=== PATIENT | male | born 1950 | race Caucasian/White ===

== ENCOUNTER 2020-07-02 14:47 | Emergency (ER) | payer MEDICARE, MEDICAID, SELFPAY ==
[2020-07-02 14:49] VITALS: BP 155/75; PULSE 59; RESP 18; TEMP 36.3; O2SAT 100; BMI 22.0
--- NOTE | 2020-07-02 15:21 | XR_ITS ---
WS: [id number] XR chest 1V portable [id number] REASON FOR EXAM: dyspnea/cough FINDINGS: The heart and mediastinum are within normal limits. Calcified granulomatous disease is present bilaterally. No active pulmonary parenchymal or pleural disease is noted. Moderate degenerative changes in the right acromioclavicular joint. Mild changes of degenerative spon dylosis in the mid and lower thoracic spine. XR/XR chest 1V portable [id number] IMPRESSION: No acute chest abnormality.
[2020-07-02 15:24] VITALS: O2SAT 100
--- NOTE | 2020-07-02 15:36 | ED_ITS ---
HPI - Weakness General: Chief complaint: Weakness Stated complaint: Frequent Passing Out/Stomach Pain/Weak Time Seen by Provider: 07/02/20 15:07 History of Present Illness: HPI Narrative: 70-year-old male presents emergency room with complaints of chest heaviness and weakness. He has been anxious clammy and nauseous at times. Patient is a 50+ year smoker and is also very heavy drinker who recently quit (within the day). This is been associated with nausea abdominal bloating and discomfort. MD Complaint: generalized weakness Onset (ago): week(s) Duration: constant Relieving factors: none Exacerbating factors: none Associated symptoms: Reports chest pain, chills, decreased appetite and nausea; Denies confusion, melena, diaphoresis, dysuria, easy bruising, fever(s), headache(s), myalgias, rash, short of breath, syncope or vomiting Review of Systems Const: Reports: chills; Denies: fever(s) or diaphoresis ENMT: Denies: throat pain, ear or mastoid pain, nasal discharge or nasal congestion Card: Reports: chest pain; Denies: syncope Resp: Denies: dyspnea, productive cough or non-productive cough GI: Reports: nausea; Denies: vomiting or melena : Denies: dysuria Skin/Breast: Denies: rash or pruritus Neuro: Denies: headache(s) or confusion Live/Lymph: Denies: easy bruising Physical Exam Const: COMMON NORMALS: no acute distress GENERAL APPEARANCE: cooperative and comfortable ORIENTATION/CONSCIOUSNESS: Yes awake, Yes oriented to person, Yes oriented to place and Yes oriented to time HENMT: COMMON NORMALS: normocephalic, atraumatic and hearing grossly normal bilaterally HEAD & SCALP: normocephalic and atraumatic Neck/C-Spine: COMMON NORMALS: no JVD Resp: COMMON NORMALS: normal respiratory effort, No retractions, No use of accessory muscles and clear to auscultation bilaterally AUSCULTATION: clear to auscultation bilaterally Cardio: COMMON NORMALS: no JVD, regular rate, regular rhythm and No murmurs present (Cardio) RATE: regular rate RHYTHM: regular rhythm GI: COMMON NORMALS: Soft to palpation and No hepatosplenomegaly present AUSCULTATION: Yes normoactive bowel sounds PALPATION: Yes Soft to palpation, No Tenderness to palpation present (GI), No Guarding due to palpation present (GI) and Yes No hepatosplenomegaly present Extremity: COMMON NORMALS: normal to inspection, capillary refill normal, no clubbing, cyanosis or edema, no calf tenderness and no pedal edema Neuro: SENSORIUM/ORIENTATION: Yes oriented to person, Yes oriented to place and Yes oriented to time Skin: COMMON NORMALS: no rashes or lesions noted GENERAL SKIN EXAM: no rashes or lesions noted Course Vital Signs: Vital signs: Vital Signs Temperature 97.4 F L 07/02/20 14:49 Pulse Rate 71 07/02/20 18:40 Respiratory Rate 16 07/02/20 18:40 Blood Pressure 168/90 07/02/20 18:40 Pulse Oximetry 98 07/02/20 15:45 MDM - Weakness MDM Narrative: Medical decision making narrative: The patient. He is anxious stop drinking but does not want to stay here. Will discharge home with a taper of Librium as well as set up for an outpatient stress test. Patient strongly recommend some kind of assistance [place] through AA meetings or being evaluated at [facility]. Lab Data: Labs: Lab Results 07/02/20 07/02/20 07/02/20 Range/Units 15:20 15:20 15:20 WBC 10.2 H (4.0-10.0) 10^3/ uL RBC 5.08 (4.1-5.3) 10^6/u L Hgb 16.8 H (11.7-16.6) g/dL Hct 49.3 (42.0-52.0) % MCV 97.0 H (80-94) fL MCH 33.1 (28.0-34.0) pg MCHC 34.1 (30.0-36.0) g/dL RDW 12.5 (12.1-15.1) % Plt Count 206 (130-400) 10^3/c mm MPV 11.1 H (7.4-10.4) fL Neut % (Auto) 86.6 % Lymph % (Auto) 6.8 % [place] % (Auto) 5.6 % Eos % (Auto) 0.2 % Baso % (Auto) 0.3 % Neut # (Auto) 8.81 H (1.8-7.7) 10^3/u L Lymph # (Auto) 0.7 L (0.8-4.8) 10^3/u L [place] # (Auto) 0.6 (0.2-0.9) 10^3/u L Eos # (Auto) 0.0 (0.0-0.8) 10^3/u L Baso # (Auto) 0.0 (0.0-0.1) 10^3/u L Nucleated RBC % (a uto) 0 % Nucleated RBCs # 0.0 /100WBC Specimen Type Sample Site ABG pH (7.35-7.45) ABG pCO2 (35-45) mmHg ABG pO2 (80.0-100.0) mmH g ABG HCO3 (22-26) mmol/L ABG O2 Saturation ABG Base Excess (-2.0-2.0) mmol/ L Timmy Test A-a O2 Gradient (5-10) mmHg Hematocrit (42-52) % Hgb O2 Saturation (95-100) % Carboxyhemoglobin (0.4-20.1) %THgb Methemoglobin (0.4-1.5) % Total Hemoglobin (14-18) g/dL Ionized Calcium (1.1-1.4) mmol/L O2 Delivery Device Rn Case Management ID Sodium 136 (136-145) mmol/L Potassium 3.4 L (3.5-5.1) mmol/L Chloride 97 L (98-107) mmol/L Carbon Dioxide 25 (22-29) mmol/L Anion Gap 17.4 (5-19) BUN 14 (8-23) mg/dL Creatinine 0.9 (0.7-1.2) mg/dL GFR Calculation 83.4 L (90-130) mL/min Glucose 137 H (65-115) mg/dL Calculated Osmolal ity 285 (285-295) mOsm/k g Lactic Acid 3.6 H (0.5-2.2) mmol/L Lactic Acid (Sepsi s) (0.5-2.2) mmol/L Calcium 9.1 (8.5-10.5) mg/dL Magnesium 2.0 (1.7-2.3) mg/dL Total Bilirubin 0.5 (0.15-1.2) mg/dL AST 29 (0-40) U/L ALT 17 (0-41) U/L Alkaline Phosphata se 111 (40-130) IU/L Creatine Kinase 56 (39-308) U/L Troponin T Baselin e (0-15) ng/L Troponin T 120 Min [place] (0-15) ng/L Delta Troponin T (0-10) ABS# Total Protein 7.3 (6.6-8.7) g/dL Albumin 4.4 (3.5-5.2) g/dL Globulin 2.9 (1.3-4.6) g/dL Lipase 23 (13-60) U/L Urine Color (Yellow) Urine Appearance (CLEAR) Urine pH (5-7) Ur Specific Gravit y (1.005-1.030) Urine Protein (Negative) Urine Glucose (UA) (Normal) Urine Ketones (Negative) Urine Blood (Negative) Urine Nitrate (Negative) Urine Bilirubin (Negative) Urine Urobilinogen (Negative) mg/dL Ur Leukocyte Nighat ase (Negative) Urine RBC (0-2) /hpf Urine WBC (0-5) /hpf Ur Squamous Epith Cells (0-5) /hpf Amorphous Sediment Urine Bacteria (NONE) /hpf Urine Mucus /hpf Serum Ketones (Negative) 07/02/20 07/02/20 07/02/20 Range/Units 15:20 15:20 15:25 WBC (4.0-10.0) 10^3/ uL RBC (4.1-5.3) 10^6/u L Hgb (11.7-16.6) g/dL Hct (42.0-52.0) % MCV (80-94) fL MCH (28.0-34.0) pg MCHC (30.0-36.0) g/dL RDW (12.1-15.1) % Plt Count (130-400) 10^3/c mm MPV (7.4-10.4) fL Neut % (Auto) % Lymph % (Auto) % [place] % (Auto) % Eos % (Auto) % Baso % (Auto) % Neut # (Auto) (1.8-7.7) 10^3/u L Lymph # (Auto) (0.8-4.8) 10^3/u L [place] # (Auto) (0.2-0.9) 10^3/u L Eos # (Auto) (0.0-0.8) 10^3/u L Baso # (Auto) (0.0-0.1) 10^3/u L Nucleated RBC % (a uto) % Nucleated RBCs # /100WBC Specimen Type Arterial Sample Site Radial, left ABG pH 7.42 (7.35-7.45) ABG pCO2 37.8 (35-45) mmHg ABG pO2 83.6 (80.0-100.0) mmH g ABG HCO3 24.5 (22-26) mmol/L ABG O2 Saturation 98.0 ABG Base Excess 0.3 (-2.0-2.0) mmol/ L Timmy Test Pos A-a O2 Gradient 2.2 L (5-10) mmHg Hematocrit 51.3 (42-52) % Hgb O2 Saturation 94.5 L (95-100) % Carboxyhemoglobin 3.5 (0.4-20.1) %THgb Methemoglobin 0.2 L (0.4-1.5) % Total Hemoglobin 16.8 (14-18) g/dL Ionized Calcium 1.2 (1.1-1.4) mmol/L O2 Delivery Device Room air Rn Case Management ID Gd Sodium 138.0 (136-145) mmol/L Potassium 3.5 (3.5-5.1) mmol/L Chloride (98-107) mmol/L Carbon Dioxide (22-29) mmol/L Anion Gap (5-19) BUN (8-23) mg/dL Creatinine (0.7-1.2) mg/dL GFR Calculation (90-130) mL/min Glucose 129.0 H (65-115) mg/dL Calculated Osmolal ity (285-295) mOsm/k g Lactic Acid (0.5-2.2) mmol/L Lactic Acid (Sepsi s) (0.5-2.2) mmol/L Calcium (8.5-10.5) mg/dL Magnesium (1.7-2.3) mg/dL Total Bilirubin (0.15-1.2) mg/dL AST (0-40) U/L ALT (0-41) U/L Alkaline Phosphata se (40-130) IU/L Creatine Kinase (39-308) U/L Troponin T Baselin e 17 H (0-15) ng/L Troponin T 120 Min [place] (0-15) ng/L Delta Troponin T (0-10) ABS# Total Protein (6.6-8.7) g/dL Albumin (3.5-5.2) g/dL Globulin (1.3-4.6) g/dL Lipase (13-60) U/L Urine Color (Yellow) Urine Appearance (CLEAR) Urine pH (5-7) Ur Specific Gravit y (1.005-1.030) Urine Protein (Negative) Urine Glucose (UA) (Normal) Urine Ketones (Negative) Urine Blood (Negative) Urine Nitrate (Negative) Urine Bilirubin (Negative) Urine Urobilinogen (Negative) mg/dL Ur Leukocyte [place] ase (Negative) Urine RBC (0-2) /hpf Urine WBC (0-5) /hpf Ur Squamous Epith Cells (0-5) /hpf Amorphous Sediment Urine Bacteria (NONE) /hpf Urine Mucus /hpf Serum Ketones Negative (Negative) 07/02/20 07/02/20 07/02/20 Range/Units 16:17 17:58 17:58 WBC (4.0-10.0) 10^3/ uL RBC (4.1-5.3) 10^6/u L Hgb (11.7-16.6) g/dL Hct (42.0-52.0) % MCV (80-94) fL MCH (28.0-34.0) pg MCHC (30.0-36.0) g/dL RDW (12.1-15.1) % Plt Count (130-400) 10^3/c mm MPV (7.4-10.4) fL Neut % (Auto) % Lymph % (Auto) % [place] % (Auto) % Eos % (Auto) % Baso % (Auto) % Neut # (Auto) (1.8-7.7) 10^3/u L Lymph # (Auto) (0.8-4.8) 10^3/u L [place] # (Auto) (0.2-0.9) 10^3/u L Eos # (Auto) (0.0-0.8) 10^3/u L Baso # (Auto) (0.0-0.1) 10^3/u L Nucleated RBC % (a uto) % Nucleated RBCs # /100WBC Specimen Type Sample Site ABG pH (7.35-7.45) ABG pCO2 (35-45) mmHg ABG pO2 (80.0-100.0) mmH g ABG HCO3 (22-26) mmol/L ABG O2 Saturation ABG Base Excess (-2.0-2.0) mmol/ L Timmy Test A-a O2 Gradient (5-10) mmHg Hematocrit (42-52) % Hgb O2 Saturation (95-100) % Carboxyhemoglobin (0.4-20.1) %THgb Methemoglobin (0.4-1.5) % Total Hemoglobin (14-18) g/dL Ionized Calcium (1.1-1.4) mmol/L O2 Delivery Device Rn Case Management ID Sodium (136-145) mmol/L Potassium (3.5-5.1) mmol/L Chloride (98-107) mmol/L Carbon Dioxide (22-29) mmol/L Anion Gap (5-19) BUN (8-23) mg/dL Creatinine (0.7-1.2) mg/dL GFR Calculation (90-130) mL/min Glucose (65-115) mg/dL Calculated Osmolal ity (285-295) mOsm/k g Lactic Acid (0.5-2.2) mmol/L Lactic Acid (Sepsi s) 0.8 (0.5-2.2) mmol/L Calcium (8.5-10.5) mg/dL Magnesium (1.7-2.3) mg/dL Total Bilirubin (0.15-1.2) mg/dL AST (0-40) U/L ALT (0-41) U/L Alkaline Phosphata se (40-130) IU/L Creatine Kinase (39-308) U/L Troponin T Baselin e (0-15) ng/L Troponin T 120 Min [place] 17.54 H (0-15) ng/L Delta Troponin T 0.54 (0-10) ABS# Total Protein (6.6-8.7) g/dL Albumin (3.5-5.2) g/dL Globulin (1.3-4.6) g/dL Lipase (13-60) U/L Urine Color Yellow (Yellow) Urine Appearance Clear (CLEAR) Urine pH 6.5 (5-7) Ur Specific Gravit y 1.015 (1.005-1.030) Urine Protein Trace (Negative) Urine Glucose (UA) Norm (Normal) Urine Ketones 1+ H (Negative) Urine Blood Neg (Negative) Urine Nitrate Negative (Negative) Urine Bilirubin Neg (Negative) Urine Urobilinogen Norm (Negative) mg/dL Ur Leukocyte [place] ase Negative (Negative) Urine RBC 0-4 H (0-2) /hpf Urine WBC None (0-5) /hpf Ur Squamous Epith Cells None (0-5) /hpf Amorphous Sediment Not Reportable Urine Bacteria Trace (NONE) /hpf Urine Mucus 1+ /hpf Serum Ketones (Negative) Discharge Plan Discharge Patient Disposition: Home Clinical Impression: Atypical chest pain, ETOH abuse Condition: Stable Prescriptions: New pantoprazole 40 mg tablet,delayed release (DR/EC) 40 mg PO DAILY 56 Days Qty: 60 RF: 0 chlordiazepoxide HCl 10 mg capsule 10 mg PO Q8H Qty: 20 RF: 0 aspirin 81 mg tablet,delayed release (DR/EC) 81 mg PO DAILY Qty: 30 RF: 3 Toprol XL 25 mg tablet extended release 24 hr 12.5 mg PO DAILY Qty: 20 RF: 0 Discharge Orders: Discharge ED (Routine); Ordered 07/02/20 Ordered By: Troy Gotti Discharge Diet: Usual diet Discharge Activity: Resume usual activity Patient Instructions: Abuse of Alcohol (ED), Opioid Safety Activity Restrictions/Additional Instructions: Not drink alcohol. Case management will call you with an appointment to do his Lexiscan sestamibi stress test. Do not drink any alcohol while taking the Librium taper off Librium as prescribed. Recommend you follow-up with outpatient alcohol rehab such as [facility]. Coding Level of Care Code ED Assistant [employer] for [place] Fwd Exam Comprehensive
[2020-07-02 15:38] LABS: Basophils % 0.3 %; Eosinophils % 0.2 %; Hematocrit 49.3 % (42.0-52.0); Hemoglobin 16.8 g/dL (11.7-16.6); Lymphocytes # 0.7 10^3/uL (0.8-4.8); Lymphocytes % 6.8 %; Mean Corpuscular HGB Conc 34.1 g/dL (30.0-36.0); Mean Corpuscular Hemoglobin 33.1 pg (28.0-34.0); Mean Platelet Volume 11.1 fL (7.4-10.4); Monocytes # 0.6 10^3/uL (0.2-0.9); Monocytes % 5.6 %; Neutrophils # 8.81 10^3/uL (1.8-7.7); Neutrophils % 86.6 %; Nucleated Red Blood Cells % 0 %; Platelet Count 206 10^3/cmm (130-400); Red Blood Count 5.08 10^6/uL (4.1-5.3); Red Cell Distribution Width 12.5 % (12.1-15.1); White Blood Count 10.2 10^3/uL (4.0-10.0)
[2020-07-02 15:42] LABS: ABG PCO2 37.8 mmHg (35-45); ABG PH Result 7.42 (7.35-7.45); Alveolar-Arterial Oxygen Gradi 2.2 mmHg (5-10); Arterial Blood Gas Hematocrit 51.3 % (42-52); Base Excess ABG 0.3 mmol/L (-2.0-2.0); Blood Gas Allen Test Pos; Blood Gas Operator Identificat GD; Blood Gas Sample Site Radial, left; Blood Gas Sample Type Arterial; Carboxyhemoglobin 3.5 %THgb (0.4-20.1); HCO3 ABG 24.5 mmol/L (22-26); HGB O2 Sat 94.5 % (95-100); Ionized Calcium Level - ABG 1.2 mmol/L (1.1-1.4); Methemoglobin 0.2 % (0.4-1.5); Oxygen Device ROOM AIR; PO2 ABG 83.6 mmHg (80.0-100.0); Potassium Level - ABG 3.5 mmol/L (3.5-5.0); Total Hemoglobin 16.8 g/dL (14-18)
[2020-07-02 15:45] VITALS: BP 185/100; PULSE 77; RESP 18; O2SAT 98
[2020-07-02 15:50] LABS: Ketone (Acetest) Serum Negative (Negative)
[2020-07-02 15:51] LABS: Lactic Sepsis W/Reflex 3.6 mmol/L (0.5-2.2)
[2020-07-02 16:05] LABS: Alanine Aminotransferase 17 U/L (0-41); Albumin Level 4.4 g/dL (3.5-5.2); Alkaline Phosphatase 111 IU/L (40-130); Anion Gap 17.4 (5-19); Aspartate Amino Transferase 29 U/L (0-40); Blood Urea Nitrogen 14 mg/dL (8-23); Calcium 9.1 mg/dL (8.5-10.5); Carbon Dioxide 25 mmol/L (22-29); Chloride 97 mmol/L (98-107); Creatine Phosphokinase 56 U/L (39-308); Globulin 2.9 g/dL (1.3-4.6); Glomerular Filtration Rate 83.4 mL/min (90-130); Glucose 137 mg/dL (65-115); Lipase 23 U/L (13-60); Osmolality Calculated 285 mOsm/kg (285-295); Potassium 3.4 mmol/L (3.5-5.1); Sodium 136 mmol/L (136-145); Total Bilirubin 0.5 mg/dL (0.15-1.2); Total Protein 7.3 g/dL (6.6-8.7)
[2020-07-02 16:31] LABS: Glucose Urine UA Norm (Normal); Protein Urine Trace (Negative); Specific Gravity, Urine 1.015 (1.005-1.030); Urine Appearance Clear (CLEAR); Urine Color Yellow (Yellow); pH Urine 6.5 (5-7)
[2020-07-02 16:32] LABS: Add Urine Microscopic? YES; Bilirubin Urine Neg (Negative); Blood Urine Neg (Negative); Ketones Urine 1+ (Negative); Leukocyte Esterase Urine Negative (Negative); Nitrate Urine Negative (Negative); Urobilinogen Urine Norm (Negative)
[2020-07-02 16:37] LABS: Bacteria Urine TRACE /hpf; Mucus Urine 1+ /hpf; RBC Urine 0-4 /hpf (0-2)
[2020-07-02 16:38] LABS: Add Urine Culture? No
[2020-07-02 17:24] LABS: Reflex Lactate Order REFLEX LACTIC ORDERD
--- NOTE | 2020-07-02 17:42 | ECG_ITS ---
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 Measurements Intervals Mears Rate: 72 P: 67 MS: 134 QRS: 24 QRSD: 165 T: 175 QT: 464 QTc: 511 Interpretive Statements SINUS RHYTHM LEFT ATRIAL ENLARGEMENT [-0.15mV P WAVE IN V1/V2] LEFT BUNDLE BRANCH BLOCK [120+ ms QRS DURATION, 80+ ms Q/S IN V1/V2, 85+ ms R IN I/aVL/V5/V6] INTERPRETATION BASED ON A DEFAULT AGE OF 40 YEARS No previous ECG available for comparison Electronically Signed On 07-02-2020 23:59:41 CDT by Avril Mathis M.D. [id number]
[2020-07-02 17:51] VITALS: BP 168/90; PULSE 77; RESP 16
[2020-07-02 18:04] LABS: Troponin(5th) Baseline 17 ng/L (0-15)
[2020-07-02 18:29] LABS: Troponin 5 2HR 17.54 ng/L (0-15); Troponin 5 2HR Delta 0.54 ABS# (0-10)
[2020-07-02 18:40] VITALS: BP 168/90; PULSE 71; RESP 16
[2020-07-02 18:51] LABS: Lactic Acid level (Lactate) 0.8 mmol/L (0.5-2.2)
--- NOTE | 2020-07-04 10:05 | DCPLANNER ---
germination testing manager had message to schedule an out patient stress test for patient. germination testing manager called patient to confirm that patient still wanted to have the stress test, and to confirm who patient sees for primary care. Patient stated that he does want the stress test, but does not have a primary care physician. germination testing manager offered to get patient established with a primary care physician, patient stated that he would like that. Patient chose Dr. Batres. germination testing manager faxed signed order for stress test to centralized scheduling, with the results being sent to Dr. Batres. After the stress test is ordered, case specialist will call the office of Dr. Batres and schedule a follow up appointment for patient. germination testing manager will call patient with appointment information.
--- NOTE | 2020-07-11 13:50 | DCPLANNER ---
Addendum entered by Haydee Garcia 07/12/20 08:27: porter sample case called patient, left voicemail for patient to return supervisor case loading phone call. Original Note: Patient has a stress test scheduled, porter sample case is to call and get patient established with a primary care physician after the stress test. e business project manager called the office of Dr. Delgado at [facility], spoke with Diane. A follow up appointment was scheduled for July at 1:[address] Delgado. e business project manager called patient and was unable to speak with patient at this time. e business project manager left a voicemail for patient to return supervisor case loading phone call. e business project manager will keep trying to call patient.
--- NOTE | 2020-07-12 08:34 | DCPLANNER ---
air traffic control manager spoke with patient, he stated that he has an appointment scheduled for Thursday, July 23, 2020 at 1:[address] Batres. he stated that he was going to discuss with her about him having the stress test. If the physician does not think that he will need it, he is going to cancel the stress test. air traffic control manager called and cancelled the followup appointment scheduled for 08.02.[address] Delgado.
--- NOTE | 2020-08-01 12:51 | DCPLANNER ---
Patient had a follow up appointment scheduled for 07.23.[address] Batres to establish for primary care physician. - patient did attend appointment. Patient had a stress test scheduled for 07.31.20 appointment was rescheduled for 08.21.20.
--- NOTE | 2020-09-27 12:51 | DCPLANNER ---
Patient had a follow up appointment on 08.22.20 for an outpatient stress test - patient did attend appointment.
== END 2020-07-02 18:40 | disposition home or self-care (01) ==
PROVIDERS: Emergency Provider Family Medicine
DX: R07.89 Other chest pain (principal); F10.10 Alcohol abuse, uncomplicated; Z79.82 Long term (current) use of aspirin
CPT/HCPCS: 36415; 36600; 71045; 80051; 80053; 81001; 82009; 82330; 82550; 82805; 83605; 83690; 83735; 84484; 85025; 93005; 99283

== ENCOUNTER 2020-08-16 09:51 | Outpatient (CLI) | payer MEDICARE, MEDICAID, SELFPAY ==
--- NOTE | 2020-08-16 10:15 | USCV_ITS ---
Rashi Orozco Age: 70 Gender: M : 1950 Exam Date: 08/16/2020 10:00 Ordering Phys: Alice Batres DO Technologist: Karen Burt [place]am [place] [facility] [place]ication: Syncope Risk Factors: Smoker Previous Vascular Surgery: None Right Brachial BP: / Left Brachial BP: / Right Left Velocity (cm/s) Spectral Plaque Velocity (cm/s) Spectral Plaque Syst/Diast Broadening Syst/Diast Broadening 81.60/ 15.40 Prox CCA 81.60 / 15.40 89.30/ 23.20 Mid CCA 63.90 / 14.30 73.90/ 22.10 Hetro Distal CCA 61.70 / 13.20 Hetro 55.50/ 10.30 Prox ICA 39.60 / 9.30 68.40/ 17.90 Mid ICA 87.10 / 20.90 67.50/ 19.70 Distal ICA 94.80 / 27.60 105.20 ECA 100.30 0.93 ICA/CCA 1.54 Antegrade Vertebral Antegrade 26.70/ 6.90 cm/s 44.30/ 13.20 cm/s Bi Subclavian Tri 129.0 66.00 0 FINDINGS Comparison: none available. No significant elevation of systolic or diastolic velocities. Waveforms are normal. Antegrade vertebral arteries. CONCLUSIONS No evidence of significant carotid artery stenosis. Dr. Fatoumata Billings DO (Electronically Signed) Final Date: 16 August 2020 11:23 S
== END 2020-08-16 09:52 | disposition home or self-care (01) ==
LOC: RAD 09:54
PROVIDERS: PCP Family Medicine; Visit Provider Family Medicine
DX: R55 Syncope and collapse (principal)
CPT/HCPCS: 93880

== ENCOUNTER → 2020-08-20 14:30 | Outpatient (BNVA) | payer MEDICARE, MEDICAID, SELFPAY | PROVIDERS: PCP Family Medicine; Visit Provider Family Medicine | DX: I10 Essential (primary) hypertension (principal) | CPT/HCPCS: 85025 ==

== ENCOUNTER 2020-08-21 09:25 | Outpatient (CLI) | payer MEDICARE, MEDICAID, SELFPAY ==
[2020-08-21 10:01] VITALS: BMI 22.8
--- NOTE | 2020-08-21 10:03 | ECG_ITS ---
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 The perfusion scan will be documented separately. DATA: Baseline heart rate was 73 beats per minute. Baseline blood pressure was 141/104 millimeters of mercury. Target heart rate was 150. Maximum heart rate achieved was 96. which was 64 % of the predicted target heart rate. Maximum blood pressure was 180/109 millimeters of mercury. The reason for ending the test was completion of the protocol. The patient did not experience any symptoms. ELECTROCARDIOGRAM: BASELINE: Sinus rhythm. Normal axis. Left bundle branch block. EXERCISE: After Lexiscan injection, no ST-T changes suggestive of ischemic noted. No arrhythmia noted. CONCLUSION: Please note due to baseline abnormality of the EKG specificity and sensitivity of the EKG portion of LexiScan MIBI stress test will be low 1. EKG not suggestive of ischemia 2. Lexiscan injection unremarkable. 3. Perfusion scan will be documented separately. Electronically Signed On 09-04-2020 19:30:49 CDT by KELBY AVINA [id number]
--- NOTE | 2020-08-21 10:04 | NMCV_ITS ---
NM jessica perf SPECT r/s* [id number] Rashi Orozco Age: 70 Gender: M : 1950 Exam Date: 08/21/2020 10:43 Ordering Phys: Troy Gotti DO Technologist: KATE Edwards Exam Location: [facility] Indications: CHEST PAIN STRESS TEST Please see separate stress test report in [facility] for full findings IMAGE PROTOCOL Rest/Stress 1 Lexiscan Day Radiopharmaceutical Dose (mCi) Administration Site Administered by Rest: Tc-99m 10.7 IV KATE Ness Sestamibi Stress:Tc-99m 32.9 IV KATE Ness Sestamibi Rest: 21-Aug-2020 60 Discovery 630 Stress: 21-Aug-2020 30 Discovery 630 0.4mg Lexiscan. Images obtained in supine and prone position. SPECT RESULTS Technical Quality: Excellent Raw Data Analysis: Normal Image Corrections: No attenuation or motion correction applied Summed Stress Score: 13 Summed Rest Score: 8 Summed Difference Score: 5 PERFUSION FINDINGS Moderate area of fixed perfusion defect not in basal to distal inferior wall suggestive of old myocardial infarction versus scarring. FUNCTIONAL RESULTS (calculated via Gated SPECT) Stress Image LV EF (%): 28 Stress EDV (mL):212 TID: 0.99 Stress ESV (mL):153 Rest Image LV EF (%): 28 FUNCTIONAL FINDINGS: Severe global hypokinesis suggestive of cardiomyopathy IMPRESSIONS This study is negative for ischemia but consistent with old myocardial infarction versus scarring in the inferior wall. EKG segment will be documented separately. Yenni Zafar MD (Electronically Signed) Final Date: 22 Aug 2020 16:08 S
--- NOTE | 2020-08-21 11:42 | SUR.PREOP ---
Patient reports no pain or discomfort prior to the start of the procedure.
[2020-08-21] MEDS: regadenoson 0.4 Mg/5 ml Syringe IVP (11:54)
[2020-08-21 12:24] VITALS: BP 173/94; PULSE 70
== END 2020-08-21 09:26 | disposition home or self-care (01) ==
PROVIDERS: PCP Family Medicine; Visit Provider Family Medicine
DX: R07.89 Other chest pain (principal)
CPT/HCPCS: 78452; 93017; A9500; J2785

== ENCOUNTER → 2020-08-22 09:31 | Outpatient (BNVA) | payer MEDICARE, MEDICAID, SELFPAY | PROVIDERS: PCP Family Medicine; Visit Provider Family Medicine | DX: I10 Essential (primary) hypertension (principal) | CPT/HCPCS: 80053; 80061; 85025 ==

== ENCOUNTER → 2020-11-21 10:39 | Outpatient (BNVA) | payer MEDICARE, MEDICAID, SELFPAY | PROVIDERS: PCP Family Medicine; Visit Provider Internal Medicine | DX: M94.1 Relapsing polychondritis (principal); M54.2 Cervicalgia; Z79.899 Other long term (current) drug therapy; F17.210 Nicotine dependence, cigarettes, uncomplicated | CPT/HCPCS: 99204 ==

== ENCOUNTER 2020-11-22 07:20 | Outpatient (CLI) | payer MEDICARE, MEDICAID, SELFPAY ==
--- NOTE | 2020-11-22 07:35 | XR_ITS ---
WS: [id number] LATERAL CERVICAL SPINE: 4 view. Lateral radiographs are performed in upright neutral, flexion and extension to the patient's toleranc e. AP cervical spine. HISTORY: R07.89 - Other chest pain COMPARISON: None available. Increased in the cervical lordosis. Posterior alignment is normal. There are small endplate osteophyt es throughout the cervical spine. Moderate disc space narrowing at C4-5, C5-6 and C6-7. No prevertebr al soft tissue swelling. During flexion there is less than 2 mm anterolisthesis of C3. During extension less than 2 mm retroli sthesis of C2. Severe bilateral facet joint arthritis throughout the cervical spine. Most significant on the RIGHT a t C4-C6. XR/XR cervical spine fl/ex [id number] IMPRESSION: 1. Increase in the cervical lordosis. 2. No significant cervical spine instability with flexion and extension. 3. Severe facet joint arthritis on the RIGHT at C4, C5 and C6.
--- NOTE | 2020-11-22 07:35 | XR_ITS ---
WS: [id number] CHEST 2 VIEWS HISTORY: Z79.899 - Other keno terminal operator (current) drug therapy COMPARISON: 07/02/2020 Lungs: Moderate pulmonary hyperexpansion. No pneumonia or interstitial thickening or nodules. No pleu ral effusion or pneumothorax. Cardiac size: Normal. Mediastinum/Aorta: Densely calcified LEFT hilar lymph nodes. Bones: Mild to moderate thoracic spine spondylosis. No fractures or bone destruction. Mild bilateral AC joint arthritis. XR/XR chest 2V* [id number] IMPRESSION: 1. Chronic emphysema with no pneumonia or interstitial nodule. 2. Benign LEFT hilar lymph nodes.
[2020-11-22 08:38] LABS: Basophils % 0.5 %; Eosinophils # 0.1 10^3/uL (0.0-0.8); Hematocrit 48.6 % (42.0-52.0); Hemoglobin 16.3 g/dL (11.7-16.6); Lymphocytes # 1.2 10^3/uL (0.8-4.8); Lymphocytes % 19.6 %; Mean Corpuscular HGB Conc 33.5 g/dL (30.0-36.0); Mean Corpuscular Volume 95.5 fL (80-94); Mean Platelet Volume 10.9 fL (7.4-10.4); Monocytes # 0.7 10^3/uL (0.2-0.9); Monocytes % 10.7 %; Neutrophils % 67.9 %; Nucleated Red Blood Cells % 0 %; Platelet Count 198 10^3/cmm (130-400); Red Blood Count 5.09 10^6/uL (4.1-5.3); Red Cell Distribution Width 13.2 % (12.1-15.1); White Blood Count 6.2 10^3/uL (4.0-10.0)
[2020-11-22 09:01] LABS: Alanine Aminotransferase 11 U/L (0-41); Albumin Level 4.2 g/dL (3.5-5.2); Alkaline Phosphatase 115 IU/L (40-130); Anion Gap 13.3 (5-19); Aspartate Amino Transferase 20 U/L (0-40); Blood Urea Nitrogen 8 mg/dL (8-23); C Reactive Protein 1.7 mg/L (0.0-4.9); Calcium 9.2 mg/dL (8.5-10.5); Carbon Dioxide 28 mmol/L (22-29); Chloride 101 mmol/L (98-107); Globulin 2.5 g/dL (1.3-4.6); Glomerular Filtration Rate 95.6 mL/min (90-130); Glucose 101 mg/dL (65-115); Osmolality Calculated 284 mOsm/kg (285-295); Potassium 4.3 mmol/L (3.5-5.1); Sodium 138 mmol/L (136-145); Total Bilirubin 0.4 mg/dL (0.15-1.2); Total Protein 6.7 g/dL (6.6-8.7)
[2020-11-22 09:20] LABS: Hepatitis B Core AB, Total Non-Reactive (Nonreactive); Hepatitis B Surface Antigen Non-Reactive (Nonreactive); Hepatitis C Virus Antibody Non-Reactive (Nonreactive)
[2020-11-22 09:29] LABS: Erythrocyte Sedimentation Rate 2 mm/hr (0-10)
[2020-11-23 11:07] LABS: COMPLEMENT, TOTAL (CH50) >60 U/mL (31-60)
[2020-11-23 11:33] LABS: COMPLEMENT COMPONENT C3C 117 mg/dL (82-185); COMPLEMENT COMPONENT C4C 18 mg/dL (15-53)
[2020-11-23 12:57] LABS: CENTROMERE B ANTIBODY <1.0 NEG AI (<1.0 NEG); JO-1 ANTIBODY <1.0 NEG AI (<1.0 NEG); RNP ANTIBODY <1.0 NEG AI (<1.0 NEG); SCL-70 ANTIBODY <1.0 NEG AI (<1.0 NEG); SJOGREN'S ANTIBODY (SS-A) <1.0 NEG AI (<1.0 NEG); SM ANTIBODY <1.0 NEG AI (<1.0 NEG); SS-B <1.0 NEG AI (<1.0 NEG)
[2020-11-23 14:17] LABS: Cyclic Citrullinated Peptide <16 UNITS
[2020-11-24 14:37] LABS: Quantiferon Mitogen >10.00 IU/mL; Quantiferon Nil 0.02 IU/mL; Quantiferon TB Gold NEGATIVE (NEGATIVE)
[2020-11-24 22:37] LABS: ANCA Interp Negative (Negative)
[2020-11-26 14:58] LABS: THYROID PEROXIDASE ANTIBODIES 4 IU/mL (<9)
[2020-11-26 16:13] LABS: ANA SCREEN, IFA NEGATIVE (NEGATIVE)
[2020-11-30 22:07] LABS: DNA AB (DS) CRITHIDIA,IFA NEGATIVE (NEGATIVE)
== END 2020-11-22 07:21 | disposition home or self-care (01) ==
PROVIDERS: PCP Family Medicine; Visit Provider Internal Medicine
DX: F17.219 Nicotine dependence, cigarettes, with unspecified nicotine-induced disorders (principal); I10 Essential (primary) hypertension; R07.89 Other chest pain; R55 Syncope and collapse; Z79.899 Other long term (current) drug therapy; Z11.59 Encounter for screening for other viral diseases; Z11.1 Encounter for screening for respiratory tuberculosis
CPT/HCPCS: 71046; 72040; 80053; 83516; 84550; 85025; 85651; 86140; 86160; 86162; 86235; 86255; 86376; 86431; 86480; 86704; 86803; 87340

== ENCOUNTER 2021-01-10 14:35 | Outpatient (CLI) | payer MEDICARE, MEDICAID, SELFPAY ==
--- NOTE | 2021-01-10 14:45 | USCV_ITS ---
Rashi Orozco Age: 70 Gender: M : 1950 Exam Date: 01/10/2021 14:54 Ordering Phys: Nickolas Mays MD Technologist: Sury Martínez Exam Location: [facility] [place] Indication: ESSENTIAL HYPERTENSION BP: 137 / 76 HR: 109 Rhythm: Sinus Technical Quality: Adequate MEASUREMENTS (Male / Female) Normal Values 2D ECHO LV Diastolic Diameter PLAX 4.6 cm 4.2 - 5.9 / 3.9 - 5.3 cm LV Systolic Diameter PLAX 3.8 cm IVS Diastolic Thickness 1.7 cm 0.6 - 1.0 / 0.6 - 0.9 cm IVS Systolic Thickness 2.0 cm LVPW Diastolic Thickness 1.7 cm 0.6 - 1.0 / 0.6 - 0.9 cm LVPW Systolic Thickness 1.9 cm LVOT Diameter 2.0 cm LV Ejection Fraction 2D Teich 41.3 % LV Ejection Fraction MOD 2C 31.8 % LV Ejection Fraction 2C AL 31.1 % LA Diameter 2.6 cm LA Width 4.3 cm LA Height 3.4 cm RA Width 3.0 cm RA Height 3.0 cm Aorta at Sinotubular Diameter 2.8 cm DOPPLER AV Peak Velocity 120.0 cm/s LVOT Peak Velocity 84.0 cm/s AV Area Cont Eq vti 2.1 cm squared AV Area Cont Eq pk 2.2 cm squared TR Peak Velocity 260.0 cm/s TR Peak Gradient 27.0 mmHg TV Peak E Velocity 44.0 cm/s Right Atrial Pressure 3.0 mmHg Pulmonary Artery Systolic Pressu 30.0 mmHg PV Peak Velocity 115.0 cm/s RV Acceleration Time 0.2 s RV Ejection Time 0.3 s RV AcT/ET 0.5 FINDINGS Left Ventricle Normal left ventricular cavity size. Moderate left ventricular hypertrophy of concentric type. Global left ventricular hypokinesis. Moderately decreased left ventricular systolic function. Left ventricular ejection fraction is estimated at 40 %. In the presence of tachycardia diastolic, wall motion and estimation of ejection fraction may not be accurate Right Ventricle The right ventricle is normal in size and function. RVSP could not be calculated due to incomplete tricuspid regurgitation velocity profile. Right Atrium The right atrium is normal in size. Left Atrium The left atrium is normal in size. Mitral Valve Structurally normal mitral valve without significant stenosis or prolapse. There is no mitral regurgitation. Aortic Valve Structurally normal aortic valve without significant sclerosis or stenosis. There is no aortic regurgitation. Tricuspid Valve Structurally normal tricuspid valve without significant stenosis or regurgitation. Pulmonic Valve Structurally normal pulmonic valve without significant stenosis. There is no pulmonic regurgitation. Pericardium Normal pericardium without effusion. Aorta Normal ascending aorta dimension. CONCLUSIONS 1-Normal left ventricular cavity size. Moderate left ventricular hypertrophy of concentric type. Global left ventricular hypokinesis. Moderately decreased left ventricular systolic function. Left ventricular ejection fraction is estimated at 40 %. In the presence of tachycardia diastolic, wall motion and estimation of ejection fraction may not be accurate. 2-There is no pericardial effusion. 3-No significant valve abnormalities. 4-The right ventricle is normal in size and function. RVSP could not be calculated due to incomplete tricuspid regurgitation velocity profile. 5-Right atrial pressure is around 2 mm of mercury. 6-There are no prior echocardiogram studies to compare. Yenni Zafar MD (Electronically Signed) Final Date: 10 January 2021 18:21 S
== END 2021-01-10 14:36 | disposition home or self-care (01) ==
LOC: RAD 14:40
PROVIDERS: PCP Family Medicine; Visit Provider Internal Medicine
DX: F17.219 Nicotine dependence, cigarettes, with unspecified nicotine-induced disorders (principal); I10 Essential (primary) hypertension; R07.89 Other chest pain; R55 Syncope and collapse
CPT/HCPCS: 93306

== ENCOUNTER → 2021-01-23 09:58 | Outpatient (BNVA) | payer MEDICARE, MEDICAID, SELFPAY | PROVIDERS: PCP Family Medicine; Visit Provider Internal Medicine | DX: M94.1 Relapsing polychondritis (principal); Z79.899 Other long term (current) drug therapy; M54.2 Cervicalgia; I50.40 Unspecified combined systolic (congestive) and diastolic (congestive) heart failure; Z87.891 Personal history of nicotine dependence | CPT/HCPCS: 81401; 99214 ==

== ENCOUNTER 2021-01-25 08:34 | Outpatient (CLI) | payer MEDICARE, MEDICAID, SELFPAY ==
[2021-01-25 09:00] LABS: Basophils % 0.3 %; Eosinophils # 0.1 10^3/uL (0.0-0.8); Eosinophils % 0.7 %; Hematocrit 48.1 % (42.0-52.0); Hemoglobin 16.1 g/dL (11.7-16.6); Lymphocytes # 1.2 10^3/uL (0.8-4.8); Lymphocytes % 15.7 %; Mean Corpuscular HGB Conc 33.5 g/dL (30.0-36.0); Mean Corpuscular Hemoglobin 32.9 pg (28.0-34.0); Mean Corpuscular Volume 98.2 fl (80-94); Mean Platelet Volume 10.4 fL (7.4-10.4); Monocytes # 0.7 10^3/uL (0.2-0.9); Monocytes % 9.7 %; Neutrophils # 5.44 10^3/uL (1.8-7.7); Neutrophils % 72.9 %; Nucleated Red Blood Cells % 0 %; Platelet Count 197 10^3/cmm (130-400); Red Cell Distribution Width 12.5 % (12.1-15.1); White Blood Count 7.5 10^3/uL (4.0-10.0)
[2021-01-25 09:47] LABS: Alanine Aminotransferase 13 U/L (0-41); Albumin Level 3.9 g/dL (3.5-5.2); Alkaline Phosphatase 80 IU/L (40-130); Anion Gap 11.6 (5-19); Aspartate Amino Transferase 20 U/L (0-40); Blood Urea Nitrogen 11 mg/dL (8-23); C Reactive Protein 0.8 mg/L (0.0-4.9); Carbon Dioxide 29 mmol/L (22-29); Chloride 101 mmol/L (98-107); Globulin 2.4 g/dL (1.3-4.6); Glomerular Filtration Rate 95.6 mL/min (90-130); Glucose 108 mg/dL (65-115); Osmolality Calculated 286 mOsm/kg (285-295); Potassium 3.6 mmol/L (3.5-5.1); Sodium 138 mmol/L (136-145); Total Bilirubin 0.5 mg/dL (0.15-1.2); Total Protein 6.3 g/dL (6.6-8.7)
[2021-01-28 11:30] LABS: Erythrocyte Sedimentation Rate 2 mm/hr (0-10)
== END 2021-01-25 08:35 | disposition home or self-care (01) ==
LOC: LAB 08:40
PROVIDERS: PCP Family Medicine; Visit Provider Internal Medicine
DX: M54.2 Cervicalgia (principal); Z79.899 Other long term (current) drug therapy; M94.1 Relapsing polychondritis
CPT/HCPCS: 36415; 80053; 85025; 85651; 86140

== ENCOUNTER 2021-04-16 08:54 | Outpatient (CLI) | payer MEDICARE, MEDICAID, SELFPAY ==
[2021-04-16 09:42] LABS: Basophils % 0.6 %; Eosinophils # 0.2 10^3/uL (0.0-0.8); Eosinophils % 3.3 %; Hematocrit 42.1 % (42.0-52.0); Hemoglobin 14.5 g/dL (11.7-16.6); Lymphocytes # 1.2 10^3/uL (0.8-4.8); Lymphocytes % 16.3 %; Mean Corpuscular HGB Conc 34.4 g/dL (30.0-36.0); Mean Corpuscular Hemoglobin 32.9 pg (28.0-34.0); Mean Corpuscular Volume 95.5 fl (80-94); Mean Platelet Volume 10.1 fL (7.4-10.4); Monocytes # 0.8 10^3/uL (0.2-0.9); Monocytes % 11.5 %; Neutrophils # 4.87 10^3/uL (1.8-7.7); Neutrophils % 67.7 %; Nucleated Red Blood Cells % 0 %; Platelet Count 208 10^3/cmm (130-400); Red Blood Count 4.41 10^6/uL (4.1-5.3); Red Cell Distribution Width 12.4 % (12.1-15.1); White Blood Count 7.2 10^3/uL (4.0-10.0)
[2021-04-16 10:00] LABS: Alanine Aminotransferase 11 U/L (0-41); Albumin Level 3.6 g/dL (3.5-5.2); Alkaline Phosphatase 87 IU/L (40-130); Anion Gap 16.6 (5-19); Aspartate Amino Transferase 19 U/L (0-40); Blood Urea Nitrogen 13 mg/dL (8-23); C Reactive Protein 5.2 mg/L (0.0-4.9); Carbon Dioxide 21 mmol/L (22-29); Chloride 104 mmol/L (98-107); Globulin 2.3 g/dL (1.3-4.6); Glomerular Filtration Rate 83.4 mL/min (90-130); Glucose 100 mg/dL (65-115); Osmolality Calculated 286 mOsm/kg (285-295); Potassium 3.6 mmol/L (3.5-5.1); Sodium 138 mmol/L (136-145); Total Bilirubin 0.4 mg/dL (0.15-1.2); Total Protein 5.9 g/dL (6.6-8.7)
[2021-04-16 10:00] LABS: Add Urine Microscopic? YES; Bilirubin Urine Neg (Negative); Blood Urine Neg (Negative); Glucose Urine UA Norm (Normal); Ketones Urine Negative (Negative); Leukocyte Esterase Urine 1+ (Negative); Nitrate Urine Negative (Negative); Protein Urine Neg (Negative); Urine Appearance SL Hazy (CLEAR); Urine Color Yellow (Yellow); Urobilinogen Urine 1 mg/dL (Negative); pH Urine 5 (5-7)
[2021-04-16 10:08] LABS: Erythrocyte Sedimentation Rate < 1 mm/hr (0-10)
[2021-04-16 10:12] LABS: Add Urine Culture? Yes; Bacteria Urine 1+ /hpf; Mucus Urine TRACE /hpf; Squamous Epithelial Cell Urine 0-4 /hpf (0-5); WBC Urine 15-25 /hpf (0-5)
[2021-04-20 17:37] LABS: Glucose-6-Phosphate Dehydrogen 15.5 U/g Hgb (7.0-20.5)
== END 2021-04-16 08:55 | disposition home or self-care (01) ==
LOC: LAB 08:56
PROVIDERS: PCP Family Medicine; Visit Provider Internal Medicine
DX: M94.1 Relapsing polychondritis (principal); Z79.899 Other long term (current) drug therapy
CPT/HCPCS: 36415; 80053; 81001; 82657; 82955; 85025; 85651; 86140; 87086; 87186

== ENCOUNTER 2022-03-28 09:12 | Inpatient (IN) | payer MEDICARE, MEDICAID, SELFPAY ==
[2022-03-28] VITALS (12 sets, daily range): BP systolic 142–172; BP diastolic 83–118; PULSE 100–120; RESP 15–29; TEMP 36.6–37.4; O2SAT 89–95; BMI 22.1
--- NOTE | 2022-03-28 09:45 | XR_ITS ---
WS: [id number] EXAMINATION: XR chest 1V portable [id number] REASON FOR EXAM: Short of breath COMPARISON: 11/22/2020 ORDER DATE: 03/28/2022 9:47 AM TECHNIQUE: A single, portable frontal chest x-ray was obtained. X-RAY FINDINGS: There is generalized perihilar pulmonary edema. There are bilateral pleural effusions. XR/XR chest 1V portable [id number] IMPRESSION: Acute CHF.
--- NOTE | 2022-03-28 09:56 | W.ED.SOB ---
HPI - SOB/Dyspnea General: Chief Complaint: Shortness of Breath/Dyspnea Stated Complaint: SOB, Both legs swelling Time Seen by Provider: 03/28/22 09:46 Source: patient Mode of arrival: ambulatory History of Present Illness: HPI Narrative: 71-year-old male presents emergency room complaining of shortness of breath for the last 3 weeks progressively worsening. Shortness of breath worse with exertion. He is not normally on oxygen anymore he is not a smoker he does have several inhaled medications but he stopped taking them because he states that he just do not work. He has not had a productive cough no fever sweats or chills mild swelling in his extremities. No chest pain at this time. MD elicited complaint: shortness of breath Context: occurred during exertion Timing: constant Severity: moderate Exacerbating factors: lying flat, exertion and coughing Relieving factors: oxygen and upright position Associated symptoms: Reports orthopnea; Deny abdominal pain, chest congestion, chest pain, cough, diaphoresis, dizziness, extremity pain, fever(s), hemoptysis, lightheadedness, myalgias, nausea, palpitations, paresthesias, polydipsia, polyuria, rash, sense of impending doom, syncope or vomiting Treatment prior to arrival: none Review of Systems Const: Denies: fever(s) or diaphoresis ENMT: Denies: throat pain, ear or mastoid pain, nasal discharge or nasal congestion Card: Reports: edema, swelling of feet/ankles, dyspnea on exertion and orthopnea; Denies: chest pain, palpitations, lightheadedness or syncope Resp: Reports: dyspnea and non-productive cough; Denies: hemoptysis or chest congestion GI: Denies: abdominal pain, nausea or vomiting : Denies: flank pain, dysuria, urinary frequency or urinary urgency Musc: Denies: extremity pain Skin/Breast: Denies: rash or pruritus Neuro: Denies: dizziness Endo: Denies: polyuria or polydipsia PFSH ED PFSH: Medical History GERD (gastroesophageal reflux disease) Relapsing polychondritis Surgical History History of ear surgery T-tube in left ear about three years ago. Family History Father Cancer Family history of premature coronary artery disease Stroke Denies family history of Diabetes CAD (coronary artery disease) Hyperlipidemia Hypertension Social History Smoking and tobacco status: former smoker Alcohol intake: former History of recent travel: No Physical Exam Const: GENERAL APPEARANCE: cooperative and comfortable ORIENTATION/CONSCIOUSNESS: Yes awake, Yes oriented to person, Yes oriented to place and Yes oriented to time HENMT: COMMON NORMALS: normocephalic, atraumatic and hearing grossly normal bilaterally HEAD & SCALP: normocephalic and atraumatic Resp: COMMON NORMALS: normal respiratory effort, No retractions and No use of accessory muscles AUSCULTATION: crackles Cardio: COMMON NORMALS: regular rate, regular rhythm and No murmurs present (Cardio) RATE: regular rate RHYTHM: regular rhythm GI: COMMON NORMALS: Soft to palpation and No hepatosplenomegaly present AUSCULTATION: Yes normoactive bowel sounds PALPATION: Yes Soft to palpation, No Tenderness to palpation present (GI), No Guarding due to palpation present (GI) and Yes No hepatosplenomegaly present Extremity: COMMON NORMALS: normal to inspection, capillary refill normal, no clubbing, cyanosis or edema, no calf tenderness and no pedal edema Neuro: SENSORIUM/ORIENTATION: Yes oriented to person, Yes oriented to place and Yes oriented to time Skin: COMMON NORMALS: no rashes or lesions noted GENERAL SKIN EXAM: no rashes or lesions noted Course Vital Signs: Vital signs: Vital Signs Temperature 97.8 F 03/28/22 09:20 Pulse Rate 103 H 03/28/22 12:42 Respiratory Rate 15 03/28/22 12:42 Blood Pressure 171/118 03/28/22 12:42 Pulse Oximetry 94 03/28/22 12:42 Oxygen Delivery Me thod 03/28/22 12:42 MDM - SOB/Dyspnea Medical Decision Making Congestive heart failure with elevated BNP. We have started to diurese him. He is very orthopneic and with exertion nearly requires oxygen. He is tachycardic as well. He had an echocardiogram done approximately a year ago that was relatively normal he will likely need another. Discussed Dr. Rojas will admit. Medical Records I reviewed the patient's medical records. Lab Data I reviewed the patient's lab results. 03/28/22 09:50 03/28/22 09:50 Labs/Radiology: Radiology Impressions Chest X-Ray 03/28/22 09:45 IMPRESSION: Acute CHF. Laboratory Results WBC 7.4 10^3/uL (4.0-10.0) 03/28/22 09:50 RBC 4.28 10^6/uL (4.1-5.3) 03/28/22 09:50 Hgb 13.6 g/dL (11.7-16.6) 03/28/22 09:50 Hct 39.9 % (42.0-52.0) L 03/28/22 09:50 MCV 93.2 fl (80-94) 03/28/22 09:50 MCH 31.8 pg (28.0-34.0) 03/28/22 09:50 MCHC 34.1 g/dL (30.0-36.0) 03/28/22 09:50 RDW 13.9 % (12.1-15.1) 03/28/22 09:50 Plt Count 267 10^3/cmm (130-400) 03/28/22 09:50 MPV 10.8 fL (7.4-10.4) H 03/28/22 09:50 Neut % (Auto) 78.2 % 03/28/22 09:50 Lymph % (Auto) 10.2 % 03/28/22 09:50 [place] % (Auto) 10.1 % 03/28/22 09:50 Eos % (Auto) 0.8 % 03/28/22 09:50 Baso % (Auto) 0.4 % 03/28/22 09:50 Neut # (Auto) 5.81 10^3/uL (1.8-7.7) 03/28/22 09:50 Lymph # (Auto) 0.8 10^3/uL (0.8-4.8) 03/28/22 09:50 [place] # (Auto) 0.8 10^3/uL (0.2-0.9) 03/28/22 09:50 Eos # (Auto) 0.1 10^3/uL (0.0-0.8) 03/28/22 09:50 Baso # (Auto) 0.0 10^3/uL (0.0-0.1) 03/28/22 09:50 Nucleated RBC % (auto) 0 % 03/28/22 09:50 Nucleated RBCs # 0.0 /100WBC 03/28/22 09:50 Sodium 133 mmol/L (136-145) L 03/28/22 09:50 Potassium 3.9 mmol/L (3.5-5.1) 03/28/22 09:50 Chloride 99 mmol/L (98-107) 03/28/22 09:50 Carbon Dioxide 23 mmol/L (22-29) 03/28/22 09:50 Anion Gap 14.9 (5-19) 03/28/22 09:50 BUN 10 mg/dL (8-23) 03/28/22 09:50 Creatinine 0.8 mg/dL (0.7-1.2) 03/28/22 09:50 GFR Calculation Not Reportable 03/28/22 09:50 Glucose 98 mg/dL (65-115) 03/28/22 09:50 Calculated Osmolality 275 mOsm/kg (285-295) L 03/28/22 09:50 Calcium 9.0 mg/dL (8.5-10.5) 03/28/22 09:50 Total Bilirubin 0.4 mg/dL (0.15-1.2) 03/28/22 09:50 AST 19 U/L (0-40) 03/28/22 09:50 ALT 13 U/L (0-41) 03/28/22 09:50 Alkaline Phosphatase 86 U/L (40-130) 03/28/22 09:50 NT-Pro-B Natriuret Pep 01451 pg/mL (0-125) H 03/28/22 09:50 Total Protein 6.9 g/dL (6.6-8.7) 03/28/22 09:50 Albumin 3.4 g/dL (3.5-5.2) L 03/28/22 09:50 Globulin 3.5 g/dL (1.3-4.6) 03/28/22 09:50 Discharge Plan Discharge Condition: Stable Prescriptions: No Action ibuprofen 600 mg Tablet 600 mg PO DAILY PRN (Reason: Pain) Referrals: Alice Batres DO [Primary Care Provider] - Coding Level of Care Code ED Machinist Supervisor Outside for Chg Fwd
[2022-03-28 09:58] LABS: Basophils % 0.4 %; Eosinophils # 0.1 10^3/uL (0.0-0.8); Eosinophils % 0.8 %; Hematocrit 39.9 % (42.0-52.0); Hemoglobin 13.6 g/dL (11.7-16.6); Lymphocytes # 0.8 10^3/uL (0.8-4.8); Lymphocytes % 10.2 %; Mean Corpuscular HGB Conc 34.1 g/dL (30.0-36.0); Mean Corpuscular Hemoglobin 31.8 pg (28.0-34.0); Mean Corpuscular Volume 93.2 fl (80-94); Mean Platelet Volume 10.8 fL (7.4-10.4); Monocytes # 0.8 10^3/uL (0.2-0.9); Monocytes % 10.1 %; Neutrophils # 5.81 10^3/uL (1.8-7.7); Neutrophils % 78.2 %; Nucleated Red Blood Cells % 0 %; Platelet Count 267 10^3/cmm (130-400); Red Blood Count 4.28 10^6/uL (4.1-5.3); Red Cell Distribution Width 13.9 % (12.1-15.1); White Blood Count 7.4 10^3/uL (4.0-10.0)
[2022-03-28 10:27] LABS: Alanine Aminotransferase 13 U/L (0-41); Albumin Level 3.4 g/dL (3.5-5.2); Alkaline Phosphatase 86 U/L (40-130); Anion Gap 14.9 (5-19); Aspartate Amino Transferase 19 U/L (0-40); Blood Urea Nitrogen 10 mg/dL (8-23); Carbon Dioxide 23 mmol/L (22-29); Chloride 99 mmol/L (98-107); Globulin 3.5 g/dL (1.3-4.6); Glucose 98 mg/dL (65-115); NT Pro B Type Natriuretic Pept 22222 pg/mL (0-125); Osmolality Calculated 275 mOsm/kg (285-295); Potassium 3.9 mmol/L (3.5-5.1); Sodium 133 mmol/L (136-145); Total Bilirubin 0.4 mg/dL (0.15-1.2); Total Protein 6.9 g/dL (6.6-8.7)
--- NOTE | 2022-03-28 10:42 | PC.PHAR ---
pt states he takes care of his own medications-pt states he is only taking ibuprofen 600mg daily prn- pt states he hasnt taken his norvasc 2.5mg daily last filled 05/22/21 90d/s, lisinopril 20mg bid last filled 04/24/21 90d/s or 81mg aspirin daily for 2-3 months-pt states he still has some in the bottles but doesnt take it-
--- NOTE | 2022-03-28 11:08 | ECG_ITS ---
[facility] Test Date: 2022-03-28 Pat Name: Rashi Orozco Department: Room: Gender: Male Specialist Wound Care: : 1950 Requested By: Troy Toledo Order Number: [id number] Gustavo MD: Pearl Delatorre M.D. Measurements Intervals [place] Rate: 105 P: 71 [place]: 144 QRS: 107 QRSD: 146 T: -45 QT: 384 QTc: 508 Interpretive Statements SINUS TACHYCARDIA WITH OCCASIONAL SUPRAVENTRICULAR PREMATURE COMPLEXES RIGHT AXIS DEVIATION [QRS AXIS > 100] INTRAVENTRICULAR CONDUCTION DELAY [130+ ms QRS DURATION] Compared to ECG 07/02/2020 15:39:17 Right-axis deviation now present Intraventricular conduction delay now present Sinus rhythm no longer present Atrial abnormality no longer present Left bundle-branch block no longer present Electronically Signed On 03-28-2022 13:07:58 SUPERVISOR YARD by Pearl Delatorre M.D. [email or web address] [facility] Surgeryst[facility].[place] [facility] 911/store/[email or web address]/[id number] f
[2022-03-28] MEDS: FUROsemide 10 mg/mL SDV 4mL 40 MG IVP (11:18)
--- NOTE | 2022-03-28 13:20 | USCV_ITS ---
Rashi Orozco Age: 71 Gender: M : 1950 Exam Date: 03/28/2022 16:47 Ordering Phys: Ethan Chang MD Technologist: CT Exam Location: [facility] [place] Indication: sob BP: 162 / 98 HR: 113 Rhythm: Sinus Technical Quality: Adequate MEASUREMENTS (Male / Female) Normal Values 2D ECHO LV Diastolic Diameter PLAX 6.3 cm 4.2 - 5.9 / 3.9 - 5.3 cm LV Systolic Diameter PLAX 5.8 cm IVS Diastolic Thickness 0.7 cm 0.6 - 1.0 / 0.6 - 0.9 cm IVS Systolic Thickness 0.9 cm LVPW Diastolic Thickness 0.7 cm 0.6 - 1.0 / 0.6 - 0.9 cm LVPW Systolic Thickness 0.9 cm LVOT Diameter 2.1 cm LV Ejection Fraction 2D Teich 16.7 % LV Ejection Fraction MOD 2C 26.8 % LV Ejection Fraction 2C AL 22.6 % LA Diameter 2.8 cm IVC Diameter 1.9 cm M-MODE Aortic Annulus Diameter 2.8 cm LA Ao Ratio MM 1.1 MV E Point Septal Separation 1.3 cm DOPPLER AV Peak Velocity 114.7 cm/s LVOT Peak Velocity 77.0 cm/s AV Area Cont Eq vti 2.1 cm squared AV Area Cont Eq pk 2.3 cm squared MV Area PHT 7.9 cm squared Mitral E to A Ratio 3.4 MV E' Velocity 61.0 cm/s Mitral E to MV E' Ratio 11.0 Mitral E to LV E' Lateral Ratio 10.5 Mitral E to LV E' Septal Ratio 11.6 TR Peak Velocity 292.8 cm/s TR Peak Gradient 34.3 mmHg TV Peak E Velocity 53.0 cm/s PV Peak Velocity 76.0 cm/s FINDINGS Left Ventricle The rhythm is sinus tachycardia with a bundle branch block pattern which decreases the sensitivity of the exam somewhat. The left ventricle is mildly enlarged. There is what is most likely global hypokinesis. In some views the anterior wall appears slightly more hypokinetic however this cannot be confirmed on other views. The overall ejection fraction is likely 25 to 30%. Grade 2 diastolic dysfunction. Right Ventricle Normal right ventricular size and systolic function. Right Atrium The right atrium is normal in size. Left Atrium Mildly increased left atrial size. Mitral Valve Structurally normal mitral valve. Moderate mitral valve regurgitation. Aortic Valve Structurally normal aortic valve without significant sclerosis or stenosis. There is no aortic regurgitation. Tricuspid Valve Structurally normal tricuspid valve. Mild tricuspid valve regurgitation. Pulmonic Valve Pulmonic valve not well visualized. Pericardium There is a tiny hemodynamically insignificant pericardial effusion. There is a moderate sized left pleural effusion. Aorta Normal ascending aorta dimension. IVC The inferior vena cava appears normal. CONCLUSIONS The rhythm is sinus tachycardia with a bundle branch block pattern which decreases the sensitivity of the exam somewhat. The left ventricle is mildly enlarged. There is what is most likely global hypokinesis. In some views the anterior wall appears slightly more hypokinetic however this cannot be confirmed on other views. The overall ejection fraction is likely 25 to 30%. Grade 2 diastolic dysfunction. Mildly increased left atrial size. Structurally normal mitral valve. Moderate mitral valve regurgitation. There is a tiny hemodynamically insignificant pericardial effusion. There is a moderate sized left pleural effusion. The previous echo was performed 01/10/2021. At that time there was tachycardia and so the evaluation of wall motion and estimation of ejection fraction was also likely inaccurate. I looked directly at the other study. The rhythm and bundle branch block pattern were present previously. The left ventricular function appears similar though on this study the EF is probably slightly less. Once again these are visual estimates. Dr. Henrique Elizabeth MD (Electronically Signed) Final Date: 29 March 2022 13:41 S
--- NOTE | 2022-03-28 13:21 | P.HP_ITS ---
Providers/Chief Complaint Primary Care Provider: Alice Batres DO Chief Complaint: SOB, Both legs swelling History of Present Illness Rashi Orozco is a 71 year old male with past medical history of heart failure with reduced ejection fraction, BPH, hypertension, came in with chief complaint of worsening lower extremity swelling started around 3 weeks back, followed by worsening shortness of breath, PND, orthopnea, shortness of breath started around a week back and since then it has progressively worsened. He has denied any fever chills cough, runny nose headache, chest pain, Abdominal pain nausea vomiting. Patient does complain difficulty passing urine, has to strain a lot. Upon arrival in the ER he was worked up for above-mentioned complaints: X-ray chest: Bilateral pleural effusion, pulmonary vascular congestion. EKG: Sinus tach, occasional PVCs,RAD, IVCD. Pertinent labs: WBC : 7.4 , H&H : 13/39, PLT : 267 , serum sodium 133 serum potassium 3.9, BUN serum creatinine: 10/0.8 , proBNP: 51357 Troponin trend: Patient received Lasix 40 IV in the ER one-time dose Review of Systems General: Reports: 10 or more systems reviewed and unremarkable except in HPI and below Const: Denies: fever(s), chills, body aches, change in appetite or diaphoresis Card: Reports: edema, swelling of feet/ankles, dyspnea on exertion and orthopnea; Denies: palpitations or leg pain with exertion Resp: Reports: dyspnea; Denies: productive cough, wheezing or pain on inspiration GI: Denies: abdominal pain, nausea, vomiting, diarrhea or constipation : Denies: flank pain or difficulty urinating Musc: Reports: extremity swelling; Denies: back pain or extremity pain Neuro: Denies: headache(s), difficulty walking or confusion Medications/Allergies Home Medications Medication Instructions Recorded Confirmed Last Taken Type ibuprofen 600 mg tablet 600 mg PO DAILY PRN Pain 03/28/22 03/28/22 03/28/22 History Allergies Allergy/AdvReac Type Severity Reaction Status Date / Time No Known Allergies Allergy Verified 05/21/21 11:28 PFSH Acute PFSH: Medical History GERD (gastroesophageal reflux disease) Relapsing polychondritis Surgical History History of ear surgery T-tube in left ear about three years ago. Family History Father Cancer Family history of premature coronary artery disease Stroke Denies family history of Diabetes CAD (coronary artery disease) Hyperlipidemia Hypertension Social History Smoking and tobacco status: former smoker Alcohol intake: former History of recent travel: No Vitals/I&O/Wt Last Vital Signs Temp 97.8 F 03/28/22 09:20 Pulse 103 H 03/28/22 12:42 Resp 15 03/28/22 12:42 BP 171/118 03/28/22 12:42 Pulse Ox 94 03/28/22 12:42 O2 Del Method 03/28/22 12:42 Weight last 48 hrs Weight 68.039 kg Physical Exam Const: COMMON NORMALS: patient oriented x3 HENMT: OTHER: Positive JVD Resp: COMMON NORMALS: clear to auscultation bilaterally EFFORT & INSPECTION: Yes symmetric chest movement AUSCULTATION: clear to auscultation bilaterally OTHER: Patient is tachycardic, extreme difficulty completing sentences due to shortness of breath. Cardio: COMMON NORMALS: regular rate, regular rhythm, S1 normal heart sound present, S2 normal heart sound present, No gallops present (Cardio), No murmurs present (Cardio), No rub (Cardio) and Peripheral pulses 2+ throughout RATE: regular rate RHYTHM: regular rhythm HEART SOUNDS: S1 normal heart sound present and S2 normal heart sound present PERIPHERAL PULSES: Peripheral pulses 2+ throughout GI: COMMON NORMALS: Normal to inspection, nondistended, normoactive bowel sounds present, Soft to palpation, non-tender, No hepatosplenomegaly present and no masses AUSCULTATION: Yes normoactive bowel sounds PALPATION: Yes Soft to palpation and Yes No hepatosplenomegaly present RECTAL EXAM: Yes deferred Extremity: COMMON NORMALS: no clubbing, cyanosis or edema and no pedal edema NARRATIVE EXTREMITY EXAM: 2+ bilateral pitting edema present in both lower extremity. Data 03/28/22 09:50 03/28/22 09:50 Micro: Microbiology 03/28/22 10:10 Blood Culture - Preliminary Blood SPECIMEN COLLECTED 12/09/22 10:05 Blood Culture - Preliminary Blood SPECIMEN COLLECTED A&P Assessment and plan (1) Congestive heart failure: (2) Benign essential HTN: Plan 71 year old male with past medical history of heart failure with reduced ejection fraction, BPH, hypertension, came in with chief complaint of worsening lower extremity swelling started around 3 weeks back, followed by worsening shortness of breath, PND, orthopnea, shortness of breath started around a week back and since then it has progressively worsened. He has denied any fever chills cough, runny nose headache, chest pain, Abdominal pain nausea vomiting. Patient does complain difficulty passing urine, has to strain a lot. Assessment: Decompensated heart failure with reduced ejection fraction History of hypertension History of BPH Plan: Patient prior 2D echo result done in 2020: Has been reviewed. Follow repeat 2D echo Follow troponin trend Started on lisinopril 5 mg p.o. daily (possibly can be switched to Entresto later) Will initiate carvedilol 3.125 mg p.o. twice daily once he is more compensated.Will avoid for now During acutely decompensated phase, and has not taken any beta-payton in the past. Will initiate spironolactone Amlodipine 5 mg p.o. one-time dose Lasix 60 IV twice daily Monitor intake output charting Monitor daily weight Monitor electrolytes K>4,MG>2 Telemetry monitoring Insert Hicks catheter for accurate intake output charting CODE STATUS: Full code DVT prophylaxis on Lovenox Attestations Medical Necessity Statement*: Patient is still in hospital management decompensated heart failure.Anticipated length of stay greater than 2 midnights Time Spent in Patient Care: Greater than 35 minutes (>than 50% of time spent in counselling and/or direct pt care on unit) . Coding Level of Care Code Acute Bandage Winding Machine Operator for g Fwd Exam Detailed Diagnoses Congestive heart failure I50.9 Benign essential HTN I10
[2022-03-28] MEDS: enoxaparin 40 mg/0.4 mL Syringe SUBCUT (14:30)
--- NOTE | 2022-03-28 18:26 | ECG_ITS ---
[facility] Test Date: 2022-03-28 Pat Name: Rashi Orozco Department: Room: 111 Gender: Male Managed Care Specialist: : 1950 Requested By: Ethan Chang Order Number: [id number] Gustavo MD: Henrique Elizabeth M.D. Measurements Intervals [place] Rate: 108 P: 59 [place]: 136 QRS: -18 QRSD: 149 T: 133 QT: 390 QTc: 523 Interpretive Statements SINUS TACHYCARDIA POSSIBLE LEFT ATRIAL ENLARGEMENT [-0.1mV P-WAVE IN V1/V2] LEFT BUNDLE BRANCH BLOCK [120+ ms QRS DURATION, 80+ ms Q/S IN V1/V2, 85+ ms R IN I/aVL/V5/V6] Compared to ECG 03/28/2022 09:37:47 Left bundle-branch block now present Right-axis deviation no longer present Intraventricular conduction delay no longer present Electronically Signed On 03-29-2022 16:40:45 HOUSE CALLS NURSE PRACTITIONER by Henrique Elizabeth M.D. [id number]
[2022-03-28 19:03] LABS: Troponin(5th) Baseline 40 ng/L (0-15)
[2022-03-28] MEDS: amlodipine 5 mg Tablet PO (19:10)
[2022-03-28] MEDS: tamsulosin 0.4 mg Capsule PO (19:10)
[2022-03-28] MEDS: FUROsemide 10 mg/mL SDV 10mL 60 MG IVP (19:10)
[2022-03-28] MEDS: lisinopril 5 mg Tablet PO (19:10)
[2022-03-28 20:46] LABS: Troponin 5 2HR 41.81 ng/L (0-15)
[2022-03-28 20:47] LABS: Troponin 5 2HR Delta 1.81 ABS# (0-10)
[2022-03-29] VITALS (8 sets, daily range): BP systolic 113–134; BP diastolic 73–92; PULSE 100–112; RESP 16–27; TEMP 37.6; O2SAT 90–93
[2022-03-29] MEDS: acetaminophen 325 mg Tablet 650 MG PO (01:15)
--- NOTE | 2022-03-29 01:33 | ECG_ITS ---
[facility] Test Date: 2022-03-29 Pat Name: Rashi Orozco Department: Room: 111 Gender: Male Brick Pointer: : 1950 Requested By: Ethan Chang Order Number: [id number] Gustavo MD: Henrique Elizabeth M.D. Measurements Intervals [place] Rate: 116 P: 0 [place]: 0 QRS: -35 QRSD: 146 T: 132 QT: 382 QTc: 531 Interpretive Statements Sinus rhythm with frequent PACs LEFT AXIS DEVIATION [QRS AXIS < -30] LEFT BUNDLE BRANCH BLOCK [120+ ms QRS DURATION, 80+ ms Q/S IN V1/V2, 85+ ms R IN I/aVL/V5/V6] Compared to ECG 03/28/2022 21:57:58 Left-axis deviation now present Sinus tachycardia no longer present Electronically Signed On 03-29-2022 16:46:44 LOG TURNER by Henrique Elizabeth M.D. [id number]
[2022-03-29 01:35] LABS: Basophils % 0.5 %; Eosinophils # 0.1 10^3/uL (0.0-0.8); Eosinophils % 0.9 %; Hematocrit 38.9 % (42.0-52.0); Hemoglobin 13.3 g/dL (11.7-16.6); Lymphocytes # 0.8 10^3/uL (0.8-4.8); Lymphocytes % 10.1 %; Mean Corpuscular HGB Conc 34.2 g/dL (30.0-36.0); Mean Corpuscular Hemoglobin 31.4 pg (28.0-34.0); Mean Platelet Volume 10.8 fL (7.4-10.4); Neutrophils # 6.28 10^3/uL (1.8-7.7); Neutrophils % 76.3 %; Nucleated Red Blood Cells % 0 %; Platelet Count 281 10^3/cmm (130-400); Red Blood Count 4.23 10^6/uL (4.1-5.3); Red Cell Distribution Width 14.1 % (12.1-15.1); White Blood Count 8.2 10^3/uL (4.0-10.0)
[2022-03-29 01:48] LABS: INR 1.09 (0.8-1.2)
[2022-03-29 02:02] LABS: Troponin 5 6HR 46.37 ng/L (0-15)
[2022-03-29 02:06] LABS: Troponin 5 6HR Delta 6.37 ng/L (0-12)
[2022-03-29 02:09] LABS: Alanine Aminotransferase 12 U/L (0-41); Albumin Level 3.1 g/dL (3.5-5.2); Alkaline Phosphatase 76 U/L (40-130); Aspartate Amino Transferase 19 U/L (0-40); Blood Urea Nitrogen 12 mg/dL (8-23); Calcium 8.8 mg/dL (8.5-10.5); Carbon Dioxide 24 mmol/L (22-29); Chloride 99 mmol/L (98-107); Glucose 123 mg/dL (65-115); Osmolality Calculated 285 mOsm/kg (285-295); Sodium 137 mmol/L (136-145); Thyroid Stimulating Hormone 2.43 uIU/mL (0.27-4.20); Total Bilirubin 0.3 mg/dL (0.15-1.2); Total Protein 6.1 g/dL (6.6-8.7)
[2022-03-29 02:11] LABS: Anion Gap 17.4 (5-19); Potassium 3.4 mmol/L (3.5-5.1)
--- NOTE | 2022-03-29 03:23 | PC.NURSE ---
Spoke with Dr Rey regarding patients 6beat run vtach, has been having PVCs and is getting IV lasix 60mg Q12. The patients K was 3.[address] Rey ordered to give on time dose PO 40 of potassium.
[2022-03-29] MEDS: potassium chloride ER 20 mEq Tablet 40 MEQ PO (03:31)
[2022-03-29] MEDS: FUROsemide 10 mg/mL SDV 10mL 60 MG IVP ×2 (05:41→18:30)
[2022-03-29] MEDS: pneumococcal (23 valent) SDV 0.5 mL IM (05:42)
[2022-03-29] MEDS: lisinopril 5 mg Tablet PO (08:59)
[2022-03-29] MEDS: tamsulosin 0.4 mg Capsule PO ×2 (08:59→18:39)
--- NOTE | 2022-03-29 09:09 | ECG_ITS ---
[facility] Test Date: 2022-03-29 Pat Name: Rashi Orozco Department: Room: 111 Gender: Male Control Officer Manager: : 1950 Requested By: Ethan Chang Order Number: [id number] Gustavo MD: Henrique Elizabeth M.D. Measurements Intervals [place] Rate: 98 P: 7 UT: 100 QRS: -2 QRSD: 152 T: 172 QT: 419 QTc: 536 Interpretive Statements SINUS RHYTHM WITH SHORT UT INTERVAL POSSIBLE LEFT ATRIAL ENLARGEMENT [-0.1mV P-WAVE IN V1/V2] LEFT BUNDLE BRANCH BLOCK [120+ ms QRS DURATION, 80+ ms Q/S IN V1/V2, 85+ ms R IN I/aVL/V5/V6] Compared to ECG 03/29/2022 01:33:45 Short UT interval now present Atrial fibrillation no longer present Left-axis deviation no longer present Electronically Signed On 03-29-2022 16:43:42 THERMOFORMING OPERATOR by Henrique Elizabeth M.D. [id number]
[2022-03-29] MEDS: lidocaine 1% 5 ML in potassium chloride premix 100 ML 50 ML IV (11:14)
[2022-03-29] MEDS: enoxaparin 40 mg/0.4 mL Syringe SUBCUT (13:38)
[2022-03-29] MEDS: cefTRIAXone 1,000 MG in sodium chloride 0.9% (plus) 50 ML 100 MG IV (13:39)
[2022-03-29] MEDS: ipratropium 0.5 mg/2.5 mL Neb INHALATION ×2 (13:59→21:09)
[2022-03-29] MEDS: levalbuterol 0.63 mg/3 mL Neb INHALATION ×2 (13:59→21:09)
--- NOTE | 2022-03-29 16:36 | PM.PN ---
Subjective Subjective: Patient was seen and examined this morning shortness of breath is improved, bilateral lower extremity swelling is going down.Currently saturating well on 2 to 3 Ls supplemental oxygen. Had good urine output overnight. Medications: Medication Review Details: Generic Name Dose Route Start Last Admin Trade Name Freq PRN Reason Stop Dose Admin Acetaminophen 650 mg 03/28/22 13:15 03/29/22 01:15 Acetaminophen 32 5 Mg Tablet PO 650 mg Q6H PRN Administration Mild/Mod Pain Or Temp >/= 101 Enoxaparin Sodium 40 mg 03/28/22 13:15 03/29/22 13:38 Enoxaparin 40 Mg /0.4 Ml Syringe SUBCUT 40 mg Q24H LEONARDO Administration Furosemide 60 mg 03/28/22 18:30 03/29/22 05:41 Furosemide 10 Mg /Ml Sdv 10ml IVP 60 mg Q12H LEONARDO Administration Ceftriaxone Sodium 1,000 mg/ 50 mls @ 100 mls/ hr 03/29/22 11:00 03/29/22 14:27 Sodium Chloride IV Infused Q24H LEONARDO Infusion Protocol Ipratropium Bromid e 0.5 mg 03/29/22 11:00 03/29/22 13:59 Ipratropium 0.5 Mg/2.5 Ml Neb INHALATION 0.5 mg Q6H LEONARDO Administration Levalbuterol HCl 0.63 mg 03/29/22 14:00 03/29/22 13:59 Levalbuterol 0.6 3 Mg/3 Ml Neb INHALATION 0.63 mg Q6H.RESP LEONARDO Administration Lisinopril 5 mg 03/28/22 19:00 03/29/22 08:59 Lisinopril 5 Mg Tablet PO 5 mg DAILY LEONARDO Administration Tamsulosin HCl 0.4 mg 03/28/22 19:00 03/29/22 08:59 Tamsulosin 0.4 M g Capsule PO 0.4 mg BID LEONARDO Administration Vitals/I&O/Wt Last Vital Signs Temp 99.6 F 03/29/22 03:31 Pulse 100 03/29/22 14:00 Resp 16 03/29/22 14:00 BP 113/92 03/29/22 12:21 Pulse Ox 91 03/29/22 14:00 O2 Del Method 03/29/22 14:00 O2 Flow Rate 1 03/29/22 14:00 03/29/22 03/29/22 03/29/22 06:59 14:59 22:59 Intake Total 60 / 180 395 / 395 Output Total 1450 / 2800 1400 / 1400 Balance -1390 / -2620 -1005 / -1005 Weight last 48 hrs Weight 69.626 kg Weight 68.039 kg Physical Exam Const: COMMON NORMALS: patient oriented x3 Resp: OTHER: Diminished air entry bilaterally Cardio: COMMON NORMALS: regular rate, regular rhythm, S1 normal heart sound present, S2 normal heart sound present, No gallops present (Cardio), No murmurs present (Cardio), No rub (Cardio) and Peripheral pulses 2+ throughout RATE: regular rate RHYTHM: regular rhythm HEART SOUNDS: S1 normal heart sound present and S2 normal heart sound present PERIPHERAL PULSES: Peripheral pulses 2+ throughout GI: COMMON NORMALS: Normal to inspection, nondistended, normoactive bowel sounds present, Soft to palpation, non-tender, No hepatosplenomegaly present and no masses AUSCULTATION: Yes normoactive bowel sounds PALPATION: Yes Soft to palpation and Yes No hepatosplenomegaly present RECTAL EXAM: Yes deferred Extremity: COMMON NORMALS: no clubbing, cyanosis or edema and no pedal edema NARRATIVE EXTREMITY EXAM: 2+ bilateral pitting edema present in both lower extremity. Neuro: COMMON NORMALS: patient oriented x3 Urinary Catheter Management: Hicks: Cath Placed During This Visit: no Reason for Continuing Indwelling Catheter: Acute Urinary Retention or Obstruction Data 03/29/22 01:20 03/29/22 01:20 Micro: Microbiology 03/28/22 23:47 Gram Stain - Final Sputum - Expectorated Sputum 03/28/22 10:10 Blood Culture - Preliminary Blood NEGATIVE TO DATE 03/28/22 10:05 Blood Culture - Preliminary Blood NEGATIVE TO DATE A&P Assessment and plan (1) Congestive heart failure: (2) Benign essential HTN: Plan 71 year old male with past medical history of heart failure with reduced ejection fraction, BPH, hypertension, came in with chief complaint of worsening lower extremity swelling started around 3 weeks back, followed by worsening shortness of breath, PND, orthopnea, shortness of breath started around a week back and since then it has progressively worsened. He has denied any fever chills cough, runny nose headache, chest pain, Abdominal pain nausea vomiting. Patient does complain difficulty passing urine, has to strain a lot. Assessment: Decompensated heart failure with reduced ejection fraction, as well as HFpEF History of hypertension History of BPH Moderate mitral valve regurgitation Moderate sized left pleural effusion Trace pericardial effusion Hypokalemia Plan: Patient prior 2D echo result done in 2020: Has been reviewed. Follow repeat 2D echo Follow troponin trend: Unremarkable Started on lisinopril 5 mg p.o. daily (possibly can be switched to Entresto later) Will initiate carvedilol 3.125 mg p.o. twice daily once he is more compensated.Will avoid for now During acutely decompensated phase, and has not taken any beta-payton in the past. Will initiate spironolactone Amlodipine 5 mg p.o. one-time dose Lasix 60 IV twice daily Monitor intake output charting Monitor daily weight Monitor electrolytes K>4,MG>2 Telemetry monitoring Insert Hicks catheter for accurate intake output charting Empirically on ceftriaxone: For possible pneumonia though less likely. Plan for today: Patient will need aggressive IV diuresis, once he is clinically more stable, will consult cardiology. CODE STATUS: Full code DVT prophylaxis on Lovenox Attestations Medical Necessity Statement*: Patient is to be in hospital for management of decompensated heart failure. Time Spent in Patient Care: Greater than 35 minutes (>than 50% of time spent in counselling and/or direct pt care on unit). Coding Level of Care Code Acute Parts Delivery Driver for Carmencita Resendez Diagnoses Congestive heart failure I50.9 Benign essential HTN I10
[2022-03-30] VITALS (16 sets, daily range): BP systolic 97–131; BP diastolic 50–82; PULSE 80–111; RESP 15–24; TEMP 36.6–37.4; O2SAT 90–96
[2022-03-30] MEDS: ipratropium 0.5 mg/2.5 mL Neb INHALATION ×4 (01:58→20:05)
[2022-03-30] MEDS: levalbuterol 0.63 mg/3 mL Neb INHALATION ×4 (01:58→20:07)
[2022-03-30 04:02] LABS: Basophils % 0.4 %; Eosinophils # 0.1 10^3/uL (0.0-0.8); Eosinophils % 1.7 %; Hematocrit 37.1 % (42.0-52.0); Hemoglobin 12.3 g/dL (11.7-16.6); Lymphocytes # 1.1 10^3/uL (0.8-4.8); Lymphocytes % 13.2 %; Mean Corpuscular HGB Conc 33.2 g/dL (30.0-36.0); Mean Corpuscular Volume 93.5 fl (80-94); Monocytes # 0.9 10^3/uL (0.2-0.9); Monocytes % 11.6 %; Neutrophils # 5.86 10^3/uL (1.8-7.7); Neutrophils % 72.9 %; Nucleated Red Blood Cells % 0 %; Platelet Count 266 10^3/cmm (130-400); Red Blood Count 3.97 10^6/uL (4.1-5.3); Red Cell Distribution Width 14.2 % (12.1-15.1)
[2022-03-30 04:27] LABS: Alanine Aminotransferase 10 U/L (0-41); Albumin Level 2.8 g/dL (3.5-5.2); Alkaline Phosphatase 67 U/L (40-130); Anion Gap 12.3 (5-19); Aspartate Amino Transferase 15 U/L (0-40); Blood Urea Nitrogen 14 mg/dL (8-23); Calcium 8.5 mg/dL (8.5-10.5); Carbon Dioxide 25 mmol/L (22-29); Chloride 94 mmol/L (98-107); Globulin 3.1 g/dL (1.3-4.6); Glucose 101 mg/dL (65-115); Magnesium 1.9 mg/dL (1.7-2.3); Osmolality Calculated 267 mOsm/kg (285-295); Potassium 3.3 mmol/L (3.5-5.1); Procalcitonin 0.08 ng/mL (0-0.5); Sodium 128 mmol/L (136-145); Total Bilirubin 0.2 mg/dL (0.15-1.2); Total Protein 5.9 g/dL (6.6-8.7)
[2022-03-30] MEDS: FUROsemide 10 mg/mL SDV 10mL 60 MG IVP (05:38)
--- NOTE | 2022-03-30 07:57 | PM.PN ---
Subjective Subjective: Patient was seen and examined this morning shortness of breath is improved, bilateral lower extremity has resolved, Medications: Medication Review Details: Generic Name Dose Route Start Last Admin Trade Name Vanessa PRN Reason Stop Dose Admin Acetaminophen 650 mg 03/28/22 13:15 03/29/22 01:15 Acetaminophen 32 5 Mg Tablet PO 650 mg Q6H PRN Administration Mild/Mod Pain Or Temp >/= 101 Enoxaparin Sodium 40 mg 03/28/22 13:15 03/29/22 13:38 Enoxaparin 40 Mg /0.4 Ml Syringe SUBCUT 40 mg Q24H LEONARDO Administration Furosemide 60 mg 03/28/22 18:30 03/29/22 05:41 Furosemide 10 Mg /Ml Sdv 10ml IVP 60 mg Q12H LEONARDO Administration Ceftriaxone Sodium 1,000 mg/ 50 mls @ 100 mls/ hr 03/29/22 11:00 03/29/22 14:27 Sodium Chloride IV Infused Q24H LEONARDO Infusion Protocol Ipratropium Bromid e 0.5 mg 03/29/22 11:00 03/29/22 13:59 Ipratropium 0.5 Mg/2.5 Ml Neb INHALATION 0.5 mg Q6H LEONARDO Administration Levalbuterol HCl 0.63 mg 03/29/22 14:00 03/29/22 13:59 Levalbuterol 0.6 3 Mg/3 Ml Neb INHALATION 0.63 mg Q6H.RESP LEONARDO Administration Lisinopril 5 mg 03/28/22 19:00 03/29/22 08:59 Lisinopril 5 Mg Tablet PO 5 mg DAILY LEONARDO Administration Tamsulosin HCl 0.4 mg 03/28/22 19:00 03/29/22 08:59 Tamsulosin 0.4 M g Capsule PO 0.4 mg BID LEONARDO Administration Vitals/I&O/Wt Last Vital Signs Temp 98.9 F 03/30/22 04:00 Pulse 104 H 03/30/22 06:00 Resp 19 H 03/30/22 04:00 BP 128/69 03/30/22 04:00 Pulse Ox 93 03/30/22 04:00 O2 Del Method 03/30/22 04:00 O2 Flow Rate 2 03/30/22 04:00 03/29/22 03/30/22 03/30/22 22:59 06:59 14:59 Intake Total 200 / 595 Output Total 1770 / 3170 1240 / 1240 Balance 200 / -805 -1770 / -2575 -1240 / -1240 Weight last 48 hrs Weight 57.153 kg Weight 69.626 kg Weight 68.039 kg Physical Exam Const: COMMON NORMALS: patient oriented x3 HENMT: OTHER: Positive JVD Resp: COMMON NORMALS: clear to auscultation bilaterally EFFORT & INSPECTION: Yes symmetric chest movement AUSCULTATION: clear to auscultation bilaterally OTHER: Diminished air entry bilaterally Cardio: COMMON NORMALS: regular rate, regular rhythm, S1 normal heart sound present, S2 normal heart sound present, No gallops present (Cardio), No murmurs present (Cardio), No rub (Cardio) and Peripheral pulses 2+ throughout RATE: regular rate RHYTHM: regular rhythm HEART SOUNDS: S1 normal heart sound present and S2 normal heart sound present PERIPHERAL PULSES: Peripheral pulses 2+ throughout GI: COMMON NORMALS: Normal to inspection, nondistended, normoactive bowel sounds present, Soft to palpation, non-tender, No hepatosplenomegaly present and no masses AUSCULTATION: Yes normoactive bowel sounds PALPATION: Yes Soft to palpation and Yes No hepatosplenomegaly present RECTAL EXAM: Yes deferred Extremity: COMMON NORMALS: no clubbing, cyanosis or edema and no pedal edema NARRATIVE EXTREMITY EXAM: 2+ bilateral pitting edema present in both lower extremity. Neuro: COMMON NORMALS: patient oriented x3 Urinary Catheter Management: Hicks: Cath Placed During This Visit: no Reason for Continuing Indwelling Catheter: Accurate Measurement of Urinary Output in Critically Ill Patients Data 03/30/22 03:10 03/30/22 03:10 Micro: Microbiology 03/28/22 23:47 Gram Stain - Final Sputum - Expectorated Sputum 03/28/22 10:10 Blood Culture - Preliminary Blood NEGATIVE TO DATE 03/28/22 10:05 Blood Culture - Preliminary Blood NEGATIVE TO DATE A&P Assessment and plan (1) Congestive heart failure: (2) Benign essential HTN: Plan 71 year old male with past medical history of heart failure with reduced ejection fraction, BPH, hypertension, came in with chief complaint of worsening lower extremity swelling started around 3 weeks back, followed by worsening shortness of breath, PND, orthopnea, shortness of breath started around a week back and since then it has progressively worsened. He has denied any fever chills cough, runny nose headache, chest pain, Abdominal pain nausea vomiting. Patient does complain difficulty passing urine, has to strain a lot. Assessment: Decompensated heart failure with reduced ejection fraction, as well as HFpEF History of hypertension History of BPH Moderate mitral valve regurgitation Moderate sized left pleural effusion Trace pericardial effusion Hypokalemia Hyponatremia possibly hypervolemic or due over diuresis. Plan: Nuclear stress test :2020: Negative for ischemia Patient prior 2D echo result done in 2020: Has been reviewed. Repeat 2D echo: LVEF 25 to 30% grade 2 diastolic dysfunction, moderate MR. Troponin trend: Unremarkable Started on lisinopril 5 mg p.o. daily (possibly can be switched to Entresto later) Carvedilol 3.125 mg p.o. twice daily Will initiate spironolactone Lasix 40 IV daily Monitor intake output charting Monitor daily weight Monitor electrolytes K>4,MG>2 Telemetry monitoring Insert Hicks catheter for accurate intake output charting Empirically on ceftriaxone: For possible pneumonia though less likely. Plan for today: Continue IV diuresis, will decrease the dose of Lasix to IV 40-day, NPO after midnight , for nuclear stress Cardiology on board CODE STATUS: Full code DVT prophylaxis on Lovenox Attestations Medical Necessity Statement*: Patient is to be in hospital for nuclear stress test, and management of decompensated heart failure. Coding Level of Care Code Acute Software Deployment Engineer for [facility] Fwd Exam Detailed Diagnoses Congestive heart failure I50.9 Benign essential HTN I10
[2022-03-30] MEDS: tamsulosin 0.4 mg Capsule PO ×2 (09:04→17:16)
[2022-03-30] MEDS: potassium chloride ER 20 mEq Tablet 40 MEQ PO (09:04)
[2022-03-30] MEDS: lisinopril 5 mg Tablet PO (09:04)
--- NOTE | 2022-03-30 09:24 | ECG_ITS ---
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 Interpretive Statements NAME OF STUDY: LEXISCAN SESTAMIBI STRESS TEST INDICATION: [Chest Pain] PROCEDURE: At the baseline, the blood pressure was 131/70 mm Hg with a heart rate of 94 bpm. The electrocardiogram showed sinus rhythm with PAC's. IVCD (LBBB like morphology). The Lexiscan was infused over a period of 20 seconds. A total of 0.4 milligrams of Lexiscan was infused. The stress phase was continued for a total of 5 minutes. Heart rate at the end of the stress phase was 104 bpm with a blood pressure of 89/51 mm Hg. The EKG at the peak infusion revealed no significant changes. Sestamibi was injected 20 seconds after the Lexiscan infusion. Blood pressure at the end of the recovery phase was 101/48 mm Hg with a heart rate of 98 beats per minute. CONCLUSION: 1. Non diagnostic EKG changes with the LexiScan infusion due to baseline IVCD (LBBB like morphology). 2. No LexiScan induced chest pain or cardiac arrhythmia. 3. Normal blood pressure and heart rate response. 4. Sestamibi/sestamibi perfusion scan pending; see separate report. Electronically Signed On 03-31-2022 11:27:28 EXTENSION SERVICE AGENT by Pearl Delatorre M.D. [id number]
--- NOTE | 2022-03-30 12:02 | P.CONIM_ITS ---
Providers/Reason For Consult Consulting Physician/Specialty*: Cardiovascular medicine Reason for Consult*: Worsening left ventricular function and heart failure Requesting Physician: Hospitalist Attending Physician: Ethan Chang MD Primary Care Provider: Alice Batres DO History of Present Illness History of Present Illness Rashi Orozco is a 71 year old male who has known mild to moderate left ventricular dysfunction. He originally saw Dr. Schumacher in January of last year after he presented with heart failure. By echo his ejection fraction was 40% and there was global hypokinesis. Subsequent stress testing did not reveal any ischemia and this was thought to have been a global cardiomyopathy. Not certain what medications he was taking. His chart suggest that in the past he was on an AKIL inhibitor but I do not know what he was on when he was admitted this time. He arrived at the hospital 2 days ago with shortness of breath and lower extremity edema. Shortness of breath had worsened over several days prior to admission. He was unable to lie flat. He had to sit up and sleep in a chair. He has rather classic symptoms of paroxysmal nocturnal dyspnea and orthopnea. Chest x-ray reveals congestive heart failure. His BNP is elevated above 22,000. He has an underlying left bundle branch block. He was in sinus tachycardia. Echocardiogram this visit now reveals that his left ventricle is enlarged where it was not previously, his ejection fraction is now about 25 to 30% where previously it was about 40% and he has developed mild to moderate mitral regurgitation. I personally reviewed the previous echo as well as reading the more recent echo. There is clearly a difference. His troponins are relatively low 40/41/46. Previous carotid studies have been negative. His albumin is 2.8. He has a history of hypertension. He is being treated with an AKIL inhibitor, potassium and intravenous Lasix as well as carvedilol. Symptomatically he is quite improved. The edema has resolved and he is able to lie flat. We are being asked to see him to assess the drop in ejection fraction. Review of Systems Narrative: Review of systems is negative. Medications/Allergies Home Medications Medication Instructions Recorded Confirmed Last Taken Type ibuprofen 600 mg tablet 600 mg PO DAILY PRN Pain 03/28/22 03/28/22 03/28/22 History Allergies Allergy/AdvReac Type Severity Reaction Status Date / Time No Known Allergies Allergy Verified 05/21/21 11:28 Current Medications Generic Name Dose Route Start Last Admin Trade Name Freq PRN Reason Stop Dose Admin Acetaminophen 650 mg 03/28/22 13:15 03/29/22 01:15 Acetaminophen 325 Mg Tablet PO 650 mg Q6H PRN Administration Mild/Mod Pain Or Temp >/= 101 Enoxaparin Sodium 40 mg 03/28/22 13:15 03/29/22 13:38 Enoxaparin 40 Mg/0.4 Ml Syringe SUBCUT 40 mg Q24H LEONARDO Administration Ceftriaxone Sodium 1,000 mg/ 50 mls @ 100 mls/hr 03/29/22 11:00 03/29/22 14:27 Sodium Chloride IV Infused Q24H LEONARDO Infusion Protocol Ipratropium [place] 0.5 mg 03/30/22 02:00 03/30/22 08:25 Ipratropium 0.5 Mg/2.5 Ml Neb INHALATION 0.5 mg Q6H LEONARDO Administration Levalbuterol HCl 0.63 mg 03/29/22 14:00 03/30/22 08:26 Levalbuterol 0.63 Mg/3 Ml Neb INHALATION 0.63 mg Q6H.RESP LEONARDO Administration Lisinopril 5 mg 03/28/22 19:00 03/30/22 09:04 Lisinopril 5 Mg Tablet PO 5 mg DAILY LEONARDO Administration Potassium Chloride 40 meq 03/30/22 09:00 03/30/22 09:04 Potassium Chloride Er 20 Meq Tablet PO 40 meq DAILY LEONARDO Administration Tamsulosin HCl 0.4 mg 03/28/22 19:00 03/30/22 09:04 Tamsulosin 0.4 Mg Capsule PO 0.4 mg BID LEONARDO Administration PFSH Acute PFSH: Medical History (Updated 03/30/22 @ 12:14 by Henrique Elizabeth MD) Cardiomyopathy GERD (gastroesophageal reflux disease) Relapsing polychondritis Surgical History History of ear surgery T-tube in left ear about three years ago. Family History Father Cancer Family history of premature coronary artery disease Stroke Denies family history of Diabetes CAD (coronary artery disease) Hyperlipidemia Hypertension Social History Smoking and tobacco status: former smoker Alcohol intake: former History of recent travel: No Vitals/I&O/Wt Last Vital Signs Temp 98.9 F 03/30/22 04:00 Pulse 105 H 03/30/22 09:35 Resp 15 03/30/22 09:35 BP 104/55 03/30/22 09:35 Pulse Ox 96 03/30/22 09:35 O2 Del Method 03/30/22 08:00 O2 Flow Rate 2 03/30/22 08:00 03/29/22 03/30/22 03/30/22 22:59 06:59 14:59 Intake Total 200 / 595 240 / 240 Output Total 1770 / 3170 1240 / 1240 Balance 200 / -805 -1770 / -2575 -1000 / -1000 Weight last 48 hrs Weight 126 lb Weight 153 lb 8 oz Physical Exam Narrative: GENERAL: In general he is comfortable sitting up eating lunch and looks his stated age HEENT: Exam within normal limits. NECK: Supple without jugular vein distention. The carotid upstroke is normal without bruits. BACK: Exam normal. LUNGS: Clear. HEART: Regular rate and rhythm. ABDOMEN: Benign without organomegaly or tenderness. EXTREMITIES: No edema. NEUROLOGIC: Exam normal. SKIN: Unremarkable. Urinary Catheter Management: Hicks: Cath Placed During This Visit: no Reason for Continuing Indwelling Catheter: Accurate Measurement of Urinary Output in Critically Ill Patients Data 03/30/22 03:10 03/30/22 03:10 Micro: Microbiology 03/28/22 23:47 Gram Stain - Final Sputum - Expectorated Sputum 03/28/22 10:10 Blood Culture - Preliminary Blood NEGATIVE TO DATE 03/28/22 10:05 Blood Culture - Preliminary Blood NEGATIVE TO DATE A&P Assessment and plan (1) Congestive heart failure: (2) Benign essential HTN: (3) Cardiomyopathy: Plan There has certainly been a drop in his ejection fraction and an enlargement of his left ventricular cavity with the onset of mild to moderate mitral regurgitation. The etiology of this is not entirely clear. We will order another stress test and compare it to the previous one. If there is an abnormality that suggest coronary disease he should undergo angiography. In the meantime, we will continue the AKIL inhibitor, potassium, loop diuretic and carvedilol. He might be a good candidate for Entresto. I explained this to him as best I could. No other family members were in the room. Consult Attestations Medical Necessity Statement: Hospitalization for treatment of congestive heart failure. Coding Level of Care Code New Pt Acute Resolute Professional for Carmencita Resendez Patient Type New History Detailed Exam Detailed Medical Decision Making Moderate Complexity Diagnoses Congestive heart failure I50.9 Benign essential HTN I10 Cardiomyopathy I42.9
[2022-03-30] MEDS: enoxaparin 40 mg/0.4 mL Syringe SUBCUT (13:28)
[2022-03-30] MEDS: cefTRIAXone 1,000 MG in sodium chloride 0.9% (plus) 50 ML 100 MG IV (13:29)
[2022-03-30] MEDS: carvedilol 3.125 mg Tablet PO (17:16)
[2022-03-31] VITALS (18 sets, daily range): BP systolic 101–148; BP diastolic 48–86; PULSE 82–103; RESP 15–24; TEMP 36.6–36.8; O2SAT 88–97
[2022-03-31] MEDS: levalbuterol 0.63 mg/3 mL Neb INHALATION ×3 (01:25→14:34)
[2022-03-31] MEDS: ipratropium 0.5 mg/2.5 mL Neb INHALATION ×4 (01:25→22:37)
--- NOTE | 2022-03-31 05:00 | XRR_ITS ---
PROCEDURE INFORMATION: Exam: XR Chest Exam date and time: 03/31/2022 5:10 AM Age: 71 years old Clinical indication: Other: Pleural effusion; Additional info: B/l pleural effusion TECHNIQUE: Imaging protocol: Radiologic exam of the chest. Views: 1 view. COMPARISON: CR XR chest 1V portable [id number] 03/28/2022 9:50 AM FINDINGS: Lungs: Mild COPD. Hazy lung base opacities and effusions have improved. Edema has improved. Pleural spaces: No pneumothorax. Heart/Mediastinum: The heart is normal size. Diffuse vascular calcification. Bones/joints: Unremarkable. XR/XR chest 1V portable [id number] IMPRESSION: Considerably improved exam from 3 days ago.
[2022-03-31 06:21] LABS: Basophils % 0.6 %; Eosinophils # 0.4 10^3/uL (0.0-0.8); Eosinophils % 5.4 %; Hematocrit 36.9 % (42.0-52.0); Hemoglobin 12.4 g/dL (11.7-16.6); Lymphocytes % 14.1 %; Mean Corpuscular HGB Conc 33.6 g/dL (30.0-36.0); Mean Corpuscular Hemoglobin 31.4 pg (28.0-34.0); Mean Corpuscular Volume 93.4 fl (80-94); Mean Platelet Volume 10.4 fL (7.4-10.4); Monocytes # 0.8 10^3/uL (0.2-0.9); Monocytes % 11.5 %; Neutrophils # 4.78 10^3/uL (1.8-7.7); Nucleated Red Blood Cells % 0 %; Platelet Count 259 10^3/cmm (130-400); Red Blood Count 3.95 10^6/uL (4.1-5.3)
[2022-03-31 06:38] LABS: Alanine Aminotransferase 12 U/L (0-41); Albumin Level 3.2 g/dL (3.5-5.2); Alkaline Phosphatase 28 U/L (40-130); Anion Gap 11.8 (5-19); Aspartate Amino Transferase 16 U/L (0-40); Blood Urea Nitrogen 18 mg/dL (8-23); Calcium 8.6 mg/dL (8.5-10.5); Carbon Dioxide 26 mmol/L (22-29); Chloride 100 mmol/L (98-107); Globulin 2.6 g/dL (1.3-4.6); Glucose 97 mg/dL (65-115); Magnesium 2.1 mg/dL (1.7-2.3); Osmolality Calculated 280 mOsm/kg (285-295); Potassium 3.8 mmol/L (3.5-5.1); Sodium 134 mmol/L (136-145); Total Bilirubin 0.2 mg/dL (0.15-1.2); Total Protein 5.8 g/dL (6.6-8.7)
[2022-03-31] MEDS: regadenoson 0.4 Mg/5 ml Syringe IVP (07:15)
[2022-03-31] MEDS: aminophylline 25 mg/mL SDV 10 mL IVP (07:23)
[2022-03-31] MEDS: tamsulosin 0.4 mg Capsule PO ×2 (09:17→17:48)
[2022-03-31] MEDS: carvedilol 3.125 mg Tablet PO ×2 (09:17→17:48)
[2022-03-31] MEDS: lisinopril 5 mg Tablet PO (09:17)
[2022-03-31] MEDS: potassium chloride ER 20 mEq Tablet 40 MEQ PO (09:17)
--- NOTE | 2022-03-31 09:24 | NMCV_ITS ---
NM jessica perf SPECT r/s* [id number] Rashi Orozco Age: 71 Gender: M : 1950 Exam Date: 03/31/2022 09:24 Ordering Phys: Ethan Chang MD Technologist: KATE Edwards Exam Location: [facility] Indications: CHEST PAIN STRESS TEST Please see separate stress test report in [facility] for full findings IMAGE PROTOCOL Rest/Stress 1 Lexiscan Day Radiopharmaceutical Dose (mCi) Administration Site Administered by Rest: Tc-99m 10.7 IV KATE Ness Sestamibi Stress:Tc-99m 32.9 IV KATE Ness Sestamibi Rest: 31-Mar-2022 60 Discovery 630 Stress: 31-Mar-2022 30 Discovery 630 0.4mg Lexiscan. Images obtained in supine and prone position. SPECT RESULTS Technical Quality: Excellent Raw Data Analysis: Normal Image Corrections: No attenuation or motion correction applied Summed Stress Score: 12 Summed Rest Score: 8 Summed Difference Score: 5 PERFUSION FINDINGS There is a large sized, partially reversible perfusion defect in the inferior and inferoseptal wills. This is consistent with prior infarct with significant bianca-infarct ischemia noted in the RCA territory. Also noted is a large sized partially reversible perfusion defect in the apical anterior, anteroseptal and apical wall. This suggests prior LAD infarct with bianca-infarct ischemia FUNCTIONAL RESULTS (calculated via Gated SPECT) Stress Image LV EF (%): 23 Stress EDV (mL):220 TID: 0.86 Stress ESV (mL):170 FUNCTIONAL FINDINGS: LV systolic function is severely reduced IMPRESSIONS 1. Abnormal myocardial perfusion imaging with large sized area of prior infarct with significant bianca-infarct ischemia in RCA territory. 2. Large sized prior infarct is also noted in LAD territory with bianca-infarct ischemia 3. LV systolic function is severely reduced with EF of 23% Med Schumacher MD (Electronically Signed) Final Date: 31 March 2022 11:32 S
[2022-03-31] MEDS: FUROsemide 10 mg/mL SDV 4mL 40 MG IVP (09:56)
--- NOTE | 2022-03-31 10:07 | PC.SOCIAL ---
Pg 2 IMM Explained to pt Pg 2 IMM. No questions voiced. Provided pt a copy. Initialed, dated, & timed a copy & placed in chart.
--- NOTE | 2022-03-31 11:02 | PM.PN ---
Subjective Subjective: Patient is feeling well. No chest pain. Breathing has improved significantly. Vitals/I&O/Wt Last Vital Signs Temp 98 F 03/31/22 03:37 Pulse 101 H 03/31/22 09:54 Resp 22 H 03/31/22 09:54 BP 125/68 03/31/22 09:54 Pulse Ox 97 03/31/22 09:54 O2 Del Method 03/31/22 09:20 O2 Flow Rate 2 03/31/22 03:18 03/30/22 03/31/22 03/31/22 22:59 06:59 14:59 Intake Total 240 / 1010 237 / 1247 120 / 120 Output Total 575 / 2465 300 / 300 Balance 240 / -880 -338 / -1218 -180 / -180 Weight last 48 hrs Weight 154 lb 6.4 oz Weight 126 lb Physical Exam Narrative: GENERAL: Patient is alert, awake and oriented x3. [] NECK: No jugular vein distension. [] HEENT: No cyanosis. No icterus. No pallor. [] HEART: Regular S1 and S2. No murmur, rub or gallop. [] LUNGS: Decreased breathing sounds. [] ABDOMEN: Soft, nontender and nondistended. Positive bowel sounds. No guarding, rebound or tenderness. [] CENTRAL NERVOUS SYSTEM: Grossly nonfocal. [] EXTREMITIES: Lower extremities with 1+ edema bilaterally. Pulses palpable in the lower extremities, both dorsalis pedis and posterior tibial. [] Urinary Catheter Management: Hicks: Cath Placed During This Visit: no Reason for Continuing Indwelling Catheter: Acute Urinary Retention or Obstruction Data 03/31/22 06:01 03/31/22 06:01 Micro: Microbiology 03/28/22 23:47 Gram Stain - Final Sputum - Expectorated Sputum Sputum Culture - Preliminary A&P Assessment and plan (1) Congestive heart failure: (2) Benign essential HTN: (3) Cardiomyopathy: Plan Patient has significant LV dysfunction. Had abnormal stress test as well. We will proceed with coronary angiogram with possible PCI. Also will perform right heart cath Risks and benefits of the procedure have been discussed with the patient. He understands the risks and benefits and wants to proceed. Continue IV diuresis Thank you for involving us with care of this patient. We will continue to follow. Please call with questions. Attestations Medical Necessity Statement*: Care expected to cross 2 midnights. Coding Level of Care Code Acute Tanning Drum Operator for Chg Fwd Diagnoses Congestive heart failure I50.9 Benign essential HTN I10 Cardiomyopathy I42.9
[2022-03-31] MEDS: enoxaparin 40 mg/0.4 mL Syringe SUBCUT (13:31)
[2022-03-31] MEDS: cefTRIAXone 1,000 MG in sodium chloride 0.9% (plus) 50 ML 100 MG IV (13:32)
--- NOTE | 2022-03-31 14:30 | PM.PN ---
Subjective Subjective: Completed stress test this morning which returned abnormal. Plan for cardiac cath tomorrow. No new complaints. Denies any chest pain dyspnea or palpitations. Medications: Reviewed: Yes Medication Review Details: Generic Name Dose Route Start Last Admin Trade Name Vanessa PRN Reason Stop Dose Admin Acetaminophen 650 mg 03/28/22 13:15 03/29/22 01:15 Acetaminophen 32 5 Mg Tablet PO 650 mg Q6H PRN Administration Mild/Mod Pain Or Temp >/= 101 Enoxaparin Sodium 40 mg 03/28/22 13:15 03/29/22 13:38 Enoxaparin 40 Mg /0.4 Ml Syringe SUBCUT 40 mg Q24H LEONARDO Administration Furosemide 60 mg 03/28/22 18:30 03/29/22 05:41 Furosemide 10 Mg /Ml Sdv 10ml IVP 60 mg Q12H LEONARDO Administration Ceftriaxone Sodium 1,000 mg/ 50 mls @ 100 mls/ hr 03/29/22 11:00 03/29/22 14:27 Sodium Chloride IV Infused Q24H LEONARDO Infusion Protocol Ipratropium Bromid e 0.5 mg 03/29/22 11:00 03/29/22 13:59 Ipratropium 0.5 Mg/2.5 Ml Neb INHALATION 0.5 mg Q6H LEONARDO Administration Levalbuterol HCl 0.63 mg 03/29/22 14:00 03/29/22 13:59 Levalbuterol 0.6 3 Mg/3 Ml Neb INHALATION 0.63 mg Q6H.RESP LEONARDO Administration Lisinopril 5 mg 03/28/22 19:00 03/29/22 08:59 Lisinopril 5 Mg Tablet PO 5 mg DAILY LEONARDO Administration Tamsulosin HCl 0.4 mg 03/28/22 19:00 03/29/22 08:59 Tamsulosin 0.4 M g Capsule PO 0.4 mg BID LEONARDO Administration Vitals/I&O/Wt Last Vital Signs Temp 97.5 F L 04/01/22 07:36 Pulse 73 04/01/22 07:36 Resp 16 04/01/22 07:36 BP 132/67 04/01/22 07:36 Pulse Ox 97 04/01/22 07:36 O2 Del Method 04/01/22 07:01 O2 Flow Rate 2 03/31/22 03:18 12/04/1004/01/22 04/01/22 22:59 06:59 14:59 Intake Total 480 / 1370 Output Total 1400 / 1700 1000 / 2700 Balance -920 / -330 -1000 / -1330 Weight last 48 hrs Weight 69.989 kg Weight 70.035 kg Physical Exam Narrative: General: No acute distress, AO x3 HEENT: PERRLA, pupils bilaterally equal and reactive, pallors not present Chest: Normal vesicular breath sounds, no added sounds, equal good air entry bilaterally CVS: S1-S2 regular, no murmurs, no tachycardia, no gallops, no rubs Abdomen: Soft, nontender, no organomegaly, bowel sounds present Neuro: No focal deficits, no facial deformity, AO x3, power 5/5 in all limbs Urinary Catheter Management: Hicks: Cath Placed During This Visit: no Reason for Continuing Indwelling Catheter: Accurate Measurement of Urinary Output in Critically Ill Patients Data 03/31/22 06:01 03/31/22 06:01 Micro: Microbiology 03/28/22 23:47 Gram Stain - Final Sputum - Expectorated Sputum Sputum Culture - Preliminary Coag positive Staphylococcus A&P Assessment and plan (1) Congestive heart failure: (2) Benign essential HTN: Plan 71 year old male with past medical history of heart failure with reduced ejection fraction, BPH, hypertension, came in with chief complaint of worsening lower extremity swelling started around 3 weeks back, followed by worsening shortness of breath, PND, orthopnea, shortness of breath started around a week back and since then it has progressively worsened. He has denied any fever chills cough, runny nose headache, chest pain, Abdominal pain nausea vomiting. Patient does complain difficulty passing urine, has to strain a lot. Assessment: Decompensated heart failure with reduced ejection fraction, as well as HFpEF History of hypertension History of BPH Moderate mitral valve regurgitation Moderate sized left pleural effusion Trace pericardial effusion Hypokalemia Hyponatremia possibly hypervolemic or due over diuresis. Plan: Nuclear stress test :2020: Negative for ischemia Patient prior 2D echo result done in 2020: Has been reviewed. Repeat 2D echo: LVEF 25 to 30% grade 2 diastolic dysfunction, moderate MR. Troponin trend: Unremarkable Started on lisinopril 5 mg p.o. daily (possibly can be switched to Entresto later) Carvedilol 3.125 mg p.o. twice daily Will initiate spironolactone Lasix 40 IV daily Monitor intake output charting Monitor daily weight Monitor electrolytes K>4,MG>2 Telemetry monitoring Insert Hicks catheter for accurate intake output charting Empirically on ceftriaxone: For possible pneumonia though less likely. Stress test returned abnormal, plan for cardiac cath tomorrow. CODE STATUS: Full code DVT prophylaxis on Lovenox Attestations Medical Necessity Statement*: Cardiac cath tomorrow. Coding Level of Care Code Acute Religious Education Director for Carmencita Resendez Diagnoses Congestive heart failure I50.9 Benign essential HTN I10
[2022-04-01] VITALS (9 sets, daily range): BP systolic 111–135; BP diastolic 67–80; PULSE 73–104; RESP 16–19; TEMP 36.4–37.2; O2SAT 90–100
[2022-04-01] MEDS: diphenhydrAMINE 50 mg Capsule PO (05:25)
--- NOTE | 2022-04-01 06:00 | XACV_ITS ---
Exam Room: 2 Ht: 175 cm Wt: 70 kg BSA: 1.85 m2 Gender: Male : 1950 Exam Priority: Routine Procedure(s): Procedure Description: Diagnostic procedure Procedure Description: Left Heart Catheterization Procedure Description: Right Heart Catheterization Procedure Description: O2 saturation Procedure Description: Coronary Angiography Diagnostic Cath Status: Elective Diagnostic Findings * Indication: LV dysfunction/abnormal stress test. * No significant disease noted in the Left Main, Left Anterior Descending, or Circumflex coronary arteries. * Mild to moderate luminal irregularities in the RCA. No significant stenosis. * Right heart cath findings: RA pressure: 11/13/10 mmHg RV pressure: 23/6 / 8 mmHg PA pressure: 34/12 /20 mmHg PCW: 20/21/17 mmHg PA saturation: 72% AO saturation: 93% TP Cardiac output 5.8 L/min Cardiac index 3.2. * Coronary angiography shows co-dominance. Conclusions 1. Non obstructive CAD. 2. Non ischemic Cardiomyopathy. 3. Mildly elevated right and left sided cardiac pressures. Recommendations * Aggressive risk factor modification. * Guideline directed congestive heart failure therapy. * Outpatient cardiology follow-up in 4 weeks. * Continue gentle diuresis. Interventional RX Recommendation: medical therapy and/or counseling Diagnostic RX Recommendation: medical therapy and/or counseling Anticoagulation: Heparin Pressures Phase:Rest AO : 80 / 44 ( 56 ) @ 6:39:00 AM 79 / 59 ( 69 ) @ 6:41:00 AM 126 / 73 ( 93 ) @ 6:44:00 AM 117 / 62 ( 84 ) @ 6:44:00 AM LV : 133 / 3 / 16 @ 6:43:00 AM 125 / 0 / 12 @ 6:44:00 AM RV : 23 / 6 / 8 @ 6:28:00 AM 35 / 0 / 7 @ 6:29:00 AM PA : 34 / 12 ( 20 ) @ 6:27:00 AM RA : a wave = 11 v wave = 13 mean = 10 @ 6:29:00 AM PCW : a wave = 20 v wave = 21 mean = 17 @ 6:27:00 AM O2 Content Phase:Rest PA : O2 Content O2: 71.9 @ 6:39:00 AM Saturations Phase:Rest AO : 93 @ 6:41:00 AM PA : 72 @ 6:39:00 AM Cardiac Output Phase:Rest Kassie : 6 @ 6:54:33 AM Kassie Cardiac Index: 3 @ 6:54:33 AM Flow Phase:Rest Qp : 6 @ 6:54:33 AM Qs : 6 @ 6:54:33 AM Valves Phase:DefaultPhase AV : 0.0 @ 6:54:33 AM AV Mean Gradient: 0.0 @ 6:54:33 AM AV Flow: 596 @ 6:54:33 AM Clinical Evaluation EBL: 5mL-10mL Procedural Details Procedure Consent Obtained. Pre-Procedure Time Out. Identified patient by full name and date of as verbalized by the patient/guarantor. Does the consent match the physician's order: Yes. Accurate & Complete Informed Consent: Yes. Inpatient/Outpatient History & Physical on Chart: Yes. If H&P is completed, is and addenduem needed: No. Visualize and Verify Site with Patient/Guarantor: N/A. Relevant Radiology Images available: Yes. The risks, benefits, and alternatives of sedation and/or procedure were discussed by physician. The patient agrees to continue. Procedure started. Janet Stout RN, SQL ETL DEVELOPER was relieved by RT Cassandra(R) as monitoring person. [facility] Clinical Fraility Score: 3: Managing Well. Exercise Physiologist Certified Indications: Suspected CAD. Chest Pain Symptom Assessment: Atypical Angina. Correct patient, site and procedure confirmed by cath team. Current diagnosis: Chest Pain. PERRLA. Strong, equal hand health equipment servicer bilaterally. Lungs clear x 5 lobes. IV Site on Arrival: 18 gauge in the left anticubital. IV Fluids: 0.9% NaCl at KVO. 0 mL infused prior to clinical laboratory manager. right groin was prepped with chloroprep then draped in the usual sterile fashion. right radial was prepped with chloroprep then draped in the usual sterile fashion. Baseline sample Acquired. HR: 82 BPM. Physician arrived. right brachial was prepped with chloroprep then draped in the usual sterile fashion. A 20 gauge IV was started in the left forearm using aseptic technique. Physician scrubbed in. Immediate Pre-Procedure Time Out. Correct Patient: Yes; Correct Procedure: Yes; Correct Site: Yes; Correct Patient Position: Yes; Correct Supplies: Yes; Dried Flammable Prep: Yes; Blood Products Available: N/A;. Lidocaine 1% infiltrated to the right brachial. Sheath wire inserted through the right brachial IV catheter. IV catheter removed OTW. [place] MON catheter inserted. Oximetry samples were obtained. Normal venous range: 60-85%. Normal arterial range: 95-100%. Pressure measurements obtained. [place] out. Lidocaine 1% infiltrated to the right radial. Arterial access obtained. Respiratory called to package pick up O2 sats. A 5 pan[place]ian TIG catheter in over wire. Wire removed. Contrast hand injected through the catheter. Inventory is TR Glidewire Angled Stiff Shaft .035 260cm. Glidewire inserted through the catheter. Oxygen started at 2liters/min via nasal canula. Multiple views taken of left coronary artery. Catheter redirected to the RCA. Multiple views taken of right coronary artery. EDP Sample taken: LV 133/3,16; HR: 94 BPM; SpO2: 91%. Pullback taken: LV 125/-1,12; AO 126/73(93); Mean: 0mmHg, Peak to Peak: 0mmHg, SEP: 10sec/min; HR: 90 BPM; SpO2: 89%. Catheter removed over the exchange wire. Physician scrubbed out. Physician review of cine films. A TR Band was successful obtaining hemostatsis at the Right Radial artery insertion site. A Manual Compression was unsuccessful obtaining hemostatsis at the Right Brachial Vein insertion site. Post Procedure: Pulses reassessed and unchanged. PERRLA. Strong, equal hand health equipment servicer bilaterally. No VTE prophylaxis required. Medication's Wasted: Lidocaine 1% = 7 mL. Medication's Wasted: Nitro = 49.7 mg. Medication's Wasted: Other = Fentanyl 50 mcg. Medication's Wasted: Heparin = 1000 units. Total IV fluids: 42 mL. Post-op diagnosis: Mild CAD, Mild elevated right heart pressures. Complications: None. Estimated blood loss: 5mL-10mL. Responsiveness - Normal response to verbal stimuli; alert and oriented, PERRLA. Airway - Unaffected, no intervention required; spontaneous ventilation. Circulation: W/N/L, pulses unchanged. Nausea/Vomiting: No. Procedure completed. Vital chart was stopped. Patient transferred by wheelchair to 1st floor. Access Site Site: Right Brachial Vein Sheath Size: 6 Fr Hemostasis Method: Manual Compression Hemostasis Success: Unsuccessful Site: Right Radial artery Sheath Size: 6 Fr Hemostasis Method: TR Band Hemostasis Success: Successful Procedure Medications Start: 6:16 AM Stop: 6:16 AM Medication: Versed 1 mg and Fentanyl 25 mcg Amount: 1 Route: I.V. Start: 6:33 AM Stop: 6:33 AM Medication: Fentanyl Amount: 25 mcg Route: I.V. Start: 6:33 AM Stop: 6:33 AM Medication: Nitrogylcerin Amount: 200 mcg Route: I.A. Start: 6:35 AM Stop: 6:35 AM Medication: Nitrogylcerin Amount: 100 mcg Route: I.A. Start: 6:35 AM Stop: 6:35 AM Medication: Versed Amount: 1 mg Route: I.V. Start: 6:38 AM Stop: 6:38 AM Medication: Heparin Amount: 5000 units Route: I.V. I, the attending physician, have reviewed and verified all procedure medications. Yes, all medications given per verbal order History/Risk Factors Hypertension: No Dyslipidemia: No Peripheral Arterial Disease (PAD): No Myocardial Infarction (ND): No Obesity: No Renal Disease: No Tobacco Use: Former Prior Interventions PCI: No CABG: No Valve Surgery: No Report Signatures Finalized by Med Schumacher MD on 04/13/2022 10:20 AM
--- NOTE | 2022-04-01 06:15 | W.PM.OPSUD ---
Surgery/Procedure H&P Update DATE OF PROCEDURE: April 01, 2022 DATE H&P PERFORMED: 03/30/22 H&P UPDATE INFORMATION: I have reviewed H&P completed within last 30 days, I have examined patient prior to procedure and No changes to prior documentation PREOP DIAGNOSIS: LV dysfunction/abnormal stress test PRIMARY INDICATION FOR PROCEDURE: LV dysfunction/abnormal stress test PLANNED PROCEDURE: Left heart cath + Right heart cath with possible percutaneous coronary intervention PATIENT REASSESSED PRIOR TO SEDATION, WITH NO CHANGE NOTED: Yes PHYSICAL EXAM: alert, oriented x 3, clear to auscultation bilaterally and regular rate & rhythm AIRWAY EVAL/ANESTHESIA PLAN: ASA III, Local Anesthesia, Risks, benefits & alternatives of sedation and/or procedure discussed and Patient agrees to continue as planned ADDITIONAL INFORMATION: Moderate sedation
[2022-04-01 06:41] LABS: Arterial Blood Gas Hematocrit 37.1 % (42-52); Blood Gas Operator Identificat CAK; Blood Gas Sample Type Not specified; Carboxyhemoglobin 1.3 %THgb (0.4-20.1); HGB O2 Sat 91.4 % (95-100); Methemoglobin 0.9 % (0.4-1.5); Total Hemoglobin 12.1 g/dL (14-18)
[2022-04-01 06:43] LABS: Blood Gas Operator Identificat CAK; Blood Gas Sample Type Not specified
[2022-04-01 06:44] LABS: Arterial Blood Gas Hematocrit 38.1 % (42-52); Carboxyhemoglobin 1.2 %THgb (0.4-20.1); HGB O2 Sat 70.9 % (95-100); Methemoglobin 0.2 % (0.4-1.5); Total Hemoglobin 12.4 g/dL (14-18)
--- NOTE | 2022-04-01 06:49 | PM.PN ---
Subjective Subjective: Patient is doing well. No chest pain or shortness of breath. He underwent coronary angiogram today that showed no significant CAD. Right heart cath shows mildly elevated right and left sided pressures. Vitals/I&O/Wt Last Vital Signs Temp 98.9 F 04/01/22 03:31 Pulse 99 04/01/22 06:00 Resp 19 H 04/01/22 03:31 BP 135/73 04/01/22 03:31 Pulse Ox 90 04/01/22 03:31 O2 Del Method 04/01/22 02:00 O2 Flow Rate 2 03/31/22 03:18 03/31/22 03/31/22 04/01/22 14:59 22:59 06:59 Intake Total 890 / 890 480 / 1370 Output Total 300 / 300 1400 / 1700 1000 / 2700 Balance 590 / 590 -920 / -330 -1000 / -1330 Weight last 48 hrs Weight 154 lb 4.8 oz Weight 154 lb 6.4 oz Physical Exam Narrative: GENERAL: Patient is alert, awake and oriented x3. [] NECK: No jugular vein distension. [] HEENT: No cyanosis. No icterus. No pallor. [] HEART: Regular S1 and S2. No murmur, rub or gallop. [] LUNGS: Decreased breathing sounds. [] ABDOMEN: Soft, nontender and nondistended. Positive bowel sounds. No guarding, rebound or tenderness. [] CENTRAL NERVOUS SYSTEM: Grossly nonfocal. [] EXTREMITIES: Lower extremities with 1+ edema bilaterally. Pulses palpable in the lower extremities, both dorsalis pedis and posterior tibial. [] Urinary Catheter Management: Hicks: Cath Placed During This Visit: no Reason for Continuing Indwelling Catheter: Accurate Measurement of Urinary Output in Critically Ill Patients Data 03/31/22 06:01 03/31/22 06:01 Micro: Microbiology 03/28/22 23:47 Gram Stain - Final Sputum - Expectorated Sputum Sputum Culture - Preliminary Coag positive Staphylococcus A&P Assessment and plan (1) Congestive heart failure: (2) Benign essential HTN: (3) Cardiomyopathy: Plan Patient does not have significant CAD. Nonischemic cardiomyopathy. Guideline directed medical therapy for 3 months. At that time we will repeat echocardiogram and if he has persistently low heart function, will need ICD/DETECTIVE NARCOTICS AND VICE-D. Coreg has been uptitrated to 6.25 mg twice daily today. Continue lisinopril. Patient will keep a log of blood pressure readings and bring to office appointment for further up titration of guideline directed medical therapy for heart failure. Mildly elevated right and left-sided cardiac pressures cardiac cath. At time of discharge can be sent home on oral Lasix 20 mg twice daily. Daily weights and low sodium diet as outpatient Thank you for involving us with care of this patient. Patient is stable to be discharged later today after monitoring for access site. Outpatient follow up. Please call with questions. Attestations Medical Necessity Statement*: Care expected to cross 2 midnights. Coding Level of Care Code Acute Court Recorder for Keving Fwd Diagnoses Congestive heart failure I50.9 Benign essential HTN I10 Cardiomyopathy I42.9
--- NOTE | 2022-04-01 08:25 | P.DS_ITS ---
Discharge Providers Date of Admission: 03/28/22 15:07 Date of Discharge: April 01, 2022 Attending Provider at Admission: Ethan Chang MD Attending Provider at Discharge: Nilda Rose MD Primary Care Provider: Alice Batres DO Diagnoses at Discharge Discharge Diagnosis (1) Congestive heart failure: Status: Acute (2) Benign essential HTN: Status: Acute Reason for Visit Reason for Visit: SOB, Both legs swelling Brief History: Taken from H&P: Rashi Orozco is a 71 year old male with past medical history of heart failure with reduced ejection fraction, BPH, hypertension, came in with chief complaint of worsening lower extremity swelling started around 3 weeks back, followed by worsening shortness of breath, PND, orthopnea, shortness of breath started around a week back and since then it has progressively worsened.? He has denied any fever chills cough, runny nose headache, chest pain, Abdominal pain nausea vomiting.EKG: Sinus tach, occasional PVCs,RAD, IVCD.? Hospital Course Hospital Course Patient was admitted to the hospital for management of decompensated heart failure with reduced ejection fraction.?Chest x-ray reveals congestive heart failure.? His BNP is elevated above 22,000.?Echocardiogram this visit now reveals that his left ventricle is enlarged where it was not previously, his ejection fraction is now about 25 to 30% where previously it was about 40% and he has developed mild to moderate mitral regurgitation.His troponins are relatively low 40/41/46.He was treated with an AKIL inhibitor, potassium and intravenous Lasix as well as carvedilol.? Symptomatically he is quite improved.? The edema has resolved and he is able to lie flat. Once optimized from heart failure perspective he underwent a stress test on March 31, 2022 which showed abnormal myocardial perfusion imaging which large sized area of prior infarct and significant bianca-infarct ischemia in the RCA territory. Also noted were changes in the LAD territory. LV systolic function was severely reduced with an EF of 23%. He underwent an angiogram this morning which showed no significant CAD. He was noted to have mildly elevated right and left-sided pressures. Coreg has been uptitrated to 6.25 mg twice daily. He is being discharged today in a stable condition with recommendations to continue lisinopril, Lasix 20 mg p.o. twice daily. He was monitored after the procedure, tolerated it well and was discharged in stable to improved condition. Follow-up with cardiology nurse practitioner in 1 week. Physical Exam Narrative: General: No acute distress, AO x3 HEENT: PERRLA, pupils bilaterally equal and reactive, pallors not present Chest: Normal vesicular breath sounds, no added sounds, equal good air entry bilaterally CVS: S1-S2 regular, no murmurs, no tachycardia, no gallops, no rubs Abdomen: Soft, nontender, no organomegaly, bowel sounds present Neuro: No focal deficits, no facial deformity, AO x3, power 5/5 in all limbs Urinary Catheter Management: Hicks: Cath Placed During This Visit: no Reason for Continuing Indwelling Catheter: Accurate Measurement of Urinary Output in Critically Ill Patients Discharge Data Studies Completed and Pending Completed Studies During Hospitalization Category Date Time Status Cardiac Stress Test MIBI [Sestamibi Stress Test Request Exams 03/30/22 09:24 Completed ] Routine XR chest 1V portable [id number] Routine Exams 03/31/22 05:00 Completed XR chest 1V portable [id number] Stat Exams 03/28/22 09:45 Completed NM jessica perf SPECT r/s* [id number] Routine Nuc Med 03/31/22 09:24 Completed CV. echo complete* [id number] Routine Ultrasound 03/28/22 13:20 Completed Pending at discharge Category Date Time Status MECHANICAL SOUND TECHNICIAN request for service Routine Exams 04/01/22 06:00 Ordered Blood Culture Stat Lab 03/28/22 10:10 Results Sputum Culture and Gram Stain Stat Lab 03/28/22 23:47 Results Radiology Impressions Chest X-Ray 03/31/22 05:00 IMPRESSION: Considerably improved exam from 3 days ago. Laboratory Results WBC 7.0 10^3/uL (4.0-10.0) 03/31/22 06:01 RBC 3.95 10^6/uL (4.1-5.3) L 03/31/22 06:01 Hgb 12.4 g/dL (11.7-16.6) 03/31/22 06:01 Hct 36.9 % (42.0-52.0) L 03/31/22 06:01 MCV 93.4 fl (80-94) 03/31/22 06:01 MCH 31.4 pg (28.0-34.0) 03/31/22 06:01 MCHC 33.6 g/dL (30.0-36.0) 03/31/22 06:01 RDW 14.0 % (12.1-15.1) 03/31/22 06:01 Plt Count 259 10^3/cmm (130-400) 03/31/22 06:01 MPV 10.4 fL (7.4-10.4) 03/31/22 06:01 Neut % (Auto) 68.0 % 03/31/22 06:01 Lymph % (Auto) 14.1 % 03/31/22 06:01 [place] % (Auto) 11.5 % 03/31/22 06:01 Eos % (Auto) 5.4 % 03/31/22 06:01 Baso % (Auto) 0.6 % 03/31/22 06:01 Neut # (Auto) 4.78 10^3/uL (1.8-7.7) 03/31/22 06:01 Lymph # (Auto) 1.0 10^3/uL (0.8-4.8) 03/31/22 06:01 [place] # (Auto) 0.8 10^3/uL (0.2-0.9) 03/31/22 06:01 Eos # (Auto) 0.4 10^3/uL (0.0-0.8) 03/31/22 06:01 Baso # (Auto) 0.0 10^3/uL (0.0-0.1) 03/31/22 06:01 Nucleated RBC % (auto) 0 % 03/31/22 06:01 Nucleated RBCs # 0.0 /100WBC 03/31/22 06:01 PT 14.40 SECONDS (12.1-14.9) 03/29/22 01:20 INR 1.09 (0.8-1.2) 03/29/22 01:20 Specimen Type Not specified 04/01/22 06:29 Specimen Type Not specified 04/01/22 06:29 Sample Site Not Reportable 04/01/22 06:29 Sample Site Not Reportable 04/01/22 06:29 Timmy Test N/a 04/01/22 06:29 Timmy Test N/a 04/01/22 06:29 A-a O2 Gradient Not Reportable 04/01/22 06:29 A-a O2 Gradient Not Reportable 04/01/22 06:29 Hematocrit 37.1 % (42-52) L 04/01/22 06:29 Hematocrit 38.1 % (42-52) L 04/01/22 06:29 Hgb O2 Saturation 70.9 % (95-100) L 04/01/22 06:29 Hgb O2 Saturation 91.4 % (95-100) L 04/01/22 06:29 Carboxyhemoglobin 1.2 %THgb (0.4-20.1) 04/01/22 06:29 Carboxyhemoglobin 1.3 %THgb (0.4-20.1) 04/01/22 06:29 Methemoglobin 0.2 % (0.4-1.5) L 04/01/22 06:29 Methemoglobin 0.9 % (0.4-1.5) 04/01/22 06:29 Total Hemoglobin 12.1 g/dL (14-18) L 04/01/22 06:29 Total Hemoglobin 12.4 g/dL (14-18) L 04/01/22 06:29 O2 Delivery Device Not Reportable 04/01/22 06:29 O2 Delivery Device Not Reportable 04/01/22 06:29 Drug Safety Data Management Specialist ID Cak 04/01/22 06:29 Drug Safety Data Management Specialist ID Cak 04/01/22 06:29 Sodium 134 mmol/L (136-145) L 03/31/22 06:01 Potassium 3.8 mmol/L (3.5-5.1) 03/31/22 06:01 Chloride 100 mmol/L (98-107) 03/31/22 06:01 Carbon Dioxide 26 mmol/L (22-29) 03/31/22 06:01 Anion Gap 11.8 (5-19) 03/31/22 06:01 BUN 18 mg/dL (8-23) 03/31/22 06:01 Creatinine 1.0 mg/dL (0.7-1.2) 03/31/22 06:01 GFR Calculation Not Reportable 03/31/22 06:01 Glucose 97 mg/dL (65-115) 03/31/22 06:01 Calculated Osmolality 280 mOsm/kg (285-295) L 03/31/22 06:01 Calcium 8.6 mg/dL (8.5-10.5) 03/31/22 06:01 Magnesium 2.1 mg/dL (1.7-2.3) 03/31/22 06:01 Total Bilirubin 0.2 mg/dL (0.15-1.2) 03/31/22 06:01 AST 16 U/L (0-40) 03/31/22 06:01 ALT 12 U/L (0-41) 03/31/22 06:01 Alkaline Phosphatase 28 U/L (40-130) L 03/31/22 06:01 Troponin T Baseline 40 ng/L (0-15) H 03/28/22 18:40 Troponin T 120 Minute 41.81 ng/L (0-15) H 03/28/22 20:12 Delta Troponin T 1.81 ABS# (0-10) 03/28/22 20:12 Troponin T Hi Sens 6Hr 46.37 ng/L (0-15) H 03/29/22 01:20 Troponin T Hi Sens 6Hr Delta 6.37 ng/L (0-12) 03/29/22 01:20 NT-Pro-B Natriuret Pep 30941 pg/mL (0-125) H 03/28/22 09:50 Total Protein 5.8 g/dL (6.6-8.7) L 03/31/22 06:01 Albumin 3.2 g/dL (3.5-5.2) L 03/31/22 06:01 Globulin 2.6 g/dL (1.3-4.6) 03/31/22 06:01 Procalcitonin 0.08 ng/mL (0-0.5) 03/30/22 03:10 TSH 2.43 uIU/mL (0.27-4.20) 03/29/22 01:20 Vitals Last Vital Signs Temp 97.5 F L 04/01/22 07:36 Pulse 73 04/01/22 07:36 Resp 16 04/01/22 07:36 BP 132/67 04/01/22 07:36 Pulse Ox 97 04/01/22 07:36 O2 Del Method 04/01/22 07:01 O2 Flow Rate 2 03/31/22 03:18 Discharge Plan Discharge Patient Disposition: Home Condition: Stable Prescriptions: New carvedilol 6.25 mg Tablet 6.25 mg PO BID 30 Days Qty: 60 0RF furosemide [Lasix] 20 mg tablet 20 mg PO BID 30 Days Qty: 60 0RF tamsulosin 0.4 mg Capsule 0.4 mg PO BID 30 Days Qty: 60 0RF lisinopril 5 mg Tablet 5 mg PO DAILY 30 Days Qty: 30 0RF potassium chloride [Klor-Con M20] 20 mEq Tablet,Er Particles/Crystals 40 meq PO DAILY 30 Days Qty: 30 0RF aspirin 81 mg capsule 81 mg PO DAILY 30 Days Qty: 30 0RF Discontinued ibuprofen 600 mg Tablet 600 mg PO DAILY PRN (Reason: Pain) Discharge Orders: Discharge Order (Routine); Ordered 04/01/22 Ordered By: Nilda Rose Referrals: Alice Batres DO [Primary Care Provider] - Crystal Bejarano FNP [Nurse Practitioner] - 7-10 days Discharge Diet: Cardiac Discharge Activity: Resume usual activity and Increase activity as tolerated Patient Instructions: Opioid Safety Discharge Attestations Time Spent in Discharge Care*: greater than 30 min Quality Metrics Clinical Quality Measures [ No reported AMI, CVA or VTE this stay] Coding Level of Care Code Acute Chg FW DC note Diagnoses Congestive heart failure I50.9 Benign essential HTN I10
[2022-04-01] MEDS: levalbuterol 0.63 mg/3 mL Neb INHALATION (08:50)
[2022-04-01] MEDS: ipratropium 0.5 mg/2.5 mL Neb INHALATION (08:50)
[2022-04-01] MEDS: tamsulosin 0.4 mg Capsule PO (10:18)
[2022-04-01] MEDS: lisinopril 5 mg Tablet PO (10:18)
[2022-04-01] MEDS: carvedilol 6.25 mg Tablet PO (10:18)
[2022-04-01] MEDS: potassium chloride ER 20 mEq Tablet 40 MEQ PO (10:18)
[2022-04-01] MEDS: FUROsemide 10 mg/mL SDV 4mL 40 MG IVP (10:20)
--- NOTE | 2022-04-01 12:47 | PC.NURSE ---
pt received from cardiac lab associate via w/c at 0715.report received.pt is alert and oriented x 4 .sr on monitor.denies pain at present.right radial tr band on and inflated.right hand is warm to touch and with brisk capillary refill.no hematoma noted.palpable radial pulse noted distal to tr band.pt instructed in activity restrictions s/p radial artery procedure...and instructed to notify staff for any bleeding,pain,numbness,sob,or for any concerns at all.pt verb understanding of instructions.
[2022-04-01] MEDS: cefTRIAXone 1,000 MG in sodium chloride 0.9% (plus) 50 ML 100 MG IV (14:07)
--- NOTE | 2022-04-01 15:27 | PC.NURSE ---
discharge instructions given and explained.pt verb understanding of instructions.discharged via w/c to exit at this time.brother to drive pt home
== END 2022-04-01 15:28 | disposition home health service (06) | DRG 286 ==
LOC: ER 09:56 → CSU 15:07
PROVIDERS: Internal Medicine; Physician Assistant; Admitting Provider Internal Medicine; Emergency Provider Family Medicine; PCP Family Medicine; Visit Provider Student in an Organized Health Care Education/Training Program
PROC: 4A023N8 Measurement of Cardiac Sampling and Pressure, Bilateral, Percutaneous Approach (ICD-10-PCS; principal; 2022-04-01 06:00)
DX: I11.0 Hypertensive heart disease with heart failure (principal); I50.23 Acute on chronic systolic (congestive) heart failure; E87.1 Hypo-osmolality and hyponatremia; N40.1 Benign prostatic hyperplasia with lower urinary tract symptoms; R39.16 Straining to void; I34.0 Nonrheumatic mitral (valve) insufficiency; Z87.891 Personal history of nicotine dependence; E87.6 Hypokalemia; I44.7 Left bundle-branch block, unspecified; I42.8 Other cardiomyopathies; I25.10 Atherosclerotic heart disease of native coronary artery without angina pectoris
CPT/HCPCS: 36415; 51702; 71045; 78452; 80053; 82810; 83735; 83880; 84145; 84443; 84484; 85025; 85610; 87040; 87070; 87186; 87205; 90471; 90732; 93005; 93017; 93306; 93460; 94640; 96372; 96374; 96375; 99152; 99153; 99285; A9500; C1751; C1769; C1887; C1894; J0280; J0696; J1644; J1650; J1940; J2250; J2785; J3010; J3480; J3490; J7030; J7614; J7644; Q0163; Q9967

== ENCOUNTER → 2022-04-22 13:02 | Outpatient (BNVA) | payer MEDICARE, MEDICAID, SELFPAY | PROVIDERS: PCP Family Medicine; Visit Provider Nurse Practitioner Family | DX: I11.0 Hypertensive heart disease with heart failure (principal); I50.23 Acute on chronic systolic (congestive) heart failure; Z87.891 Personal history of nicotine dependence | CPT/HCPCS: 99214 ==

== ENCOUNTER 2022-05-05 10:41 | Inpatient (IN) | payer MEDICARE, MEDICAID, SELFPAY ==
[2022-05-05] VITALS (17 sets, daily range): BP systolic 115–144; BP diastolic 61–76; PULSE 56–87; RESP 15–18; TEMP 36.3–37.1; O2SAT 94–100; BMI 20.7; BMI 20.5
--- NOTE | 2022-05-05 11:09 | W.ED.MALEGU ---
HPI - Male Genitourinary General: Chief complaint: Urogenital-Male Stated complaint: Medardo sent for urogenital Time Seen by Provider: 05/05/22 11:09 Source: patient Mode of arrival: ambulatory Limitations: no limitations History of Present Illness: This 71-year-old male with a past history of BPH, cardiomyopathy, congestive heart failure and major depressive disorder was sent to the ER by his primary care provider with swelling and pain on the penis. Patient notes that the swelling started about 3 weeks ago. Though he is still able to urinate, in the last 1 week, it [place] to do so. He has no fever, nausea or vomiting. Patient reports that the swelling started about a week after a recent indwelling Hicks catheter he had was removed. He appears clinically stable. Associated symptoms: Reports dysuria Review of Systems Const: Denies: chills, body aches or change in appetite Card: Denies: chest pain or lightheadedness : Reports: dysuria, genital pain and other (Swollen, red and tender penis.) Musc: Denies: neck pain or back pain Neuro: Denies: headache(s) or weakness in extremities Live/Lymph: Denies: easy bruising All/Imm: Denies: urticaria, tongue swelling or facial swelling PFSH ED PFSH: Medical History (Updated 05/05/22 @ 13:29 by Monique Fuller MD) Benign essential HTN BPH (benign prostatic hyperplasia) Cardiomyopathy Nonischemic Congestive heart failure EF 25-30% 03/2022 GERD (gastroesophageal reflux disease) Major depressive disorder Relapsing polychondritis Surgical History (Updated 05/05/22 @ 13:29 by Monique Fuller MD) History of cardiac catheterization 03/2022 - no obstructive CAD, mildly elevated right and left sided pressures History of ear surgery T-tube in left ear ~2018 Family History Father Cancer Family history of premature coronary artery disease Stroke Denies family history of Diabetes CAD (coronary artery disease) Hyperlipidemia Hypertension Social History Smoking and tobacco status: former smoker Alcohol intake: former History of recent travel: No Physical Exam Const: COMMON NORMALS: no acute distress and no limitations HENMT: COMMON NORMALS: normocephalic HEAD & SCALP: normocephalic Chest: COMMONS NORMALS: normal inspection of the chest Resp: COMMON NORMALS: normal respiratory effort, No retractions, No use of accessory muscles and clear to auscultation bilaterally AUSCULTATION: clear to auscultation bilaterally Cardio: COMMON NORMALS: regular rate, regular rhythm and No murmurs present (Cardio) RATE: regular rate RHYTHM: regular rhythm GI: COMMON NORMALS: Normal to inspection, nondistended, normoactive bowel sounds present and non-tender : PENIS: uncircumcised, edematous, erythematous, Localized penile swelling present and other (Fluctuant swelling dorsum of penis consistent with abscess collection.) Back/Pelvis: COMMON NORMALS: no thoracic nor lumbar tenderness Extremity: GENERAL: Yes normal exam except as noted Course Consultations: Consultation #1: Case discussed with Dr. Hardy. He will evaluate patient in the ER. Time: 11:31 Vital Signs: Vital signs: Vital Signs Temperature 97.4 F L 05/05/22 13:54 Pulse Rate 75 05/05/22 13:54 Respiratory Rate 16 05/05/22 13:54 Blood Pressure 137/70 05/05/22 13:54 Pulse Oximetry 95 05/05/22 13:54 Oxygen Delivery Me thod 05/05/22 13:54 MDM - Male Medical Decision Making History as above. Patient has significant swelling with erythema and fluctuance on the penile shaft. This is most consistent with a fluid collection, most likely an abscess and less likely a hematoma. Case discussed with Dr. Hardy who will take patient to the OR. Lab Data 05/05/22 11:52 05/05/22 11:52 Laboratory Results WBC 13.5 10^3/uL (4.0-10.0) H 05/05/22 11:52 RBC 4.40 10^6/uL (4.1-5.3) 05/05/22 11:52 Hgb 13.3 g/dL (11.7-16.6) 05/05/22 11:52 Hct 41.0 % (42.0-52.0) L 05/05/22 11:52 MCV 93.2 fl (80-94) 05/05/22 11:52 MCH 30.2 pg (28.0-34.0) 05/05/22 11:52 MCHC 32.4 g/dL (30.0-36.0) 05/05/22 11:52 RDW 14.1 % (12.1-15.1) 05/05/22 11:52 Plt Count 249 10^3/cmm (130-400) 05/05/22 11:52 MPV 10.3 fL (7.4-10.4) 05/05/22 11:52 Neut % (Auto) 82.4 % 05/05/22 11:52 Lymph % (Auto) 9.2 % 05/05/22 11:52 [place] % (Auto) 7.0 % 05/05/22 11:52 Eos % (Auto) 0.8 % 05/05/22 11:52 Baso % (Auto) 0.3 % 05/05/22 11:52 Neut # (Auto) 11.15 10^3/uL (1.8-7.7) H 05/05/22 11:52 Lymph # (Auto) 1.2 10^3/uL (0.8-4.8) 05/05/22 11:52 [place] # (Auto) 1.0 10^3/uL (0.2-0.9) H 05/05/22 11:52 Eos # (Auto) 0.1 10^3/uL (0.0-0.8) 05/05/22 11:52 Baso # (Auto) 0.0 10^3/uL (0.0-0.1) 05/05/22 11:52 Nucleated RBC % (auto) 0 % 05/05/22 11:52 Nucleated RBCs # 0.0 /100WBC 05/05/22 11:52 Sodium 133 mmol/L (136-145) L 05/05/22 11:52 Potassium 4.9 mmol/L (3.5-5.1) 05/05/22 11:52 Chloride 96 mmol/L (98-107) L 05/05/22 11:52 Carbon Dioxide 26 mmol/L (22-29) 05/05/22 11:52 Anion Gap 15.9 (5-19) 05/05/22 11:52 BUN 17 mg/dL (8-23) 05/05/22 11:52 Creatinine 0.9 mg/dL (0.7-1.2) 05/05/22 11:52 GFR Calculation Not Reportable 05/05/22 11:52 Glucose 110 mg/dL (65-115) 05/05/22 11:52 Calculated Osmolality 278 mOsm/kg (285-295) L 05/05/22 11:52 Calcium 9.4 mg/dL (8.5-10.5) 05/05/22 11:52 Total Bilirubin 0.3 mg/dL (0.15-1.2) 05/05/22 11:52 AST 17 U/L (0-40) 05/05/22 11:52 ALT 9 U/L (0-41) 05/05/22 11:52 Alkaline Phosphatase 91 U/L (40-130) 05/05/22 11:52 Total Protein 7.7 g/dL (6.6-8.7) 05/05/22 11:52 Albumin 4.4 g/dL (3.5-5.2) 05/05/22 11:52 Globulin 3.3 g/dL (1.3-4.6) 05/05/22 11:52 Discharge Plan Discharge Patient Disposition: Placed in Observation Clinical Impression: Abscess of penis Coding Level of Care Code ED Coal Trimmer Machine Operator for Carmencita Fwd Exam Comprehensive
--- NOTE | 2022-05-05 11:45 | PM.HP ---
Providers/Chief Complaint Admitting Physician: Hayely Primary Care Provider: Alice Batres DO Chief Complaint: Medardo sent for urogenital History of Present Illness Rashi Orozco is a 71 year old male who I evaluated for the first time today at the request of the emergency department for swollen fluctuant penis. He has had increasing symptoms for about 3 weeks. He thinks it began somewhat after he had a catheter for other reasons. Is experiencing a lot of pain. He is on aspirin but no other blood thinners. Does have a lot of other significant comorbidities. Physical exam revealed a distinctly fluctuant mass with what appeared to be developing necrosis of the dorsal skin. No other evidence of genitalia involvement. There is a lot of edema of the more distal foreskin but nothing that equates to this. Labs are pending. Based on the concern related to the potential abscess/necrotic changes I recommended emergency I&D. I discussed all this with the patient in detail and the concerns about the appearance of this. Informed consent was obtained. Review of Systems Const: Reports: fatigue and malaise; Denies: chills Eyes: Denies: change in vision ENMT: Denies: throat pain or hoarseness Card: Denies: chest pain Resp: Denies: dyspnea or productive cough GI: Denies: abdominal pain, nausea or vomiting : Reports: difficulty urinating, dysuria and urinary hesitancy; Denies: flank pain Musc: Reports: joint pain; Denies: joint redness Skin/Breast: Denies: jaundice Neuro: Denies: confusion or behavioral changes Endo: Denies: flushing Live/Lymph: Denies: easy bruising, easy bleeding or enlarged lymph nodes All/Imm: Denies: acute wheezing Medications/Allergies Home Medications Medication Instructions Recorded Confirmed Last Taken Type tamsulosin 0.4 mg capsule 0.4 mg PO BID 30 days #180 caps 04/07/22 05/05/22 Unknown Rx carvedilol 3.125 mg tablet (Coreg) 3.125 mg PO BID #180 tabs 04/22/22 05/05/22 Unknown Rx furosemide 20 mg tablet (Lasix) 20 mg PO BID #180 tabs 04/22/22 05/05/22 Unknown Rx lisinopril 5 mg tablet 5 mg PO DAILY #90 tabs 04/22/22 05/05/22 Unknown Rx potassium chloride 20 mEq 40 meq PO DAILY 30 days #90 tabs 04/22/22 05/05/22 Unknown Rx tablet,extended release(part/cryst) (Klor-Con M) acetaminophen 500 mg tablet 500 mg PO Q6H PRN 05/05/22 05/05/22 Unknown History (Tylenol Extra Strength) aspirin 81 mg tablet,delayed 81 mg PO DAILY 05/05/22 05/05/22 Unknown History release citalopram 10 mg tablet (Celexa) 10 mg PO DAILY #90 tabs 05/05/22 05/05/22 Unknown Rx Allergies Allergy/AdvReac Type Severity Reaction Status Date / Time No Known Allergies Allergy Verified 05/05/22 11:50 PFSH Acute PFSH: Medical History Cardiomyopathy GERD (gastroesophageal reflux disease) Relapsing polychondritis Surgical History History of ear surgery T-tube in left ear about three years ago. Family History Father Cancer Family history of premature coronary artery disease Stroke Denies family history of Diabetes CAD (coronary artery disease) Hyperlipidemia Hypertension Social History Smoking and tobacco status: former smoker Alcohol intake: former History of recent travel: No Vitals/I&O/Wt Last Vital Signs Temp 98.7 F 05/05/22 10:54 Pulse 56 L 05/05/22 10:54 Resp 18 05/05/22 10:54 BP 115/61 05/05/22 10:54 Pulse Ox 100 05/05/22 10:54 O2 Del Method 05/05/22 10:54 Weight last 48 hrs Weight 149 lb Physical Exam Const: COMMON NORMALS: no acute distress, alert and well nourished GENERAL APPEARANCE: well kempt and well developed ORIENTATION/CONSCIOUSNESS: not confused HENMT: COMMON NORMALS: normocephalic HEAD & SCALP: normal to inspection and normocephalic Eye: COMMON NORMALS: conjunctivae normal and no scleral icterus CONJUNCTIVA: Yes conjunctivae normal Neck/C-Spine: GENERAL: Yes normal visual inspection Resp: COMMON NORMALS: normal respiratory effort EFFORT & INSPECTION: Yes able to speak in complete sentences, No labored and No Actively coughing Cardio: COMMON NORMALS: regular rate and regular rhythm GI: OTHER: Abdomen soft. Nontender. : MEATUS: other (Cannot retract the foreskin.) SCROTUM: Yes testes descended bilaterally, No edematous and No scrotal swelling OTHER: Grossly abnormal phallus. He is uncircumcised and there is some edema of the distal foreskin but there is a large fluctuant mass on the dorsum of the penis that begins about retirement down the shaft and extends for about 3 cm. There appears to be some necrosis of the overlying skin with some potentially eschar/breakdown. No drainage noted. Back/Pelvis: COMMON NORMALS: no CVA tenderness Extremity: OTHER: Good range of motion. No deformity Neuro: COMMON NORMALS: no focal motor deficits SENSORIUM/ORIENTATION: Yes alert Psych: COMMON NORMALS: mental status grossly normal APPEARANCE: Yes grossly normal and Yes well kempt ATTITUDE: Yes calm and Yes engaged Skin: COMMON NORMALS: no rashes or lesions noted and no jaundice GENERAL SKIN EXAM: no rashes or lesions noted A&P Assessment and plan (1) Penile abscess: (2) Cardiomyopathy: Qualifiers: Cardiomyopathy type: dilated Qualified Code(s): I42.0 - Dilated cardiomyopathy (3) Congestive heart failure: Qualifiers: Heart failure type: systolic Heart failure chronicity: acute on chronic Qualified Code(s): I50.23 - Acute on chronic systolic (congestive) heart failure Attestations Medical Necessity Statement*: Emergent surgery indicated for what appears to be potentially necrotizing changes on the penis skin. To the OR emergently. Coding Level of Care Code Acute Code for [facility] Diagnoses Penile abscess N48.21 Cardiomyopathy I42.0 Cardiomyopathy type: dilated Congestive heart failure I50.23 Heart failure type: systolic Heart failure chronicity: acute on chronic
--- NOTE | 2022-05-05 11:47 | ECG_ITS ---
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 Measurements Intervals [place] Rate: 56 P: 63 [place]: 147 QRS: 3 QRSD: 164 T: 177 QT: 462 QTc: 446 Interpretive Statements SINUS BRADYCARDIA LEFT BUNDLE BRANCH BLOCK [120+ ms QRS DURATION, 80+ ms Q/S IN V1/V2, 85+ ms R IN I/aVL/V5/V6] Compared to ECG 03/29/2022 09:09:32 Sinus rhythm no longer present Short [place] interval no longer present Electronically Signed On 05-05-2022 11:58:43 VP RESPIRATORY by Med Schumacher M.D. [id number]
--- NOTE | 2022-05-05 11:53 | PC.PHAR ---
pt states his daughter chapito [phone] takes care of his medications-called and no answer-pt states he took his am meds but is unsure which ones those are pt states he takes 3 at bedtime and is unsure the names of them
[2022-05-05 12:01] LABS: Basophils % 0.3 %; Eosinophils # 0.1 10^3/uL (0.0-0.8); Eosinophils % 0.8 %; Hemoglobin 13.3 g/dL (11.7-16.6); Lymphocytes # 1.2 10^3/uL (0.8-4.8); Lymphocytes % 9.2 %; Mean Corpuscular HGB Conc 32.4 g/dL (30.0-36.0); Mean Corpuscular Hemoglobin 30.2 pg (28.0-34.0); Mean Corpuscular Volume 93.2 fl (80-94); Mean Platelet Volume 10.3 fL (7.4-10.4); Neutrophils # 11.15 10^3/uL (1.8-7.7); Neutrophils % 82.4 %; Nucleated Red Blood Cells % 0 %; Platelet Count 249 10^3/cmm (130-400); Red Cell Distribution Width 14.1 % (12.1-15.1); White Blood Count 13.5 10^3/uL (4.0-10.0)
--- NOTE | 2022-05-05 12:01 | PC.NURSE ---
Pulled Meds (antibiotics), sent with Shaneka HAAS to OR.
[2022-05-05] MEDS: sodium chloride 0.9% 1,000 ML 30 ML IV (12:08)
[2022-05-05 12:19] LABS: Alanine Aminotransferase 9 U/L (0-41); Albumin Level 4.4 g/dL (3.5-5.2); Alkaline Phosphatase 91 U/L (40-130); Anion Gap 15.9 (5-19); Aspartate Amino Transferase 17 U/L (0-40); Blood Urea Nitrogen 17 mg/dL (8-23); Calcium 9.4 mg/dL (8.5-10.5); Carbon Dioxide 26 mmol/L (22-29); Chloride 96 mmol/L (98-107); Globulin 3.3 g/dL (1.3-4.6); Glucose 110 mg/dL (65-115); Osmolality Calculated 278 mOsm/kg (285-295); Potassium 4.9 mmol/L (3.5-5.1); Sodium 133 mmol/L (136-145); Total Bilirubin 0.3 mg/dL (0.15-1.2); Total Protein 7.7 g/dL (6.6-8.7)
--- NOTE | 2022-05-05 12:19 | PM.OP ---
Operative Report Date of procedure: May 05, 2022 Pre-op diagnosis: Penile abscess with necrotizing changes Post-op diagnosis: Penile abscess with necrotizing changes Procedure done: 1. Incision and drainage penile abscess 2. Modified circumcision Pathology: Cultures Surgeon: Hayley Estimated blood loss: Less than 25 cc Urine output: Not measured Complications: None Findings: Anesthesia: General Condition: Stable Disposition: PACU Intraoperative findings: Abscess on dorsum of penis at midshaft with some necrotic changes of the skin overlying No evidence of corporal involvement. Catheter placed without difficulty after modified circumcision Brief History: Mr. Orozco is a 71-year-old white male who I evaluated for the first time today at the request of the emergency department for what appeared to be a penile abscess. He been having symptoms progressively over the last 3 weeks. He thinks he started having his first symptoms after he had a catheter placed for unrelated reason. Catheter has since been removed and was removed before he noticed any skin changes. Physical exam did reveal what appeared to be a penile abscess. Initial lab tests are pending. It was recommended that we taken to the operating room urgently for I&D possible wide debridement pending status of the skin. Procedure: After emergent evaluation examination and obtaining of informed consent he was taken to the operating suite on 05/05/2022. Rectal exam was performed. No evidence of any gross pathology. Appropriate timeout was performed, SCDs confirmed to be functioning, preoperative antibiotics administered, beta-payton protocol confirmed. Adequate level of anesthesia was obtained. Prepped and draped in usual sterile fashion in supine position paying careful attention to avoiding pressure points. The genitalia were carefully inspected and the preop findings confirmed. Large bore needle was passed into the fluctuant area in the midline of the mass and purulent material was drained. Cultures were sent. The necrotic looking area on the skin overlying the abscess was excised in elliptical fashion and sent for pathology. Large amount of purulent fluid was then drained from the abscess cavity and the cavity was aggressively irrigated. There was no clear evidence of any additional skin necrosis or necrotizing infection. The underlying base of the Abscess cavity looked healthy. There was no severe bleeding. The edges of the skin were cauterized for meticulous hemostasis. Additional irrigation was then performed. It was decided to leave the catheter in the bladder and the head of the penis could not be exposed due to the woody induration of the preputial skin from the infection. A dorsal slit incision was then made with electrocautery to expose the head of the penis and this wound was copiously irrigated. A 14 [place]bourg[place] Hicks catheter was placed to dependent drainage. The skin edges on either side of the dorsal preputial skin wings were then loosely approximated with 2-0 Vicryl. The wounds were then copiously irrigated again and Xeroform gauze was wrapped around the penile incisions and 4 x 4's wrapped around that. The wound from the abscess cavity was packed with a single 2 x 2. Fluffed dressing was applied over that and then a 4 x 4 wrapped around the penis and then Coban tape applied loosely. He tolerated procedure well without complications and was awakened in the operating room and returned to PACU in stable condition PLANS: 1. Admit to [facility] 2. IV antibiotics with adjustment to oral once cultures available 3. Wet-to-dry dressing changes for the abscess cavity
[2022-05-05] MEDS: vancomycin 1,000 MG in sodium chloride 0.9% 250 ML 250 MG IV (12:24)
--- NOTE | 2022-05-05 12:30 | ANES.PREANE2 ---
Pre-Anesthetic Assessment Height/Weight: Height 1.8 m Weight 67.585 kg Temp Pulse Resp BP Pulse Ox O2 Del Method 98.7 F 87 18 115/61 97 05/05/22 10:54 05/05/22 11:59 05/05/22 11:59 05/05/22 10:54 05/05/22 11:59 05/05/22 10:54 Preop Diagnosis: LV dysfunction/abnormal stress test Operation Date: 05/05/22 13:10 Proposed Procedures p Incision And Drainage penile abscess, possible circumcision(Not Applicable) - Mark Hardy MD Familial anesthetic complications: none Was Beta Mariusz taken within 24 hours: Yes Was Clonidine taken within 24 hours: N/A Social Tobacco and No alcohol Exam alert, oriented x 3 and regular rate & rhythm Airway Submandibular: within normal limits Cervical ROM: within normal limits Mallampati: Class II Dentition: false Pulmonary Chronic Obstructive Pulmonary Disease CV/HEM Stable Angina, Congestive Heart Failure and Hypertension CONCLUSIONS ?The rhythm is sinus tachycardia with a bundle branch block ?pattern which decreases the sensitivity of the exam somewhat.? ?The left ventricle is mildly enlarged.? There is what is most ?likely global hypokinesis.? In some views the anterior wall ?appears slightly more hypokinetic however this cannot be ?confirmed on other views.? The overall ejection fraction is ?likely 25 to 30%.? Grade 2 diastolic dysfunction. ?Mildly increased left atrial size. ?Structurally normal mitral valve. Moderate mitral valve ?regurgitation. ?There is a tiny hemodynamically insignificant pericardial ?effusion.? There is a moderate sized left pleural effusion. ?The previous echo was performed 01/10/2021.? At that time there ?was tachycardia and so the evaluation of wall motion and ?estimation of ejection fraction was also likely inaccurate.? I ?looked directly at the other study.? The rhythm and bundle ?branch block pattern were present previously.? The left ?ventricular function appears similar though on this study the EF ?is probably slightly less.? Once again these are visual ?estimates. ?Dr. Henrique Elizabeth MD ?(Electronically Signed) ?Final Date:? ? ? 29 March 2022 [facility] [place]/alfred Osteoarthritis/DJD Neuropsych Anxiety and Depression Anesthetic Plan ASA status: 3E Anesthesia: General Medications/Allergies Home Medications Medication Instructions Recorded Confirmed Last Taken Type tamsulosin 0.4 mg capsule 0.4 mg PO BID 30 days #180 caps 04/07/22 05/05/22 05/05/22 Rx carvedilol 3.125 mg tablet (Coreg) 3.125 mg PO BID #180 tabs 04/22/22 05/05/22 05/05/22 Rx furosemide 20 mg tablet (Lasix) 20 mg PO BID #180 tabs 04/22/22 05/05/22 05/05/22 Rx lisinopril 5 mg tablet 5 mg PO DAILY #90 tabs 04/22/22 05/05/22 05/05/22 Rx potassium chloride 20 mEq 40 meq PO DAILY 30 days #90 tabs 04/22/22 05/05/22 05/05/22 Rx tablet,extended release(part/cryst) (Klor-Con M) acetaminophen 500 mg tablet 500 mg PO Q6H PRN Pain 05/05/22 05/05/22 05/05/22 History (Tylenol Extra Strength) aspirin 81 mg tablet,delayed 81 mg PO DAILY 05/05/22 05/05/22 05/05/22 History release citalopram 10 mg tablet (Celexa) 10 mg PO DAILY #90 tabs 05/05/22 05/05/22 05/05/22 Rx Allergies Allergy/AdvReac Type Severity Reaction Status Date / Time No Known Allergies Allergy Verified 05/05/22 11:50 Current Medications Generic Name Dose Route Start Last Admin Trade Name Freq PRN Reason Stop Dose Admin Vancomycin HCl 1,000 mg/ 250 mls @ 250 mls/hr 05/05/22 11:40 05/05/22 12:24 Sodium Chloride IV 05/05/22 12:39 250 mls/hr ONCE ONE Administration Protocol [facility] Anesthesia Medical History Cardiomyopathy GERD (gastroesophageal reflux disease) Relapsing polychondritis Surgical History History of ear surgery T-tube in left ear about three years ago. Family History Father Cancer Family history of premature coronary artery disease Stroke Denies family history of Diabetes CAD (coronary artery disease) Hyperlipidemia Hypertension Social History Smoking and tobacco status: former smoker Alcohol intake: former History of recent travel: No Data Anesthesia 05/05/22 11:52 05/05/22 11:52 Short CBC 05/05/22 Range/Units 11:52 WBC 13.5 H (4.0-10.0) 10^3/uL Hgb 13.3 (11.7-16.6) g/dL Hct 41.0 L (42.0-52.0) % MCV 93.2 (80-94) fl Plt Count 249 (130-400) 10^3/cmm Neut % (Auto) 82.4 % Neut # (Auto) 11.15 H (1.8-7.7) 10^3/uL BMP 05/05/22 11:52 Sodium 133 L Potassium 4.9 Chloride 96 L Carbon Dioxide 26 BUN 17 Creatinine 0.9 Glucose 110 Calcium 9.4 Liver Function 05/05/22 Range/Units 11:52 Total Bilirubin 0.3 (0.15-1.2) mg/dL AST 17 (0-40) U/L ALT 9 (0-41) U/L Alkaline Phosphatase 91 (40-130) U/L Albumin 4.4 (3.5-5.2) g/dL Cardiac Studies: Echocardiogram 03/28/22 Sestamibi Stress Test (Cardiology) 03/30/22
--- NOTE | 2022-05-05 13:22 | P.CONIM_ITS ---
Providers/Reason For Consult Consulting Physician/Specialty*: Frase/Hosptialist Reason for Consult*: hypertension, chf, cardiomyopathy Requesting Physician: Hayley Attending Physician: Mark Hardy MD Primary Care Provider: Alice Batres DO History of Present Illness History of Present Illness Rashi Orozco is a 71 year old male who presented to Dr. Batres's office today up of his depression, which has improved with initiation of citalopram last month. While there, noted have a new chief complaint of penile swelling. He indicates that this has been going on for about 3 weeks now. He denies any specific sores anywhere at the time just says that his penis started swelling not long after a Hicks catheter, placed during hospital stay in March, was removed. He is uncircumcised and it has become more difficult to retract his foreskin because of the swelling. He has never had anything like it before. He was embarrassed and held off on being evaluated for this matter until his scheduled appointment today. The severity of the pain was also such that he was not able to sleep and was even having difficulty eating. No nausea or vomiting. He continued to be able to urinate. He has known benign prostatic hypertrophy and ran out of his Flomax recently so he had some worsening of urinary stream but was otherwise okay in this regard. No known fevers. He has not been feeling as good however. Upon evaluation by Dr. Batres he was noted to have at minimum cellulitis of the penis though abscess was suspected. Patient was sent to the emergency room for evaluation and abscess was confirmed. Patient was taken to the OR by Dr. Hardy for incision and drainage. Hospitalist were consulted for medical management postoperatively given history of hypertension and CHF secondary to nonischemic cardiomyopathy. Patient was hospitalized in March here where he had notable worsening of his cardiomyopathy. Cardiac catheterization was performed without any evidence of obstructive disease. Medications including diuretic therapy, carvedilol and AKIL inhibitor were adjusted. He is doing better from a respiratory standpoint and lower extremity edema has significantly improved. Patient is seen in the PACU postprocedure. He is alert and oriented and able to provide history. He says his depression is a bit better than it had been but admits that the holiday time was challenging. He lives alone but his daughter is involved in his care. Review of Systems Const: Denies: fever(s) Card: Denies: chest pain, dyspnea on exertion (Though has not been exerting much) or orthopnea Resp: Denies: dyspnea, productive cough or non-productive cough GI: Denies: diarrhea : Reports: difficulty starting urination (More so than usual since out of Flomax); Denies: dysuria Musc: Denies: joint pain (No acute new pains) Skin/Breast: Denies: sores (denies other recent skin changes) Medications/Allergies Home Medications Medication Instructions Recorded Confirmed Last Taken Type tamsulosin 0.4 mg capsule 0.4 mg PO BID 30 days #180 caps 04/07/22 05/05/22 05/05/22 Rx carvedilol 3.125 mg tablet (Coreg) 3.125 mg PO BID #180 tabs 04/22/22 05/05/22 05/05/22 Rx furosemide 20 mg tablet (Lasix) 20 mg PO BID #180 tabs 04/22/22 05/05/22 05/05/22 Rx lisinopril 5 mg tablet 5 mg PO DAILY #90 tabs 04/22/22 05/05/22 05/05/22 Rx potassium chloride 20 mEq 40 meq PO DAILY 30 days #90 tabs 04/22/22 05/05/22 05/05/22 Rx tablet,extended release(part/cryst) (Klor-Con M) acetaminophen 500 mg tablet 500 mg PO Q6H PRN Pain 05/05/22 05/05/22 05/05/22 History (Tylenol Extra Strength) aspirin 81 mg tablet,delayed 81 mg PO DAILY 05/05/22 05/05/22 05/05/22 History release citalopram 10 mg tablet (Celexa) 10 mg PO DAILY #90 tabs 05/05/22 05/05/22 05/05/22 Rx Allergies Allergy/AdvReac Type Severity Reaction Status Date / Time No Known Allergies Allergy Verified 05/05/22 11:50 PFSH Acute PFSH: Medical History (Updated 05/05/22 @ 14:31 by Monique Fuller MD) Benign essential HTN BPH (benign prostatic hyperplasia) Cardiomyopathy Nonischemic Congestive heart failure EF 25-30% 03/2022 GERD (gastroesophageal reflux disease) Major depressive disorder Relapsing polychondritis Surgical History (Updated 05/05/22 @ 13:29 by Monique Fuller MD) History of cardiac catheterization 03/2022 - no obstructive CAD, mildly elevated right and left sided pressures History of ear surgery T-tube in left ear ~2018 Family History Father Cancer Family history of premature coronary artery disease Stroke Denies family history of Diabetes CAD (coronary artery disease) Hyperlipidemia Hypertension Social History (Updated 05/05/22 @ 14:11 by Monique Fuller MD) Smoking and tobacco status: former smoker Alcohol intake: former Substance/Drug Use: never Caregiver/support person: Yes (Daughter) Lives independently: Yes Household members: none Vitals/I&O/Wt Last Vital Signs Temp 97.9 F 05/05/22 13:20 Pulse 85 05/05/22 13:20 Resp 18 05/05/22 13:20 BP 125/71 05/05/22 13:20 Pulse Ox 100 05/05/22 13:20 O2 Del Method 05/05/22 13:20 05/04/22 05/05/22 05/05/22 22:59 06:59 14:59 Intake Total 0 / 0 Output Total 5 / 5 Balance -5 / -5 Weight last 48 hrs Weight 67.585 kg Physical Exam Narrative: Patient is awake and alert, extraocular movements are intact, stye on right upper eyelid, right sclera slightly injected. Neck is supple without prominent JVD noted. Lungs are clear to auscultation without any rales rhonchi or wheezes. Cardiovascular exam reveals a regular rate and rhythm, no gallops. Abdomen is soft. Hicks catheter is in place with yellow urine. Penis covered in dressing with green Curlex. Distal visible portion of gauze dressing has so me slight sanguinous fluid visible but does not reach the edge of the gauze at this time. Urinary Catheter Management: Hicks: Cath Placed During This Visit: yes Urinary Catheter Date of Insertion: 05/05/22 Urinary Catheter Time of Insertion: 13:06 Data 05/05/22 11:52 05/05/22 11:52 Other Labs: Laboratory Results WBC 13.5 10^3/uL (4.0-10.0) H 05/05/22 11:52 RBC 4.40 10^6/uL (4.1-5.3) 05/05/22 11:52 Hgb 13.3 g/dL (11.7-16.6) 05/05/22 11:52 Hct 41.0 % (42.0-52.0) L 05/05/22 11:52 MCV 93.2 fl (80-94) 05/05/22 11:52 MCH 30.2 pg (28.0-34.0) 05/05/22 11:52 MCHC 32.4 g/dL (30.0-36.0) 05/05/22 11:52 RDW 14.1 % (12.1-15.1) 05/05/22 11:52 Plt Count 249 10^3/cmm (130-400) 05/05/22 11:52 MPV 10.3 fL (7.4-10.4) 05/05/22 11:52 Neut % (Auto) 82.4 % 05/05/22 11:52 Lymph % (Auto) 9.2 % 05/05/22 11:52 [place] % (Auto) 7.0 % 05/05/22 11:52 Eos % (Auto) 0.8 % 05/05/22 11:52 Baso % (Auto) 0.3 % 05/05/22 11:52 Neut # (Auto) 11.15 10^3/uL (1.8-7.7) H 05/05/22 11:52 Lymph # (Auto) 1.2 10^3/uL (0.8-4.8) 05/05/22 11:52 [place] # (Auto) 1.0 10^3/uL (0.2-0.9) H 05/05/22 11:52 Eos # (Auto) 0.1 10^3/uL (0.0-0.8) 05/05/22 11:52 Baso # (Auto) 0.0 10^3/uL (0.0-0.1) 05/05/22 11:52 Nucleated RBC % (auto) 0 % 05/05/22 11:52 Nucleated RBCs # 0.0 /100WBC 05/05/22 11:52 Sodium 133 mmol/L (136-145) L 05/05/22 11:52 Potassium 4.9 mmol/L (3.5-5.1) 05/05/22 11:52 Chloride 96 mmol/L (98-107) L 05/05/22 11:52 Carbon Dioxide 26 mmol/L (22-29) 05/05/22 11:52 Anion Gap 15.9 (5-19) 05/05/22 11:52 BUN 17 mg/dL (8-23) 05/05/22 11:52 Creatinine 0.9 mg/dL (0.7-1.2) 05/05/22 11:52 GFR Calculation Not Reportable 05/05/22 11:52 Glucose 110 mg/dL (65-115) 05/05/22 11:52 Calculated Osmolality 278 mOsm/kg (285-295) L 05/05/22 11:52 Calcium 9.4 mg/dL (8.5-10.5) 05/05/22 11:52 Total Bilirubin 0.3 mg/dL (0.15-1.2) 05/05/22 11:52 AST 17 U/L (0-40) 05/05/22 11:52 ALT 9 U/L (0-41) 05/05/22 11:52 Alkaline Phosphatase 91 U/L (40-130) 05/05/22 11:52 Total Protein 7.7 g/dL (6.6-8.7) 05/05/22 11:52 Albumin 4.4 g/dL (3.5-5.2) 05/05/22 11:52 Globulin 3.3 g/dL (1.3-4.6) 05/05/22 11:52 A&P Assessment and plan (1) Penile abscess: POD 0 from I&D by Dr Hardy Present on admisison Vancomycin and Levaquin as ordered Adjust based on surgery from cultures when available Follow-up pending urinalysis For management as per surgery; in this setting, depending on postoperative penile edema, Hicks catheter may have to be maintained longer than usual to ensure accurate urine output in the setting of comorbid conditions (2) Congestive heart failure: EF 25-30% in 03/2022, non-ischemic in nature with non-obstructive findings on arteriogram in 03/2022. Chronically on ACEI and diuretic plus carvedilol Continue home dosing of carvedilol, Lasix with potassium and lisinopril Patient has taken morning medications today already including AKIL inhibitor so we will need to monitor blood pressures Strict I's and O's and daily weights Qualifiers: Heart failure chronicity: chronic Heart failure type: systolic Qualified Code(s): I50.22 - Chronic systolic (congestive) heart failure (3) Benign essential HTN: Managed with betablocker, ACEI and diuretic therapy chronically Continue usual medicines monitoring need to adjust while inpatient (4) BPH (benign prostatic hyperplasia): On flomax, though has run out of his prescription Resume Flomax at usual dosing Ensure has script at discharge (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, not on any biologic or other form of immunocompromising agents Monitor for recurrence perioperatively (6) Major depressive disorder: On citalopram Continue usual medicine Qualifiers: Active/Remission status: currently active Major depression episode severity: moderate Major depression recurrence: recurrent Qualified Code(s): F33.1 - Major depressive disorder, recurrent, moderate Plan Continue low rate of IV fluids currently ordered until patient tolerates oral intake, then plan to discontinue Pepcid has been ordered for GI prophylaxis SCDs currently for DVT prophylaxis, currently no pharmacological DVT prophylaxis secondary to risk of bleeding Plans for management of hypertension and heart failure as well as antibiotic therapy were discussed with patient and he was given an opportunity to ask questions. We will follow along while patient is here, managing chronic medical issues and any acute medical issues should they arise Coding Level of Care Code Acute Code for g Fwd Diagnoses Penile abscess N48.21 Congestive heart failure I50.22 Heart failure chronicity: chronic Heart failure type: systolic Benign essential HTN I10 BPH (benign prostatic hyperplasia) N40.0 Relapsing polychondritis M94.1 Major depressive disorder F33.1 Active/Remission status: currently active Major depression episode severity: moderate Major depression recurrence: recurrent
[2022-05-05] MEDS: fentaNYL 50 mcg/mL INJ 2mL IVP (13:36)
[2022-05-05] MEDS: levofloxacin-dextrose 5 % 500 MG/100 ML PREMIX 100 MG IV (14:32)
--- NOTE | 2022-05-05 14:43 | P.PCN_ITS ---
PACU note Narrative: VSS, Good respiratory effort, report to PRIVATE PILOT Exam: awake
--- NOTE | 2022-05-05 14:43 | PM.PACU ---
PACU note Narrative: VSS, Good respiratory effort, report to HOSIERY PAIRER Exam: awake
--- NOTE | 2022-05-05 14:52 | ANE.PACU2 ---
Inpatient post-anesthesia follow up: Airway intact: Yes Vital signs: Temperature 98 F Pulse Rate 73 Respiratory Rate 16 Blood Pressure 142/72 Pulse Oximetry 97 Oxygen Delivery Me thod Room Air Oxygen Flow Rate Fraction of Inspir ed Oxygen Hydration adequate: Yes Nausea and vomiting: No Pain level: 3 Mental status: Baseline
[2022-05-05] MEDS: tamsulosin 0.4 mg Capsule PO (17:31)
[2022-05-05] MEDS: FUROsemide 20 mg Tablet PO (17:31)
[2022-05-05] MEDS: carvedilol 3.125 mg Tablet PO (17:32)
[2022-05-05] MEDS: dextrose 5%-ns + KCl 20 20 MEQ/1,000 ML BAG 30 MEQ IV (17:32)
[2022-05-05] MEDS: docusate sodium 100 mg Capsule PO (17:32)
[2022-05-05] MEDS: famotidine 20 mg/2 mL INJ IVP (17:41)
[2022-05-05 18:16] LABS: Add Urine Microscopic? NO; Charge for UA Resulting for Rev
[2022-05-05 18:22] LABS: Bilirubin Urine Neg (Negative); Blood Urine Neg (Negative); Glucose Urine UA Norm (Normal); Ketones Urine Negative (Negative); Leukocyte Esterase Urine Negative (Negative); Nitrate Urine Negative (Negative); Protein Urine Neg (Negative); Urine Appearance Clear (CLEAR); Urine Color Yellow (Yellow); Urobilinogen Urine Norm (Negative); pH Urine 6 (5-7)
--- NOTE | 2022-05-05 22:22 | ED_ITS ---
HPI - Male Genitourinary General: Chief complaint: Urogenital-Male Stated complaint: Lambert sent for urogenital Time Seen by Provider: 05/05/22 11:09 Source: patient Mode of arrival: ambulatory Limitations: no limitations PFSH ED PFSH: Medical History (Updated 05/05/22 @ 14:31 by Monique Fuller MD) Benign essential HTN BPH (benign prostatic hyperplasia) Cardiomyopathy Nonischemic Congestive heart failure EF 25-30% 03/2022 GERD (gastroesophageal reflux disease) Major depressive disorder Relapsing polychondritis Surgical History (Updated 05/05/22 @ 13:29 by Monique Fuller MD) History of cardiac catheterization 03/2022 - no obstructive CAD, mildly elevated right and left sided pressures History of ear surgery T-tube in left ear ~2017 Family History Father Cancer Family history of premature coronary artery disease Stroke Denies family history of Diabetes CAD (coronary artery disease) Hyperlipidemia Hypertension Social History (Updated 05/05/22 @ 14:11 by Monique Fuller MD) Smoking and tobacco status: former smoker Alcohol intake: former Substance/Drug Use: never Caregiver/support person: Yes (Daughter) Lives independently: Yes Household members: none Course Vital Signs: Vital signs: Vital Signs Temperature 98.1 F 05/05/22 20:37 Pulse Rate 68 05/05/22 20:37 Respiratory Rate 16 05/05/22 20:37 Blood Pressure 140/66 05/05/22 20:37 Pulse Oximetry 97 05/05/22 20:37 Oxygen Delivery Me thod 05/05/22 20:37 MDM - Male Lab Data 05/05/22 11:52 05/05/22 11:52 Laboratory Results WBC 13.5 10^3/uL (4.0-10.0) H 05/05/22 11:52 RBC 4.40 10^6/uL (4.1-5.3) 05/05/22 11:52 Hgb 13.3 g/dL (11.7-16.6) 05/05/22 11:52 Hct 41.0 % (42.0-52.0) L 05/05/22 11:52 MCV 93.2 fl (80-94) 05/05/22 11:52 MCH 30.2 pg (28.0-34.0) 05/05/22 11:52 MCHC 32.4 g/dL (30.0-36.0) 05/05/22 11:52 RDW 14.1 % (12.1-15.1) 05/05/22 11:52 Plt Count 249 10^3/cmm (130-400) 05/05/22 11:52 MPV 10.3 fL (7.4-10.4) 05/05/22 11:52 Neut % (Auto) 82.4 % 05/05/22 11:52 Lymph % (Auto) 9.2 % 05/05/22 11:52 [place] % (Auto) 7.0 % 05/05/22 11:52 Eos % (Auto) 0.8 % 05/05/22 11:52 Baso % (Auto) 0.3 % 05/05/22 11:52 Neut # (Auto) 11.15 10^3/uL (1.8-7.7) H 05/05/22 11:52 Lymph # (Auto) 1.2 10^3/uL (0.8-4.8) 05/05/22 11:52 [place] # (Auto) 1.0 10^3/uL (0.2-0.9) H 05/05/22 11:52 Eos # (Auto) 0.1 10^3/uL (0.0-0.8) 05/05/22 11:52 Baso # (Auto) 0.0 10^3/uL (0.0-0.1) 05/05/22 11:52 Nucleated RBC % (auto) 0 % 05/05/22 11:52 Nucleated RBCs # 0.0 /100WBC 05/05/22 11:52 Sodium 133 mmol/L (136-145) L 05/05/22 11:52 Potassium 4.9 mmol/L (3.5-5.1) 05/05/22 11:52 Chloride 96 mmol/L (98-107) L 05/05/22 11:52 Carbon Dioxide 26 mmol/L (22-29) 05/05/22 11:52 Anion Gap 15.9 (5-19) 05/05/22 11:52 BUN 17 mg/dL (8-23) 05/05/22 11:52 Creatinine 0.9 mg/dL (0.7-1.2) 05/05/22 11:52 GFR Calculation Not Reportable 05/05/22 11:52 Glucose 110 mg/dL (65-115) 05/05/22 11:52 Calculated Osmolality 278 mOsm/kg (285-295) L 05/05/22 11:52 Calcium 9.4 mg/dL (8.5-10.5) 05/05/22 11:52 Total Bilirubin 0.3 mg/dL (0.15-1.2) 05/05/22 11:52 AST 17 U/L (0-40) 05/05/22 11:52 ALT 9 U/L (0-41) 05/05/22 11:52 Alkaline Phosphatase 91 U/L (40-130) 05/05/22 11:52 Total Protein 7.7 g/dL (6.6-8.7) 05/05/22 11:52 Albumin 4.4 g/dL (3.5-5.2) 05/05/22 11:52 Globulin 3.3 g/dL (1.3-4.6) 05/05/22 11:52 EKG Data EKG 1: Interpretation: Sinus rhythm, rate of 87, normal axis, normal intervals, T waves in lead III, no STEMI. Discharge Plan Discharge Patient Disposition: Placed in Observation Admit Provider: Mark Hardy Clinical Impression: Abscess of penis Coding Level of Care Code ED Physician Practice Coordinator for Carmencita Resendez
[2022-05-06] VITALS (7 sets, daily range): BP systolic 113–130; BP diastolic 49–66; PULSE 57–84; RESP 15–16; TEMP 36.4–36.8; O2SAT 96–97; BMI 21.1
[2022-05-06] MEDS: vancomycin 1,000 MG in sodium chloride 0.9% 250 ML 250 MG IV ×2 (00:10→11:50)
[2022-05-06 02:39] LABS: Basophils % 0.1 %; Hematocrit 33.3 % (42.0-52.0); Hemoglobin 10.9 g/dL (11.7-16.6); Lymphocytes # 0.7 10^3/uL (0.8-4.8); Lymphocytes % 8.6 %; Mean Corpuscular HGB Conc 32.7 g/dL (30.0-36.0); Mean Corpuscular Hemoglobin 30.5 pg (28.0-34.0); Mean Corpuscular Volume 93.3 fl (80-94); Monocytes # 0.4 10^3/uL (0.2-0.9); Monocytes % 4.6 %; Neutrophils # 7.01 10^3/uL (1.8-7.7); Neutrophils % 86.3 %; Nucleated Red Blood Cells % 0 %; Platelet Count 203 10^3/cmm (130-400); Red Blood Count 3.57 10^6/uL (4.1-5.3); Red Cell Distribution Width 13.9 % (12.1-15.1); White Blood Count 8.1 10^3/uL (4.0-10.0)
[2022-05-06 03:05] LABS: Anion Gap 13.7 (5-19); Blood Urea Nitrogen 18 mg/dL (8-23); Calcium 8.5 mg/dL (8.5-10.5); Carbon Dioxide 24 mmol/L (22-29); Chloride 100 mmol/L (98-107); Glucose 142 mg/dL (65-115); Osmolality Calculated 280 mOsm/kg (285-295); Potassium 4.7 mmol/L (3.5-5.1); Sodium 133 mmol/L (136-145)
[2022-05-06] MEDS: famotidine 20 mg/2 mL INJ IVP ×2 (04:51→17:32)
[2022-05-06] MEDS: citalopram 20 mg Tablet 10 MG PO (08:36)
[2022-05-06] MEDS: docusate sodium 100 mg Capsule PO ×2 (08:37→17:32)
[2022-05-06] MEDS: tamsulosin 0.4 mg Capsule PO ×2 (08:37→17:32)
[2022-05-06] MEDS: lisinopril 5 mg Tablet PO (08:37)
[2022-05-06] MEDS: carvedilol 3.125 mg Tablet PO ×2 (08:37→17:32)
[2022-05-06] MEDS: potassium chloride ER 20 mEq Tablet 40 MEQ PO (08:37)
[2022-05-06] MEDS: HYDROcodone-acetaminophen 5-325 mg Tablet 1 TAB PO ×2 (08:37→13:48)
[2022-05-06] MEDS: FUROsemide 20 mg Tablet PO ×2 (08:39→16:28)
[2022-05-06] MEDS: levofloxacin-dextrose 5 % 500 MG/100 ML PREMIX 100 MG IV (11:48)
--- NOTE | 2022-05-06 11:50 | PM.PN ---
Subjective Subjective: Urology follow-up: Postop day #1 I&D of penile abscess and modified circumcision. Has been afebrile overnight. Vital signs of been stable. Much less pain than previously. Tolerating catheter reasonably well. White count which was 13.5 on admission was decreased to 8.1. Normal electrolytes. Wound inspection: Dressing removed and repacked. Wound looks healthy. No evidence of increasing cellulitis changes. There is some purulent discharge around the catheter. Circumcision incisions look healthy. Still a lot of swelling. Cultures pending We will continue antibiotics and adjust to oral in preparation for discharge once culture results are back Vitals/I&O/Wt Last Vital Signs Temp 98.0 F 05/06/22 04:00 Pulse 66 05/06/22 04:00 Resp 16 05/06/22 04:00 BP 119/53 05/06/22 04:00 Pulse Ox 97 05/06/22 04:00 O2 Del Method 05/06/22 04:00 05/05/22 05/05/22 05/06/22 14:59 22:59 06:59 Intake Total 100 / 100 590 / 690 250 / 940 Output Total / 1850 / 1855 Balance 95 / 95 590 / 685 -1600 / -915 Weight last 48 hrs Weight 151 lb 5 oz Weight 147 lb Weight 149 lb Physical Exam Narrative: Alert, oriented, minimal complaints. No labored respiration. No audible wheezes Abdomen is soft nontender no palpable masses Scrotum is normal. Phallus is much improved. There is no purulence from the penile abscess incision. The wound was repacked loosely moist 2 x 2. Xeroform gauze remained on circumcision incisions. Catheter draining clear urine Normal movement of extremities. Neurologically intact. Urinary Catheter Management: Hicks: Cath Placed During This Visit: yes Reason for Continuing Indwelling Catheter: Other Urinary Catheter Date of Insertion: 05/05/22 Urinary Catheter Time of Insertion: 13:06 Data 05/06/22 01:30 05/06/22 01:30 A&P Assessment and plan (1) Penile abscess: (2) Cardiomyopathy: Qualifiers: Cardiomyopathy type: dilated Qualified Code(s): I42.0 - Dilated cardiomyopathy (3) Congestive heart failure: Qualifiers: Heart failure type: systolic Heart failure chronicity: chronic Qualified Code(s): I50.22 - Chronic systolic (congestive) heart failure (4) Phimosis: Postop modified circumcision. Attestations Medical Necessity Statement*: IV antibiotics required still. Coding Level of Care Code Acute Code for g Fwd Diagnoses Penile abscess N48.21 Cardiomyopathy I42.0 Cardiomyopathy type: dilated Congestive heart failure I50.22 Heart failure type: systolic Heart failure chronicity: chronic Phimosis N47.1
--- NOTE | 2022-05-06 11:52 | PC.CHAP ---
Pastoral Care Encounter/Spiritual Assessment Type of Contact [] Declined key account representative visit [] Patient/Family/Request visit [] Outpatient visit [] Follow-up visit [] Physician referral [] Code/Alert [x Routine visit [] Staff referral [] Actively dying [] Patient sleeping [] Family support [] [] Out of room [] Palliative care [] [] Receiving care in room [] Pre-surgical visit [] Trauma [] Long length of stay [] ICU visit [] Other: Relational/Emotional Strength [x] Patient feels connected with others/family/visitors/staff [] Distress [] Loneliness/isolation [] Abandonment Spirituality of Patient [x] Person of Dorothy [] Attends Catholic of their Dorothy [x] Believes in Prayer [] Reads Bible or Taoism materials [] There are Spiritual issues to be addressed Performance Specialist Interventions x] Prayer [x Active listening [x] Non-anxious presence [] Spiritual/emotional support [] Crisis/trauma care [] Spiritual counseling [] Bereavement support [] Provided bereavement packet [] Provided Bible/devotional materials [] Provided toy/stuffed animal, coloring book to patient or family member [] Provided Communion [] Anointing/[place] [] Salvation [x] Completed spiritual assessment [] Other: Impact on Illness or Injury [] Angry [] Fearful [] Anxious [] Often cries [] Exhaustion [] Unable to work [] Unable to attend faith [] Unable to walk/stand [] Unable to read [] Unable to drive [] Unable to eat/drink [x] Unable to sleep [] Unable to be with family [] Patient intubated [] Other: Summary patient in pain Time spent with patient 10 min
[2022-05-06] MEDS: fixodent 39 gm Tube 1 APPLIC DENTAL (18:17)
[2022-05-06] MEDS: fluticasone nasal spray 16gm Btl 1 SPRAY NASAL (20:35)
--- NOTE | 2022-05-06 20:54 | P.PN_ITS ---
Subjective Subjective: He states he is overall doing better. Denies trouble breathing. No chest pain or pressure. No pain or discomfort. He has been evaluated by urology. Vitals/I&O/Wt Last Vital Signs Temp 98.0 F 05/06/22 19:45 Pulse 61 05/06/22 19:45 Resp 16 05/06/22 19:45 BP 122/52 05/06/22 19:45 Pulse Ox 97 05/06/22 19:45 O2 Del Method 05/06/22 19:45 05/06/22 05/06/22 05/06/22 06:59 14:59 22:59 Intake Total 250 / 940 830 / 830 300 / 1130 Output Total 1850 / 1855 1900 / 1900 Balance -1600 / -915 830 / 830 -1600 / -770 Weight last 48 hrs Weight 68.634 kg Weight 66.678 kg Weight 67.585 kg Physical Exam Const: COMMON NORMALS: patient oriented x3 and alert GENERAL APPEARANCE: cooperative ORIENTATION/CONSCIOUSNESS: Yes awake HENMT: COMMON NORMALS: oropharynx normal Neck/C-Spine: COMMON NORMALS: no JVD Resp: COMMON NORMALS: normal respiratory effort and clear to auscultation bilaterally AUSCULTATION: clear to auscultation bilaterally Cardio: COMMON NORMALS: no JVD, regular rhythm, S1 normal heart sound present, S2 normal heart sound present and No murmurs present (Cardio) RHYTHM: regular rhythm HEART SOUNDS: S1 normal heart sound present and S2 normal heart sound present GI: COMMON NORMALS: Normal to inspection, nondistended, normoactive bowel sounds present, Soft to palpation and non-tender PALPATION: Yes Soft to palpation : OTHER: Dressing covering penile shaft. No erythema or swelling proximally. No drainage. Extremity: COMMON NORMALS: no joint enlargement and no pedal edema Neuro: COMMON NORMALS: patient oriented x3 and moves all extremities SENSORIUM/ORIENTATION: Yes alert Skin: COMMON NORMALS: no rashes or lesions noted GENERAL SKIN EXAM: no rashes or lesions noted Urinary Catheter Management: Hicks: Cath Placed During This Visit: yes Reason for Continuing Indwelling Catheter: Other Urinary Catheter Date of Insertion: 05/05/22 Urinary Catheter Time of Insertion: 13:06 Data 05/06/22 01:30 05/06/22 01:30 Micro: Microbiology 05/05/22 12:58 Anaerobic Culture - Preliminary Penis Abscess Culture - Preliminary A&P Assessment and plan (1) Penile abscess: Continue antibiotic coverage. Reassessment by urology tomorrow. Follow-up culture results. Vancomycin and Levaquin as ordered For management as per surgery; in this setting, depending on postoperative penile edema, Hicks catheter may have to be maintained longer than usual to ensure accurate urine output in the setting of comorbid conditions (2) Congestive heart failure: Not in exacerbation. Stop IVF. EF 25-30% in 03/2022, non-ischemic in nature with non-obstructive findings on arteriogram in 03/2022. Chronically on ACEI and diuretic plus carvedilol Continue home dosing of carvedilol, Lasix with potassium and lisinopril Patient has taken morning medications today already including AKIL inhibitor so we will need to monitor blood pressures Strict I's and O's and daily weights Qualifiers: Heart failure type: systolic Heart failure chronicity: chronic Qualified Code(s): I50.22 - Chronic systolic (congestive) heart failure (3) Benign essential HTN: Managed with betablocker, ACEI and diuretic therapy chronically Continue usual medicines monitoring need to adjust while inpatient (4) BPH (benign prostatic hyperplasia): On flomax, though has run out of his prescription Continue Flomax at usual dosing Will need script at discharge (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 Coding Level of Care Code Acute Code for [facility] Diagnoses Penile abscess N48.21 Congestive heart failure I50.22 Heart failure type: systolic Heart failure chronicity: chronic Benign essential HTN I10 BPH (benign prostatic hyperplasia) N40.0 Relapsing polychondritis M94.1 Major depressive disorder F33.1 Major depression recurrence: recurrent Active/Remission status: currently active Major depression episode severity: moderate
[2022-05-06 22:51] LABS: Vancomycin Trough 16.2 ug/mL (10-15)
[2022-05-07] MEDS: vancomycin 1,000 MG in sodium chloride 0.9% 250 ML 250 MG IV ×2 (00:30→13:02)
[2022-05-07] MEDS: dextrose 5%-ns + KCl 20 20 MEQ/1,000 ML BAG 30 MEQ IV ×2 (02:28→20:21)
[2022-05-07 04:14] VITALS: BP 137/66; PULSE 74; RESP 14; TEMP 36.6; O2SAT 97
[2022-05-07 05:58] LABS: Basophils % 0.6 %; Eosinophils # 0.1 10^3/uL (0.0-0.8); Eosinophils % 1.3 %; Lymphocytes # 1.2 10^3/uL (0.8-4.8); Lymphocytes % 23.4 %; Mean Corpuscular HGB Conc 32.4 g/dL (30.0-36.0); Mean Corpuscular Hemoglobin 30.2 pg (28.0-34.0); Mean Corpuscular Volume 93.4 fl (80-94); Mean Platelet Volume 10.5 fL (7.4-10.4); Monocytes # 0.6 10^3/uL (0.2-0.9); Monocytes % 11.2 %; Neutrophils # 3.32 10^3/uL (1.8-7.7); Neutrophils % 63.1 %; Nucleated Red Blood Cells % 0 %; Platelet Count 190 10^3/cmm (130-400); Red Blood Count 3.64 10^6/uL (4.1-5.3); Red Cell Distribution Width 14.3 % (12.1-15.1); White Blood Count 5.3 10^3/uL (4.0-10.0)
[2022-05-07] MEDS: famotidine 20 mg/2 mL INJ IVP ×2 (06:05→17:05)
[2022-05-07 06:25] LABS: Anion Gap 12.4 (5-19); Blood Urea Nitrogen 20 mg/dL (8-23); Calcium 8.7 mg/dL (8.5-10.5); Carbon Dioxide 26 mmol/L (22-29); Chloride 106 mmol/L (98-107); Glucose 91 mg/dL (65-115); Osmolality Calculated 292 mOsm/kg (285-295); Potassium 4.4 mmol/L (3.5-5.1); Sodium 140 mmol/L (136-145)
[2022-05-07 07:51] VITALS: BP 154/68; PULSE 64; RESP 14; TEMP 36.6; O2SAT 97
[2022-05-07] MEDS: lisinopril 5 mg Tablet PO (08:36)
[2022-05-07] MEDS: ondansetron 2 mg/ML SDV 2 mL 4 MG IVP (08:36)
[2022-05-07] MEDS: tamsulosin 0.4 mg Capsule PO ×2 (08:36→17:05)
[2022-05-07] MEDS: carvedilol 3.125 mg Tablet PO ×2 (08:36→17:05)
[2022-05-07] MEDS: citalopram 20 mg Tablet 10 MG PO (08:37)
[2022-05-07] MEDS: FUROsemide 20 mg Tablet PO ×2 (08:37→17:06)
[2022-05-07] MEDS: docusate sodium 100 mg Capsule PO ×2 (08:37→17:05)
[2022-05-07] MEDS: potassium chloride ER 20 mEq Tablet 40 MEQ PO (08:37)
[2022-05-07] MEDS: fluticasone nasal spray 16gm Btl 1 SPRAY NASAL ×2 (08:44→17:07)
[2022-05-07] MEDS: levofloxacin-dextrose 5 % 500 MG/100 ML PREMIX 100 MG IV (10:47)
--- NOTE | 2022-05-07 10:53 | P.PN_ITS ---
Subjective Subjective: Urology follow-up: Postop day #2 incision and drainage of penile abscess modified circumcision Overall he is doing well. Denies any fever or chills. His pain is markedly improved. Good appetite. Denies chest pain or shortness of breath. Has been ambulatory. CBC and BMP normal. Cultures are still pending Physical findings show healthy appearing dorsal penis wound. Repacked and dressed. Modified circumcision site is healthy. No evidence of active infection. Hicks catheter was removed We will do bladder scans to confirm he is adequately emptying. He is to continue his TAMSULOSIN Planning for discharge tomorrow with training performed prior to that time for dressing changes and management I think he can do it himself. Vitals/I&O/Wt Last Vital Signs Temp 97.8 F 05/07/22 07:51 Pulse 64 05/07/22 07:51 Resp 14 05/07/22 07:51 BP 154/68 05/07/22 07:51 Pulse Ox 97 05/07/22 07:51 O2 Del Method 05/07/22 07:51 05/06/22 05/07/22 05/07/22 22:59 06:59 14:59 Intake Total 300 / 1130 1238 / 2368 Output Total 1900 / 1900 2550 / 4450 Balance -1600 / -770 -1312 / -2082 Weight last 48 hrs Weight 146 lb 7 oz Weight 151 lb 5 oz Weight 147 lb Weight 149 lb Physical Exam Narrative: Alert, oriented, minimal complaints. Appropriate. No labored respiration. No audible wheezes Abdomen is soft nontender no palpable masses Scrotum is normal. Phallus is much improved. There is no purulence from the penile abscess incision. The wound was repacked loosely moist 2 x 2. The incisions from the modified circumcision look healthy. There is no evidence of infection. He still has significant edema. Should be able to void well. Catheter removed. Normal movement of extremities. Neurologically intact. No focal defects. Urinary Catheter Management: Hicks: Cath Placed During This Visit: yes Reason for Continuing Indwelling Catheter: Other Urinary Catheter Date of Insertion: 05/05/22 Urinary Catheter Time of Insertion: 13:06 Data 05/07/22 05:40 05/07/22 05:40 Micro: Microbiology 05/05/22 12:58 Anaerobic Culture - Preliminary Penis Abscess Culture - Preliminary A&P Assessment and plan (1) Penile abscess: Wound looks healthy. Continue dressing changes. Trained patient in dressing changes tomorrow. (2) Cardiomyopathy: Qualifiers: Cardiomyopathy type: dilated Qualified Code(s): I42.0 - Dilated cardiomyopathy (3) Congestive heart failure: Qualifiers: Heart failure type: systolic Heart failure chronicity: chronic Qualified Code(s): I50.22 - Chronic systolic (congestive) heart failure (4) Phimosis: Postop modified circumcision. Incisions look healthy. Still has a lot of edema but no evidence of infection of the incisions. Plan Look to discharge tomorrow after training for wound care management. Attestations Medical Necessity Statement*: We will continue his IV antibiotics till finals are back. Coding Level of Care Code Acute Code for [facility] Diagnoses Penile abscess N48.21 Cardiomyopathy I42.0 Cardiomyopathy type: dilated Congestive heart failure I50.22 Heart failure type: systolic Heart failure chronicity: chronic Phimosis N47.1
--- NOTE | 2022-05-07 10:53 | PC.NURSE ---
Dr Hardy rounded. Changed patients dressing and remove cervantes. Pt. complained of no pain.
[2022-05-07 12:00] VITALS: BP 130/69; PULSE 56; RESP 14; TEMP 36.4; O2SAT 97
[2022-05-07 16:00] VITALS: BP 137/57; PULSE 61; RESP 16; TEMP 37.1; O2SAT 97
[2022-05-07] MEDS: acetaminophen 500 mg Tablet PO (17:09)
[2022-05-07 20:00] VITALS: BP 125/58; PULSE 57; RESP 16; TEMP 36.7; O2SAT 97
--- NOTE | 2022-05-07 20:04 | PM.PN ---
Subjective Subjective: This morning mild nausea. Later on doing better. Denies trouble breathing. No chest pain or pressure. Hicks was discontinued by urology. Vitals/I&O/Wt Last Vital Signs Temp 98.7 F 05/07/22 16:00 Pulse 61 05/07/22 16:00 Resp 16 05/07/22 16:00 BP 137/57 05/07/22 16:00 Pulse Ox 97 05/07/22 16:00 O2 Del Method 05/07/22 16:00 05/07/22 05/07/22 05/07/22 06:59 14:59 22:59 Intake Total 1238 / 2368 580 / 580 490 / 1070 Output Total 2550 / 4450 Balance -1312 / -2082 580 / 580 490 / 1070 Weight last 48 hrs Weight 66.423 kg Weight 68.634 kg Physical Exam Const: COMMON NORMALS: patient oriented x3 and alert GENERAL APPEARANCE: cooperative ORIENTATION/CONSCIOUSNESS: Yes awake HENMT: COMMON NORMALS: oropharynx normal Neck/C-Spine: COMMON NORMALS: no JVD Resp: COMMON NORMALS: normal respiratory effort and clear to auscultation bilaterally AUSCULTATION: clear to auscultation bilaterally Cardio: COMMON NORMALS: no JVD, regular rhythm, S1 normal heart sound present, S2 normal heart sound present and No murmurs present (Cardio) RHYTHM: regular rhythm HEART SOUNDS: S1 normal heart sound present and S2 normal heart sound present GI: COMMON NORMALS: Normal to inspection, nondistended, normoactive bowel sounds present, Soft to palpation and non-tender PALPATION: Yes Soft to palpation : OTHER: Dressing covering penile shaft. No erythema or swelling proximally. No drainage. Extremity: COMMON NORMALS: no joint enlargement and no pedal edema Neuro: COMMON NORMALS: patient oriented x3 and moves all extremities SENSORIUM/ORIENTATION: Yes alert Skin: COMMON NORMALS: no rashes or lesions noted GENERAL SKIN EXAM: no rashes or lesions noted Urinary Catheter Management: Hicks: Cath Placed During This Visit: yes, but has since been removed by the nurse Reason for Continuing Indwelling Catheter: Decision to DC Catheter Urinary Catheter Date of Insertion: 05/05/22 Urinary Catheter Time of Insertion: 13:06 Date Urinary Catheter Removed: 05/07/22 Time Urinary Catheter Discontinued: 10:45 Data 05/07/22 05:40 05/07/22 05:40 Micro: Microbiology 05/05/22 12:58 Anaerobic Culture - Preliminary Penis Abscess Culture - Preliminary A&P Assessment and plan (1) Penile abscess: Was assessed by urology today, requires further reassessment as per urology and follow-up of cultures prior to discharge. Continue antibiotic coverage. Vancomycin and Levaquin For management as per surgery; in this setting, depending on postoperative penile edema, Hicks catheter may have to be maintained longer than usual to ensure accurate urine output in the setting of comorbid conditions (2) Congestive heart failure: Not in exacerbation. Stop IVF. EF 25-30% in 03/2022, non-ischemic in nature with non-obstructive findings on arteriogram in 03/2022. Chronically on ACEI and diuretic plus carvedilol Continue home dosing of carvedilol, Lasix with potassium and lisinopril Patient has taken morning medications today already including AKIL inhibitor so we will need to monitor blood pressures Strict I's and O's and daily weights Qualifiers: Heart failure chronicity: chronic Heart failure type: systolic Qualified Code(s): I50.22 - Chronic systolic (congestive) heart failure (3) Benign essential HTN: Managed with betablocker, ACEI and diuretic therapy chronically Continue usual medicines monitoring need to adjust while inpatient (4) BPH (benign prostatic hyperplasia): On flomax, though has run out of his prescription Continue Flomax at usual dosing Will need script at discharge (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, not on any biologic or other form of immunocompromising agents Monitor for recurrence perioperatively (6) Major depressive disorder: On citalopram Continue usual medicine Qualifiers: Active/Remission status: currently active Major depression episode severity: moderate Major depression recurrence: recurrent Qualified Code(s): F33.1 - Major depressive disorder, recurrent, moderate Attestations Medical Necessity Statement*: Continue admission for treatment of penile infection status post penile abscess drainage, reassessment by urology, continue broad-spectrum antibiotic coverage pending culture results. Coding Level of Care Code Acute Code for [facility] Fwd Exam Comprehensive Diagnoses Penile abscess N48.21 Congestive heart failure I50.22 Heart failure chronicity: chronic Heart failure type: systolic Benign essential HTN I10 BPH (benign prostatic hyperplasia) N40.0 Relapsing polychondritis M94.1 Major depressive disorder F33.1 Active/Remission status: currently active Major depression episode severity: moderate Major depression recurrence: recurrent
[2022-05-08] VITALS: BP 136/70; PULSE 58; RESP 14; TEMP 36.8; O2SAT 97
[2022-05-08] MEDS: vancomycin 1,000 MG in sodium chloride 0.9% 250 ML 250 MG IV (00:21)
--- NOTE | 2022-05-08 01:13 | PC.NURSE ---
Patient complained of IV in left AC leaking with fluids and vancomycin running. Nurse inspected IV site and found IV to be leaking. IV stopped and removed with catheter tip intact. Area noted to be mildly red, with no complaints of pain from patient. 20 gauge IV started in patient's right forearm. Venaguard marked and dated, IV asymptomatic, flushes and draws. Fluids and vancomycin currently running in new IV with no complaints from patient at this time.
[2022-05-08] MEDS: acetaminophen 500 mg Tablet PO (01:18)
[2022-05-08 01:50] LABS: Basophils % 0.4 %; Eosinophils # 0.2 10^3/uL (0.0-0.8); Hematocrit 33.7 % (42.0-52.0); Hemoglobin 10.7 g/dL (11.7-16.6); Lymphocytes # 1.6 10^3/uL (0.8-4.8); Lymphocytes % 22.4 %; Mean Corpuscular HGB Conc 31.8 g/dL (30.0-36.0); Mean Corpuscular Hemoglobin 29.8 pg (28.0-34.0); Mean Corpuscular Volume 93.9 fl (80-94); Mean Platelet Volume 10.7 fL (7.4-10.4); Monocytes # 0.7 10^3/uL (0.2-0.9); Monocytes % 10.7 %; Neutrophils # 4.36 10^3/uL (1.8-7.7); Neutrophils % 63.1 %; Nucleated Red Blood Cells % 0 %; Platelet Count 198 10^3/cmm (130-400); Red Blood Count 3.59 10^6/uL (4.1-5.3); Red Cell Distribution Width 14.4 % (12.1-15.1); White Blood Count 6.9 10^3/uL (4.0-10.0)
[2022-05-08 02:11] LABS: Blood Urea Nitrogen 20 mg/dL (8-23); Calcium 8.5 mg/dL (8.5-10.5); Carbon Dioxide 27 mmol/L (22-29); Chloride 104 mmol/L (98-107); Glucose 91 mg/dL (65-115); Osmolality Calculated 286 mOsm/kg (285-295); Sodium 137 mmol/L (136-145)
[2022-05-08 04:00] VITALS: BP 143/68; PULSE 54; RESP 15; TEMP 36.5; O2SAT 98
[2022-05-08] MEDS: famotidine 20 mg/2 mL INJ IVP (06:05)
[2022-05-08] MEDS: carvedilol 3.125 mg Tablet PO (08:54)
[2022-05-08] MEDS: tamsulosin 0.4 mg Capsule PO (08:54)
[2022-05-08] MEDS: potassium chloride ER 20 mEq Tablet 40 MEQ PO (08:54)
[2022-05-08] MEDS: FUROsemide 20 mg Tablet PO (08:54)
[2022-05-08] MEDS: citalopram 20 mg Tablet 10 MG PO (08:54)
[2022-05-08] MEDS: lisinopril 5 mg Tablet PO (08:55)
[2022-05-08] MEDS: fluticasone nasal spray 16gm Btl 1 SPRAY NASAL (08:57)
--- NOTE | 2022-05-08 10:14 | P.PN_ITS ---
Subjective Subjective: He states he is doing well today. He states he will be returning home today once he is reassessed by urologist and will be shown how to change his dressing. He denies any trouble breathing, no chest pain or pressure. Denies any questions. Vitals/I&O/Wt Last Vital Signs Temp 97.7 F 05/08/22 04:00 Pulse 54 L 05/08/22 04:00 Resp 15 05/08/22 04:00 BP 143/68 05/08/22 04:00 Pulse Ox 98 05/08/22 04:00 O2 Del Method 05/08/22 04:00 05/07/22 05/08/22 05/08/22 22:59 06:59 14:59 Intake Total 1026.5 / 1606.5 250 / 1856.5 480 / 480 Balance 1026.5 / 1606.5 250 / 1856.5 480 / 480 Weight last 48 hrs Weight 66.763 kg Weight 66.423 kg Physical Exam Const: COMMON NORMALS: patient oriented x3 and alert GENERAL APPEARANCE: cooperative ORIENTATION/CONSCIOUSNESS: Yes awake HENMT: COMMON NORMALS: oropharynx normal Neck/C-Spine: COMMON NORMALS: no JVD Resp: COMMON NORMALS: normal respiratory effort and clear to auscultation b ilaterally AUSCULTATION: clear to auscultation bilaterally Cardio: COMMON NORMALS: no JVD, regular rhythm, S1 normal heart sound present, S2 normal heart sound present and No murmurs present (Cardio) RHYTHM: regular rhythm HEART SOUNDS: S1 normal heart sound present and S2 normal heart sound present GI: COMMON NORMALS: Normal to inspection, nondistended, normoactive bowel sounds present, Soft to palpation and non-tender PALPATION: Yes Soft to palpation : OTHER: Dressing covering penile shaft. No erythema or swelling proximally. No drainage. Swelling of distal prepuce. Extremity: COMMON NORMALS: no joint enlargement and no pedal edema Neuro: COMMON NORMALS: patient oriented x3 and moves all extremities SENSORIUM/ORIENTATION: Yes alert Skin: COMMON NORMALS: no rashes or lesions noted GENERAL SKIN EXAM: no rashes or lesions noted Urinary Catheter Management: Hicks: Cath Placed During This Visit: yes, but has since been removed by the nurse Reason for Continuing Indwelling Catheter: Decision to DC Catheter Urinary Catheter Date of Insertion: 05/05/22 Urinary Catheter Time of Insertion: 13:06 Date Urinary Catheter Removed: 05/07/22 Time Urinary Catheter Discontinued: 10:45 Data 05/08/22 01:28 05/08/22 01:28 Micro: Microbiology 05/05/22 12:58 Anaerobic Culture - Preliminary Penis Abscess Culture - Preliminary A&P Assessment and plan (1) Penile abscess: He states plan for him to return home today, he is otherwise doing well. He will be shown how to perform dressing changes at home. Cultures with only few mixed superficial moraima. If continued antibiotic would be empiric coverage would cover for MRSA as well given past infection. For management as per surgery; in this setting, depending on postoperative penile edema (2) Congestive heart failure: Not in exacerbation. Resume home medications at discharge. EF 25-30% in 03/2022, non-ischemic in nature with non-obstructive findings on arteriogram in 03/2022. Chronically on ACEI and diuretic plus carvedilol Continue home dosing of carvedilol, Lasix with potassium and lisinopril Patient has taken morning medications today already including AKIL inhibitor so we will need to monitor blood pressures Strict I's and O's and daily weights Qualifiers: Heart failure type: systolic Heart failure chronicity: chronic Qualified Code(s): I50.22 - Chronic systolic (congestive) heart failure (3) Benign essential HTN: Managed with betablocker, ACEI and diuretic therapy chronically Continue usual medicines monitoring need to adjust while inpatient (4) BPH (benign prostatic hyperplasia): On flomax, though has run out of his prescription Given Flomax prescription. 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 Coding Level of Care Code Acute Code for [facility] Diagnoses Penile abscess N48.21 Congestive heart failure I50.22 Heart failure type: systolic Heart failure chronicity: chronic Benign essential HTN I10 BPH (benign prostatic hyperplasia) N40.0 Relapsing polychondritis M94.1 Major depressive disorder F33.1 Major depression recurrence: recurrent Active/Remission status: currently active Major depression episode severity: moderate
--- NOTE | 2022-05-08 10:39 | PC.CHAP ---
Pastoral Care Encounter/Spiritual Assessment Type of Contact [] Declined bending frame operator visit [] Patient/Family/Request visit [] Outpatient visit [] Follow-up visit [] Physician referral [] Code/Alert [x] Routine visit [] Staff referral [] Actively dying [] Patient sleeping [] Family support [] [] Out of room [] Palliative care [] [x] Receiving care in room [] Pre-surgical visit [] Trauma [] Long length of stay [] ICU visit [] Other: Relational/Emotional Strength [] Patient feels connected with others/family/visitors/staff [] Distress [] Loneliness/isolation [] Abandonment Spirituality of Patient [] Person of Dorothy [] Attends Spiritism of their [place] [] Believes in Prayer [] Reads Bible or Mormonism materials [] There are Spiritual issues to be addressed Leaded Glass Installer Interventions [] Prayer [] Active listening [] Non-anxious presence [] Spiritual/emotional support [] Crisis/trauma care [] Spiritual counseling [] Bereavement support [] Provided bereavement packet [] Provided Bible/devotional materials [] Provided toy/stuffed animal, coloring book to patient or family member [] Provided Communion [] Anointing/[place] [] Salvation [] Completed spiritual assessment [] Other: Impact on Illness or Injury [] Angry [] Fearful [x] Anxious [] Often cries [] Exhaustion [] Unable to work [] Unable to attend islam [] Unable to walk/stand [] Unable to read [] Unable to drive [] Unable to eat/drink [] Unable to sleep [] Unable to be with family [] Patient intubated [] Other: Summary some pain has a good attitude well go home Time spent with patient 10 mins
--- NOTE | 2022-05-08 11:42 | PC.SOCIAL ---
Pg 2 IMM Explained to pt Pg 2 IMM. No questions voiced. Provided pt a copy. Initialed, dated, & timed a copy & placed in chart.
[2022-05-08 12:00] VITALS: BP 139/61; PULSE 68; RESP 17; O2SAT 98
--- NOTE | 2022-05-08 12:13 | PM.DCS ---
Discharge Providers Date of Admission: 05/05/22 16:45 Date of Discharge: May 08, 2022 Attending Provider at Admission: Mark Hardy MD Attending Provider at Discharge: Mark Hardy MD Primary Care Provider: Alice Batres DO Diagnoses at Discharge Discharge Diagnosis (1) Penile abscess: Details from hospital stay: Resolved status post I&D Status: Acute (2) Congestive heart failure: Status: Chronic Qualifiers: Heart failure type: systolic Heart failure chronicity: chronic Qualified Code(s): I50.22 - Chronic systolic (congestive) heart failure Permanent problem details: EF 25-30% 03/2022 (3) Benign essential HTN: Status: Chronic (4) BPH (benign prostatic hyperplasia): Status: Chronic (5) Relapsing polychondritis: Status: Chronic (6) Major depressive disorder: Status: Chronic Qualifiers: Major depression recurrence: recurrent Active/Remission status: currently active Major depression episode severity: moderate Qualified Code(s): F33.1 - Major depressive disorder, recurrent, moderate Reason for Visit Reason for Visit: Penile abscess Brief History: Presented to his family physician Dr. Batres with complaints of about 2 weeks of penile swelling. He had developed a large abscess on the dorsum of the penis and having extreme pain. Also had developed severe phimosis from swelling. Recommended emergency operative intervention. Hospital Course Hospital Course Patient was admitted through the emergency department for penile abscess and severe phimosis. Was taken to the operating suite emergently and an I&D along with excision of necrotic appearing tissue as well as a modified circumcision was performed. Was maintained on IV antibiotics and wound care and did well. Discharged on 05/08/2022 in stable condition. Was trained in dressing changes technique and given explicit instructions on how to manage the wound. Scheduled for follow-up in about a week Physical Exam Narrative: Alert oriented no acute distress Neck full range of motion Respiration without wheezing or laboring Regular rhythm abdomen soft Genitourinary: The incision site for the penile abscess is healing well. Healthy tissue. No evidence of recurrence of infection. The modified circumcision is healing well as well. Some edema persists. Extremities with good range of motion Urinary Catheter Management: Hicks: Cath Placed During This Visit: yes, but has since been removed by the nurse Reason for Continuing Indwelling Catheter: Decision to DC Catheter Urinary Catheter Date of Insertion: 05/05/22 Urinary Catheter Time of Insertion: 13:06 Date Urinary Catheter Removed: 05/07/22 Time Urinary Catheter Discontinued: 10:45 Discharge Data Studies Completed and Pending Completed Studies During Hospitalization Category Date Time Status Pathology: Surgical [PTH] Routine Pth 05/05/22 13:10 Completed Pending at discharge Category Date Time Status Abscess Culture Routine Lab 05/05/22 12:58 Results Anaerobic Culture Routine Lab 05/05/22 12:58 Results Laboratory Results WBC 6.9 10^3/uL (4.0-10.0) 05/08/22 01:28 RBC 3.59 10^6/uL (4.1-5.3) L 05/08/22 01:28 Hgb 10.7 g/dL (11.7-16.6) L 05/08/22 01:28 Hct 33.7 % (42.0-52.0) L 05/08/22 01:28 MCV 93.9 fl (80-94) 05/08/22 01:28 MCH 29.8 pg (28.0-34.0) 05/08/22 01:28 MCHC 31.8 g/dL (30.0-36.0) 05/08/22 01:28 RDW 14.4 % (12.1-15.1) 05/08/22 01:28 Plt Count 198 10^3/cmm (130-400) 05/08/22 01:28 MPV 10.7 fL (7.4-10.4) H 05/08/22 01:28 Neut % (Auto) 63.1 % 05/08/22 01:28 Lymph % (Auto) 22.4 % 05/08/22 01:28 [place] % (Auto) 10.7 % 05/08/22 01:28 Eos % (Auto) 3.0 % 05/08/22 01:28 Baso % (Auto) 0.4 % 05/08/22 01:28 Neut # (Auto) 4.36 10^3/uL (1.8-7.7) 05/08/22 01:28 Lymph # (Auto) 1.6 10^3/uL (0.8-4.8) 05/08/22 01:28 [place] # (Auto) 0.7 10^3/uL (0.2-0.9) 05/08/22 01:28 Eos # (Auto) 0.2 10^3/uL (0.0-0.8) 05/08/22 01:28 Baso # (Auto) 0.0 10^3/uL (0.0-0.1) 05/08/22 01:28 Nucleated RBC % (auto) 0 % 05/08/22 01:28 Nucleated RBCs # 0.0 /100WBC 05/08/22 01:28 Sodium 137 mmol/L (136-145) 05/08/22 01:28 Potassium 4.0 mmol/L (3.5-5.1) 05/08/22 01:28 Chloride 104 mmol/L (98-107) 05/08/22 01:28 Carbon Dioxide 27 mmol/L (22-29) 05/08/22 01:28 Anion Gap 10.0 (5-19) 05/08/22 01:28 BUN 20 mg/dL (8-23) 05/08/22 01:28 Creatinine 1.0 mg/dL (0.7-1.2) 05/08/22 01:28 GFR Calculation Not Reportable 05/08/22 01:28 Glucose 91 mg/dL (65-115) 05/08/22 01:28 Calculated Osmolality 286 mOsm/kg (285-295) 05/08/22 01:28 Calcium 8.5 mg/dL (8.5-10.5) 05/08/22 01:28 Total Bilirubin 0.3 mg/dL (0.15-1.2) 05/05/22 11:52 AST 17 U/L (0-40) 05/05/22 11:52 ALT 9 U/L (0-41) 05/05/22 11:52 Alkaline Phosphatase 91 U/L (40-130) 05/05/22 11:52 Total Protein 7.7 g/dL (6.6-8.7) 05/05/22 11:52 Albumin 4.4 g/dL (3.5-5.2) 05/05/22 11:52 Globulin 3.3 g/dL (1.3-4.6) 05/05/22 11:52 Urine Color Yellow (Yellow) 05/05/22 18:05 Urine Appearance Clear (CLEAR) 05/05/22 18:05 Urine pH 6 (5-7) 05/05/22 18:05 Ur Specific [place] 1.010 (1.005-1.030) 05/05/22 18:05 Urine Protein Neg (Negative) 05/05/22 18:05 Urine Glucose (UA) Norm (Normal) 05/05/22 18:05 Urine Ketones Negative (Negative) 05/05/22 18:05 Urine Blood Neg (Negative) 05/05/22 18:05 Urine Nitrate Negative (Negative) 05/05/22 18:05 Urine Bilirubin Neg (Negative) 05/05/22 18:05 Urine Urobilinogen Norm mg/dL (Negative) 05/05/22 18:05 Ur Leukocyte Esterase Negative (Negative) 05/05/22 18:05 Vancomycin Trough 16.2 ug/mL (10-15) H 05/06/22 22:17 Procedures Performed Modified circumcision I&D of penile abscess with excision of necrotic skin Vitals Last Vital Signs Temp 97.7 F 05/08/22 04:00 Pulse 54 L 05/08/22 04:00 Resp 15 05/08/22 04:00 BP 143/68 05/08/22 04:00 Pulse Ox 98 05/08/22 04:00 O2 Del Method 05/08/22 04:00 Discharge Plan Discharge Patient Disposition: Home Condition: Stable Prescriptions: New sulfamethoxazole-trimethoprim 800-160 mg tablet 1 tab PO BID Qty: 14 1RF Continued Coreg 3.125 mg tablet 3.125 mg PO BID Qty: 180 3RF Rx Instructions: must administer with a meal/food Lasix 20 mg tablet 20 mg PO BID Qty: 180 3RF lisinopril 5 mg tablet 5 mg PO DAILY Qty: 90 3RF Klor-Con M20 20 mEq tablet,ER particles/crystals 40 meq PO DAILY 30 Days Qty: 90 3RF tamsulosin 0.4 mg capsule 0.4 mg PO BID 30 Days Qty: 180 1RF citalopram [Celexa] 10 mg tablet 10 mg PO DAILY Qty: 90 0RF acetaminophen [Tylenol Extra Strength] 500 mg tablet 500 mg PO Q6H PRN (Reason: Pain) aspirin 81 mg Tablet,Delayed Release (Dr/Ec) 81 mg PO DAILY Discharge Orders: Discharge Order (Routine); Ordered 05/08/22 Ordered By: Kirit Salinas Referrals: Mark Hardy MD [Physician] - 05/09/22 (Wound check) Alice Batres DO [Primary Care Provider] - 05/16/22 9:30 am Discharge Diet: Usual diet Discharge Activity: Limit activity as instructed Activity Restrictions/Additional Instructions: 1. Continue dressing changes once a day as directed. 2. There will be a new prescription for antibiotics. Take until they are completed. 3. Try to keep penis elevated to help reduce the swelling on the end 4. You could use a much smaller dressing that is not wrapping around the entire penis if you prefer. Discharge Attestations Time Spent in Discharge Care*: less than 30 min Quality Metrics Clinical Quality Measures [ No reported AMI, CVA or VTE this stay] Coding Level of Care Code Acute Chg [facility] note Diagnoses Penile abscess N48.21 Congestive heart failure I50.22 Heart failure type: systolic Heart failure chronicity: chronic Benign essential HTN I10 BPH (benign prostatic hyperplasia) N40.0 Relapsing polychondritis M94.1 Major depressive disorder F33.1 Major depression recurrence: recurrent Active/Remission status: currently active Major depression episode severity: moderate
[2022-05-08 13:54] VITALS: BP 139/61; PULSE 68; RESP 17; O2SAT 98
== END 2022-05-08 12:55 | disposition home or self-care (01) | DRG 728 ==
LOC: ER 11:53 → OR 11:56 → MEDSURG 16:46
PROVIDERS: Admitting Provider Urology; Emergency Provider Family Medicine; PCP Family Medicine; Visit Provider Urology
PROC: 0H9AXZZ Drainage of Inguinal Skin, External Approach (ICD-10-PCS; principal; 2022-05-05 13:00)
PROC: 0H9AXZZ Drainage of Inguinal Skin, External Approach (ICD-10-PCS; 2022-05-05 13:00)
DX: N48.21 Abscess of corpus cavernosum and penis (principal); F33.1 Major depressive disorder, recurrent, moderate; I50.22 Chronic systolic (congestive) heart failure; I42.0 Dilated cardiomyopathy; I96 Gangrene, not elsewhere classified; N47.1 Phimosis; I11.0 Hypertensive heart disease with heart failure; N40.0 Benign prostatic hyperplasia without lower urinary tract symptoms; M94.1 Relapsing polychondritis; I44.7 Left bundle-branch block, unspecified; R00.1 Bradycardia, unspecified; Z87.891 Personal history of nicotine dependence
CPT/HCPCS: 36415; 51702; 80048; 80053; 80202; 81003; 85025; 87070; 87075; 87077; 87205; 88305; 93005; 96365; 99285; J0330; J1100; J1956; J2370; J2405; J2704; J3010; J3370; J3490; J7030; J7050

== ENCOUNTER → 2022-05-29 09:18 | Outpatient (BNVA) | payer MEDICARE, MEDICAID, SELFPAY | PROVIDERS: PCP Family Medicine; Visit Provider Urology | DX: N40.0 Benign prostatic hyperplasia without lower urinary tract symptoms (principal); N48.21 Abscess of corpus cavernosum and penis; N47.1 Phimosis | CPT/HCPCS: 99213 ==

== ENCOUNTER → 2022-07-18 09:23 | Outpatient (BNVA) | payer MEDICARE, MEDICAID, SELFPAY | PROVIDERS: PCP Family Medicine; Visit Provider Internal Medicine | DX: M94.1 Relapsing polychondritis (principal); I50.22 Chronic systolic (congestive) heart failure | CPT/HCPCS: 36415; 80053; 81003; 82550; 85025; 85651; 86036; 86140; 86480; 99214 ==

== ENCOUNTER 2022-08-13 12:41 | Outpatient (CLI) | payer MEDICARE, MEDICAID, SELFPAY ==
--- NOTE | 2022-08-13 13:00 | USCV_ITS ---
Rashi Orozco Age: 72 Gender: M : 1950 Exam Date: 08/13/2022 13:21 Ordering Phys: Crystal Bejarano Technologist: BRIAN [place] [facility] [place] systolic chf BP: 120 / 78 HR: 75 Rhythm: Sinus Technical Quality: Adequate MEASUREMENTS (Male / Female) Normal Values 2D ECHO LVOT Diameter 2.0 cm LV Ejection Fraction MOD 2C 44.9 % LV Ejection Fraction 2C AL 45.7 % LA Diameter 3.5 cm Aorta at Sinotubular Diameter 2.8 cm IVC Diameter 1.7 cm M-MODE Aortic Annulus Diameter 2.6 cm LA Ao Ratio MM 1.2 MV E Point Septal Separation 0.5 cm DOPPLER Right Atrial Pressure 3.0 mmHg FINDINGS Left Ventricle Mildly increased left ventricular cavity size. Normal left ventricular wall thickness. Mildly decreased left ventricular systolic function. Left ventricular ejection fraction is estimated at 35-40 %. Grade I/IV diastolic dysfunction (abnormal relaxation filling pattern), normal to mildly elevated filling pressures. Right Ventricle Normal right ventricular size and systolic function. Right Atrium The right atrium is normal in size. Left Atrium Mildly increased left atrial size. Mitral Valve Structurally normal mitral valve. Mild mitral valve regurgitation. Aortic Valve Structurally normal aortic valve without significant sclerosis or stenosis. There is no aortic regurgitation. Tricuspid Valve Structurally normal tricuspid valve. Mild tricuspid valve regurgitation. Pulmonic Valve Pulmonic valve not well visualized. Pericardium Normal pericardium without effusion. Aorta Normal ascending aorta dimension. IVC The inferior vena cava appears normal. CONCLUSIONS Mildly increased left ventricular cavity size. Normal left ventricular wall thickness. Mildly decreased left ventricular systolic function. Left ventricular ejection fraction is estimated at 35-40 %. Grade I/IV diastolic dysfunction (abnormal relaxation filling pattern), normal to mildly elevated filling pressures. Mildly increased left atrial size. Structurally normal mitral valve. Mild mitral valve regurgitation. From the previous study done 03/29/2022, the left ventricular function has improved. Previously the ejection fraction was in the 25 to 30% range. Additionally the mitral regurgitation has decreased now from moderate to mild. The pericardial effusion is resolved. Dr. Henrique Elizabeth MD (Electronically Signed) Final Date: 13 August 2022 15:04 S
== END 2022-08-13 12:42 | disposition home or self-care (01) ==
LOC: RAD 12:43
PROVIDERS: PCP Family Medicine; Visit Provider Nurse Practitioner Family
DX: I11.0 Hypertensive heart disease with heart failure (principal); I50.23 Acute on chronic systolic (congestive) heart failure; I34.0 Nonrheumatic mitral (valve) insufficiency; Z87.891 Personal history of nicotine dependence
CPT/HCPCS: 93308; 99214

== ENCOUNTER → 2022-10-02 14:29 | Outpatient (BNVA) | payer MEDICARE, MEDICAID, SELFPAY | PROVIDERS: PCP Family Medicine; Visit Provider Internal Medicine | DX: M94.1 Relapsing polychondritis (principal); I50.22 Chronic systolic (congestive) heart failure; L03.90 Cellulitis, unspecified | CPT/HCPCS: 99214 ==

== ENCOUNTER 2024-03-03 12:59 | Emergency (ER) | payer MEDICARE, MEDICAID, SELFPAY ==
[2024-03-03 13:03] VITALS: BP 128/87; PULSE 119; RESP 22; TEMP 36.3; O2SAT 97; BMI 20.2
--- NOTE | 2024-03-03 13:12 | CT_ITS ---
WS: [id number] CT ABDOMEN AND PELVIS WITH CONTRAST HISTORY: right inguinal mass, suspect hernia TECHNIQUE: Imaging performed of the abdomen and pelvis with IV contrast. Single phase imaging of the abdomen. Coronal and sagittal reformats are submitted. All CT scans at [facility] use at [address] one of these dose optimization techniques: automated exposure control; mA and/or kV adjustment per patient size (includes targeted exams where dose is matched to clinical indication); or iterative re construction. IV CONTRAST: Omnipaque 350; 100 mL IV. Oral contrast: No DLP: 620.43 mGy.cm COMPARISON: None available. Lower thorax: Moderate bilateral layering pleural effusions and mild fluid overload at the lung bases . Moderate cardiomegaly. No hiatal hernia. Liver/biliary system: Normal size with no intrahepatic dilatation. Gallbladder: Normal. No gallstones or wall thickening. No pericholecystic fluid. Pancreas: Normal size pancreas and pancreatic duct. No adjacent inflammation. Spleen: Normal size spleen. No mass or infarct. Adrenal glands: Normal. Right kidney: Normal. Left kidney: Normal size kidney. Cyst upper pole 1.6 cm. Aorta: Mild atherosclerosis with no aneurysm. Lymphadenopathy: None. Free fluid: None. GI tract: Stomach is not distended. No small bowel obstruction. Marked constipation. No appendicitis. No diverticulitis. Abdominal wall: Unremarkable abdominal wall. No hernia. Pelvis: No free fluid or adenopathy within the pelvis. Enlarged heterogeneous prostate gland. Soft tissue in the RIGHT inguinal canal corresponds to omental fat herniation and a small amount of f luid. The mass corresponds to fluid collection along the inguinal canal. The cecal tip also is close to the patent inguinal hernia and a small amount of cecal wall extends into the proximal canal. There is no obstruction. Bones: Mild increase in lumbar lordosis. CT/CT abdomen pelvis w con* [id number] IMPRESSION: 1. Palpable area along the RIGHT inguinal canal corresponds with an inguinal c anal hernia containing omentum and fluid. There is a small protrusion of the ce ayo tip extending into the very proximal inguinal hernia. No GI tract obstructi on. 2. Constipation. 3. No renal obstruction. 4. Moderate bilateral pleural effusions. 5. Cardiomegaly.
[2024-03-03] MEDS: ondansetron 2 mg/ML SDV 2 mL 4 MG IVP (13:23)
[2024-03-03 13:25] VITALS: RESP 20
[2024-03-03] MEDS: morphine 4 mg/mL SDV 1 mL IVP (13:25)
--- NOTE | 2024-03-03 13:27 | W.ED.GENADLT ---
HPI - General Adult General: Chief complaint: General Medical Stated complaint: lower abd/groin pain w/ bulge Time Seen by Provider: 03/03/24 13:08 History of Present Illness: Patient presents to the ER with complaints of a bulge in his right pubic area. Patient states she has had this pain and this bulge for about a month but is only been progressively getting worse. Patient does not know anything of triggered it. Patient never been told he had a hernia before. Patient denies any fever chills other abdominal pain did Related Data Home Medications Medication Instructions Recorded Confirmed acetaminophen 500 mg tablet 500 mg PO Q6H PRN Pain 05/05/22 03/03/24 (Tylenol Extra Strength) Previous Rx's Medication Instructions Recorded hydrocodone 5 mg-acetaminophen 325 1 tab PO Q6H PRN pain #14 tabs 03/03/24 mg tablet Allergies Allergy/AdvReac Type Severity Reaction Status Date / Time No Known Allergies Allergy Verified 03/03/24 13:06 Review of Systems General: Reports: 10 or more systems reviewed and unremarkable except in HPI and below PFSH ED PFSH: Medical History BPH (benign prostatic hyperplasia) Major depressive disorder Cardiomyopathy Nonischemic Congestive heart failure EF 25-30% 03/2022 Relapsing polychondritis Benign essential HTN GERD (gastroesophageal reflux disease) Surgical History History of cardiac catheterization 03/2022 - no obstructive CAD, mildly elevated right and left sided pressures History of ear surgery T-tube in left ear ~2018 Family History Father Cancer Family history of premature coronary artery disease Stroke Denies family history of Diabetes CAD (coronary artery disease) Hyperlipidemia Hypertension Social History Smoking and tobacco/nicotine status: former use of tobacco/nicotine Alcohol intake: former Substance/Drug Use: never Caregiver/support person: Yes (Daughter) Lives independently: Yes Household members: none Marital status: Physical Exam HENMT: COMMON NORMALS: normocephalic, atraumatic, hearing grossly normal bilaterally, external ears normal, Normal external nose present and moist oral mucous membranes HEAD & SCALP: normocephalic and atraumatic NOSE: Normal external nose present EXTERNAL EAR: Yes external ears normal Neck/C-Spine: COMMON NORMALS: full ROM, no lymphadenopathy, supple, no meningeal signs, no JVD and Thyroid normal THYROID: Thyroid normal Chest: COMMONS NORMALS: normal inspection of the chest and normal palpation of entire chest wall Resp: COMMON NORMALS: normal respiratory effort, No retractions, No use of accessory muscles and clear to auscultation bilaterally AUSCULTATION: clear to auscultation bilaterally Cardio: COMMON NORMALS: no JVD, regular rate, regular rhythm, S1 normal heart sound present, S2 normal heart sound present, No gallops present (Cardio), No clicks present (Cardio), No murmurs present (Cardio) and No rub (Cardio) RATE: regular rate RHYTHM: regular rhythm HEART SOUNDS: S1 normal heart sound present and S2 normal heart sound present GI: COMMON NORMALS: Normal to inspection, nondistended, normoactive bowel sounds present, Soft to palpation, non-tender, No hepatosplenomegaly present and no masses PALPATION: Yes Soft to palpation and Yes No hepatosplenomegaly present : OTHER: Right side pubic region palpable mass that is tender. CT scan said this was hernia that was not incarcerated or strangulated. With manual pressure it was easily reduced. Neuro: MENINGEAL SIGNS: Yes no meningeal signs Course Vital Signs: Vital signs: Vital Signs Temperature 97.4 F L 03/03/24 13:03 Pulse Rate 118 H 03/03/24 14:57 Respiratory Rate 18 03/03/24 14:57 Blood Pressure 137/92 03/03/24 14:57 Pulse Oximetry 94 03/03/24 14:57 Oxygen Delivery Me thod Nasal Cannula 03/03/24 14:00 Oxygen Flow Rate 2 03/03/24 14:00 [facility] - General Adult Medical Decision Making Patient arrived inguinal hernia that was manually reduced in the ER. Lab work was otherwise unremarkable abdomen pelvis CT scan did not show anything strangulation or incarceration. Patient felt much better after the reduction. Patient will be referred to general surgery on an outpatient basis. Medical Records I reviewed the patient's medical records. Lab Data I reviewed the patient's lab results. 03/03/24 13:33 03/03/24 13:33 Radiology Impressions Abdomen/Pelvis CT 03/03/24 13:12 IMPRESSION: 1. Palpable area along the RIGHT inguinal canal corresponds with an inguinal canal hernia containing omentum and fluid. There is a small protrusion of the cecal tip extending into the very proximal inguinal hernia. No GI tract obstruction. 2. Constipation. 3. No renal obstruction. 4. Moderate bilateral pleural effusions. 5. Cardiomegaly. Laboratory Results WBC 6.19 10^3/uL (3.29-11.43) 03/03/24 13:33 RBC 4.22 10^6/uL (3.85-5.65) 03/03/24 13:33 Hgb 13.20 g/dL (11.27-16.99) 03/03/24 13:33 Hct 38.5 % (37-53) 03/03/24 13:33 MCV 91.2 fl (82-101) 03/03/24 13:33 MCH 31.3 pg (27-33) 03/03/24 13:33 MCHC 34.3 g/dL (30-55) 03/03/24 13:33 RDW 14.0 % (12.1-15.1) 03/03/24 13:33 Plt Count 253 10^3/cmm (157-399) 03/03/24 13:33 MPV 10.1 fL (7.4-10.4) 03/03/24 13:33 Neut % (Auto) 78.0 % 03/03/24 13:33 Lymph % (Auto) 8.9 % 03/03/24 13:33 [place] % (Auto) 10.7 % 03/03/24 13:33 Eos % (Auto) 1.6 % 03/03/24 13:33 Baso % (Auto) 0.5 % 03/03/24 13:33 Neut # (Auto) 4.83 10^3/uL (1.8-7.7) 03/03/24 13:33 Lymph # (Auto) 0.6 10^3/uL (0.8-4.8) L 03/03/24 13:33 [place] # (Auto) 0.7 10^3/uL (0.2-0.9) 03/03/24 13:33 Eos # (Auto) 0.1 10^3/uL (0.0-0.8) 03/03/24 13:33 Baso # (Auto) 0.0 10^3/uL (0.0-0.1) 03/03/24 13:33 Nucleated RBC % (auto) 0 % 03/03/24 13:33 Nucleated RBCs # 0.0 /100WBC 03/03/24 13:33 Sodium 130 mmol/L (136-145) L 03/03/24 13:33 Potassium 4.2 mmol/L (3.5-5.1) 03/03/24 13:33 Chloride 96 mmol/L (98-107) L 03/03/24 13:33 Carbon Dioxide 23 mmol/L (22-29) 03/03/24 13:33 Anion Gap 15.2 (5-19) 03/03/24 13:33 BUN 14 mg/dL (8-23) 03/03/24 13:33 Creatinine 1.1 mg/dL (0.7-1.2) 03/03/24 13:33 GFR Calculation Not Reportable 03/03/24 13:33 Glucose 97 mg/dL (65-115) 03/03/24 13:33 Calculated Osmolality 270 mOsm/kg (285-295) L 03/03/24 13:33 Lactic Acid 1.7 mmol/L (0.5-2.2) 03/03/24 13:33 Calcium 8.3 mg/dL (8.5-10.5) L 03/03/24 13:33 Total Bilirubin 0.3 mg/dL (0.15-1.2) 03/03/24 13:33 AST 20 U/L (0-40) 03/03/24 13:33 ALT 14 U/L (0-41) 03/03/24 13:33 Alkaline Phosphatase 94 U/L (40-130) 03/03/24 13:33 Total Protein 6.3 g/dL (6.6-8.7) L 03/03/24 13:33 Albumin 3.7 g/dL (3.5-5.2) 03/03/24 13:33 Globulin 2.6 g/dL (1.3-4.6) 03/03/24 13:33 Lipase 26 U/L (13-60) 03/03/24 13:33 All radiology interpretation(s) finalized by discharge Discharge Plan Discharge Patient Disposition: Home Clinical Impression: Hernia, inguinal, right Condition: Stable Prescriptions: New hydrocodone-acetaminophen 5-325 mg tablet 1 tab PO Q6H PRN (Reason: pain) Qty: 14 0RF No Action acetaminophen [Tylenol Extra Strength] 500 mg tablet 500 mg PO Q6H PRN (Reason: Pain) Discharge Orders: Discharge ED (Routine); Ordered 03/03/24 Ordered By: Santo Crandall Patient Instructions: Opioid Safety, Pain Management, Inguinal Hernia (ED) Activity Restrictions/Additional Instructions: He had been referred to case management they will have to get a prior authorization before they refer you to general surgery. They will work as quickly as possible on this. This is due to your insurance. There has been a prescription of hydrocodone sent to the pharmacy for you to take as needed when you are in pain. If this does not control the pain please feel free to return to the ER for further evaluation. Coding Level of Care Code ED Production Line Technician for Carmencita Resendez
[2024-03-03 13:42] LABS: Basophils % 0.5 %; Eosinophils # 0.1 10^3/uL (0.0-0.8); Eosinophils % 1.6 %; Hematocrit 38.5 % (37-53); Lymphocytes # 0.6 10^3/uL (0.8-4.8); Lymphocytes % 8.9 %; Mean Corpuscular HGB Conc 34.3 g/dL (30-55); Mean Corpuscular Hemoglobin 31.3 pg (27-33); Mean Corpuscular Volume 91.2 fl (82-101); Mean Platelet Volume 10.1 fL (7.4-10.4); Monocytes # 0.7 10^3/uL (0.2-0.9); Monocytes % 10.7 %; Neutrophils # 4.83 10^3/uL (1.8-7.7); Nucleated Red Blood Cells % 0 %; Platelet Count 253 10^3/cmm (157-399); Red Blood Count 4.22 10^6/uL (3.85-5.65); White Blood Count 6.19 10^3/uL (3.29-11.43)
[2024-03-03 13:55] LABS: Lactic Sepsis W/Reflex 1.7 mmol/L (0.5-2.2)
[2024-03-03 13:56] LABS: Alanine Aminotransferase 14 U/L (0-41); Albumin Level 3.7 g/dL (3.5-5.2); Alkaline Phosphatase 94 U/L (40-130); Anion Gap 15.2 (5-19); Aspartate Amino Transferase 20 U/L (0-40); Blood Urea Nitrogen 14 mg/dL (8-23); Calcium 8.3 mg/dL (8.5-10.5); Carbon Dioxide 23 mmol/L (22-29); Chloride 96 mmol/L (98-107); Creatinine Clr Calc Pharmacy 60.4763; Globulin 2.6 g/dL (1.3-4.6); Glucose 97 mg/dL (65-115); Lipase 26 U/L (13-60); Osmolality Calculated 270 mOsm/kg (285-295); Potassium 4.2 mmol/L (3.5-5.1); Sodium 130 mmol/L (136-145); Total Bilirubin 0.3 mg/dL (0.15-1.2); Total Protein 6.3 g/dL (6.6-8.7)
[2024-03-03 14:00] VITALS: BP 137/88; PULSE 123; RESP 18; O2SAT 89
--- NOTE | 2024-03-03 14:04 | PC.PHAR ---
Pt states no longer takes any maintenance medications. The following meds were removed from pt chart: Aspirin 81mg, Carvedilol 3.125, Citalopram 20mg, Klor con 20meq, Lasix 20mg, Lisinopril 5mg, and Tamsulosin 0.4mg.
[2024-03-03] MEDS: iohexol 350 mg/mL 500 mL Btl (per mL) IV ×2 (14:17→15:52)
--- NOTE | 2024-03-03 14:22 | CTR_ITS ---
PROCEDURE INFORMATION: Exam: CT Chest With Contrast; Diagnostic Exam date and time: 03/03/2024 2:23 PM Age: 73 years old Clinical indication: Dyspnea TECHNIQUE: Imaging protocol: Diagnostic computed tomography of the chest with contrast. Radiation optimization: All CT scans at this facility use at least one of these dose optimization techniques: automated exposure control; mA and/or kV adjustment per patient size (includes targeted exams where dose is matched to clinical indication); or iterative reconstruction. Contrast material: OMNIPAQUE 350; Contrast volume: 40 ml; Contrast route: INTRAVENOUS (IV); COMPARISON: CR XR chest 1V portable [id number] 03/31/2022 5:10 AM RADIATION DOSE METRICS: Total DLP (mGy-cm): 0.01 FINDINGS: Lungs: Scattered chronic granulomatous calcifications within the mediastinum both hilum and left lung. There is passive atelectasis adjacent to the pleural effusions more extensive on the left. There also scattered ground-glass opacities both lung michel slightly more pronounced on the right, nonspecific and may be infectious in nature or represent dependent pulmonary edema. Pleural spaces: Pleura: Moderate-sized bilateral pleural effusions face symmetric in appearance possibly cardiogenic in nature. Heart: Heart is mildly enlarged. Minimal coronary artery calcifications. No significant pericardial effusion. Lymph nodes: Multiple small mediastinal lymph nodes likely benign based on size criteria. Vasculature: Unremarkable. No aortic aneurysm. Bones/joints: Unremarkable. No acute fracture. Soft tissues: See Pleural spaces finding. CT/CT chest w con* [id number] IMPRESSION: 1. Mild cardiomegaly with moderate-sized bilateral pleural effusions it may be cardiogenic in nature with adjacent passive atelectasis of the lower lung zones. 2. Superimposed patchy ground-glass opacities both lung michel more pronounced in the right that may be infectious in nature or represent dependent pulmonary edema.
[2024-03-03 14:57] VITALS: BP 137/92; PULSE 118; RESP 18; O2SAT 94
[2024-03-03 15:43] VITALS: BP 133/87; PULSE 125; RESP 18; O2SAT 89
--- NOTE | 2024-03-04 08:06 | DCPLANNER ---
messaged gen surg for er f/u
== END 2024-03-03 15:45 | disposition home or self-care (01) ==
PROVIDERS: Emergency Medicine; Emergency Provider Emergency Medicine
DX: K40.90 Unilateral inguinal hernia, without obstruction or gangrene, not specified as recurrent (principal); Z87.891 Personal history of nicotine dependence; I11.0 Hypertensive heart disease with heart failure; I50.9 Heart failure, unspecified
CPT/HCPCS: 71260; 74177; 80053; 83605; 83690; 85025; 96374; 96375; 99285; J2270; J2405

== ENCOUNTER 2024-03-07 09:39 | Inpatient (IN) | payer MEDICARE, MEDICAID, SELFPAY ==
[2024-03-07] VITALS (71 sets, daily range): BP systolic 110–165; BP diastolic 73–110; PULSE 101–113; RESP 15–29; TEMP 36.5–37.1; O2SAT 87–97; BMI 20.9; BMI 24.9
--- NOTE | 2024-03-07 09:57 | ED_ITS ---
HPI - Abdominal Pain 2 General: Chief Complaint: Abdominal Pain Stated Complaint: abd pain - sob Time Seen by Provider: 03/07/24 09:42 History of Present Illness: 73-year-old male presents emergency room with complaints of shortness of breath. Patient himself noted that this is all related to a right inguinal hernia has been present for some time he is not previously had surgery on it. He denies any chest pain he has had increasing orthopnea over the last couple of weeks. He was previously on Lasix but stopped it because he thought it was giving him hives. He did have a angiography March 2022 which did not show any significant coronary artery disease or cardiomyopathy. He had a positive Lexiscan stress test. Patient has persistent cough has been nonproductive. Today when EMS found him he was satting in the 80s he is requiring 6 L by nasal cannula while at the bedside attempted to titrate down to 3 L/min and he desatted into the upper 80s shortly after. He denies any hemoptysis no history of any PEs or DVTs. Associated Symptoms: Denies change in bowel habits, chills, diarrhea, dysuria, fever(s), nausea and vomiting Related Data Home Medications Medication Instructions Recorded Confirmed acetaminophen 500 mg tablet 500 mg PO Q6H PRN Pain 05/05/22 03/07/24 (Tylenol Extra Strength) furosemide 20 mg tablet 20 mg PO BID 03/07/24 03/07/24 Previous Rx's Medication Instructions Recorded hydrocodone 5 mg-acetaminophen 325 1 tab PO Q6H PRN pain #14 tabs 03/03/24 mg tablet Allergies Allergy/AdvReac Type Severity Reaction Status Date / Time No Known Allergies Allergy Verified 03/03/24 13:06 Review of Systems 2 Const: Denies: fever(s) or chills Card: Denies: chest pain Resp: Reports: dyspnea, non-productive cough, wheezing and chest congestion GI: Denies: abdominal pain, nausea, vomiting, diarrhea or change in bowel habits : Denies: dysuria, urinary frequency or urinary urgency Musc: Denies: neck pain or back pain Skin/Breast: Denies: rash PFSH ED 2 PFSH: Medical History BPH (benign prostatic hyperplasia) Major depressive disorder Cardiomyopathy Nonischemic Congestive heart failure EF 25-30% 03/2022 Relapsing polychondritis Benign essential HTN GERD (gastroesophageal reflux disease) Surgical History History of cardiac catheterization 03/2022 - no obstructive CAD, mildly elevated right and left sided pressures History of ear surgery T-tube in left ear ~2018 Family History Father Cancer Family history of premature coronary artery disease Stroke Denies family history of Diabetes CAD (coronary artery disease) Hyperlipidemia Hypertension Social History Smoking and tobacco/nicotine status: former use of tobacco/nicotine Alcohol intake: former Substance/Drug Use: never Caregiver/support person: Yes (Daughter) Lives independently: Yes Household members: none Marital status: Physical Exam 2 Const: GENERAL APPEARANCE: cooperative ORIENTATION/CONSCIOUSNESS: Yes awake, Yes oriented to person, Yes oriented to place and Yes oriented to time HENMT: COMMON NORMALS: normocephalic, atraumatic and hearing grossly normal bilaterally HEAD & SCALP: normocephalic and atraumatic Resp: COMMON NORMALS: normal respiratory effort, No retractions, No use of accessory muscles and clear to auscultation bilaterally AUSCULTATION: clear to auscultation bilaterally Cardio: COMMON NORMALS: regular rate, regular rhythm and No murmurs present (Cardio) RATE: regular rate RHYTHM: regular rhythm GI: COMMON NORMALS: Soft to palpation and No hepatosplenomegaly present A USCULTATION: Yes normoactive bowel sounds PALPATION: Yes Soft to palpation, No Tenderness to palpation present (GI), No Guarding due to palpation present (GI) and Yes No hepatosplenomegaly present OTHER: Easily reducible right inguinal hernia Extremity: COMMON NORMALS: normal to inspection, capillary refill normal, no clubbing, cyanosis or edema, no calf tenderness and no pedal edema Neuro: SENSORIUM/ORIENTATION: Yes oriented to person, Yes oriented to place and Yes oriented to time Skin: COMMON NORMALS: no rashes or lesions noted GENERAL SKIN EXAM: no rashes or lesions noted Course 2 Vital Signs: Vital signs: Vital Signs Temperature 98.6 F 03/07/24 13:15 Pulse Rate 109 H 11/18/24 13:35 Respiratory Rate 27 H 03/07/24 13:35 Blood Pressure 141/92 03/07/24 13:35 Pulse Oximetry 94 03/07/24 13:35 Oxygen Delivery Me thod Room Air 03/07/24 13:21 Oxygen Flow Rate 6 03/07/24 10:55 MDM - Abdominal Pain Medical Decision Making Patient has several criteria that might be considered positive for sepsis. I do not believe this patient has sepsis he has a normal white count is light elevated lactic acid tachycardia and tachypnea are all due to his severe congestive heart failure. He does not require antibiotics and giving the patient fluid bolus at this time would be detrimental and likely lead to severe further decompensation and even potentially . Patient has severe congestive heart failure and previously had very low EF angiogram done recently was reviewed no obstructive coronary artery disease. Patient given IV Lasix here will admit to the [facility] discussed with hospitalist orders written Medical Records I reviewed the patient's medical records. Lab Data I reviewed the patient's lab results. 03/07/24 09:08 03/07/24 09:08 Labs/Radiology: Radiology Impressions Chest X-Ray 03/07/24 09:58 IMPRESSION: 1. Findings suggest CHF with bibasal pleural effusions and bibasal compressive atelectasis. Laboratory Results WBC 7.93 10^3/uL (3.29-11.43) 03/07/24 09:08 RBC 4.14 10^6/uL (3.85-5.65) 03/07/24 09:08 Hgb 12.40 g/dL (11.27-16.99) 03/07/24 09:08 Hct 37.3 % (37-53) 03/07/24 09:08 MCV 90.1 fl (82-101) 03/07/24 09:08 MCH 30.0 pg (27-33) 03/07/24 09:08 MCHC 33.2 g/dL (30-55) 03/07/24 09:08 RDW 13.7 % (12.1-15.1) 03/07/24 09:08 Plt Count 237 10^3/cmm (157-399) 03/07/24 09:08 MPV 10.8 fL (7.4-10.4) H 03/07/24 09:08 Neut % (Auto) 83.6 % 03/07/24 09:08 Lymph % (Auto) 5.4 % 03/07/24 09:08 Archuleta % (Auto) 10.0 % 03/07/24 09:08 Eos % (Auto) 0.1 % 03/07/24 09:08 Baso % (Auto) 0.1 % 03/07/24 09:08 Neut # (Auto) 6.63 10^3/uL (1.8-7.7) 03/07/24 09:08 Lymph # (Auto) 0.4 10^3/uL (0.8-4.8) L 03/07/24 09:08 Archuleta # (Auto) 0.8 10^3/uL (0.2-0.9) 03/07/24 09:08 Eos # (Auto) 0.0 10^3/uL (0.0-0.8) 03/07/24 09:08 Baso # (Auto) 0.0 10^3/uL (0.0-0.1) 03/07/24 09:08 Nucleated RBC % (auto) 0 % 03/07/24 09:08 Nucleated RBCs # 0.0 /100WBC 03/07/24 09:08 Specimen Type Arterial 03/07/24 10:08 Sample Site Radial, left 03/07/24 10:08 ABG pH 7.34 (7.35-7.45) L 03/07/24 10:08 ABG pCO2 35.5 mmHg (35-45) 03/07/24 10:08 ABG pO2 78.1 mmHg (80.0-100.0) L 03/07/24 10:08 ABG PO2/FiO2 Ratio 195 03/07/24 10:08 ABG HCO3 19.3 mmol/L (22-26) L 03/07/24 10:08 ABG O2 Saturation 94.1 03/07/24 10:08 ABG Base Excess -5.7 mmol/L (-2.0-2.0) L 03/07/24 10:08 Timmy Test Pos 03/07/24 10:08 A-a O2 Gradient 20.8 mmHg (5-10) H 03/07/24 10:08 Hematocrit 39.4 % (42-52) L 03/07/24 10:08 Hgb O2 Saturation 93.0 % (95-100) L 03/07/24 10:08 Carboxyhemoglobin 0.9 %THgb (0.4-20.1) 03/07/24 10:08 Methemoglobin 0.3 % (0.4-1.5) L 03/07/24 10:08 Total Hemoglobin 12.8 g/dL (14-18) L 03/07/24 10:08 Sodium 120.0 mmol/L (131-143) L 03/07/24 10:08 Potassium 4.8 mmol/L (3.5-5.0) 03/07/24 10:08 Glucose 120.0 mg/dL (70-115) H 03/07/24 10:08 Ionized Calcium 1.2 mmol/L (1.1-1.4) 03/07/24 10:08 O2 Delivery Device Nc 03/07/24 10:08 O2 Liters/Min 5.0 % 03/07/24 10:08 FiO2 40.0 % 03/07/24 10:08 Health Policy Manager ID Amh 03/07/24 10:08 Sodium 122 mmol/L (136-145) L 03/07/24 09:08 Potassium 4.8 mmol/L (3.5-5.1) 03/07/24 09:08 Chloride 84 mmol/L (98-107) L 03/07/24 09:08 Carbon Dioxide 17 mmol/L (22-29) L 03/07/24 09:08 Anion Gap 25.8 (5-19) H 03/07/24 09:08 BUN 26 mg/dL (8-23) H 03/07/24 09:08 Creatinine 1.4 mg/dL (0.7-1.2) H 03/07/24 09:08 GFR Calculation Not Reportable 03/07/24 09:08 Glucose 112 mg/dL (65-115) 03/07/24 09:08 Calculated Osmolality 260 mOsm/kg (285-295) L 03/07/24 09:08 Lactic Acid 5.8 mmol/L (0.5-2.2) H* 03/07/24 09:08 Calcium 8.7 mg/dL (8.5-10.5) 03/07/24 09:08 Total Bilirubin 0.7 mg/dL (0.15-1.2) 03/07/24 09:08 AST 236 U/L (0-40) H 03/07/24 09:08 ALT 176 U/L (0-41) H 03/07/24 09:08 Alkaline Phosphatase 127 U/L (40-130) 03/07/24 09:08 Creatine Kinase 533 U/L (39-308) H* 03/07/24 09:08 Troponin T Baseline 42 ng/L (0-15) H 03/07/24 09:08 Troponin T 120 Minute 42.25 ng/L (0-15) H 03/07/24 11:10 Delta Troponin T 0.25 ABS# (0-10) 03/07/24 11:10 NT-Pro-B Natriuret Pep 79421 pg/mL (0-125) H 03/07/24 09:08 Total Protein 6.9 g/dL (6.6-8.7) 03/07/24 09:08 Albumin 4.0 g/dL (3.5-5.2) 03/07/24 09:08 Globulin 2.9 g/dL (1.3-4.6) 03/07/24 09:08 Lipase 13 U/L (13-60) 03/07/24 09:08 Procalcitonin 0.18 ng/mL (0-0.5) 03/07/24 09:08 Coronavirus (PCR) Negative (Negative) 03/07/24 10:09 Influenza A (PCR) Negative (Negative) 03/07/24 10:09 Influenza Type B (PCR) Negative (Negative) 03/07/24 10:09 RSV (PCR) Negative (Negative) 03/07/24 10:09 All radiology interpretation(s) finalized by discharge Discharge Plan Discharge Patient Disposition: Admitted As Inpatient Admit Provider: Kirit Salinas Clinical Impression: Congestive heart failure Condition: Stable Coding Level of Care Code ED Sap Developer for Carmencita Resendez
--- NOTE | 2024-03-07 09:58 | XR_ITS ---
WS: [id number] Exam: XR chest 1V portable [id number] Date/Time of Exam: 03/07/2024 10:00 AM Reason For Exam: dyspnea/cough Comparison 03/31/2022. Mild cardiac enlargement with pulmonary vascular congestion and bibasal pleural effusions suggesting CHF. Bilateral lower lobe compression atelectasis noted. No pneumothorax. The mediastinum is normal i n contour. Bony structures are intact. XR/XR chest 1V portable [id number] IMPRESSION: 1. Findings suggest CHF with bibasal pleural effusions and bibasal compressive atelectasis.
[2024-03-07 10:11] LABS: Basophils % 0.1 %; Eosinophils % 0.1 %; Hematocrit 37.3 % (37-53); Lymphocytes # 0.4 10^3/uL (0.8-4.8); Lymphocytes % 5.4 %; Mean Corpuscular HGB Conc 33.2 g/dL (30-55); Mean Corpuscular Volume 90.1 fl (82-101); Mean Platelet Volume 10.8 fL (7.4-10.4); Monocytes # 0.8 10^3/uL (0.2-0.9); Neutrophils # 6.63 10^3/uL (1.8-7.7); Neutrophils % 83.6 %; Nucleated Red Blood Cells % 0 %; Platelet Count 237 10^3/cmm (157-399); Red Blood Count 4.14 10^6/uL (3.85-5.65); Red Cell Distribution Width 13.7 % (12.1-15.1); White Blood Count 7.93 10^3/uL (3.29-11.43)
[2024-03-07 10:20] LABS: ABG PCO2 35.5 mmHg (35-45); ABG PH Result 7.34 (7.35-7.45); Alveolar-Arterial Oxygen Gradi 20.8 mmHg (5-10); Arterial Blood Gas Hematocrit 39.4 % (42-52); Base Excess ABG -5.7 mmol/L (-2.0-2.0); Blood Gas Allen Test Pos; Blood Gas Operator Identificat AMH; Blood Gas Sample Site Radial, left; Blood Gas Sample Type Arterial; Carboxyhemoglobin 0.9 %THgb (0.4-20.1); HCO3 ABG 19.3 mmol/L (22-26); Ionized Calcium Level - ABG 1.2 mmol/L (1.1-1.4); Methemoglobin 0.3 % (0.4-1.5); Oxygen Device NC; Oxygen Saturation ABG 94.1; PO2 ABG 78.1 mmHg (80.0-100.0); PO2 FiO2 Ratio Arterial Blood 195; Potassium Level - ABG 4.8 mmol/L (3.5-5.0); Total Hemoglobin 12.8 g/dL (14-18)
--- NOTE | 2024-03-07 10:21 | ECG_ITS ---
[facility] Date: 2024-03-07 Pat Name: Rashi Orozco Department: Room: Gender: Male Rn Ambulatory: : 1950 Requested By: Troy Toledo Order Number: [id number] Gustavo MD: Avril Mathis M.D. Measurements Intervals [place] Rate: 98 P: 38 MS: 153 QRS: -5 QRSD: 162 T: 157 QT: 402 QTc: 515 Interpretive Statements SINUS RHYTHM LEFT ATRIAL ENLARGEMENT [-0.15mV P-WAVE IN V1/V2] LEFT BUNDLE BRANCH BLOCK [120+ ms QRS DURATION, 80+ ms Q/S IN V1/V2, 85+ ms R IN I/aVL/V5/V6] Compared to ECG 05/05/2022 11:47:15 Atrial abnormality now present Sinus bradycardia no longer present Electronically Signed On 03-07-2024 19:27:35 PLUMBING CONTRACTOR by Avril Mathis M.D. [id number]
[2024-03-07 10:23] LABS: Troponin(5th) Baseline 42 ng/L (0-15)
[2024-03-07 10:31] LABS: NT Pro B Type Natriuretic Pept 28029 pg/mL (0-125); Procalcitonin 0.18 ng/mL (0-0.5)
[2024-03-07 10:42] LABS: Alanine Aminotransferase 176 U/L (0-41); Alkaline Phosphatase 127 U/L (40-130); Anion Gap 25.8 (5-19); Aspartate Amino Transferase 236 U/L (0-40); Blood Urea Nitrogen 26 mg/dL (8-23); Calcium 8.7 mg/dL (8.5-10.5); Carbon Dioxide 17 mmol/L (22-29); Chloride 84 mmol/L (98-107); Creatinine Clr Calc Pharmacy 48.1201; Globulin 2.9 g/dL (1.3-4.6); Glucose 112 mg/dL (65-115); Lipase 13 U/L (13-60); Osmolality Calculated 260 mOsm/kg (285-295); Potassium 4.8 mmol/L (3.5-5.1); Sodium 122 mmol/L (136-145); Total Bilirubin 0.7 mg/dL (0.15-1.2); Total Protein 6.9 g/dL (6.6-8.7)
[2024-03-07 10:48] LABS: Creatine Phosphokinase 533 U/L (39-308); Lactic Sepsis W/Reflex 5.8 mmol/L (0.5-2.2)
[2024-03-07] MEDS: FUROsemide 10 mg/mL SDV 4mL 40 MG IVP (10:54)
[2024-03-07 11:33] LABS: Covid PCR NEGATIVE (Negative); Influenza A NEGATIVE (Negative); Influenza B NEGATIVE (Negative); Respiratory Syncytial Virus Ce NEGATIVE (Negative)
[2024-03-07 11:42] LABS: Troponin 5 2HR 42.25 ng/L (0-15); Troponin 5 2HR Delta 0.25 ABS# (0-10)
[2024-03-07 12:07] LABS: Reflex Lactate Order REFLEX LACTIC ORDERD
--- NOTE | 2024-03-07 12:25 | ECG_ITS ---
[facility] Date: 2024-03-07 Pat Name: Rashi Orozco Department: Room: [facility] Gender: Male Office Assistant: : 1950 Requested By: Troy Toledo Order Number: [id number] Gustavo MD: Avril Mathis M.D. Measurements Intervals [place] Rate: 105 P: 48 DC: 148 QRS: 4 QRSD: 165 T: 157 QT: 395 QTc: 523 Interpretive Statements SINUS TACHYCARDIA LEFT ATRIAL ENLARGEMENT [-0.15mV P-WAVE IN V1/V2] LEFT BUNDLE BRANCH BLOCK [120+ ms QRS DURATION, 80+ ms Q/S IN V1/V2, 85+ ms R IN I/aVL/V5/V6] Compared to ECG 03/07/2024 10:21:20 Sinus rhythm no longer present Electronically Signed On 03-07-2024 19:39:46 NUT GRINDER by Avril Mathis M.D. [id number]
--- NOTE | 2024-03-07 13:31 | USCV_ITS ---
Rashi Orozco Age: 73 Gender: M : 1950 Exam Date: 03/07/2024 14:10 Ordering Phys: Kirit Salinas MD Technologist: Exam Location: [facility] Indication: BP: 142 / 90 HR: 99 Rhythm: Sinus Technical Quality: Adequate MEASUREMENTS (Male / Female) Normal Values 2D ECHO LV Diastolic Diameter PLAX 6.1 cm 4.2 - 5.9 / 3.9 - 5.3 cm IVS Diastolic Thickness 1.3 cm 0.6 - 1.0 / 0.6 - 0.9 cm IVS Systolic Thickness 1.5 cm LVPW Diastolic Thickness 1.2 cm 0.6 - 1.0 / 0.6 - 0.9 cm LVPW Systolic Thickness 1.6 cm LVOT Diameter 2.0 cm LV Ejection Fraction 2D Teich 30.3 % LV Ejection Fraction MOD 4C 25.4 % LV Ejection Fraction MOD 2C 48.4 % LV Ejection Fraction 2C AL 48.1 % LA Diameter 4.3 cm RA Systolic Volume 4C AL 96.2 ml RA Systolic Volume 4C MOD 89.6 ml Aorta at Sinotubular Diameter 3.0 cm IVC Diameter 1.6 cm M-MODE LA Ao Ratio MM 1.0 AV Cusp Separation MM 1.9 cm DOPPLER AV Peak Velocity 118.0 cm/s AV Area Cont Eq vti 1.9 cm squared AV Area Cont Eq pk 2.3 cm squared MV Peak Velocity 299.5 cm/s TV Peak Velocity 241.5 cm/s TR Peak Velocity 265.0 cm/s TR Peak Gradient 28.1 mmHg TV Peak E Velocity 100.0 cm/s Right Atrial Pressure 3.0 mmHg Pulmonary Artery Systolic Pressu 31.1 mmHg PV Peak Velocity 72.0 cm/s FINDINGS Left Ventricle Normal left ventricular size, systolic function and wall thickness, with no regional wall motion abnormalities. Left ventricular ejection fraction is estimated at 60 %. In the presence of atrial fibrillation dastolic function cannot be assessed accurately. Right Ventricle The right ventricle is normal in size and function. Right Atrium The right atrium is normal in size. Left Atrium Moderately increased left atrial size. Mitral Valve Moderately thickened mitral valve. No mitral valve stenosis. Moderate-severe mitral valve regurgitation. Aortic Valve Mild aortic valve calcification. No aortic valve stenosis. Mild aortic valve regurgitation. Tricuspid Valve Structurally normal tricuspid valve without significant stenosis or regurgitation. Pulmonary artery systolic pressure is normal. Pulmonic Valve Structurally normal pulmonic valve without significant stenosis. There is no pulmonic regurgitation. Pericardium Normal pericardium without effusion. Aorta Normal ascending aorta dimension. IVC The inferior vena cava appears normal. CONCLUSIONS Normal left ventricular size, systolic function and wall thickness, with no regional wall motion abnormalities. Left ventricular ejection fraction is estimated at 60 %. In the presence of atrial fibrillation dastolic function cannot be assessed accurately. Moderately increased left atrial size. Moderately thickened mitral valve. No mitral valve stenosis. Moderate-severe mitral valve regurgitation. Mild aortic valve calcification. No aortic valve stenosis. Mild aortic valve regurgitation. There is no pericardial effusion. Pulmonary artery systolic pressure is within normal limits. Right atrial pressure is around 5 mm of mercury. Yenni Zafar MD (Electronically Signed) Final Date: 11 March 2024 16:49 S
--- NOTE | 2024-03-07 13:38 | P.HP_ITS ---
Providers/Chief Complaint 2 Admitting Physician: Kirit Salinas Chief Complaint: abd pain - sob History of Present Illness 73-year-old gentleman with history of HFrEF, ejection fraction down at 35-40% in June 2022, nonischemic cardiomyopathy, GERD, BPH, HTN, other medical problems, presented due to progressive shortness of breath, exertional intolerance worsening over the last month recently to the point where he is unable to walk even a short distance without getting very short of breath. In ER he is found to require 6 L oxygen by nasal cannula, he states normally he is not on oxygen. Chest x-ray suggestive of CHF changes, NT proBNP 28,029. LEOPOLDO, creatinine 1.4. Lactic acid 5.8, AST 236, ALT 176. Sodium 122. He is also for some time has been bothered by his right inguinal hernia, has been following with surgery awaiting approval for surgical repair. Hernia is reducible per discussion with ER physician. Review of Systems 2 Const: Denies: fever(s), chills, body aches or malaise ENMT: Denies: throat pain Card: Reports: dyspnea on exertion and orthopnea; Denies: chest pain, edema, swelling of feet/ankles or pre-syncope Resp: Reports: dyspnea; Denies: productive cough, change in phlegm color or hemoptysis GI: Denies: abdominal pain, nausea, vomiting, diarrhea, constipation, hematochezia or melena : Denies: flank pain, difficulty urinating, urinary frequency or hematuria Musc: Denies: back pain, joint swelling or joint redness Skin/Breast: Denies: rash or new lesions Neuro: Denies: headache(s), numbness in extremities, weakness in extremities, dizziness, confusion or seizure-like activity Endo: Denies: polyuria or polydipsia Medications/Allergies Home Medications Medication Instructions Recorded Confirmed Last Taken Type acetaminophen 500 mg tablet 500 mg PO Q6H PRN Pain 05/05/22 03/07/24 05/05/22 History (Tylenol Extra Strength) hydrocodone 5 mg-acetaminophen 325 1 tab PO Q6H PRN pain #14 tabs 03/03/24 03/07/24 03/07/24 07:00 Rx mg tablet furosemide 20 mg tablet 20 mg PO BID 03/07/24 03/07/24 Unknown History Allergies Allergy/AdvReac Type Severity Reaction Status Date / Time No Known Allergies Allergy Verified 03/03/24 13:06 PFSH Acute 2 PFSH: Medical History BPH (benign prostatic hyperplasia) Major depressive disorder Cardiomyopathy Nonischemic Congestive heart failure EF 25-30% 03/2022 Relapsing polychondritis Benign essential HTN GERD (gastroesophageal reflux disease) Surgical History History of cardiac catheterization 03/2022 - no obstructive CAD, mildly elevated right and left sided pressures History of ear surgery T-tube in left ear ~2017 Family History Father Cancer Family history of premature coronary artery disease Stroke Denies family history of Diabetes CAD (coronary artery disease) Hyperlipidemia Hypertension Social History Smoking and tobacco/nicotine status: former use of tobacco/nicotine Alcohol intake: former Substance/Drug Use: never Caregiver/support person: Yes (Daughter) Lives independently: Yes Household members: none Marital status: Vitals/I&O/Wt Last Vital Signs Temp 98.6 F 03/07/24 13:15 Pulse 109 H 03/07/24 13:35 Resp 27 H 03/07/24 13:35 BP 141/92 03/07/24 13:35 Pulse Ox 94 03/07/24 13:35 O2 Del Method Room Air 03/07/24 13:21 O2 Flow Rate 6 03/07/24 10:55 Weight last 48 hrs Weight 76.5 kg Weight 68.039 kg Physical Exam 2 Const: COMMON NORMALS: patient oriented x3 and alert GENERAL APPEARANCE: c ooperative ORIENTATION/CONSCIOUSNESS: Yes awake HENMT: COMMON NORMALS: oropharynx normal Neck/C-Spine: COMMON NORMALS: no JVD Resp: COMMON NORMALS: normal respiratory effort and clear to auscultation bilaterally AUSCULTATION: clear to auscultation bilaterally and diminished lung sounds bilateral in the lower lung michel (Bases) Cardio: COMMON NORMALS: no JVD, regular rhythm, S1 normal heart sound present, S2 normal heart sound present and No murmurs present (Cardio) RHYTHM: regular rhythm HEART SOUNDS: S1 normal heart sound present and S2 normal heart sound present GI: COMMON NORMALS: Normal to inspection, nondistended, normoactive bowel sounds present, Soft to palpation and non-tender PALPATION: Yes Soft to palpation Extremity: COMMON NORMALS: no joint enlargement and no pedal edema Neuro: COMMON NORMALS: patient oriented x3 and moves all extremities S ENSORIUM/ORIENTATION: Yes alert Skin: COMMON NORMALS: no rashes or lesions noted GENERAL SKIN EXAM: no rashes or lesions noted Data 03/07/24 09:08 03/07/24 09:08 Micro: Microbiology 03/07/24 11:14 Blood Culture - Preliminary Blood SPECIMEN COLLECTED 03/07/24 11:10 Blood Culture - Preliminary Blood SPECIMEN COLLECTED A&P Assessment and plan (1) Congestive heart failure: Progressive dyspnea, orthopnea, dyspnea on exertion over the last month, in ER he is with respiratory failure, newly requiring 6 L of oxygen on presentation. With tachypnea 27. Hypoxic, O2 78 on 5 L. Chest x-ray consistent with CHF, NT proBNP is 28,000 on review. Severe decompensation of systolic CHF. Prior EF 35-40%. Reviewed vitals, CBC, ABG, CMP, lactic acid, troponin, EKG, respiratory viral studies, procalcitonin, chest x-ray, ER note, discussed with ER provider. Reviewed most recent TTE. She has received Lasix, continue IV diuretics 40 mg twice daily, monitor intake output, monitor for risk of electrolyte deficiency, LEOPOLDO, monitor volume status. Reassess chemistry. Check respiratory viral panel. Additionally with new 6 L oxygen requirement on presentation, sinus tachycardia 109, discussed with him further assessment with D-dimer: Possibly additional imaging to further assess for lower possibility of PE. Qualifiers: Heart failure type: systolic Heart failure chronicity: chronic Qualified Code(s): I50.22 - Chronic systolic (congestive) heart failure (2) LEOPOLDO (acute kidney injury): Suspected secondary to decompensated CHF. Reassess with diuresis. Monitor blood pressures. (3) Lactic acidosis: Assess TTE. Monitor blood pressure. (4) Rhabdomyolysis: Reassess CK. Denies any trauma. Has been sitting down quite a bit recently. (5) Transaminitis: In part secondary to rhabdomyolysis. Check hepatitis panel. Check respiratory viral panel. Plan Inguinal hernia: It is reducible in ER per discussion with ER physician. Has been bothering him for some time and he has been following up with surgery, making arrangements to have it repaired. Attestations 2 Medical Necessity Statement*: Admission over 2 midnights anticipated for assess management of HFrEF with new 6 L oxygen requirement. Diagnoses Chronic systolic congestive heart failure I50.22 Heart failure type: systolic Heart failure chronicity: chronic LEOPOLDO (acute kidney injury) N17.9 Lactic acidosis E87.20 Rhabdomyolysis M62.82 Transaminitis R74.01
[2024-03-07] MEDS: enoxaparin 40 mg/0.4 mL Syringe SUBCUT (14:28)
[2024-03-07 14:48] LABS: Lactic Acid level (Lactate) 2.4 mmol/L (0.5-2.2)
[2024-03-07 14:49] LABS: D Dimer 2.44 ug/mLFEU (0-0.59)
[2024-03-07 14:55] LABS: Sodium 122 mmol/L (136-145)
[2024-03-07] MEDS: HYDROcodone-acetaminophen 5-325 mg Tablet 1 TAB PO (15:39)
[2024-03-07 15:50] LABS: Hepatitis A Antibody IgM Non-Reactive (Nonreactive); Hepatitis B Core IgM Non-Reactive (Nonreactive); Hepatitis B Surface Antigen Non-Reactive (Nonreactive); Hepatitis C Virus Antibody Non-Reactive (Nonreactive)
--- NOTE | 2024-03-07 15:58 | ECG_ITS ---
[facility] Date: 2024-03-07 Pat Name: Rashi Orozco Department: Room: [facility]03 Gender: Male Coding Advisor: : 1950 Requested By: Troy Toledo Order Number: [id number] Gustavo MD: Avril Mathis M.D. Measurements Intervals [place] Rate: 108 P: 41 CO: 142 QRS: 1 QRSD: 167 T: 147 QT: 393 QTc: 528 Interpretive Statements SINUS TACHYCARDIA LEFT ATRIAL ENLARGEMENT [-0.15mV P-WAVE IN V1/V2] LEFT BUNDLE BRANCH BLOCK [120+ ms QRS DURATION, 80+ ms Q/S IN V1/V2, 85+ ms R IN I/aVL/V5/V6] Compared to ECG 03/07/2024 12:25:55 No significant changes Electronically Signed On 03-07-2024 19:39:52 DESIGN SPECIALIST by Avril Mathis M.D. [id number]
[2024-03-07 16:14] LABS: Adenovirus Not Detected (NOT DETECT); Chlamydia Pneumoniae Not Detected (NOT DETECT); Coronavirus 229E,HKU1,NL63,OC4 Not Detected (NOT DETECT); Human Metapneumovirus Not Detected (NOT DETECT); Human Rhinovirus/Enterovirus Detected (NOT DETECT); Influenza A Not Detected (NOT DETECT); Influenza A H1 Not Detected (NOT DETECT); Influenza A H1-2009 Not Detected (NOT DETECT); Influenza A H3 Not Detected (NOT DETECT); Influenza B Not Detected (NOT DETECT); Mycoplasma Pneumoniae Not Detected (NOT DETECT); Parainfluenza Virus Type 1 Not Detected (NOT DETECT); Parainfluenza Virus Type 2 Not Detected (NOT DETECT); Parainfluenza Virus Type 3 Not Detected (NOT DETECT); Parainfluenza Virus Type 4 Not Detected (NOT DETECT); Respiratory Syncytial Virus A Not Detected (NOT DETECT); Respiratory Syncytial Virus B Not Detected (NOT DETECT); SARS-COV-2 Not Detected (NOT DETECT)
[2024-03-07 16:30] LABS: Troponin 5 6HR 41.13 ng/L (0-15)
[2024-03-07 16:31] LABS: Troponin 5 6HR Delta -0.87 ng/L (0-12)
[2024-03-07] MEDS: polyethylene glycol 3350 Pkt 17 gm PO (17:53)
[2024-03-07] MEDS: benzonatate 100 mg Capsule 200 MG PO (17:54)
[2024-03-07] MEDS: fixodent 39 gm Tube 1 APPLIC DENTAL (20:36)
--- NOTE | 2024-03-07 20:40 | PC.NURSE ---
Patient received from ICU at this time via wheelchair. Patient denies pain or needs. did ask for Fixodent for his teeth.
[2024-03-07 22:26] LABS: Bilirubin Urine Negative (Negative); Blood Urine Negative (Negative); Glucose Urine UA Negative (Normal); Ketones Urine Negative (Negative); Leukocyte Esterase Urine Negative (Negative); Nitrate Urine Negative (Negative); Protein Urine Trace (Negative); Specific Gravity, Urine 1.018 (1.005-1.030); Urine Appearance Clear (CLEAR); Urine Color Yellow (Yellow)
[2024-03-07 22:31] LABS: Add Urine Microscopic? YES; Bacteria Urine None Seen /hpf; Hyaline Casts Urine 27.69 /lpf; RBC Urine 0-2 /hpf (0-2); Squamous Epithelial Cell Urine 0-5 /hpf (0-5); WBC Urine 0-5 /hpf (0-5)
[2024-03-07 22:42] LABS: UA Slide Review UA Slide Review Perf
[2024-03-07 22:43] LABS: Mucus Urine 1+ /hpf
[2024-03-08] MEDS: benzonatate 100 mg Capsule 200 MG PO ×2 (01:39→20:19)
--- NOTE | 2024-03-08 01:49 | PC.NURSE ---
Patient is coughing persistenly with white foamy sputum. Patient has been given tessalon mary. Informed Dr Parmar and received telephone order for Mucinex 1200mg BID. RBVO
[2024-03-08] MEDS: FUROsemide 10 mg/mL SDV 4mL 40 MG IVP (03:42)
[2024-03-08 04:00] VITALS: BP 134/86; PULSE 103; RESP 17; TEMP 36.4; O2SAT 91
[2024-03-08 05:11] LABS: Basophils % 0.1 %; Hematocrit 36.8 % (37-53); Lymphocytes # 0.3 10^3/uL (0.8-4.8); Lymphocytes % 3.3 %; Mean Corpuscular HGB Conc 33.7 g/dL (30-55); Mean Corpuscular Hemoglobin 30.3 pg (27-33); Mean Platelet Volume 10.9 fL (7.4-10.4); Monocytes # 0.9 10^3/uL (0.2-0.9); Monocytes % 9.5 %; Neutrophils % 86.7 %; Nucleated Red Blood Cells % 0 %; Platelet Count 254 10^3/cmm (157-399); Red Blood Count 4.09 10^6/uL (3.85-5.65); Red Cell Distribution Width 13.7 % (12.1-15.1); White Blood Count 9.23 10^3/uL (3.29-11.43)
[2024-03-08 05:33] LABS: Alanine Aminotransferase 173 U/L (0-41); Albumin Level 3.8 g/dL (3.5-5.2); Alkaline Phosphatase 121 U/L (40-130); Anion Gap 19.9 (5-19); Aspartate Amino Transferase 169 U/L (0-40); Blood Urea Nitrogen 46 mg/dL (8-23); Calcium 8.3 mg/dL (8.5-10.5); Carbon Dioxide 21 mmol/L (22-29); Chloride 84 mmol/L (98-107); Creatinine Clr Calc Pharmacy 38.1385; Globulin 2.7 g/dL (1.3-4.6); Glucose 122 mg/dL (65-115); Magnesium 2.4 mg/dL (1.7-2.3); Osmolality Calculated 263 mOsm/kg (285-295); Potassium 4.9 mmol/L (3.5-5.1); Sodium 120 mmol/L (136-145); Total Bilirubin 0.4 mg/dL (0.15-1.2); Total Protein 6.5 g/dL (6.6-8.7)
[2024-03-08 06:59] VITALS: BP 123/99; PULSE 103; RESP 20; TEMP 36.9; O2SAT 95
[2024-03-08 08:10] LABS: Creatine Phosphokinase 820 U/L (39-308)
[2024-03-08 08:22] VITALS: PULSE 104; O2SAT 94
--- NOTE | 2024-03-08 08:26 | CTR_ITS ---
PROCEDURE INFORMATION: Exam: CT Abdomen And Pelvis Without Contrast Exam date and time: 03/08/2024 11:57 AM Age: 73 years old Clinical indication: Abdominal pain; Localized; Right; Additional info: Abdominal pain, inguinal hernia TECHNIQUE: Imaging protocol: Computed tomography of the abdomen and pelvis without contrast. Radiation optimization: All CT scans at this facility use at least one of these dose optimization techniques: automated exposure control; mA and/or kV adjustment per patient size (includes targeted exams where dose is matched to clinical indication); or iterative reconstruction. COMPARISON: CT abdomen pelvis w con* [id number] 03/03/2024 2:23 PM RADIATION DOSE METRICS: Total DLP (mGy-cm): 580.03 FINDINGS: Lungs: Atelectasis and possible pneumonitis in the lung bases is slightly increased. Pleural spaces: Increased large bilateral pleural effusions, likely due to anasarca. No pneumothorax. Heart: Unchanged moderate cardiomegaly. Liver: Normal. No mass. Gallbladder and biliary ducts: Normal. No calcified stones. No ductal dilation. Pancreas: Normal. No ductal dilation. Spleen: Normal. No splenomegaly. Adrenal glands: Normal. No mass. Kidneys and ureters: Unchanged small renal cysts need no follow-up. Otherwise, unremarkable. Stomach and bowel: There are multiple newly prominent and mildly dilated proximal and mid small bowel loops in the abdomen and pelvis bilaterally with multiple air-fluid levels. This dilated bowel enters the right inguinal hernia. Completely decompressed small bowel exits the hernia, and small bowel distal to this is decompressed. This is highly suspicious for mechanical small bowel obstruction caused by the herniated small bowel. This herniated small bowel could be incarcerated. Again noted are a few diverticula from the colon. No diverticulitis. Otherwise, unremarkable. Appendix: The appendix is not clearly identified, but there is no obvious pericecal inflammation. Intraperitoneal space: Unremarkable. No free air. No significant fluid collection. Vasculature: Unchanged moderate amount of arterial calcification. Otherwise, unremarkable. Lymph nodes: Unremarkable. No enlarged lymph nodes. Urinary bladder: Unchanged diverticulum posterior urinary bladder. Otherwise, unremarkable. Reproductive: Unchanged enlargement of the prostate gland. Otherwise, unremarkable. Bones/joints: Nothing acute. No change. Soft tissues: A moderate right inguinal hernia has increased slightly in size. There is an increased amount of small bowel within this hernia. Increasing body wall edema suggests worsening anasarca. Otherwise, unremarkable visualized body wall. Otherwise, unremarkable soft tissues. CT/CT abdomen pelvis wo con [id number] IMPRESSION: 1. High suspicion of mechanical small bowel obstruction caused by small bowel entering a right inguinal hernia. This herniated bowel could be incarcerated. The level of the obstruction is likely the proximal or mid ileum. 2. Findings of anasarca appear to be increasing. 3. Additional details as above.
[2024-03-08] MEDS: sodium chloride 0.9% 250 ML 30 ML IV (08:37)
[2024-03-08] MEDS: albumin 25 G/100 ML BAG 60 G IV (08:37)
--- NOTE | 2024-03-08 08:43 | PC.NURSE ---
Patient refused oral medications. Patient states that he does not think he can swallow anything right now. He complains of burning, and congestion. Patient is producing a lot of sputum. Complains of abdominal pain. Physician notified. CT abd ordered.
--- NOTE | 2024-03-08 09:01 | P.PN_ITS ---
Subjective 2 Subjective: Overnight he has been having dry heaves, vomiting. Abdominal discomfort, distention. Vitals/I&O/Wt Last Vital Signs Temp 98.5 F 03/08/24 06:59 Pulse 104 H 03/08/24 08:22 Resp 20 H 03/08/24 06:59 BP 123/99 03/08/24 06:59 Pulse Ox 94 03/08/24 08:22 O2 Del Method Nasal Cannula 03/08/24 08:22 O2 Flow Rate 3 03/08/24 08:22 03/07/24 03/08/24 03/08/24 22:59 06:59 14:59 Intake Total 600 / 600 480 / 1080 Output Total 300 / 300 300 / 600 Balance 300 / 300 180 / 480 Weight last 48 hrs Weight 78.381 kg Weight 78.381 kg Weight 76.5 kg Weight 68.039 kg Physical Exam 2 Narrative: Base and informed him Const: COMMON NORMALS: patient oriented x3 and alert GENERAL APPEARANCE: c ooperative ORIENTATION/CONSCIOUSNESS: Yes awake HENMT: COMMON NORMALS: oropharynx normal Neck/C-Spine: COMMON NORMALS: no JVD Resp: COMMON NORMALS: normal respiratory effort and clear to auscultation bilaterally AUSCULTATION: clear to auscultation bilaterally and diminished lung sounds bilateral in the lower lung michel (Bases) Cardio: COMMON NORMALS: no JVD, regular rhythm, S1 normal heart sound present, S2 normal heart sound present and No murmurs present (Cardio) RHYTHM: regular rhythm HEART SOUNDS: S1 normal heart sound present and S2 normal heart sound present GI: COMMON NORMALS: Soft to palpation INSPECTION: Yes abdominal distension AUSCULTATION: Yes normoactive bowel sounds PALPATION: Yes Soft to palpation Extremity: COMMON NORMALS: no joint enlargement and no pedal edema OTHER: Reducible right inguinal hernia. Neuro: COMMON NORMALS: patient oriented x3 and moves all extremities S ENSORIUM/ORIENTATION: Yes alert Skin: COMMON NORMALS: no rashes or lesions noted GENERAL SKIN EXAM: no rashes or lesions noted Data 03/08/24 04:27 03/08/24 04:27 Micro: Microbiology 03/07/24 11:14 Blood Culture - Preliminary Blood SPECIMEN COLLECTED 03/07/24 11:10 Blood Culture - Preliminary Blood SPECIMEN COLLECTED A&P Assessment and plan (1) Hyponatremia: Worsening hyponatremia, sodium down to 120. Currently also made n.p.o. with nausea and vomiting overnight. Abdominal distention. Assess with CT abdomen. Additionally with enterovirus infection. Hold Lasix. Given a dose of albumin, and give 250 mL infused at 30 mL/h of normal saline. Recheck sodium. Reviewed recheck, increasing up to 121. Additional sodium levels requested. Monitor for risk of rapid sodium increase, ODS. (2) Congestive heart failure: With noted worsening renal function, BUN up to 46, creatinine up to 1.8. Hold Lasix. Given a bag of albumin this morning. Additional slow infusion of NS as above with noted worsening hyponatremia. Noted worsening rhabdomyolysis, CK up to 820. Monitor for risk of fluid overload in the setting of CHF. Discussed with nursing, case maker. Reviewed vitals, CBC, CMP, lactic acid, CK,troponin, EKG, expanded respiratory viral panel. Reviewed most recent TTE. D-dimer noted abnormal 2.44. With viral illness, LEOPOLDO. Repeat D-dimer. Qualifiers: Heart failure type: systolic Heart failure chronicity: chronic Qualified Code(s): I50.22 - Chronic systolic (congestive) heart failure (3) LEOPOLDO (acute kidney injury): Suspected secondary to decompensated CHF. Reassess with diuresis. Monitor blood pressures. (4) Lactic acidosis: Pending TTE read. Monitor blood pressure. (5) Rhabdomyolysis: Worsened CK. Hold diuretic. Gentle hydration as above. Denies any trauma. Has been sitting down quite a bit recently. (6) Transaminitis: In part secondary to rhabdomyolysis. Reviewed hepatitis panel. Check respiratory viral panel. Discussed with him n.p.o. for now, sips chips. (7) Nausea and vomiting: Zofran as needed. Add PPI. (8) Enterovirus infection: Hold diuretic. Gentle hydration. Antiemetic as needed. Has been having abdominal distention, abdominal pain. Hernia is reducible. CT abdomen pelvis requested. Plan Inguinal hernia: It is reducible in ER per discussion with ER physician. Has been bothering him for some time and he has been following up with surgery, making arrangements to have it repaired. Attestations 2 Medical Necessity Statement*: Continue hospitalization for additional assessment after congestive heart failure exacerbation, worsening LEOPOLDO, rhabdomyolysis, enterovirus infection, nausea vomiting, assessment for obstruction a gentleman with inguinal hernia. and High MDM includes amount and/or complexity of data reviewed/ordered [ resulted lab(s)/test(s) and other healthcare professional discussion] and described risk of complication, morbidity or mortality of management as documented Diagnoses Hyponatremia E87.1 Chronic systolic congestive heart failure I50.22 Heart failure type: systolic Heart failure chronicity: chronic LEOPOLDO (acute kidney injury) N17.9 Lactic acidosis E87.20 Rhabdomyolysis M62.82 Transaminitis R74.01 Nausea and vomiting R11.2 Enterovirus infection B34.1
--- NOTE | 2024-03-08 09:30 | PC.CHAP ---
Pastoral Care Encounter/Spiritual Assessment Type of Contact [] Declined peer tutor visit [] Patient/Family/Request visit [] Outpatient visit [] Follow-up visit [] Physician referral [] Code/Alert [] Routine visit [] Staff referral [] Actively dying [] Patient sleeping [] Family support [] [] Out of room [] Palliative care [] [] Receiving care in room [] Pre-surgical visit [] Trauma [] Long length of stay [] ICU visit [x] Other:Contact precautions. No visit. Relational/Emotional Strength [] Patient feels connected with others/family/visitors/staff [] Distress [] Loneliness/isolation [] Abandonment Spirituality of Patient [] Person of Dorothy [] Attends Yazidi of their Dorothy [] Believes in Prayer [] Reads Bible or Mormonism materials [] There are Spiritual issues to be addressed Laryngologist Interventions [] Prayer [] Active listening [] Non-anxious presence [] Spiritual/emotional support [] Crisis/trauma care [] Spiritual counseling [] Bereavement support [] Provided bereavement packet [] Provided Bible/devotional materials [] Provided toy/stuffed animal, coloring book to patient or family member [] Provided Communion [] Anointing/[place] [] Salvation [] Completed spiritual assessment [] Other: Impact on Illness or Injury [] Angry [] Fearful [] Anxious [] Often cries [] Exhaustion [] Unable to work [] Unable to attend hinduism [] Unable to walk/stand [] Unable to read [] Unable to drive [] Unable to eat/drink [] Unable to sleep [] Unable to be with family [] Patient intubated [] Other: Summary Time spent with patient
[2024-03-08 10:58] LABS: Sodium 121 mmol/L (136-145)
[2024-03-08 12:00] VITALS: BP 123/99; PULSE 99; RESP 22; TEMP 37.1; O2SAT 94
[2024-03-08] MEDS: pantoprazole 40 mg SDV IVP (12:23)
[2024-03-08 12:49] LABS: D Dimer 1.84 ug/mLFEU (0-0.59)
--- NOTE | 2024-03-08 13:42 | P.CONIM_ITS ---
Providers/Reason For Consult 2 Consulting Physician/Specialty*: Dr. Franco general surgery Reason for Consult*: Right inguinal hernia Attending Physician: Kirit Salinas History of Present Illness History of Present Illness Rashi Orozco is a 73 year old male with a right inguinal hernia. The patient is having bowel function but a CT scan was performed and radiology read as possible transition point of the right inguinal hernia. Right inguinal hernia is reducible and soft. Patient is passing gas and had a bowel movement early in the morning. Abdomen is soft and benign. Medications/Allergies Home Medications Medication Instructions Recorded Confirmed Last Taken Type acetaminophen 500 mg tablet 500 mg PO Q6H PRN Pain 05/05/22 03/07/24 05/05/22 History (Tylenol Extra Strength) hydrocodone 5 mg-acetaminophen 325 1 tab PO Q6H PRN pain #14 tabs 03/03/24 03/07/24 03/07/24 07:00 Rx mg tablet furosemide 20 mg tablet 20 mg PO BID 03/07/24 03/07/24 Unknown History Allergies Allergy/AdvReac Type Severity Reaction Status Date / Time No Known Allergies Allergy Verified 03/03/24 13:06 Current Medications Generic Name Dose Route Start Last Admin Trade Name Freq PRN Reason Stop Dose Admin Hydrocodone Bitart/Acetaminophen 1 tab 03/07/24 13:35 03/07/24 15:39 Hydrocodone-Acetaminophen 5-325 Mg Tablet PO 1 tab Q6H PRN Administration pain Benzonatate 200 mg 03/07/24 15:33 03/08/24 01:39 Benzonatate 100 Mg Capsule PO 200 mg TID PRN Administration COUGH Denture Adhesive 1 applic 03/07/24 20:30 03/07/24 20:36 Fixodent 39 Gm Tube DENTAL 1 applic PRN PRN Administration denture adhesive Enoxaparin Sodium 40 mg 03/07/24 14:00 03/07/24 14:28 Enoxaparin 40 Mg/0.4 Ml Syringe SUBCUT 40 mg Q24H LEONARDO Administration Furosemide 40 mg 03/08/24 04:00 03/08/24 03:42 Furosemide 10 Mg/Ml Sdv 4ml IVP 40 mg BID@0400,1600 LEONARDO Administration Guaifenesin 1,200 mg 03/08/24 09:00 03/08/24 08:43 Guaifenesin 600 Mg Tablet PO Not Given BID LEONARDO Sodium Chloride 250 mls @ 30 mls/hr 03/08/24 08:00 03/08/24 08:37 Sodium Chloride 0.9% IV 03/08/24 16:19 30 mls/hr ONCE ONE Administration Pantoprazole Sodium 40 mg 03/08/24 11:10 03/08/24 12:23 Pantoprazole 40 Mg Sdv IVP 40 mg DAILY LEONARDO Administration Polyethylene Glycol 17 gm 03/07/24 18:00 03/08/24 08:43 Polyethylene Glycol 3350 Pkt 17 Gm PO Not Given BID LEONARDO PFSH Acute 2 PFSH: Medical History BPH (benign prostatic hyperplasia) Major depressive disorder Cardiomyopathy Nonischemic Congestive heart failure EF 25-30% 03/2022 Relapsing polychondritis Benign essential HTN GERD (gastroesophageal reflux disease) Surgical History History of cardiac catheterization 03/2022 - no obstructive CAD, mildly elevated right and left sided pressures History of ear surgery T-tube in left ear ~2017 Family History Father Cancer Family history of premature coronary artery disease Stroke Denies family history of Diabetes CAD (coronary artery disease) Hyperlipidemia Hypertension Social History Smoking and tobacco/nicotine status: former use of tobacco/nicotine Alcohol intake: former Substance/Drug Use: never Caregiver/support person: Yes (Daughter) Lives independently: Yes Household members: none Marital status: Vitals/I&O/Wt Last Vital Signs Temp 98.5 F 03/08/24 06:59 Pulse 104 H 03/08/24 08:22 Resp 20 H 03/08/24 06:59 BP 123/99 03/08/24 06:59 Pulse Ox 94 03/08/24 08:22 O2 Del Method Nasal Cannula 03/08/24 08:22 O2 Flow Rate 3 03/08/24 08:22 03/07/24 03/08/24 03/08/24 22:59 06:59 14:59 Intake Total 600 / 600 480 / 1080 100 / 100 Output Total 300 / 300 300 / 600 Balance 300 / 300 180 / 480 100 / 100 Weight last 48 hrs Weight 172 lb 12.8 oz Weight 172 lb 12.8 oz Weight 168 lb 10.458 oz Weight 150 lb Physical Exam 2 Narrative: Chest: Unlabored breathing room air. No lymphadenopathy. Heart: Regular rate and rhythm. Abdomen: Soft, nontender, nondistended. No masses or lymphadenopathy. Data 03/08/24 04:27 03/08/24 13:53 Micro: Microbiology 03/07/24 11:14 Blood Culture - Preliminary Blood NEGATIVE TO DATE 03/07/24 11:10 Blood Culture - Preliminary Blood NEGATIVE TO DATE A&P Assessment and plan (1) SBO (small bowel obstruction): Plan 73-year-old male who presents in CHF who has also a right inguinal hernia. CT scan read by radiology as possible transition point in the right inguinal hernia. Patient is having bowel function and his right inguinal hernia is soft and reducible. Patient is medically compensated and therefore will defer surgery is much as possible. Will perform Gastrografin challenge and ensure that contrast makes it all the way to the colon. Coding Level of Care Code 16558 Diagnoses SBO (small bowel obstruction) K56.609 Time Spent (min) 30
--- NOTE | 2024-03-08 14:15 | PM.MISC ---
Miscellaneous Note Note: Full consult note to follow. Consult for R inguinal hernia. CT read - posible transition point at hernia site. Reviewed CT images - not convicing for SBO. Clinically not obstructed - had a BM this morning and passing gas consistently. Hernia is soft and reducible. Will perform gastrograffin challenge. Otherwise will defer surgery until medically optimized. Spoke to hospitalist.
[2024-03-08 14:27] LABS: Sodium 120 mmol/L (136-145)
--- NOTE | 2024-03-08 14:31 | XR_ITS ---
WS: [id number] Exam: XR chest 1V portable [id number] Date/Time of Exam: 03/08/2024 2:32 PM Reason For Exam: post ngt insertion Comparison 03/07/2024. An enteric tube has been placed and ends in the expected region of the gastric body. Bibasal infiltra link and atelectasis noted with bilateral basal pleural effusions. This shows little change. Cardiac e nlargement unchanged. XR/XR chest 1V portable [id number] IMPRESSION: 1. Enteric tube ending in the stomach. 2. The chest shows no other change since the latest study 03/07/2024.
[2024-03-08] MEDS: lidocaine 2% viscous 15 mL UDC 10 ML MUCOUS MEM (14:33)
[2024-03-08] MEDS: enoxaparin 40 mg/0.4 mL Syringe SUBCUT (14:39)
[2024-03-08] MEDS: urea 15 gm Powder XX (15:26)
[2024-03-08 17:51] LABS: Sodium 124 mmol/L (136-145)
[2024-03-08 19:42] LABS: Urine Random Sodium 11 mmol/L
[2024-03-08 20:00] VITALS: BP 138/90; PULSE 102; RESP 22; TEMP 36.8; O2SAT 97
--- NOTE | 2024-03-08 20:00 | XRR_ITS ---
PROCEDURE INFORMATION: Exam: XR Abdomen Exam date and time: 03/08/2024 7:45 PM Age: 73 years old Clinical indication: Other: 5 hr image after gastrografin inj thru ng tube; Additional info: Assess for obstruction, gastrographin via ngt TECHNIQUE: Imaging protocol: Radiologic exam of the abdomen. Views: Frontal supine view of the abdomen. 1 View. COMPARISON: CT abdomen pelvis wo con [id number] 03/08/2024 11:57 AM FINDINGS: Tubes, catheters and devices: Overlying monitor leads. Gastrointestinal tract: Abdomen & pelvis single view 5 hours post Gastrografin administration through NG tube. Gastrografin contrast is seen within the colon to the level of the pelvis. There is some Gastrografin contrast within small bowel within the pelvis, including loop of small bowel in apparent right inguinal hernia with either overlapping loops or mildly dilated small bowel loop at this level. Again, Gastrografin contrast is seen in the colon excluding significant or high-grade obstruction Intraperitoneal space: No indication of free air on this exam. Bones/joints: Visualized osseous structures show no acute abnormality. XR/XR KUB [id number] IMPRESSION: 1. 5 hours post Gastrografin administration through NG tube exam demonstrates Gastrografin contrast in the colon to the level of the pelvis as well as Gastrografin contrast within small bowel in the pelvis, and including Gastrografin contrast within small bowel loop in an apparent right inguinal hernia with either overlapping of loop or mildly dilated small bowel loop at the right inguinal hernia level. 2. Presence of Gastrografin contrast in the colon excludes significant or high-grade obstruction.
[2024-03-08] MEDS: HYDROcodone-acetaminophen 5-325 mg Tablet 1 TAB PO (20:19)
[2024-03-08 22:00] VITALS: PULSE 107
[2024-03-09] VITALS (10 sets, daily range): BP systolic 98–138; BP diastolic 67–91; PULSE 93–126; RESP 14–27; TEMP 36.4–36.8; O2SAT 93–97
[2024-03-09 04:11] LABS: Basophils % 0.1 %; Eosinophils % 0.1 %; Hematocrit 38.7 % (37-53); Lymphocytes # 0.6 10^3/uL (0.8-4.8); Lymphocytes % 5.7 %; Mean Corpuscular HGB Conc 32.8 g/dL (30-55); Mean Corpuscular Volume 91.3 fl (82-101); Mean Platelet Volume 10.9 fL (7.4-10.4); Monocytes # 1.3 10^3/uL (0.2-0.9); Monocytes % 11.9 %; Neutrophils # 8.75 10^3/uL (1.8-7.7); Neutrophils % 81.5 %; Nucleated Red Blood Cells % 0 %; Platelet Count 227 10^3/cmm (157-399); Red Blood Count 4.24 10^6/uL (3.85-5.65); Red Cell Distribution Width 13.7 % (12.1-15.1); White Blood Count 10.73 10^3/uL (3.29-11.43)
[2024-03-09] MEDS: HYDROcodone-acetaminophen 5-325 mg Tablet 1 TAB PO ×2 (04:34→23:06)
[2024-03-09 04:38] LABS: Alanine Aminotransferase 150 U/L (0-41); Albumin Level 3.8 g/dL (3.5-5.2); Alkaline Phosphatase 106 U/L (40-130); Aspartate Amino Transferase 115 U/L (0-40); Blood Urea Nitrogen 49 mg/dL (8-23); Calcium 8.4 mg/dL (8.5-10.5); Carbon Dioxide 23 mmol/L (22-29); Chloride 92 mmol/L (98-107); Creatinine Clr Calc Pharmacy 44.8431; Globulin 2.4 g/dL (1.3-4.6); Glucose 86 mg/dL (65-115); Osmolality Calculated 276 mOsm/kg (285-295); Sodium 127 mmol/L (136-145); Total Bilirubin 0.4 mg/dL (0.15-1.2); Total Protein 6.2 g/dL (6.6-8.7)
--- NOTE | 2024-03-09 08:19 | P.PN_ITS ---
Subjective 2 Subjective: Had a bowel movement last night. Passing gas. Hungry. Gastrografin made to the colon. Vitals/I&O/Wt Last Vital Signs Temp 97.9 F 03/09/24 07:15 Pulse 100 03/09/24 07:15 Resp 20 H 03/09/24 07:15 BP 135/89 03/09/24 07:15 Pulse Ox 94 03/09/24 07:15 O2 Del Method Nasal Cannula 03/09/24 07:15 O2 Flow Rate 3 03/09/24 07:15 03/08/24 03/09/24 03/09/24 22:59 06:59 14:59 Intake Total 480 / 696.5 Output Total 400 / 400 1200 / 1600 Balance 80 / 296.5 -1200 / -903.5 Weight last 48 hrs Weight 164 lb 9.6 oz Weight 172 lb 12.8 oz Weight 172 lb 12.8 oz Weight 168 lb 10.458 oz Weight 150 lb Physical Exam 2 Narrative: Chest: Unlabored breathing room air. No lymphadenopathy. Heart: Regular rate and rhythm. Abdomen: Soft, nontender, nondistended. No masses or lymphadenopathy. Right groin hernia soft and reducible Data 03/09/24 03:27 03/09/24 03:27 Micro: Microbiology 03/07/24 11:14 Blood Culture - Preliminary Blood NEGATIVE TO DATE 03/07/24 11:10 Blood Culture - Preliminary Blood NEGATIVE TO DATE A&P Assessment and plan (1) SBO (small bowel obstruction): Plan 73-year-old male consulted for possible SBO secondary to right inguinal hernia. Gastrografin mated to the colon. Right inguinal hernia soft and reducible. Patient is not clinically obstructed. Advance diet as tolerated. Once medically optimized can plan for elective hernia repair as outpatient. Attestations 2 Medical Necessity Statement*: NA Coding Level of Care Code 02428 Diagnoses SBO (small bowel obstruction) K56.609 Time Spent (min) 30
[2024-03-09] MEDS: guaiFENesin 600 mg Tablet 1200 MG PO ×2 (09:15→17:39)
[2024-03-09] MEDS: polyethylene glycol 3350 Pkt 17 gm PO ×2 (09:15→17:39)
[2024-03-09] MEDS: pantoprazole 40 mg SDV IVP (09:16)
--- NOTE | 2024-03-09 09:20 | PC.SOCIAL ---
IMM Update pg 2 of IMM Updated and reviewed w/ patient. Copy provided and copy dated, initialed and placed in chart.
[2024-03-09] MEDS: enoxaparin 40 mg/0.4 mL Syringe SUBCUT (14:32)
--- NOTE | 2024-03-09 17:17 | P.PN_ITS ---
Subjective 2 Subjective: Today he is feeling slightly better. No further vomiting. Improvement in abdominal pain. Tolerating ice chips, wanting to try liquids. Vitals/I&O/Wt Last Vital Signs Temp 98.2 F 03/09/24 16:00 Pulse 107 H 03/09/24 16:00 Resp 24 H 03/09/24 16:00 BP 115/76 03/09/24 16:00 Pulse Ox 94 03/09/24 16:00 O2 Del Method Nasal Cannula 03/09/24 16:00 O2 Flow Rate 2 03/09/24 16:00 03/09/24 03/09/24 03/09/24 06:59 14:59 22:59 Intake Total 420 / 420 Output Total 1200 / 1600 900 / 900 Balance -1200 / -903.5 -480 / -480 Weight last 48 hrs Weight 74.661 kg Weight 78.381 kg Weight 78.381 kg Physical Exam 2 Narrative: Base and informed him Const: COMMON NORMALS: patient oriented x3 and alert GENERAL APPEARANCE: c ooperative ORIENTATION/CONSCIOUSNESS: Yes awake HENMT: COMMON NORMALS: oropharynx normal Neck/C-Spine: COMMON NORMALS: no JVD Resp: COMMON NORMALS: normal respiratory effort and clear to auscultation bilaterally AUSCULTATION: clear to auscultation bilaterally and diminished lung sounds bilateral in the lower lung michel (Bases) Cardio: COMMON NORMALS: no JVD, regular rhythm, S1 normal heart sound present, S2 normal heart sound present and No murmurs present (Cardio) RHYTHM: regular rhythm HEART SOUNDS: S1 normal heart sound present and S2 normal heart sound present GI: COMMON NORMALS: Normal to inspection, nondistended, normoactive bowel sounds present, Soft to palpation and non-tender INSPECTION: Yes abdominal distension AUSCULTATION: Yes normoactive bowel sounds PALPATION: Yes Soft to palpation Extremity: COMMON NORMALS: no joint enlargement and no pedal edema OTHER: right inguinal hernia. Neuro: COMMON NORMALS: patient oriented x3 and moves all extremities S ENSORIUM/ORIENTATION: Yes alert Skin: COMMON NORMALS: no rashes or lesions noted GENERAL SKIN EXAM: no rashes or lesions noted Data 03/09/24 03:27 03/09/24 03:27 Micro: Microbiology 03/07/24 11:14 Blood Culture - Preliminary Blood NEGATIVE TO DATE 03/07/24 11:10 Blood Culture - Preliminary Blood NEGATIVE TO DATE A&P Assessment and plan (1) Nausea and vomiting: History nausea vomiting with abdominal distention, possible obstruction noted on CT. Appreciate surgical consultation. As discussed with surgery KUB obtained after Gastrografin. Discussed with surgeon this morning, no evidence of obstruction. Trial of clear liquid diet. Later on tolerating clear liquids, advancing to GI soft. Zofran as needed. PPI. (2) Hyponatremia: Improving, sodium noted improving gradually up to 124, today 127. Follow-up sodium level. Trial of oral diet today. Yesterday was started on urea. Recheck sodium level, avoid overly rapid rise due to risk of ODS. Will discontinue urea if sodium continues to improve and tolerating oral intake. (3) Congestive heart failure: Reviewed intake and output, noted to improving renal function with review of chemistry, BUN 49, creatinine down to 1.5. Noted in negative balance. Monitor for diuretic phase of LEOPOLDO recovery, hold diuretic for now. Discussed with nursing, oil field caser. D-dimer noted abnormal 2.44. With viral illness, LEOPOLDO. Qualifiers: Heart failure type: systolic Heart failure chronicity: chronic Qualified Code(s): I50.22 - Chronic systolic (congestive) heart failure (4) LEOPOLDO (acute kidney injury): Reviewed BUN, creatinine, bicarb, sodium, potassium, noted improving renal function. He is producing urine. Appears to be in diuretic phase, diuretics have been on hold, is a -2000 mL. Hold off diuretics. Suspected secondary to decompensated CHF. Reassess with diuresis. Monitor blood pressures. (5) Lactic acidosis: Pending TTE read. Monitor blood pressure. (6) Rhabdomyolysis: Recheck CK. Hold diuretic. Gentle hydration as above. Denies any trauma. Has been sitting down quite a bit recently. (7) Transaminitis: In part secondary to rhabdomyolysis. Reviewed hepatitis panel. Check respiratory viral panel. Discussed with him n.p.o. for now, sips chips. (8) Enterovirus infection: Hold diuretic. Discontinued IV fluid. Antiemetic as needed. Has been having abdominal distention, abdominal pain. Hernia is reducible. No obstruction on Gastrografin enhanced KUB. Plan Inguinal hernia: It is reducible in ER per discussion with ER physician. Has been bothering him for some time and he has been following up with surgery, making arrangements to have it repaired. Attestations 2 Medical Necessity Statement*: Continue admission for assessment management after possible SBO, with decompensated CHF, LEOPOLDO, enterovirus infection, trial of oral diet, improving severe hyponatremia. and High MDM includes amount and/or complexity of data reviewed/ordered [ resulted lab(s)/test(s), ordered lab(s)/test(s) and other healthcare professional discussion] and described risk of complication, morbidity or mortality of management as documented Diagnoses Nausea and vomiting R11.2 Hyponatremia E87.1 Chronic systolic congestive heart failure I50.22 Heart failure type: systolic Heart failure chronicity: chronic LEOPOLDO (acute kidney injury) N17.9 Lactic acidosis E87.20 Rhabdomyolysis M62.82 Transaminitis R74.01 Enterovirus infection B34.1
--- NOTE | 2024-03-09 22:41 | ECG_ITS ---
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 Measurements Intervals [place] Rate: 109 P: 0 AR: 0 QRS: -3 QRSD: 161 T: 60 QT: 381 QTc: 514 Interpretive Statements ATRIAL FIBRILLATION WITH RAPID VENTRICULAR RESPONSE LEFT BUNDLE BRANCH BLOCK [120+ ms QRS DURATION, 80+ ms Q/S IN V1/V2, 85+ ms R IN I/aVL/V5/V6] Compared to ECG 03/07/2024 16:44:45 Sinus tachycardia no longer present Atrial abnormality no longer present Electronically Signed On 03-12-2024 10:39:11 FUNERAL PLANNING COUNSELOR by Med Schumacher M.D. [email or web address]
[2024-03-09] MEDS: metoprolol tartrate 1 mg/1 mL SDV 5 mL 2.5 MG IVP (23:06)
[2024-03-10] MEDS: benzonatate 100 mg Capsule 200 MG PO (00:07)
[2024-03-10 00:42] VITALS: BP 108/84; PULSE 114; RESP 23; O2SAT 100
[2024-03-10 04:12] VITALS: BP 110/78; PULSE 100; RESP 18; TEMP 36.7; O2SAT 98
[2024-03-10 05:25] LABS: Basophils % 0.1 %; Eosinophils % 0.3 %; Hematocrit 39.5 % (37-53); Lymphocytes # 0.6 10^3/uL (0.8-4.8); Lymphocytes % 7.2 %; Mean Corpuscular HGB Conc 32.7 g/dL (30-55); Mean Corpuscular Hemoglobin 30.2 pg (27-33); Mean Corpuscular Volume 92.5 fl (82-101); Mean Platelet Volume 10.8 fL (7.4-10.4); Monocytes # 0.9 10^3/uL (0.2-0.9); Monocytes % 10.9 %; Neutrophils # 6.97 10^3/uL (1.8-7.7); Neutrophils % 81.2 %; Nucleated Red Blood Cells % 0 %; Platelet Count 234 10^3/cmm (157-399); Red Blood Count 4.27 10^6/uL (3.85-5.65); Red Cell Distribution Width 13.7 % (12.1-15.1)
[2024-03-10 05:45] LABS: Creatine Phosphokinase 149 U/L (39-308)
[2024-03-10 05:57] LABS: Alanine Aminotransferase 163 U/L (0-41); Albumin Level 3.7 g/dL (3.5-5.2); Alkaline Phosphatase 105 U/L (40-130); Anion Gap 15.3 (5-19); Aspartate Amino Transferase 107 U/L (0-40); Blood Urea Nitrogen 33 mg/dL (8-23); Calcium 8.7 mg/dL (8.5-10.5); Carbon Dioxide 24 mmol/L (22-29); Chloride 96 mmol/L (98-107); Creatinine Clr Calc Pharmacy 56.0539; Glucose 94 mg/dL (65-115); Osmolality Calculated 279 mOsm/kg (285-295); Potassium 4.3 mmol/L (3.5-5.1); Sodium 131 mmol/L (136-145); Total Bilirubin 0.5 mg/dL (0.15-1.2); Total Protein 5.7 g/dL (6.6-8.7)
--- NOTE | 2024-03-10 06:56 | PC.NURSE ---
Patient HR was 120-140, ekg was performed and found to be in afib with rvr. Dr Parmar notified and new orders placed.
[2024-03-10] MEDS: saline nasal spray 44mL Btl 1 SPRAY NASAL (07:16)
[2024-03-10 07:18] VITALS: BP 123/78; PULSE 106; RESP 24; TEMP 36.7; O2SAT 95
[2024-03-10 07:32] VITALS: PULSE 93; O2SAT 93
[2024-03-10] MEDS: guaiFENesin 600 mg Tablet 1200 MG PO (08:12)
[2024-03-10] MEDS: polyethylene glycol 3350 Pkt 17 gm PO (08:12)
[2024-03-10] MEDS: pantoprazole 40 mg SDV IVP (08:12)
--- NOTE | 2024-03-10 09:28 | PM.DCS ---
Discharge Providers Date of Admission: 03/07/24 12:21 Date of Discharge: March 10, 2024 Attending Provider at Admission: Israel Tamayo Attending Provider at Discharge: Israel Tamayo Diagnoses at Discharge Discharge Diagnosis (1) Nausea and vomiting: Status: Acute (2) Hyponatremia: Status: Acute (3) Congestive heart failure: Status: Chronic Qualifiers: Heart failure chronicity: chronic Heart failure type: systolic Qualified Code(s): I50.22 - Chronic systolic (congestive) heart failure Permanent problem details: EF 25-30% 03/2022 (4) LEOPOLDO (acute kidney injury): Status: Acute (5) Lactic acidosis: Status: Acute (6) Rhabdomyolysis: Status: Acute (7) Transaminitis: Status: Acute (8) Enterovirus infection: Status: Acute Reason for Visit Reason for Visit: abd pain - sob Brief History: 73-year-old gentleman with history of HFrEF, ejection fraction down at 35-40% in June 2022, nonischemic cardiomyopathy, GERD, BPH, HTN, other medical problems, presented due to progressive shortness of breath, exertional intolerance worsening over the last month recently to the point where he is unable to walk even a short distance without getting very short of breath. In ER he is found to require 6 L oxygen by nasal cannula, he states normally he is not on oxygen. Chest x-ray suggestive of CHF changes, NT proBNP 28,029. LEOPOLDO, creatinine 1.4. Lactic acid 5.8, AST 236, ALT 176. Sodium 122. He is also for some time has been bothered by his right inguinal hernia, has been following with surgery awaiting approval for surgical repair. Hernia is reducible per discussion with ER physician. Hospital Course Hospital Course He was admitted and started on treatment for decompensated congestive heart failure with IV diuretics, oxygen support, additionally viral panel was tested and he returned positive for rhino/enterovirus. With worsening renal function, LEOPOLDO creatinine up to 1.8, worsening sodium, down to 120, diuretics were held. Worsening rhabdomyolysis, CK of 820. Was started on urea. He additionally had developed abdominal distention, pain, nausea, vomiting, in setting of known right inguinal hernia. CT abdomen pelvis showed concern for mechanical obstruction of small bowel, anasarca. Level of obstruction was thought to be perhaps at where his inguinal hernia is located, recurrent hernia was reducible. Was assessed by surgery, additional imaging performed with Gastrografin, follow-up KUB which showed progression of contrast to colon. Symptoms suspected related to enteritis due to enterovirus. Diet was de-escalated, treated conservatively, diuretics held during that time. Symptoms abated, vomiting resolved, minimal distention, pain resolved. He is able to tolerate oral diet. Acute kidney injury improved, creatinine trended down to 1.2. Sodium continues to improve and is up to 131. He is feeling much better. Has weaned off oxygen support and feels ready for discharge. Physical Exam Const: COMMON NORMALS: patient oriented x3 and alert GENERAL APPEARANCE: cooperative ORIENTATION/CONSCIOUSNESS: Yes awake HENMT: COMMON NORMALS: oropharynx normal Neck/C-Spine: COMMON NORMALS: no JVD Resp: COMMON NORMALS: normal respiratory effort and clear to auscultation bilaterally AUSCULTATION: clear to auscultation bilaterally Cardio: COMMON NORMALS: no JVD, regular rhythm, S1 normal heart sound present, S2 normal heart sound present and No murmurs present (Cardio) RHYTHM: regular rhythm HEART SOUNDS: S1 normal heart sound present and S2 normal heart sound present GI: COMMON NORMALS: Normal to inspection, nondistended, normoactive bowel sounds present, Soft to palpation and non-tender PALPATION: Yes Soft to palpation OTHER: R inguinal hernia Extremity: COMMON NORMALS: no joint enlargement and no pedal edema Neuro: COMMON NORMALS: patient oriented x3 and moves all extremities SENSORIUM/ORIENTATION: Yes alert Skin: COMMON NORMALS: no rashes or lesions noted GENERAL SKIN EXAM: no rashes or lesions noted Discharge Data Studies Completed and Pending Completed Studies During Hospitalization Category Date Time Status CT abdomen pelvis wo con [id number] Routine Cat Scan 03/08/24 08:26 Completed XR KUB [id number] Routine Exams 03/08/24 20:00 Completed XR chest 1V portable [id number] Stat Exams 03/07/24 09:58 Completed XR chest 1V portable [id number] Stat Exams 03/08/24 14:31 Completed Pending at discharge Category Date Time Status Blood Culture Stat Lab 03/07/24 11:14 Results Osmolality Urine Routine Lab 03/08/24 18:10 Received CV. echo complete* [id number] Routine Ultrasound 03/07/24 13:31 Taken Radiology Impressions Abdomen/Pelvis CT 03/08/24 08:26 IMPRESSION: 1. High suspicion of mechanical small bowel obstruction caused by small bowel entering a right inguinal hernia. This herniated bowel could be incarcerated. The level of the obstruction is likely the proximal or mid ileum. 2. Findings of anasarca appear to be increasing. 3. Additional details as above. ADDENDUM: 03/08/24 1246 ADDENDUM: THIS REPORT CONTAINS FINDINGS THAT MAY BE CRITICAL TO PATIENT CARE. The findings were verbally communicated via telephone conference with ISRAEL TAMAYO at 12:45 PM TAMALE MACHINE FEEDER on 03/08/2024. The findings were acknowledged and understood. Chest X-Ray 03/08/24 14:31 IMPRESSION: 1. Enteric tube ending in the stomach. 2. The chest shows no other change since the latest study 03/07/2024. KUB X-Ray 03/08/24 20:00 IMPRESSION: 1. 5 hours post Gastrografin administration through NG tube exam demonstrates Gastrografin contrast in the colon to the level of the pelvis as well as Gastrografin contrast within small bowel in the pelvis, and including Gastrografin contrast within small bowel loop in an apparent right inguinal hernia with either overlapping of loop or mildly dilated small bowel loop at the right inguinal hernia level. 2. Presence of Gastrografin contrast in the colon excludes significant or high-grade obstruction. Laboratory Results WBC 8.60 10^3/uL (3.29-11.43) 03/10/24 04:13 RBC 4.27 10^6/uL (3.85-5.65) 03/10/24 04:13 Hgb 12.90 g/dL (11.27-16.99) 03/10/24 04:13 Hct 39.5 % (37-53) 03/10/24 04:13 MCV 92.5 fl (82-101) 03/10/24 04:13 MCH 30.2 pg (27-33) 03/10/24 04:13 MCHC 32.7 g/dL (30-55) 03/10/24 04:13 RDW 13.7 % (12.1-15.1) 03/10/24 04:13 Plt Count 234 10^3/cmm (157-399) 03/10/24 04:13 MPV 10.8 fL (7.4-10.4) H 11/21/24 04:13 Neut % (Auto) 81.2 % 03/10/24 04:13 Lymph % (Auto) 7.2 % 03/10/24 04:13 Stephens % (Auto) 10.9 % 03/10/24 04:13 Eos % (Auto) 0.3 % 03/10/24 04:13 Baso % (Auto) 0.1 % 03/10/24 04:13 Neut # (Auto) 6.97 10^3/uL (1.8-7.7) 03/10/24 04:13 Lymph # (Auto) 0.6 10^3/uL (0.8-4.8) L 03/10/24 04:13 Stephens # (Auto) 0.9 10^3/uL (0.2-0.9) 03/10/24 04:13 Eos # (Auto) 0.0 10^3/uL (0.0-0.8) 03/10/24 04:13 Baso # (Auto) 0.0 10^3/uL (0.0-0.1) 03/10/24 04:13 Nucleated RBC % (auto) 0 % 03/10/24 04:13 Nucleated RBCs # 0.0 /100WBC 03/10/24 04:13 D-Dimer 1.84 ug/mLFEU (0-0.59) H 03/08/24 12:27 Specimen Type Arterial 03/07/24 10:08 Sample Site Radial, left 03/07/24 10:08 ABG pH 7.34 (7.35-7.45) L 03/07/24 10:08 ABG pCO2 35.5 mmHg (35-45) 03/07/24 10:08 ABG pO2 78.1 mmHg (80.0-100.0) L 03/07/24 10:08 ABG PO2/FiO2 Ratio 195 03/07/24 10:08 ABG HCO3 19.3 mmol/L (22-26) L 03/07/24 10:08 ABG O2 Saturation 94.1 03/07/24 10:08 ABG Base Excess -5.7 mmol/L (-2.0-2.0) L 03/07/24 10:08 Timmy Test Pos 03/07/24 10:08 A-a O2 Gradient 20.8 mmHg (5-10) H 03/07/24 10:08 Hematocrit 39.4 % (42-52) L 03/07/24 10:08 Hgb O2 Saturation 93.0 % (95-100) L 03/07/24 10:08 Carboxyhemoglobin 0.9 %THgb (0.4-20.1) 03/07/24 10:08 Methemoglobin 0.3 % (0.4-1.5) L 03/07/24 10:08 Total Hemoglobin 12.8 g/dL (14-18) L 03/07/24 10:08 Sodium 120.0 mmol/L (131-143) L 03/07/24 10:08 Potassium 4.8 mmol/L (3.5-5.0) 03/07/24 10:08 Glucose 120.0 mg/dL (70-115) H 03/07/24 10:08 Ionized Calcium 1.2 mmol/L (1.1-1.4) 03/07/24 10:08 O2 Delivery Device Nc 03/07/24 10:08 O2 Liters/Min 5.0 % 03/07/24 10:08 FiO2 40.0 % 03/07/24 10:08 Decontamination Technician ID Amh 03/07/24 10:08 Sodium 131 mmol/L (136-145) L 03/10/24 04:13 Potassium 4.3 mmol/L (3.5-5.1) 03/10/24 04:13 Chloride 96 mmol/L (98-107) L 03/10/24 04:13 Carbon Dioxide 24 mmol/L (22-29) 03/10/24 04:13 Anion Gap 15.3 (5-19) 03/10/24 04:13 BUN 33 mg/dL (8-23) H 03/10/24 04:13 Creatinine 1.2 mg/dL (0.7-1.2) 03/10/24 04:13 GFR Calculation Not Reportable 03/10/24 04:13 Glucose 94 mg/dL (65-115) 03/10/24 04:13 Calculated Osmolality 279 mOsm/kg (285-295) L 03/10/24 04:13 Lactic Acid 5.8 mmol/L (0.5-2.2) H* 03/07/24 09:08 Lactic Acid (Sepsis) 2.4 mmol/L (0.5-2.2) H 03/07/24 14:00 Calcium 8.7 mg/dL (8.5-10.5) 03/10/24 04:13 Magnesium 2.4 mg/dL (1.7-2.3) H 03/08/24 04:27 Total Bilirubin 0.5 mg/dL (0.15-1.2) 03/10/24 04:13 AST 107 U/L (0-40) H 03/10/24 04:13 ALT 163 U/L (0-41) H 03/10/24 04:13 Alkaline Phosphatase 105 U/L (40-130) 03/10/24 04:13 Creatine Kinase 149 U/L (39-308) 03/10/24 04:13 Troponin T Baseline 42 ng/L (0-15) H 03/07/24 09:08 Troponin T 120 Minute 42.25 ng/L (0-15) H 03/07/24 11:10 Delta Troponin T 0.25 ABS# (0-10) 03/07/24 11:10 Troponin T Hi Sens 6Hr 41.13 ng/L (0-15) H 03/07/24 15:43 Troponin T Hi Sens 6Hr Delta -0.87 ng/L (0-12) L 03/07/24 15:43 NT-Pro-B Natriuret Pep 86029 pg/mL (0-125) H 03/07/24 09:08 Total Protein 5.7 g/dL (6.6-8.7) L 03/10/24 04:13 Albumin 3.7 g/dL (3.5-5.2) 03/10/24 04:13 Globulin 2.0 g/dL (1.3-4.6) 03/10/24 04:13 Lipase 13 U/L (13-60) 03/07/24 09:08 Procalcitonin 0.18 ng/mL (0-0.5) 03/07/24 09:08 Urine Color Yellow (Yellow) 03/07/24 21:53 Urine Appearance Clear (CLEAR) 03/07/24 21:53 Urine pH 5.0 (5-7) 03/07/24 21:53 Ur Specific [place] 1.018 (1.005-1.030) 03/07/24 21:53 Urine Protein Trace (Negative) A 03/07/24 21:53 Urine Glucose (UA) Negative (Normal) 03/07/24 21:53 Urine Ketones Negative (Negative) 03/07/24 21:53 Urine Blood Negative (Negative) 03/07/24 21:53 Urine Nitrate Negative (Negative) 03/07/24 21:53 Urine Bilirubin Negative (Negative) 03/07/24 21:53 Urine Urobilinogen 1.0 mg/dL (Negative) 03/07/24 21:53 Ur Leukocyte Esterase Negative (Negative) 03/07/24 21:53 Urine RBC 0-2 /hpf (0-2) 03/07/24 21:53 Urine WBC 0-5 /hpf (0-5) 03/07/24 21:53 Ur Squamous Epith Cells 0-5 /hpf (0-5) 03/07/24 21:53 Amorphous Sediment Not Reportable 03/07/24 21:53 Urine Bacteria None seen /hpf (NONE) 03/07/24 21:53 Hyaline Casts 27.69 /lpf 03/07/24 21:53 Urine Mucus 1+ /hpf 03/07/24 21:53 Ur Random Sodium 11 mmol/L 03/08/24 18:10 Adenovirus (PCR) Not detected (NOT DETECT) 03/07/24 14:00 C. pneumoniae DNA (PCR) Not detected (NOT DETECT) 03/07/24 14:00 Coronavirus (PCR) Negative (Negative) 03/07/24 10:09 Coronavirus 229E (PCR) Not detected (NOT DETECT) 03/07/24 14:00 Hepatitis A IgM Ab Non-reactive (Nonreactive) 03/07/24 09:08 Hep Bs Antigen Non-reactive (Nonreactive) 03/07/24 09:08 Hep B Core IgM Ab Non-reactive (Nonreactive) 03/07/24 09:08 Hepatitis C Antibody Non-reactive (Nonreactive) 03/07/24 09:08 Human Metapneumovir PCR Not detected (NOT DETECT) 03/07/24 14:00 Influenza A (H1) PCR Not detected (NOT DETECT) 03/07/24 14:00 Influenza A (PCR) Negative (Negative) 03/07/24 10:09 Influ A (H1/09) PCR Not detected (NOT DETECT) 03/07/24 14:00 Influenza A (H3) PCR Not detected (NOT DETECT) 03/07/24 14:00 Influenza Type A (PCR) Not detected (NOT DETECT) 03/07/24 14:00 Influenza Type B (PCR) Not detected (NOT DETECT) 03/07/24 14:00 M. pneumoniae (PCR) Not detected (NOT DETECT) 03/07/24 14:00 Parainfluenza 1 (PCR) Not detected (NOT DETECT) 03/07/24 14:00 Parainfluenza 2 (PCR) Not detected (NOT DETECT) 03/07/24 14:00 Parainfluenza 3 (PCR) Not detected (NOT DETECT) 03/07/24 14:00 Parainfluenza 4 (PCR) Not detected (NOT DETECT) 03/07/24 14:00 RSV (PCR) Negative (Negative) 03/07/24 10:09 RSV Type A (PCR) Not detected (NOT DETECT) 03/07/24 14:00 RSV Type B (PCR) Not detected (NOT DETECT) 03/07/24 14:00 Entero/Rhino (PCR) Detected (NOT DETECT) A 03/07/24 14:00 SARS-CoV-2 (PCR) Not detected (NOT DETECT) 03/07/24 14:00 Vitals Last Vital Signs Temp 98.0 F 03/10/24 07:18 Pulse 93 03/10/24 07:32 Resp 24 H 03/10/24 07:18 BP 123/78 03/10/24 07:18 Pulse Ox 93 03/10/24 07:32 O2 Del Method Room Air 03/10/24 07:32 O2 Flow Rate 3 03/09/24 20:00 Discharge Plan Discharge Patient Disposition: Home Condition: Stable Prescriptions: New tamsulosin 0.4 mg capsule 0.4 mg PO DAILY Qty: 90 0RF Continued acetaminophen [Tylenol Extra Strength] 500 mg tablet 500 mg PO Q6H PRN (Reason: Pain) hydrocodone-acetaminophen 5-325 mg tablet 1 tab PO Q6H PRN (Reason: pain) Qty: 14 0RF furosemide 20 mg tablet 20 mg PO BID Discharge Orders: Discharge Order (Routine); Ordered 03/10/24 Ordered By: Israel Tamayo Other Ambulatory Orders: DME: Walker (Order) Location: None Selected Ordered By: Israel Tamayo Referrals: Ana Helms, REHABILITATION THERAPY AIDE [Nurse Practitioner] - 4-7 days (We have notified your physician's clinic of the need for a follow-up appointment to be scheduled. If you have not heard from them within the next 2 business days, please call them directly. ) Crystal Bejarano FNP [Nurse Practitioner] - 1 week (CHF) Discharge Diet: Regular Discharge Activity: Increase activity as tolerated Patient Instructions: Tamsulosin (By mouth), Heart Failure (GEN), Hyponatremia (DC), Gastroenteritis (GEN), Acute Nausea and Vomiting (DC), Bowel Obstruction (DC), Opioid Safety Activity Restrictions/Additional Instructions: Continue on regular diet, follow-up with your primary doctor for reassessment for resolution of low sodium level. Do not restrict sodium intake Follow-up with your primary doctor for reassessment after acute kidney injury. Follow-up with your primary doctor for reassessment of congestive heart failure. Discussed with your primary doctor regarding enterovirus infection. Continue follow-up regarding inguinal hernia and arrangements with surgery. Follow up with your pimary provider regarding prostate enlargement and urine retention. Seek medical attention in case of any worsening or new concerning symptoms. Discharge Attestations Time Spent in Discharge Care*: greater than 30 min Quality Metrics Clinical Quality Measures [ No reported AMI, CVA or VTE this stay] Coding Level of Care Code 10858 Total time (in minutes) for Discharge: 40 Diagnoses Nausea and vomiting R11.2 Hyponatremia E87.1 Chronic systolic congestive heart failure I50.22 Heart failure chronicity: chronic Heart failure type: systolic LEOPOLDO (acute kidney injury) N17.9 Lactic acidosis E87.20 Rhabdomyolysis M62.82 Transaminitis R74.01 Enterovirus infection B34.1
[2024-03-10 13:24] VITALS: BP 111/74; PULSE 113; RESP 15; O2SAT 94
[2024-03-10 13:48] VITALS: BP 111/74; PULSE 112; O2SAT 94
--- NOTE | 2024-03-10 14:09 | PC.NURSE ---
Discharge was delayed due to voiding trial and waiting for patients ride home.
[2024-03-11 12:56] LABS: Osmolality Urine 522 mOsm/kg (50-1200)
== END 2024-03-10 14:09 | disposition home or self-care (01) | DRG 292 ==
LOC: ER 10:55 → ICU 12:22 → CSU 20:02
PROVIDERS: Admitting Provider Internal Medicine; Emergency Provider Family Medicine; Visit Provider Internal Medicine
DX: I50.23 Acute on chronic systolic (congestive) heart failure (principal); A08.39 Other viral enteritis; E87.1 Hypo-osmolality and hyponatremia; N17.9 Acute kidney failure, unspecified; E87.20 Acidosis, unspecified; M62.82 Rhabdomyolysis; R74.01 Elevation of levels of liver transaminase levels; K40.90 Unilateral inguinal hernia, without obstruction or gangrene, not specified as recurrent
CPT/HCPCS: 0241U; 36415; 36600; 71045; 74018; 74176; 80051; 80053; 80074; 81001; 82330; 82550; 82805; 83605; 83690; 83735; 83880; 83935; 84145; 84295; 84300; 84484; 85025; 85378; 87040; 87486; 87581; 87633; 93005; 93306; 96372; 96374; 96376; 97116; 97161; 97530; 99285; A9270; J1650; J1940; J2470; J3490; J7050; P9046

== ENCOUNTER 2024-03-16 10:19 | Emergency (ER) | payer MEDICARE, MEDICAID, SELFPAY ==
[2024-03-16 10:23] VITALS: BP 131/93; PULSE 100; RESP 20; TEMP 36.6; O2SAT 94; BMI 22.1
--- NOTE | 2024-03-16 10:40 | ED_ITS ---
HPI - SOB/Dyspnea 2 General: Chief Complaint: Shortness of Breath/Dyspnea Stated Complaint: sob Time Seen by Provider: 03/16/24 10:33 History of Present Illness: HPI Narrative: Patient presents with shortness of breath. Patient was satting in the 80s on room air when EMS arrived. Patient does have a history of CHF and is on Lasix 20 mg twice daily but does not wear oxygen. Patient did get a DuoNeb treatment and 20 mg of Lasix and 2 L of oxygen per EMS on the way here. Sat was 94% upon arrival. Patient did get 1 more albuterol inhaler here while waiting for the lab work to come back. He said it helps good. Patient is now titrated off on room air. Related Data Home Medications Medication Instructions Recorded Confirmed acetaminophen 500 mg tablet 500 mg PO Q6H PRN Pain 05/05/22 03/16/24 (Tylenol Extra Strength) furosemide 20 mg tablet 20 mg PO BID 03/07/24 03/16/24 Previous Rx's Medication Instructions Recorded hydrocodone 5 mg-acetaminophen 325 1 tab PO Q6H PRN pain #14 tabs 03/03/24 mg tablet tamsulosin 0.4 mg capsule 0.4 mg PO DAILY #90 caps 03/10/24 albuterol sulfate 90 mcg/actuation 2 inh inhalation QID PRN shortness 03/16/24 aerosol inhaler (Ventolin HFA) of breath or wheezing #8.5 grams Allergies Allergy/AdvReac Type Severity Reaction Status Date / Time No Known Allergies Allergy Verified 03/03/24 13:06 Review of Systems 2 General: Reports: 10 or more systems reviewed and unremarkable except in HPI and below PFSH ED 2 PFSH: Medical History BPH (benign prostatic hyperplasia) Major depressive disorder Cardiomyopathy Nonischemic Congestive heart failure EF 25-30% 03/2022 Relapsing polychondritis Benign essential HTN GERD (gastroesophageal reflux disease) Surgical History History of cardiac catheterization 03/2022 - no obstructive CAD, mildly elevated right and left sided pressures History of ear surgery T-tube in left ear ~2017 Family History Father Cancer Family history of premature coronary artery disease Stroke Denies family history of Diabetes CAD (coronary artery disease) Hyperlipidemia Hypertension Social History Smoking and tobacco/nicotine status: former use of tobacco/nicotine Alcohol intake: former Substance/Drug Use: never Caregiver/support person: Yes (Daughter) Lives independently: Yes Household members: none Marital status: Physical Exam 2 Const: COMMON NORMALS: no acute distress, average body habitus, patient oriented x3, no limitations, healthy appearing, alert and well nourished HENMT: COMMON NORMALS: normocephalic, atraumatic, hearing grossly normal bilaterally, external ears normal, Normal external nose present and moist oral mucous membranes HEAD & SCALP: normocephalic and atraumatic NOSE: Normal external nose present EXTERNAL EAR: Yes external ears normal Neck/C-Spine: COMMON NORMALS: no JVD Chest: COMMONS NORMALS: normal inspection of the chest and normal palpation of entire chest wall Resp: COMMON NORMALS: normal respiratory effort, No retractions, No use of accessory muscles and clear to auscultation bilaterally AUSCULTATION: clear to auscultation bilaterally Cardio: COMMON NORMALS: no JVD, regular rate, regular rhythm, S1 normal heart sound present, S2 normal heart sound present, No gallops present (Cardio), No clicks present (Cardio), No murmurs present (Cardio) and No rub (Cardio) R ATE: regular rate RHYTHM: regular rhythm HEART SOUNDS: S1 normal heart sound present and S2 normal heart sound present GI: COMMON NORMALS: Normal to inspection, nondistended, normoactive bowel sounds present, Soft to palpation, non-tender, No hepatosplenomegaly present and no masses PALPATION: Yes Soft to palpation and Yes No hepatosplenomegaly present Neuro: COMMON NORMALS: patient oriented x3 SENSORIUM/ORIENTATION: Yes alert Course 2 Vital Signs: Vital signs: Vital Signs Temperature 97.8 F 03/16/24 10:23 Pulse Rate 106 H 03/16/24 12:31 Respiratory Rate 20 H 03/16/24 11:10 Blood Pressure 129/86 03/16/24 12:31 Pulse Oximetry 93 03/16/24 12:31 Oxygen Delivery Me thod Room Air 03/16/24 11:27 Oxygen Flow Rate 2 03/16/24 10:23 MDM - SOB/Dyspnea Medical Decision Making Patient's white blood cell count was 8.5, BNP had actually decreased him to 20,890, chest x-ray showed small bilateral pleural effusions with opacities may reflect atelectasis and/or pneumonia, is unlikely it is pneumonia due to patient's normal white count. Patient is much improved after 20 Lasix and 1 DuoNeb and 1 albuterol treatment. Patient will be prescribed an albuterol inhaler and discharged home. Medical Records I reviewed the patient's medical records. Lab Data I reviewed the patient's lab results. 03/16/24 09:51 03/16/24 09:51 Labs/Radiology: Radiology Impressions Chest X-Ray 03/16/24 11:14 IMPRESSION: Small to moderate bilateral pleural effusions with bibasilar airspace opacities, which may reflect atelectasis or pneumonia. Laboratory Results WBC 8.52 10^3/uL (3.29-11.43) 03/16/24 09:51 RBC 4.37 10^6/uL (3.85-5.65) 03/16/24 09:51 Hgb 13.20 g/dL (11.27-16.99) 03/16/24 09:51 Hct 39.0 % (37-53) 03/16/24 09:51 MCV 89.2 fl (82-101) 03/16/24 09:51 MCH 30.2 pg (27-33) 03/16/24 09:51 MCHC 33.8 g/dL (30-55) 03/16/24 09:51 RDW 13.7 % (12.1-15.1) 03/16/24 09:51 Plt Count 257 10^3/cmm (157-399) 03/16/24 09:51 MPV 10.3 fL (7.4-10.4) 03/16/24 09:51 Neut % (Auto) 79.4 % 03/16/24 09:51 Lymph % (Auto) 8.1 % 03/16/24 09:51 Irwin % (Auto) 10.3 % 03/16/24 09:51 Eos % (Auto) 1.3 % 03/16/24 09:51 Baso % (Auto) 0.5 % 03/16/24 09:51 Neut # (Auto) 6.77 10^3/uL (1.8-7.7) 03/16/24 09:51 Lymph # (Auto) 0.7 10^3/uL (0.8-4.8) L 03/16/24 09:51 Irwin # (Auto) 0.9 10^3/uL (0.2-0.9) 03/16/24 09:51 Eos # (Auto) 0.1 10^3/uL (0.0-0.8) 03/16/24 09:51 Baso # (Auto) 0.0 10^3/uL (0.0-0.1) 03/16/24 09:51 Nucleated RBC % (auto) 0 % 03/16/24 09:51 Nucleated RBCs # 0.0 /100WBC 03/16/24 09:51 Sodium 130 mmol/L (136-145) L 03/16/24 09:51 Potassium 3.8 mmol/L (3.5-5.1) 03/16/24 09:51 Chloride 93 mmol/L (98-107) L 03/16/24 09:51 Carbon Dioxide 24 mmol/L (22-29) 03/16/24 09:51 Anion Gap 16.8 (5-19) 03/16/24 09:51 BUN 13 mg/dL (8-23) 03/16/24 09:51 Creatinine 1.2 mg/dL (0.7-1.2) 03/16/24 09:51 GFR Calculation Not Reportable 03/16/24 09:51 Glucose 103 mg/dL (65-115) 03/16/24 09:51 Calculated Osmolality 270 mOsm/kg (285-295) L 03/16/24 09:51 Lactic Acid 1.2 mmol/L (0.5-2.2) 03/16/24 09:51 Calcium 9.1 mg/dL (8.5-10.5) 03/16/24 09:51 Total Bilirubin 0.5 mg/dL (0.15-1.2) 03/16/24 09:51 AST 27 U/L (0-40) 03/16/24 09:51 ALT 38 U/L (0-41) 03/16/24 09:51 Alkaline Phosphatase 106 U/L (40-130) 11/27/24 09:51 NT-Pro-B Natriuret Pep 83553 pg/mL (0-125) H 03/16/24 09:51 Total Protein 5.7 g/dL (6.6-8.7) L 03/16/24 09:51 Albumin 3.7 g/dL (3.5-5.2) 03/16/24 09:51 Globulin 2.0 g/dL (1.3-4.6) 03/16/24 09:51 Procalcitonin 0.07 ng/mL (0-0.5) 03/16/24 09:51 All radiology interpretation(s) finalized by discharge Discharge Plan Discharge Patient Disposition: Home Clinical Impression: Breath shortness Congestive heart failure Qualifiers: Heart failure type: systolic Heart failure chronicity: chronic Qualified Code(s): I50.22 - Chronic systolic (congestive) heart failure Condition: Stable Prescriptions: New albuterol sulfate [Ventolin HFA] 90 mcg/actuation HFA aerosol inhaler 2 inh inhalation QID PRN (Reason: shortness of breath or wheezing) Qty: 8.5 0RF No Action acetaminophen [Tylenol Extra Strength] 500 mg tablet 500 mg PO Q6H PRN (Reason: Pain) hydrocodone-acetaminophen 5-325 mg tablet 1 tab PO Q6H PRN (Reason: pain) Qty: 14 0RF furosemide 20 mg tablet 20 mg PO BID tamsulosin 0.4 mg capsule 0.4 mg PO DAILY Qty: 90 0RF Discharge Orders: Discharge ED (Routine); Ordered 03/16/24 Ordered By: Santo Crandall Patient Instructions: Shortness of Breath (ED) Activity Restrictions/Additional Instructions: You have been prescribed albuterol inhaler, please use it 2 puffs 4 times a day as needed for shortness of breath. If you feel that this still does not improve your breathing please feel free to return to the ER or visit your primary care practitioner for further evaluation and treatment. Coding Level of Care Code ED Concrete Finisher for Carmencita Resendez
[2024-03-16 10:57] LABS: Basophils % 0.5 %; Eosinophils # 0.1 10^3/uL (0.0-0.8); Eosinophils % 1.3 %; Lymphocytes # 0.7 10^3/uL (0.8-4.8); Lymphocytes % 8.1 %; Mean Corpuscular HGB Conc 33.8 g/dL (30-55); Mean Corpuscular Hemoglobin 30.2 pg (27-33); Mean Corpuscular Volume 89.2 fl (82-101); Mean Platelet Volume 10.3 fL (7.4-10.4); Monocytes # 0.9 10^3/uL (0.2-0.9); Monocytes % 10.3 %; Neutrophils # 6.77 10^3/uL (1.8-7.7); Neutrophils % 79.4 %; Nucleated Red Blood Cells % 0 %; Platelet Count 257 10^3/cmm (157-399); Red Blood Count 4.37 10^6/uL (3.85-5.65); Red Cell Distribution Width 13.7 % (12.1-15.1); White Blood Count 8.52 10^3/uL (3.29-11.43)
[2024-03-16 11:08] LABS: Lactic Sepsis W/Reflex 1.2 mmol/L (0.5-2.2)
[2024-03-16 11:10] VITALS: PULSE 106; RESP 20; O2SAT 95
[2024-03-16 11:10] LABS: Alanine Aminotransferase 38 U/L (0-41); Albumin Level 3.7 g/dL (3.5-5.2); Alkaline Phosphatase 106 U/L (40-130); Anion Gap 16.8 (5-19); Aspartate Amino Transferase 27 U/L (0-40); Blood Urea Nitrogen 13 mg/dL (8-23); Calcium 9.1 mg/dL (8.5-10.5); Carbon Dioxide 24 mmol/L (22-29); Chloride 93 mmol/L (98-107); Creatinine Clr Calc Pharmacy 53.9998; Glucose 103 mg/dL (65-115); Osmolality Calculated 270 mOsm/kg (285-295); Potassium 3.8 mmol/L (3.5-5.1); Sodium 130 mmol/L (136-145); Total Bilirubin 0.5 mg/dL (0.15-1.2); Total Protein 5.7 g/dL (6.6-8.7)
[2024-03-16] MEDS: albuterol 2.5 mg/3 mL Neb INHALATION (11:10)
--- NOTE | 2024-03-16 11:14 | XRR_ITS ---
PROCEDURE INFORMATION: Exam: XR Chest Exam date and time: 03/16/2024 11:16 AM Age: 73 years old Clinical indication: Dyspnea and shortness of breath; Additional info: Dyspnea hypoxia TECHNIQUE: Imaging protocol: Radiologic exam of the chest. Views: 1 view. COMPARISON: CR XR chest 1V portable [id number] 03/08/2024 2:36 PM FINDINGS: Lungs: Scarring at the right lung apex. Bibasilar airspace opacities. Pleural spaces: Small to moderate bilateral pleural effusions. No pneumothorax. Heart/Mediastinum: Unremarkable. No cardiomegaly. Bones/joints: Unremarkable. XR/XR chest 1V portable [id number] IMPRESSION: Small to moderate bilateral pleural effusions with bibasilar airspace opacities, which may reflect atelectasis or pneumonia.
[2024-03-16 11:17] VITALS: PULSE 107
[2024-03-16 11:17] LABS: Procalcitonin 0.07 ng/mL (0-0.5)
[2024-03-16 11:27] VITALS: BP 120/80; PULSE 103; O2SAT 92
[2024-03-16 11:49] LABS: NT Pro B Type Natriuretic Pept 20890 pg/mL (0-125)
[2024-03-16 12:31] VITALS: BP 129/86; PULSE 106; O2SAT 93
== END 2024-03-16 12:32 | disposition home or self-care (01) ==
PROVIDERS: Emergency Provider Emergency Medicine
DX: R06.02 Shortness of breath (principal); I11.0 Hypertensive heart disease with heart failure; I50.22 Chronic systolic (congestive) heart failure; Z87.891 Personal history of nicotine dependence
CPT/HCPCS: 71045; 80053; 83605; 83880; 84145; 85025; 94640; 99284; J7613

== ENCOUNTER 2024-03-17 04:41 | Inpatient (IN) | payer MEDICARE, MEDICAID, SELFPAY ==
[2024-03-17] VITALS (19 sets, daily range): BP systolic 117–140; BP diastolic 69–99; PULSE 90–112; RESP 16–29; TEMP 36.7–37.2; O2SAT 85–97; BMI 22.1; BMI 24.7
--- NOTE | 2024-03-17 04:46 | XRR_ITS ---
PROCEDURE INFORMATION: Exam: XR Chest Exam date and time: 03/17/2024 5:05 AM Age: 73 years old Clinical indication: Shortness of breath TECHNIQUE: Imaging protocol: Radiologic exam of the chest. Views: 1 view. COMPARISON: CR XR chest 1V portable [id number] 03/16/2024 11:16 AM FINDINGS: Lungs: Scarring of the lung apices bilaterally. Grossly similar bibasilar lung infiltrates. Pleural spaces: Grossly similar bilateral pleural effusions, perhaps small increase in fluid left pleural space. Heart/Mediastinum: Unchanged mediastinum. Bones/joints: Unchanged osseous structures. XR/XR chest 1V portable [id number] IMPRESSION: Grossly stable examination, perhaps small increase in fluid of the left pleural space.
--- NOTE | 2024-03-17 04:53 | ECG_ITS ---
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 Measurements Intervals [place] Rate: 111 P: 25 MN: 121 QRS: 13 QRSD: 165 T: 177 QT: 394 QTc: 537 Interpretive Statements SINUS TACHYCARDIA LEFT ATRIAL ENLARGEMENT [-0.15mV P-WAVE IN V1/V2] LEFT BUNDLE BRANCH BLOCK [120+ ms QRS DURATION, 80+ ms Q/S IN V1/V2, 85+ ms R IN I/aVL/V5/V6] Compared to ECG 03/09/2024 22:41:10 Atrial abnormality now present Atrial fibrillation no longer present Electronically Signed On 03-17-2024 13:51:17 CUSTOMER MARKETING INTERN by Avril Mathis M.D. [email or web address]
--- NOTE | 2024-03-17 05:03 | W.ED.SOB ---
Documented by User: Jocelyn Christian MD 03/17/24 05:26 HPI - SOB/Dyspnea General: Chief Complaint: Shortness of Breath/Dyspnea Stated Complaint: SOB Time Seen by Provider: 03/17/24 04:45 History of Present Illness: HPI Narrative: 73-year-old man with a history of congestive heart failure and hypertension who presents emergency room with worsening shortness of breath. He said this been going on for some time now. He said he was seen in the emergency room yesterday when he went home he is feeling quite a bit better but fairly quickly started feeling worse. On presentation here his oxygen saturations are in the 80s on room air. He is having orthopnea. He is slightly tachycardicWhich looking back he has been tachycardic in the low 100s on several previous visits. No fevers. No chest pain. Related Data Home Medications Medication Instructions Recorded Confirmed acetaminophen 500 mg tablet 500 mg PO Q6H PRN Pain 05/05/22 03/16/24 (Tylenol Extra Strength) furosemide 20 mg tablet 20 mg PO BID 03/07/24 03/16/24 Previous Rx's Medication Instructions Recorded hydrocodone 5 mg-acetaminophen 325 1 tab PO Q6H PRN pain #14 tabs 03/03/24 mg tablet tamsulosin 0.4 mg capsule 0.4 mg PO DAILY #90 caps 03/10/24 albuterol sulfate 90 mcg/actuation 2 inh inhalation QID PRN shortness 03/16/24 aerosol inhaler (Ventolin HFA) of breath or wheezing #8.5 grams Allergies Allergy/AdvReac Type Severity Reaction Status Date / Time No Known Allergies Allergy Verified 03/17/24 04:55 Review of Systems Narrative: Constitutional symptoms: Negative except as documented in HPI. Skin symptoms: Negative except as documented in HPI. Eye symptoms: Negative except as documented in HPI. ENMT symptoms: Negative except as documented in HPI. Respiratory symptoms: Negative except as documented in HPI. Cardiovascular symptoms: Negative except as documented in HPI. Gastrointestinal symptoms: Negative except as documented in HPI. Genitourinary symptoms: Negative except as documented in HPI. Musculoskeletal symptoms: Negative except as documented in HPI. Neurologic symptoms: Negative except as documented in HPI. Psychiatric symptoms: Negative except as documented in HPI. Endocrine symptoms: Negative except as documented in HPI. [facility] ED PFSH: Medical History BPH (benign prostatic hyperplasia) Major depressive disorder Cardiomyopathy Nonischemic Congestive heart failure EF 25-30% 03/2022 Relapsing polychondritis Benign essential HTN GERD (gastroesophageal reflux disease) Surgical History History of cardiac catheterization 03/2022 - no obstructive CAD, mildly elevated right and left sided pressures History of ear surgery T-tube in left ear ~2018 Family History Father Cancer Family history of premature coronary artery disease Stroke Denies family history of Diabetes CAD (coronary artery disease) Hyperlipidemia Hypertension Social History Smoking and tobacco/nicotine status: former use of tobacco/nicotine Alcohol intake: former Substance/Drug Use: never Caregiver/support person: Yes (Daughter) Lives independently: Yes Household members: none Marital status: Physical Exam Narrative: EXAM NARRATIVE: General: Alert, no acute distress. Skin: Warm, dry. Head: Normocephalic, atraumatic. Neck: Supple, trachea midline. Eye: Extraocular movements are intact. Ears, nose, mouth and throat: mucosa moist. Cardiovascular: Regular, tachycardic, normal peripheral perfusion. Patient has no edema Respiratory: Coarse, tachypneic, mildly increased work of breathing. No real wheeze. Gastrointestinal: Soft, Nontender, Non distended Musculoskeletal: Normal ROM, no deformity. Neurological: Alert and oriented, No focal neurological deficit observed. Psychiatric: Cooperative, appropriate mood & affect. Course Vital Signs: Vital signs: Vital Signs Temperature 98.1 F 03/17/24 04:59 Pulse Rate 112 H 03/17/24 06:45 Respiratory Rate 29 H 03/17/24 06:45 Blood Pressure 122/90 03/17/24 06:45 Pulse Oximetry 96 03/17/24 06:45 Oxygen Delivery Me thod Room Air 03/17/24 06:45 Oxygen Flow Rate 2 03/17/24 05:42 MDM - SOB/Dyspnea Medical Decision Making Differential diagnosis for patient with shortness of breath includes but is not limited to and based on the above HPI, review of systems and physical exam: Pneumonia. Bronchitis. Asthma or COPD with acute exacerbation. Acute coronary syndrome / OR. Pulmonary embolism. Anxiety. Congestive heart failure. Viral infections including influenza and Covid-19. Atrial fibrillation. Anxiety. Pleural effusion. Pneum patient care transitioned to Dr. Gotti at shift change awaiting results of the CTA and lab work. Othorax. Orders placed to evaluate differential diagnosis based on the above differential, HPI and physical exam EKG: Time 448. Rate 111. Sinus tachycardia, No ST-T changes, no ectopy, left bundle branch block, This was reviewed and interpreted by myself the ER physician time 4:50 AM. Lab Review: Laboratory results were reviewed and interpreted by myself the emergency room physician. No leukocytosis. No anemia. The rest of the lab work is pending at shift change. Patient care transitioned to Dr. Gotti at shift change. Pending CTA and remainder of lab results. Lab Data 03/17/24 04:58 03/17/24 04:58 Labs/Radiology: Radiology Impressions Chest X-Ray 03/17/24 04:46 IMPRESSION: Grossly stable examination, perhaps small increase in fluid of the left pleural space. Chest CTA 03/17/24 05:13 IMPRESSION: 1. No pulmonary embolus. 2. Moderate-sized bilateral pleural effusions with about 50% atelectasis of the bilateral lower lobes. 3. Findings suggestive of CHF. 4. New from prior comparison is anterior right upper lobe subpleural infiltrate with central cystic change (this may the underlying emphysematous change seen elsewhere), nonspecific attention follow-up examinations to assess for stability. COMMENTS: The presence of pulmonary emphysema on CT is an independent risk factor for lung cancer. In the absence of a history or active diagnosis of lung cancer, it is recommended that this patient with emphysema be evaluated for enrollment in a low dose CT lung cancer screening program. Laboratory Results WBC 8.28 10^3/uL (3.29-11.43) 03/17/24 04:58 RBC 4.19 10^6/uL (3.85-5.65) 03/17/24 04:58 Hgb 12.50 g/dL (11.27-16.99) 03/17/24 04:58 Hct 37.6 % (37-53) 03/17/24 04:58 MCV 89.7 fl (82-101) 03/17/24 04:58 MCH 29.8 pg (27-33) 03/17/24 04:58 MCHC 33.2 g/dL (30-55) 03/17/24 04:58 RDW 13.9 % (12.1-15.1) 03/17/24 04:58 Plt Count 248 10^3/cmm (157-399) 03/17/24 04:58 MPV 10.2 fL (7.4-10.4) 03/17/24 04:58 Neut % (Auto) 81.2 % 03/17/24 04:58 Lymph % (Auto) 7.2 % 03/17/24 04:58 Glascock % (Auto) 9.4 % 03/17/24 04:58 Eos % (Auto) 1.8 % 03/17/24 04:58 Baso % (Auto) 0.2 % 03/17/24 04:58 Neut # (Auto) 6.71 10^3/uL (1.8-7.7) 03/17/24 04:58 Lymph # (Auto) 0.6 10^3/uL (0.8-4.8) L 03/17/24 04:58 Glascock # (Auto) 0.8 10^3/uL (0.2-0.9) 03/17/24 04:58 Eos # (Auto) 0.2 10^3/uL (0.0-0.8) 03/17/24 04:58 Baso # (Auto) 0.0 10^3/uL (0.0-0.1) 03/17/24 04:58 Nucleated RBC % (auto) 0 % 03/17/24 04:58 Nucleated RBCs # 0.0 /100WBC 03/17/24 04:58 Specimen Type Arterial 03/17/24 05:12 Sample Site Radial, right 03/17/24 05:12 ABG pH 7.46 (7.35-7.45) H 03/17/24 05:12 ABG pCO2 40.7 mmHg (35-45) 03/17/24 05:12 ABG pO2 62.4 mmHg (80.0-100.0) L 03/17/24 05:12 ABG HCO3 28.9 mmol/L (22-26) H 03/17/24 05:12 ABG O2 Saturation 92.9 03/17/24 05:12 ABG Base Excess 4.6 mmol/L (-2.0-2.0) H 03/17/24 05:12 Timmy Test Pos 03/17/24 05:12 A-a O2 Gradient 4.8 mmHg (5-10) L 03/17/24 05:12 Hematocrit 38.8 % (42-52) L 03/17/24 05:12 Hgb O2 Saturation 91.3 % (95-100) L 03/17/24 05:12 Carboxyhemoglobin 1.5 %THgb (0.4-20.1) 03/17/24 05:12 Methemoglobin 0.3 % (0.4-1.5) L 03/17/24 05:12 Total Hemoglobin 12.7 g/dL (14-18) L 03/17/24 05:12 Sodium 129.0 mmol/L (131-143) L 03/17/24 05:12 Potassium 3.5 mmol/L (3.5-5.0) 03/17/24 05:12 Glucose 126.0 mg/dL (70-115) H 03/17/24 05:12 Ionized Calcium 1.2 mmol/L (1.1-1.4) 03/17/24 05:12 O2 Delivery Device Nc 03/17/24 05:12 O2 Liters/Min 2.0 % 03/17/24 05:12 Education Manager ID [id number] 03/17/24 05:12 Sodium 132 mmol/L (136-145) L 03/17/24 04:58 Potassium 3.9 mmol/L (3.5-5.1) 03/17/24 04:58 Chloride 95 mmol/L (98-107) L 03/17/24 04:58 Carbon Dioxide 24 mmol/L (22-29) 03/17/24 04:58 Anion Gap 16.9 (5-19) 03/17/24 04:58 BUN 15 mg/dL (8-23) 03/17/24 04:58 Creatinine 1.0 mg/dL (0.7-1.2) 03/17/24 04:58 GFR Calculation Not Reportable 03/17/24 04:58 Glucose 136 mg/dL (65-115) H 03/17/24 04:58 Calculated Osmolality 277 mOsm/kg (285-295) L 03/17/24 04:58 Lactic Acid 1.1 mmol/L (0.5-2.2) 03/17/24 04:58 Calcium 8.8 mg/dL (8.5-10.5) 03/17/24 04:58 Total Bilirubin 0.3 mg/dL (0.15-1.2) 03/17/24 04:58 AST 26 U/L (0-40) 03/17/24 04:58 ALT 32 U/L (0-41) 03/17/24 04:58 Alkaline Phosphatase 106 U/L (40-130) 03/17/24 04:58 Troponin T Baseline 38 ng/L (0-15) H 03/17/24 04:58 NT-Pro-B Natriuret Pep 46252 pg/mL (0-125) H 03/17/24 04:58 Total Protein 5.6 g/dL (6.6-8.7) L 03/17/24 04:58 Albumin 3.7 g/dL (3.5-5.2) 03/17/24 04:58 Globulin 1.9 g/dL (1.3-4.6) 03/17/24 04:58 Procalcitonin 0.07 ng/mL (0-0.5) 03/17/24 04:58 Discharge Plan Discharge Admit Provider: Nilda Rose Condition: Stable Sign Out Sign Out Data: Patient Sign Out occurred on 03/17/24 at 05:55. Patient's care was discussed, and care was transferred from Jocelyn Christian MD to Troy Gotti DO. 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 Documented by User: Troy Gotti DO 03/17/24 07:23 HPI - SOB/Dyspnea General: Chief Complaint: Shortness of Breath/Dyspnea Stated Complaint: SOB Time Seen by Provider: 03/17/24 04:45 Related Data Home Medications Medication Instructions Recorded Confirmed acetaminophen 500 mg tablet 500 mg PO Q6H PRN Pain 05/05/22 03/16/24 (Tylenol Extra Strength) furosemide 20 mg tablet 20 mg PO BID 03/07/24 03/16/24 Previous Rx's Medication Instructions Recorded hydrocodone 5 mg-acetaminophen 325 1 tab PO Q6H PRN pain #14 tabs 03/03/24 mg tablet tamsulosin 0.4 mg capsule 0.4 mg PO DAILY #90 caps 03/10/24 albuterol sulfate 90 mcg/actuation 2 inh inhalation QID PRN shortness 03/16/24 aerosol inhaler (Ventolin HFA) of breath or wheezing #8.5 grams Allergies Allergy/AdvReac Type Severity Reaction Status Date / Time No Known Allergies Allergy Verified 03/17/24 04:55 [facility] ED PFS: Medical History BPH (benign prostatic hyperplasia) Major depressive disorder Cardiomyopathy Nonischemic Congestive heart failure EF 25-30% 03/2022 Relapsing polychondritis Benign essential HTN GERD (gastroesophageal reflux disease) Surgical History History of cardiac catheterization 03/2022 - no obstructive CAD, mildly elevated right and left sided pressures History of ear surgery T-tube in left ear ~2017 Family History Father Cancer Family history of premature coronary artery disease Stroke Denies family history of Diabetes CAD (coronary artery disease) Hyperlipidemia Hypertension Social History Smoking and tobacco/nicotine status: former use of tobacco/nicotine Alcohol intake: former Substance/Drug Use: never Caregiver/support person: Yes (Daughter) Lives independently: Yes Household members: none Marital status: Course Vital Signs: Vital signs: Vital Signs Temperature 98.1 F 03/17/24 04:59 Pulse Rate 112 H 03/17/24 06:45 Respiratory Rate 29 H 03/17/24 06:45 Blood Pressure 122/90 03/17/24 06:45 Pulse Oximetry 96 03/17/24 06:45 Oxygen Delivery Me thod Room Air 03/17/24 06:45 Oxygen Flow Rate 2 03/17/24 05:42 MDM - SOB/Dyspnea Medical Decision Making Differential diagnosis for patient with shortness of breath includes but is not limited to and based on the above HPI, review of systems and physical exam: Pneumonia. Bronchitis. Asthma or COPD with acute exacerbation. Acute coronary syndrome / OR. Pulmonary embolism. Anxiety. Congestive heart failure. Viral infections including influenza and Covid-19. Atrial fibrillation. Anxiety. Pleural effusion. Pneum patient care transitioned to Dr. Gotti at shift change awaiting results of the CTA and lab work. Othorax. Orders placed to evaluate differential diagnosis based on the above differential, HPI and physical exam EKG: Time 448. Rate 111. Sinus tachycardia, No ST-T changes, no ectopy, left bundle branch block, This was reviewed and interpreted by myself the ER physician time 4:50 AM. Lab Review: Laboratory results were reviewed and interpreted by myself the emergency room physician. No leukocytosis. No anemia. The rest of the lab work is pending at shift change. Patient care transitioned to Dr. Gotti at shift change. Pending CTA and remainder of lab results. Care assumed at change of shift. Patient has decompensated congestive heart failure. He had an old echo that placed him 20 to 25% EF myocardium was done at that time it is actually improved quite a bit them during most recent hospitalization it had improved To an estimated 60% on transthoracic echocardiogram. He was in A-fib at the time. He is in a sinus tachycardia now. Does have increased pleural effusion and worsening fluid overload on his chest x-ray there is a question on the CT of possible pneumonia. His white count is normal he has a procalcitonin pending. Discussed with the hospitalist they are aware of not initiating any antibiotics pending his procalcitonin we did diurese him some he is requiring oxygen support. Will admit for acute exacerbation congestive heart failure. Procalcitonin is low we will hold off on starting any antibiotics at this point. Medical Records I reviewed the patient's medical records. Lab Data I reviewed the patient's lab results. 03/17/24 04:58 03/17/24 04:58 Labs/Radiology: Radiology Impressions Chest X-Ray 03/17/24 04:46 IMPRESSION: Grossly stable examination, perhaps small increase in fluid of the left pleural space. Chest CTA 03/17/24 05:13 IMPRESSION: 1. No pulmonary embolus. 2. Moderate-sized bilateral pleural effusions with about 50% atelectasis of the bilateral lower lobes. 3. Findings suggestive of CHF. 4. New from prior comparison is anterior right upper lobe subpleural infiltrate with central cystic change (this may the underlying emphysematous change seen elsewhere), nonspecific attention follow-up examinations to assess for stability. COMMENTS: The presence of pulmonary emphysema on CT is an independent risk factor for lung cancer. In the absence of a history or active diagnosis of lung cancer, it is recommended that this patient with emphysema be evaluated for enrollment in a low dose CT lung cancer screening program. Laboratory Results WBC 8.28 10^3/uL (3.29-11.43) 03/17/24 04:58 RBC 4.19 10^6/uL (3.85-5.65) 03/17/24 04:58 Hgb 12.50 g/dL (11.27-16.99) 03/17/24 04:58 Hct 37.6 % (37-53) 03/17/24 04:58 MCV 89.7 fl (82-101) 03/17/24 04:58 MCH 29.8 pg (27-33) 03/17/24 04:58 MCHC 33.2 g/dL (30-55) 03/17/24 04:58 RDW 13.9 % (12.1-15.1) 03/17/24 04:58 Plt Count 248 10^3/cmm (157-399) 03/17/24 04:58 MPV 10.2 fL (7.4-10.4) 03/17/24 04:58 Neut % (Auto) 81.2 % 03/17/24 04:58 Lymph % (Auto) 7.2 % 03/17/24 04:58 Glascock % (Auto) 9.4 % 03/17/24 04:58 Eos % (Auto) 1.8 % 03/17/24 04:58 Baso % (Auto) 0.2 % 03/17/24 04:58 Neut # (Auto) 6.71 10^3/uL (1.8-7.7) 03/17/24 04:58 Lymph # (Auto) 0.6 10^3/uL (0.8-4.8) L 03/17/24 04:58 Glascock # (Auto) 0.8 10^3/uL (0.2-0.9) 03/17/24 04:58 Eos # (Auto) 0.2 10^3/uL (0.0-0.8) 03/17/24 04:58 Baso # (Auto) 0.0 10^3/uL (0.0-0.1) 03/17/24 04:58 Nucleated RBC % (auto) 0 % 03/17/24 04:58 Nucleated RBCs # 0.0 /100WBC 03/17/24 04:58 Specimen Type Arterial 03/17/24 05:12 Sample Site Radial, right 03/17/24 05:12 ABG pH 7.46 (7.35-7.45) H 03/17/24 05:12 ABG pCO2 40.7 mmHg (35-45) 03/17/24 05:12 ABG pO2 62.4 mmHg (80.0-100.0) L 03/17/24 05:12 ABG HCO3 28.9 mmol/L (22-26) H 03/17/24 05:12 ABG O2 Saturation 92.9 03/17/24 05:12 ABG Base Excess 4.6 mmol/L (-2.0-2.0) H 03/17/24 05:12 Timmy Test Pos 03/17/24 05:12 A-a O2 Gradient 4.8 mmHg (5-10) L 03/17/24 05:12 Hematocrit 38.8 % (42-52) L 03/17/24 05:12 Hgb O2 Saturation 91.3 % (95-100) L 03/17/24 05:12 Carboxyhemoglobin 1.5 %THgb (0.4-20.1) 03/17/24 05:12 Methemoglobin 0.3 % (0.4-1.5) L 03/17/24 05:12 Total Hemoglobin 12.7 g/dL (14-18) L 03/17/24 05:12 Sodium 129.0 mmol/L (131-143) L 03/17/24 05:12 Potassium 3.5 mmol/L (3.5-5.0) 03/17/24 05:12 Glucose 126.0 mg/dL (70-115) H 03/17/24 05:12 Ionized Calcium 1.2 mmol/L (1.1-1.4) 03/17/24 05:12 O2 Delivery Device Nc 03/17/24 05:12 O2 Liters/Min 2.0 % 03/17/24 05:12 Education Manager ID [id number] 03/17/24 05:12 Sodium 132 mmol/L (136-145) L 03/17/24 04:58 Potassium 3.9 mmol/L (3.5-5.1) 03/17/24 04:58 Chloride 95 mmol/L (98-107) L 03/17/24 04:58 Carbon Dioxide 24 mmol/L (22-29) 03/17/24 04:58 Anion Gap 16.9 (5-19) 03/17/24 04:58 BUN 15 mg/dL (8-23) 03/17/24 04:58 Creatinine 1.0 mg/dL (0.7-1.2) 03/17/24 04:58 GFR Calculation Not Reportable 03/17/24 04:58 Glucose 136 mg/dL (65-115) H 03/17/24 04:58 Calculated Osmolality 277 mOsm/kg (285-295) L 03/17/24 04:58 Lactic Acid 1.1 mmol/L (0.5-2.2) 03/17/24 04:58 Calcium 8.8 mg/dL (8.5-10.5) 03/17/24 04:58 Total Bilirubin 0.3 mg/dL (0.15-1.2) 03/17/24 04:58 AST 26 U/L (0-40) 03/17/24 04:58 ALT 32 U/L (0-41) 03/17/24 04:58 Alkaline Phosphatase 106 U/L (40-130) 03/17/24 04:58 Troponin T Baseline 38 ng/L (0-15) H 03/17/24 04:58 NT-Pro-B Natriuret Pep 52742 pg/mL (0-125) H 03/17/24 04:58 Total Protein 5.6 g/dL (6.6-8.7) L 03/17/24 04:58 Albumin 3.7 g/dL (3.5-5.2) 03/17/24 04:58 Globulin 1.9 g/dL (1.3-4.6) 03/17/24 04:58 Procalcitonin 0.07 ng/mL (0-0.5) 03/17/24 04:58 All radiology interpretation(s) finalized by discharge Discharge Plan Discharge Admit Provider: Nilda Rose Condition: Stable Sign Out Sign Out Data: Patient Sign Out occurred on 03/17/24 at 05:55. Patient's care was discussed, and care was transferred from Jocelyn Christian MD to Troy Gotti DO. 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
[2024-03-17 05:04] LABS: Basophils % 0.2 %; Eosinophils # 0.2 10^3/uL (0.0-0.8); Eosinophils % 1.8 %; Hematocrit 37.6 % (37-53); Lymphocytes # 0.6 10^3/uL (0.8-4.8); Lymphocytes % 7.2 %; Mean Corpuscular HGB Conc 33.2 g/dL (30-55); Mean Corpuscular Hemoglobin 29.8 pg (27-33); Mean Corpuscular Volume 89.7 fl (82-101); Mean Platelet Volume 10.2 fL (7.4-10.4); Monocytes # 0.8 10^3/uL (0.2-0.9); Monocytes % 9.4 %; Neutrophils # 6.71 10^3/uL (1.8-7.7); Neutrophils % 81.2 %; Nucleated Red Blood Cells % 0 %; Platelet Count 248 10^3/cmm (157-399); Red Blood Count 4.19 10^6/uL (3.85-5.65); Red Cell Distribution Width 13.9 % (12.1-15.1); White Blood Count 8.28 10^3/uL (3.29-11.43)
--- NOTE | 2024-03-17 05:13 | CTR_ITS ---
PROCEDURE INFORMATION: Exam: CTA Chest With Contrast Exam date and time: 03/17/2024 5:18 AM Age: 73 years old Clinical indication: Shortness of breath; Additional info: Abnormal chest xray TECHNIQUE: Imaging protocol: Computed tomographic angiography of the chest with contrast. Exam focused on the arteries. 3D rendering (Not supervised by radiologist): MIP and/or 3D reconstructed images were created by the technologist. Radiation optimization: All CT scans at this facility use at least one of these dose optimization techniques: automated exposure control; mA and/or kV adjustment per patient size (includes targeted exams where dose is matched to clinical indication); or iterative reconstruction. Contrast material: OMNI 350; Contrast volume: 100 ml; Contrast route: INTRAVENOUS (IV); COMPARISON: CT chest w con* [id number] 03/03/2024 2:23 PM RADIATION DOSE METRICS: Total DLP (mGy-cm): 427.5 FINDINGS: Pulmonary arteries: No filling defect to suggest pulmonary embolism, there is gradual loss of pulmonary arterial opacification in the consolidated segments of the lower lobes, likely secondary to normal intrathoracic shunting physiology in the setting atelectasis. Aorta: Atherosclerotic disease, mild of the visualized aorta. Lungs: About 50% atelectasis of the bilateral lower lobes. Anterior right upper lobe infiltrate with central cystic change. Scattered mild emphysematous change. Scattered pulmonary septal thickening. Pleural spaces: Bilateral moderate-sized pleural effusion. Redemonstrated right apical architectural distortion with associated pleural calcification. Heart: Cardiomegaly. Coronary arteries: Heavy coronary calcified atherosclerotic disease. Lymph nodes: Calcified hilar and mediastinal lymph nodes. Bones/joints: Diffuse degenerative change of the visualized osseous structures. Soft tissues: Unremarkable. CT/CT angio chest PE protcl [id number] IMPRESSION: 1. No pulmonary embolus. 2. Moderate-sized bilateral pleural effusions with about 50% atelectasis of the bilateral lower lobes. 3. Findings suggestive of CHF. 4. New from prior comparison is anterior right upper lobe subpleural infiltrate with central cystic change (this may the underlying emphysematous change seen elsewhere), nonspecific attention follow-up examinations to assess for stability. COMMENTS: The presence of pulmonary emphysema on CT is an independent risk factor for lung cancer. In the absence of a history or active diagnosis of lung cancer, it is recommended that this patient with emphysema be evaluated for enrollment in a low dose CT lung cancer screening program.
[2024-03-17 05:17] LABS: ABG PCO2 40.7 mmHg (35-45); ABG PH Result 7.46 (7.35-7.45); Alveolar-Arterial Oxygen Gradi 4.8 mmHg (5-10); Arterial Blood Gas Hematocrit 38.8 % (42-52); Base Excess ABG 4.6 mmol/L (-2.0-2.0); Blood Gas Allen Test Pos; Blood Gas Operator Identificat 600455; Blood Gas Sample Site Radial, right; Blood Gas Sample Type Arterial; Carboxyhemoglobin 1.5 %THgb (0.4-20.1); HCO3 ABG 28.9 mmol/L (22-26); HGB O2 Sat 91.3 % (95-100); Ionized Calcium Level - ABG 1.2 mmol/L (1.1-1.4); Methemoglobin 0.3 % (0.4-1.5); Oxygen Device NC; Oxygen Saturation ABG 92.9; PO2 ABG 62.4 mmHg (80.0-100.0); Potassium Level - ABG 3.5 mmol/L (3.5-5.0); Total Hemoglobin 12.7 g/dL (14-18)
[2024-03-17 05:23] LABS: Lactic Sepsis W/Reflex 1.1 mmol/L (0.5-2.2)
[2024-03-17 05:24] LABS: Troponin(5th) Baseline 38 ng/L (0-15)
[2024-03-17 05:34] LABS: Alanine Aminotransferase 32 U/L (0-41); Albumin Level 3.7 g/dL (3.5-5.2); Alkaline Phosphatase 106 U/L (40-130); Anion Gap 16.9 (5-19); Aspartate Amino Transferase 26 U/L (0-40); Blood Urea Nitrogen 15 mg/dL (8-23); Calcium 8.8 mg/dL (8.5-10.5); Carbon Dioxide 24 mmol/L (22-29); Chloride 95 mmol/L (98-107); Creatinine Clr Calc Pharmacy 64.7998; Globulin 1.9 g/dL (1.3-4.6); Glucose 136 mg/dL (65-115); NT Pro B Type Natriuretic Pept 15584 pg/mL (0-125); Osmolality Calculated 277 mOsm/kg (285-295); Potassium 3.9 mmol/L (3.5-5.1); Sodium 132 mmol/L (136-145); Total Bilirubin 0.3 mg/dL (0.15-1.2); Total Protein 5.6 g/dL (6.6-8.7)
[2024-03-17] MEDS: iohexol 350 mg/mL 500 mL Btl (per mL) IV (05:40)
[2024-03-17] MEDS: metoprolol tartrate 25 mg Tablet 12.5 MG PO (06:29)
[2024-03-17 06:47] LABS: Procalcitonin 0.07 ng/mL (0-0.5)
--- NOTE | 2024-03-17 06:53 | ECG_ITS ---
[facility]: [facility]24[facility]17 Pat Name: Rashi Orozco Department: Room: 112 Gender: Male Rn Renal: : 1950 Requested By: Jocelyn Toledo Order Number: [id number] Gustavo MD: Avril Mathis M.D. Measurements Intervals [place] Rate: 110 P: 50 UT: 148 QRS: -6 QRSD: 160 T: 164 QT: 383 QTc: 519 Interpretive Statements SINUS TACHYCARDIA WITH OCCASIONAL SUPRAVENTRICULAR PREMATURE COMPLEXES POSSIBLE LEFT ATRIAL ENLARGEMENT [-0.1mV P-WAVE IN V1/V2] LEFT BUNDLE BRANCH BLOCK [120+ ms QRS DURATION, 80+ ms Q/S IN V1/V2, 85+ ms R IN I/aVL/V5/V6] Compared to ECG 03/17/2024 04:48:24 No significant changes Electronically Signed On 03-17-2024 13:54:03 MANAGER SPEECH by Avril Mathis M.D. [email or web address]
[2024-03-17 07:22] LABS: Troponin 5 2HR 34.51 ng/L (0-15)
[2024-03-17 08:07] LABS: Troponin 5 2HR Delta -3.49 ABS# (0-10)
[2024-03-17 08:24] LABS: Procalcitonin 0.08 ng/mL (0-0.5); Thyroid Stimulating Hormone 5.89 uIU/mL (0.27-4.20); Vitamin B12 479 pg/mL (232-1245)
[2024-03-17 08:35] LABS: Iron 24 ug/dL (59-158); Percent Saturation 10.2 % (20-50); Total Iron Binding Capacity 235 mcg/dl; Unsaturated Iron Binding 211 ug/dL (112-347)
[2024-03-17] MEDS: enoxaparin 40 mg/0.4 mL Syringe SUBCUT (09:31)
[2024-03-17] MEDS: FUROsemide 10 mg/mL SDV 4mL 40 MG IVP ×2 (09:31→16:24)
[2024-03-17] MEDS: metoprolol tartrate 25 mg Tablet PO ×2 (09:32→20:58)
[2024-03-17] MEDS: famotidine 20 mg Tablet PO ×2 (09:32→17:58)
[2024-03-17] MEDS: tamsulosin 0.4 mg Capsule PO (09:32)
[2024-03-17] MEDS: budesonide 0.5 mg/2 mL Neb INHALATION ×2 (09:38→19:51)
[2024-03-17] MEDS: levalbuterol 0.63 mg/3 mL Neb INHALATION ×3 (09:38→19:51)
[2024-03-17] MEDS: ipratropium 0.5 mg/2.5 mL Neb INHALATION ×3 (09:38→19:51)
[2024-03-17 10:48] LABS: Troponin 5 6HR 35.55 ng/L (0-15)
[2024-03-17 10:52] LABS: Troponin 5 6HR Delta -2.45 ng/L (0-12)
--- NOTE | 2024-03-17 10:53 | ECG_ITS ---
[facility] Date: 2024-[facility]17 Pat Name: Rashi Orozco Department: Room: 112 Gender: Male Handle Bender: : 1950 Requested By: Jocelyn Toledo Order Number: [id number] Gustavo MD: Avril Mathis M.D. Measurements Intervals [place] Rate: 98 P: 11 UT: 116 QRS: -7 QRSD: 164 T: 157 QT: 396 QTc: 507 Interpretive Statements SINUS RHYTHM WITH SHORT UT INTERVAL LEFT ATRIAL ENLARGEMENT [-0.15mV P-WAVE IN V1/V2] LEFT BUNDLE BRANCH BLOCK [120+ ms QRS DURATION, 80+ ms Q/S IN V1/V2, 85+ ms R IN I/aVL/V5/V6] Compared to ECG 03/17/2024 06:50:33 Short UT interval now present Sinus tachycardia no longer present Electronically Signed On 03-17-2024 13:54:08 STENOTYPIST by Avril Mathis M.D. [email or web address]
[2024-03-17 11:12] LABS: Bilirubin Urine Negative (Negative); Blood Urine Negative (Negative); Glucose Urine UA Negative (Normal); Ketones Urine Negative (Negative); Leukocyte Esterase Urine Negative (Negative); Nitrate Urine Negative (Negative); Protein Urine Trace (Negative); Urine Appearance Clear (CLEAR); Urine Color Yellow (Yellow); pH Urine 6.5 (5-7)
[2024-03-17 11:18] LABS: Add Urine Microscopic? YES; Bacteria Urine None Seen /hpf; RBC Urine 0-2 /hpf (0-2); Squamous Epithelial Cell Urine 0-5 /hpf (0-5); WBC Urine 0-5 /hpf (0-5)
[2024-03-17 11:23] LABS: Add Urine Culture? No; Specific Gravity, Urine 1.058 (1.005-1.030)
--- NOTE | 2024-03-17 11:25 | P.HP_ITS ---
Providers/Chief Complaint 2 Admitting Physician: Nilda Rose MD Chief Complaint: SOB History of Present Illness Rashi Orozco is a 73 year old male with past medical history of diastolic heart failure with last echocardiogram earlier this month which showed an EF of 60%, moderate to severe MR, paroxysmal A-fib, recent diagnosis of enterovirus, recent LEOPOLDO and small bowel obstruction who was discharged on 03/10 presents to the ER today because of worsening difficulty in breathing. Patient states his breathing has been not to his baseline since the last discharge but got worse over last few days so he came to the ER. Shortness of breath gets worse on minimal exertion and laying down. Denies any chest pain. At baseline he is not on any oxygen but in the ER required up to 2 to 3 L of oxygen supplementation to maintain saturation over 90%. Denies any fever, nausea, vomiting. Complains of cough on and off. Review of Systems 2 General: Reports: 10 or more systems reviewed and unremarkable except in HPI and below Const: Denies: fever(s), chills, body aches, change in appetite, change in weight, malaise, night sweats, diaphoresis, change in sleep pattern, daytime sleepiness or snoring Eyes: Denies: change in vision, blurry vision, photophobia, eye discomfort or eye discharge ENMT: Denies: throat pain, enlarged tonsils, hoarseness, mouth pain, oral sores, dry mouth, tinnitus, nasal congestion or post nasal drip Card: Denies: chest pain, palpitations, irregular heart rhythm, edema, swelling of feet/ankles, lightheadedness, syncope, pre-syncope, dyspnea on exertion, orthopnea, leg pain with exertion or acrocyanosis Resp: Denies: dyspnea, productive cough, non-productive cough, wheezing, stridor, pain on inspiration, change in phlegm color, hemoptysis or chest congestion GI: Denies: abdominal pain, nausea, vomiting, hematemesis, coffee ground emesis, dysphagia, heartburn, diarrhea, constipation, bloating, GI cramping, change in bowel habits, pain on defecation, hematochezia or melena : Denies: flank pain, difficulty urinating, dysuria, urinary frequency, urinary urgency, urinary hesitancy, urinary dribbling, difficulty starting urination, change in urine stream, nocturia or hematuria Musc: Denies: neck pain, back pain, extremity pain, joint pain, joint swelling, joint redness, joint stiffness or limited range of motion Neuro: Denies: headache(s), numbness in extremities, weakness in extremities, sensory changes, lack of coordination, difficulty walking, frequent falls, dizziness, vertigo, confusion, Slurred speech present, difficulty communicating thoughts or seizure-like activity Psych: Denies: anxiety, depression, mood swings, panic attacks, hopelessness or irritability Endo: Denies: polyuria, polydipsia, tired all the time, cold intolerance, excessive sweating, flushing or heat intolerance Live/Lymph: Denies: easy bruising or easy bleeding All/Imm: Denies: tongue swelling, facial swelling or acute wheezing Medications/Allergies Home Medications Medication Instructions Recorded Confirmed Last Taken Type acetaminophen 500 mg tablet 500 mg PO Q6H PRN Pain 05/05/22 03/17/24 03/16/24 History (Tylenol Extra Strength) hydrocodone 5 mg-acetaminophen 325 1 tab PO Q6H PRN pain #14 tabs 03/03/24 03/17/24 03/07/24 07:00 Rx mg tablet furosemide 20 mg tablet 20 mg PO BID 03/07/24 03/17/24 03/16/24 History tamsulosin 0.4 mg capsule 0.4 mg PO DAILY #90 caps 03/10/24 03/17/24 03/16/24 Rx albuterol sulfate 90 mcg/actuation 2 inh inhalation QID PRN shortness 03/16/24 03/17/24 03/16/24 Rx aerosol inhaler (Ventolin HFA) of breath or wheezing #8.5 grams aspirin 81 mg tablet,delayed 81 mg PO DAILY 03/17/24 03/17/24 03/16/24 History release Allergies Allergy/AdvReac Type Severity Reaction Status Date / Time No Known Allergies Allergy Verified 03/17/24 04:55 PFSH Acute 2 PFSH: Medical History (Updated 03/17/24 @ 13:13 by Jhoan Huizar MD) MRSA pneumonia SBO (small bowel obstruction) Enterovirus infection LEOPOLDO (acute kidney injury) Cellulitis of penis BPH (benign prostatic hyperplasia) Major depressive disorder Cardiomyopathy Nonischemic Congestive heart failure EF 25-30% 03/2022. Resolved. EF?60%-03/13 Relapsing polychondritis Benign essential HTN GERD (gastroesophageal reflux disease) Surgical History History of cardiac catheterization 03/2022 - no obstructive CAD, mildly elevated right and left sided pressures History of ear surgery T-tube in left ear ~2018 Family History Father Cancer Family history of premature coronary artery disease Stroke Denies family history of Diabetes CAD (coronary artery disease) Hyperlipidemia Hypertension Social History Smoking and tobacco/nicotine status: former use of tobacco/nicotine Alcohol intake: former Substance/Drug Use: never Caregiver/support person: Yes (Daughter) Lives independently: Yes Household members: none Marital status: Vitals/I&O/Wt Last Vital Signs Temp 98.4 F 03/17/24 08:17 Pulse 100 03/17/24 09:41 Resp 16 03/17/24 09:41 BP 128/89 03/17/24 08:24 Pulse Ox 93 03/17/24 09:41 O2 Del Method Nasal Cannula 03/17/24 09:41 O2 Flow Rate 3 03/17/24 09:41 03/16/24 03/17/24 03/17/24 22:59 06:59 14:59 Intake Total 0 / 0 Balance 0 / 0 Weight last 48 hrs Weight 68.039 kg Physical Exam 2 Narrative: General: No acute distress, AO x3, chronically sick appearing on nasal cannula HEENT: PERRLA, pupils bilaterally equal and reactive Chest: Bilateral bronchial breath sounds all over lung michel, diffuse rhonchi, decreased air entry bilateral lower zone CVS: S1-S2 regular, pansystolic murmur at the apex radiating to midaxillary line, no tachycardia, no gallops, no rubs Abdomen: Soft, nontender, no organomegaly, bowel sounds present Neuro: No focal deficits, no facial deformity, AO x3, power 5/5 in all limbs Data 03/17/24 04:58 03/17/24 04:58 A&P Assessment and plan (1) Hypoxic respiratory failure: Most likely in setting of diastolic heart failure along with pleural effusion. Also has a component of COPD. Oxygen supplementation keeping saturation over 90%. Check respiratory viral panel, sputum culture, procalcitonin. History of MRSA pneumonia in the past. CT done in the ER negative for pulmonary embolism. Consistent with pleural effusions. (2) Diastolic congestive heart failure: Last echocardiogram from 03/07/2024 shows an EF of 60% without regional wall motion abnormality, possible diastolic dysfunction, moderate to severe MR, dilated LA with RV pressure of 5 mmHg. Currently getting worse and in setting of tachycardia. Strict input output charting, daily weights. Fluid restriction up to 1500 cc. IV Lasix 40 mg one-time. ACS less likely. 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 Cycle troponin. Aspirin 81 mg daily. Check A1c, lipid panel. (3) Pleural effusion: Appreciated on CTA done in the ER. Slight worsening on the left. In setting of respiratory failure patient would benefit from diagnostic and therapeutic thoracentesis. Diuresis as above. Thoracentesis when available. (4) Cardiomyopathy: History of nonischemic cardiomyopathy. Seem to have resolved. Echocardiogram recently showed normal EF. Qualifiers: Cardiomyopathy type: dilated Qualified Code(s): I42.0 - Dilated cardiomyopathy (5) Benign essential HTN: Goal blood pressure less than 140/90 mmHg. Monitor blood pressures. Given tachycardia for now we will start on metoprolol 25 mg twice daily. (6) Hyponatremia: Seems to be improving. On previous admission was down to 125. Currently 130. Continue to monitor daily. Plan Generalized weakness: States he has been having generalized weakness which has been getting worse over last 1 week. Could be in setting of congestive heart failure. PT/OT 1 available. COPD: Mild exacerbation. Does have a recent history of enterovirus infection. Ipratropium, Xopenex every 6 hours, Pulmicort twice daily. Prednisone 40 mg oral daily. Full code Cardiac diet, full restriction up to 1500 cc Lovenox for DVT prophylaxis Famotidine for PUD prophylaxis Attestations 2 Medical Necessity Statement*: Admission for more than 2 midnights for management of hypoxic respiratory failure in setting of diastolic heart failure, COPD Diagnoses Hypoxic respiratory failure J96.91 Diastolic congestive heart failure I50.30 Pleural effusion J90 Dilated cardiomyopathy I42.0 Cardiomyopathy type: dilated Benign essential HTN I10 Hyponatremia E87.1
--- NOTE | 2024-03-17 11:53 | PC.NURSE ---
Mr Orozco - he is requesting something for tonight to sleep if you could please add something.
[2024-03-17] MEDS: predniSONE 20 mg Tablet 40 MG PO (12:08)
[2024-03-17 12:59] LABS: Adenovirus Not Detected (NOT DETECT); Chlamydia Pneumoniae Not Detected (NOT DETECT); Coronavirus 229E,HKU1,NL63,OC4 Not Detected (NOT DETECT); Human Metapneumovirus Not Detected (NOT DETECT); Human Rhinovirus/Enterovirus Not Detected (NOT DETECT); Influenza A Not Detected (NOT DETECT); Influenza A H1 Not Detected (NOT DETECT); Influenza A H1-2009 Not Detected (NOT DETECT); Influenza A H3 Not Detected (NOT DETECT); Influenza B Not Detected (NOT DETECT); Mycoplasma Pneumoniae Not Detected (NOT DETECT); Parainfluenza Virus Type 1 Not Detected (NOT DETECT); Parainfluenza Virus Type 2 Not Detected (NOT DETECT); Parainfluenza Virus Type 3 Not Detected (NOT DETECT); Parainfluenza Virus Type 4 Not Detected (NOT DETECT); Respiratory Syncytial Virus A Not Detected (NOT DETECT); Respiratory Syncytial Virus B Not Detected (NOT DETECT); SARS-COV-2 Not Detected (NOT DETECT)
[2024-03-17] MEDS: ondansetron 2 mg/ML SDV 2 mL 4 MG IVP (15:57)
[2024-03-17 16:18] LABS: ABG PCO2 43.4 mmHg (35-45); Alveolar-Arterial Oxygen Gradi 14.3 mmHg (5-10); Arterial Blood Gas Hematocrit 39.8 % (42-52); Base Excess ABG 1.8 mmol/L (-2.0-2.0); Blood Gas Operator Identificat AMH; Blood Gas Sample Site Radial, left; Blood Gas Sample Type Arterial; Carboxyhemoglobin 1.1 %THgb (0.4-20.1); HCO3 ABG 26.9 mmol/L (22-26); HGB O2 Sat 90.8 % (95-100); Ionized Calcium Level - ABG 1.2 mmol/L (1.1-1.4); Oxygen Device NC; Oxygen Saturation ABG 92.8; PO2 ABG 65.7 mmHg (80.0-100.0); PO2 FiO2 Ratio Arterial Blood 205
[2024-03-18] VITALS (8 sets, daily range): BP systolic 97–130; BP diastolic 59–88; PULSE 91–106; RESP 14–26; TEMP 36.4–36.9; O2SAT 92–97
[2024-03-18 07:19] LABS: Basophils % 0.2 %; Eosinophils % 0.1 %; Hematocrit 38.5 % (37-53); Lymphocytes # 0.8 10^3/uL (0.8-4.8); Lymphocytes % 7.8 %; Mean Corpuscular HGB Conc 32.5 g/dL (30-55); Mean Corpuscular Hemoglobin 29.6 pg (27-33); Mean Corpuscular Volume 91.2 fl (82-101); Mean Platelet Volume 10.6 fL (7.4-10.4); Monocytes # 1.1 10^3/uL (0.2-0.9); Monocytes % 10.9 %; Neutrophils # 7.92 10^3/uL (1.8-7.7); Neutrophils % 80.7 %; Nucleated Red Blood Cells % 0 %; Platelet Count 238 10^3/cmm (157-399); Red Blood Count 4.22 10^6/uL (3.85-5.65); White Blood Count 9.82 10^3/uL (3.29-11.43)
[2024-03-18 07:34] LABS: INR 0.99 (0.8-1.2)
[2024-03-18 07:42] LABS: Alanine Aminotransferase 47 U/L (0-41); Albumin Level 3.5 g/dL (3.5-5.2); Alkaline Phosphatase 115 U/L (40-130); Anion Gap 14.2 (5-19); Aspartate Amino Transferase 35 U/L (0-40); Blood Urea Nitrogen 22 mg/dL (8-23); Calcium 9.4 mg/dL (8.5-10.5); Carbon Dioxide 24 mmol/L (22-29); Chloride 91 mmol/L (98-107); Creatinine Clr Calc Pharmacy 52.1578; Globulin 2.3 g/dL (1.3-4.6); Glucose 116 mg/dL (65-115); Magnesium 2.2 mg/dL (1.7-2.3); Osmolality Calculated 264 mOsm/kg (285-295); Phosphorus 4.1 mg/dL (2.5-4.5); Potassium 4.2 mmol/L (3.5-5.1); Sodium 125 mmol/L (136-145); Total Bilirubin 0.3 mg/dL (0.15-1.2); Total Protein 5.8 g/dL (6.6-8.7)
[2024-03-18 07:43] LABS: Cholesterol 154 mg/dL (0-200); HDL Cholesterol 70 mg/dL (60-100); LDL Cholesterol Calculated 68 mg/dL (50-129); LDL HDL Ratio 0.97 RATIO (0.00-3.22); Triglycerides 82 mg/dL (0-150)
[2024-03-18 07:48] LABS: Procalcitonin 0.09 ng/mL (0-0.5)
[2024-03-18 07:49] LABS: Estmated Average Glucose 117; Hemoglobin A1C 5.7 % (4.0-6.0)
[2024-03-18 07:57] LABS: Folate Level 9.5 ng/mL (4.5-32.2)
[2024-03-18 08:00] LABS: Partial Thromboplastin Time 29.7 Seconds (23.9-36.7)
[2024-03-18] MEDS: levalbuterol 0.63 mg/3 mL Neb INHALATION ×2 (08:28→14:30)
[2024-03-18] MEDS: budesonide 0.5 mg/2 mL Neb INHALATION (08:28)
[2024-03-18] MEDS: ipratropium 0.5 mg/2.5 mL Neb INHALATION ×2 (08:28→14:30)
[2024-03-18 09:18] LABS: PTT 50/50 MIX 28.1 Seconds (23.9-36.7)
[2024-03-18] MEDS: FUROsemide 10 mg/mL SDV 4mL 40 MG IVP (09:32)
[2024-03-18] MEDS: enoxaparin 40 mg/0.4 mL Syringe SUBCUT (09:33)
[2024-03-18] MEDS: predniSONE 20 mg Tablet 40 MG PO (09:33)
[2024-03-18] MEDS: aspirin 81 mg EC Tablet PO (09:33)
[2024-03-18] MEDS: tamsulosin 0.4 mg Capsule PO (09:34)
[2024-03-18] MEDS: famotidine 20 mg Tablet PO (09:34)
[2024-03-18] MEDS: metoprolol tartrate 25 mg Tablet PO (09:34)
[2024-03-18] MEDS: HYDROcodone-acetaminophen 5-325 mg Tablet 1 TAB PO ×2 (09:40→15:08)
--- NOTE | 2024-03-18 10:35 | CT_ITS ---
WS: [id number] CT ABDOMEN AND PELVIS NONCONTRAST HISTORY: h/o sbo, inguinal hernia TECHNIQUE: Imaging performed through the abdomen and pelvis. Coronal and sagittal reformats are submi tted. All CT scans at [facility] use at least one of these dose optimization techniques: auto mated exposure control; mA and/or kV adjustment per patient size (includes targeted exams where dose is matched to clinical indication); or iterative reconstruction. DLP: 586.58 mGy.cm COMPARISON: 03/08/2024 Lower thorax: Mild pulmonary edema and possible pneumonitis at the lung bases. Small to moderate bila teral pleural effusions reidentified with no improvement. Heart remains enlarged. Liver: Normal size liver. No mass or bile duct dilatation. Gallbladder: Motion artifact but gallbladder appears negative. Pancreas: Normal size and attenuation. Normal pancreatic duct. No pancreatitis or mass. Spleen: Normal. Adrenal glands: Normal. No mass. Right kidney: No obstruction. Left kidney: No obstruction. No change in the cortical cyst. Aorta: Atherosclerosis. No free fluid identified. Small foci of free air would be difficult to exclude with this amount of mo tion. No adenopathy. GI tract: Stomach is mildly distended with fluid. Improved since the prior study. Mild increased flui d throughout the small bowel. Mild constipation. There is no obstruction identified. Abdominal wall: Negative. No hernia. Pelvis: Urinary bladder is nondistended. Hicks catheter is present. Reidentified is the RIGHT inguina l hernia containing a loop of small bowel which is not dilated. There is no ischemic change identifie d although there is fluid within the inguinal canal which can be seen with early ischemia. There is l ess dilatation of the small bowel as compared to 03/08/2024. Osseous structures: Curvature and scoliosis. CT/CT abdomen pelvis wo con [id number] IMPRESSION: 1. Small to moderate bilateral pleural effusions with slight increase in size since the prior study. 2. Cardiomegaly. 3. No ascites. 4. RIGHT inguinal hernia contains a loop of small bowel which is not dilated. There is a small amount of fluid in the hernia sac. This can be related to jacques y signs of ischemia. At this time there is no dilatation or pneumatosis identif ied. 5. Mild fluid-filled small bowel loops may be an ileus. There is no high-grade obstruction. Possibility of an intermittent obstruction caused by the RIGHT in guinal hernia should be considered clinically. 6. No renal obstruction.
[2024-03-18] MEDS: isosorbide mononitrate ER 30 mg Tablet PO (11:01)
[2024-03-18] MEDS: morphine 4 mg/mL SDV 1 mL 2 MG IVP (11:01)
--- NOTE | 2024-03-18 11:33 | PC.OT ---
Orders received. Nursing requested a hold today as patient has a lot of pain and nurse just gave him morphine. Will attempt tomorrow.
[2024-03-18 12:33] LABS: D Dimer 0.86 ug/mLFEU (0-0.59)
[2024-03-18 12:38] LABS: Anion Gap 16.2 (5-19); Blood Urea Nitrogen 26 mg/dL (8-23); Carbon Dioxide 26 mmol/L (22-29); Chloride 94 mmol/L (98-107); Creatinine Clr Calc Pharmacy 52.1578; Glucose 122 mg/dL (65-115); Osmolality Calculated 280 mOsm/kg (285-295); Potassium 4.2 mmol/L (3.5-5.1); Sodium 132 mmol/L (136-145)
--- NOTE | 2024-03-18 12:52 | PM.TDS ---
Transfer Summary Providers Date of Admission: 03/17/24 06:42 Date of Discharge/Transfer: 03/18/24 Attending Provider at Admission: Nilda Rose MD Attending Provider at Transfer: Jhoan Huizar MD Transfer Plans: Anticipated date of transfer: 03/18/24. Receiving Facility: [facility]. Receiving Provider: Dr. Limno. Diagnoses at Discharge Discharge Diagnosis (1) Hypoxic respiratory failure: Status: Acute (2) Diastolic congestive heart failure: Status: Acute (3) Pleural effusion: Status: Acute (4) Cardiomyopathy: Status: Chronic Qualifiers: Cardiomyopathy type: dilated Qualified Code(s): I42.0 - Dilated cardiomyopathy Permanent problem details: Nonischemic (5) Benign essential HTN: Status: Chronic (6) Hyponatremia: Status: Acute Reason for Visit Reason for Visit SOB Brief History: Rashi Orozco is a 73 year old male with past medical history of diastolic heart failure with last echocardiogram earlier this month which showed an EF of 60%, moderate to severe MR, paroxysmal A-fib, recent diagnosis of enterovirus, recent LEOPOLDO and small bowel obstruction who was discharged on 03/10 presents to the ER today because of worsening difficulty in breathing. Patient states his breathing has been not to his baseline since the last discharge but got worse over last few days so he came to the ER. Shortness of breath gets worse on minimal exertion and laying down. Denies any chest pain. At baseline he is not on any oxygen but in the ER required up to 2 to 3 L of oxygen supplementation to maintain saturation over 90%. Denies any fever, nausea, vomiting. Complains of cough on and off. Hospital Course Hospital Course Patient was admitted to the hospital further evaluation and management of shortness of breath in setting of CHF exacerbation with preserved ejection fraction, moderate to severe MR. He was started on IV diuresis. CTA was done on admission which was concerning for bilateral pleural effusion for which thoracentesis was scheduled. During hospitalization patient did have episode of abdominal pain in the inguinal hernia region for which CT abdomen pelvis was done which showed no small bowel obstruction. Pain resolved with manual reduction of the inguinal hernia. Patient was continued on clear liquid diet and he continued to have soft bowel movements. Patient's daughter requested patient to be transferred to [facility] for further management. We did discuss that going forward he would need IV diuresis gently while monitoring his renal functions, thoracentesis after which some of his symptoms should resolve though we do believe that most of his symptoms are getting precipitated due to mitral regurgitation in setting of tachycardia. We did discuss that gradually he should improve and most likely going forward he might need mitral valve clipping once he is more stable. Daughter verbalized understanding but continued to request transfer to a tertiary center. Care were discussed in detail with nurse practitioner from [facility] and he was accepted. He has been transferred in hemodynamically stable condition as per patient's request. Thoracentesis has not been done as per patient's and daughter's request as they would want to pursue it at [facility] after transfer. Physical Exam Narrative: General: No acute distress, AO x3, chronically sick appearing on nasal cannula HEENT: PERRLA, pupils bilaterally equal and reactive Chest: Bilateral bronchial breath sounds all over lung michel, diffuse rhonchi, decreased air entry bilateral lower zone CVS: S1-S2 regular, pansystolic murmur at the apex radiating to midaxillary line, no tachycardia, no gallops, no rubs Abdomen: Soft, nontender, no organomegaly, bowel sounds present, right inguinal hernia, reducible manually on laying down Neuro: No focal deficits, no facial deformity, AO x3, power 5/5 in all limbs Urinary Catheter Management: Hicks: Cath Placed During This Visit: yes Reason for Continuing Indwelling Catheter: Accurate Measurement of Urinary Output in Critically Ill Patients Urinary Catheter Date of Insertion: 03/17/24 Urinary Catheter Time of Insertion: 16:24 TS Data Studies Completed and Pending Pending at discharge Category Date Time Status Complete Blood Count w/Auto AM LABS Lab 03/19/24 04:00 Ordered Comprehensive Metabolic Panel AM LABS Lab 03/19/24 04:00 Ordered Completed Studies During Hospitalization Category Date Time Status CT abdomen pelvis wo con [id number] Routine Cat Scan 03/18/24 10:[address] angio chest PE protcl [id number] Stat Cat Scan 03/17/24 05:13 Completed XR chest 1V portable [id number] Stat Exams 03/17/24 04:46 Completed Laboratory Last Values WBC 9.82 10^3/uL (3.29-11.43) 03/18/24 07:11 RBC 4.22 10^6/uL (3.85-5.65) 03/18/24 07:11 Hgb 12.50 g/dL (11.27-16.99) 03/18/24 07:11 Hct 38.5 % (37-53) 03/18/24 07:11 MCV 91.2 fl (82-101) 03/18/24 07:11 MCH 29.6 pg (27-33) 03/18/24 07:11 MCHC 32.5 g/dL (30-55) 03/18/24 07:11 RDW 14.0 % (12.1-15.1) 03/18/24 07:11 Plt Count 238 10^3/cmm (157-399) 03/18/24 07:11 MPV 10.6 fL (7.4-10.4) H 03/18/24 07:11 Neut % (Auto) 80.7 % 03/18/24 07:11 Lymph % (Auto) 7.8 % 03/18/24 07:11 Banner % (Auto) 10.9 % 03/18/24 07:11 Eos % (Auto) 0.1 % 03/18/24 07:11 Baso % (Auto) 0.2 % 03/18/24 07:11 Neut # (Auto) 7.92 10^3/uL (1.8-7.7) H 03/18/24 07:11 Lymph # (Auto) 0.8 10^3/uL (0.8-4.8) 03/18/24 07:11 Banner # (Auto) 1.1 10^3/uL (0.2-0.9) H 03/18/24 07:11 Eos # (Auto) 0.0 10^3/uL (0.0-0.8) 03/18/24 07:11 Baso # (Auto) 0.0 10^3/uL (0.0-0.1) 03/18/24 07:11 Nucleated RBC % (auto) 0 % 03/18/24 07:11 Nucleated RBCs # 0.0 /100WBC 03/18/24 07:11 PT 13.40 SECONDS (12.1-14.9) 03/18/24 07:11 INR 0.99 (0.8-1.2) 03/18/24 07:11 APTT 29.7 Seconds (23.9-36.7) 03/18/24 07:11 PTT Patient/Normal 1:1 28.1 Seconds (23.9-36.7) 03/18/24 07:11 D-Dimer 0.86 ug/mLFEU (0-0.59) H 03/18/24 11:46 Specimen Type Arterial 03/17/24 16:07 Sample Site Radial, left 03/17/24 16:07 ABG pH 7.40 (7.35-7.45) 03/17/24 16:07 ABG pCO2 43.4 mmHg (35-45) 03/17/24 16:07 ABG pO2 65.7 mmHg (80.0-100.0) L 03/17/24 16:07 ABG PO2/FiO2 Ratio 205 03/17/24 16:07 ABG HCO3 26.9 mmol/L (22-26) H 03/17/24 16:07 ABG O2 Saturation 92.8 03/17/24 16:07 ABG Base Excess 1.8 mmol/L (-2.0-2.0) 03/17/24 16:07 Timmy Test N/a 03/17/24 16:07 A-a O2 Gradient 14.3 mmHg (5-10) H 03/17/24 16:07 Hematocrit 39.8 % (42-52) L 03/17/24 16:07 Hgb O2 Saturation 90.8 % (95-100) L 03/17/24 16:07 Carboxyhemoglobin 1.1 %THgb (0.4-20.1) 03/17/24 16:07 Methemoglobin 1.0 % (0.4-1.5) 03/17/24 16:07 Total Hemoglobin 13.0 g/dL (14-18) L 03/17/24 16:07 Sodium 127.0 mmol/L (131-143) L 03/17/24 16:07 Potassium 4.0 mmol/L (3.5-5.0) 03/17/24 16:07 Glucose 142.0 mg/dL (70-115) H 03/17/24 16:07 Ionized Calcium 1.2 mmol/L (1.1-1.4) 03/17/24 16:07 O2 Delivery Device Nc 03/17/24 16:07 O2 Liters/Min 3.0 % 03/17/24 16:07 FiO2 32.0 % 03/17/24 16:07 Complex Manager ID Amh 03/17/24 16:07 Sodium 132 mmol/L (136-145) L 03/18/24 11:46 Potassium 4.2 mmol/L (3.5-5.1) 03/18/24 11:46 Chloride 94 mmol/L (98-107) L 03/18/24 11:46 Carbon Dioxide 26 mmol/L (22-29) 03/18/24 11:46 Anion Gap 16.2 (5-19) 03/18/24 11:46 BUN 26 mg/dL (8-23) H 03/18/24 11:46 Creatinine 1.3 mg/dL (0.7-1.2) H 03/18/24 11:46 GFR Calculation Not Reportable 03/18/24 11:46 Glucose 122 mg/dL (65-115) H 03/18/24 11:46 Estimat Average Glucose 117 03/18/24 07:11 Hemoglobin A1c 5.7 % (4.0-6.0) 03/18/24 07:11 Calculated Osmolality 280 mOsm/kg (285-295) L 03/18/24 11:46 Lactic Acid 1.1 mmol/L (0.5-2.2) 03/17/24 04:58 Calcium 9.0 mg/dL (8.5-10.5) 03/18/24 11:46 Phosphorus 4.1 mg/dL (2.5-4.5) 03/18/24 07:11 Magnesium 2.2 mg/dL (1.7-2.3) 03/18/24 07:11 Iron 24 ug/dL (59-158) L 03/17/24 06:57 TIBC 235 mcg/dl 03/17/24 06:57 % Saturation 10.2 % (20-50) L 03/17/24 06:57 Unsat Iron Binding 211 ug/dL (112-347) 03/17/24 06:57 Total Bilirubin 0.3 mg/dL (0.15-1.2) 03/18/24 07:11 AST 35 U/L (0-40) 03/18/24 07:11 ALT 47 U/L (0-41) H 03/18/24 07:11 Alkaline Phosphatase 115 U/L (40-130) 03/18/24 07:11 Troponin T Baseline 38 ng/L (0-15) H 03/17/24 04:58 Troponin T 120 Minute 34.51 ng/L (0-15) H 03/17/24 06:57 Delta Troponin T -3.49 ABS# (0-10) L 03/17/24 06:57 Troponin T Hi Sens 6Hr 35.55 ng/L (0-15) H 03/17/24 10:23 Troponin T Hi Sens 6Hr Delta -2.45 ng/L (0-12) L 03/17/24 10:23 NT-Pro-B Natriuret Pep 37244 pg/mL (0-125) H 03/17/24 04:58 Total Protein 5.8 g/dL (6.6-8.7) L 03/18/24 07:11 Albumin 3.5 g/dL (3.5-5.2) 03/18/24 07:11 Globulin 2.3 g/dL (1.3-4.6) 03/18/24 07:11 Triglycerides 82 mg/dL (0-150) 03/18/24 07:11 Cholesterol 154 mg/dL (0-200) 03/18/24 07:11 LDL Cholesterol, Calc 68 mg/dL (50-129) 03/18/24 07:11 HDL Cholesterol 70 mg/dL (60-100) 03/18/24 07:11 LDL/HDL Ratio 0.97 RATIO (0.00-3.22) 03/18/24 07:11 Cholesterol/HDL Ratio 2.20 mg/dL (1.0-5.00) 03/18/24 07:11 Vitamin B12 479 pg/mL (232-1245) 03/17/24 06:57 Folate 9.5 ng/mL (4.5-32.2) 03/18/24 07:11 Procalcitonin 0.09 ng/mL (0-0.5) 03/18/24 07:11 TSH 5.89 uIU/mL (0.27-4.20) H 03/17/24 06:57 Urine Color Yellow (Yellow) 03/17/24 10:05 Urine Appearance Clear (CLEAR) 03/17/24 10:05 Urine pH 6.5 (5-7) 03/17/24 10:05 Ur Specific [place] 1.058 (1.005-1.030) H 03/17/24 10:05 Urine Protein Trace (Negative) A 03/17/24 10:05 Urine Glucose (UA) Negative (Normal) 03/17/24 10:05 Urine Ketones Negative (Negative) 03/17/24 10:05 Urine Blood Negative (Negative) 03/17/24 10:05 Urine Nitrate Negative (Negative) 03/17/24 10:05 Urine Bilirubin Negative (Negative) 03/17/24 10:05 Urine Urobilinogen 1.0 mg/dL (Negative) 03/17/24 10:05 Ur Leukocyte Esterase Negative (Negative) 03/17/24 10:05 Urine RBC 0-2 /hpf (0-2) 03/17/24 10:05 Urine WBC 0-5 /hpf (0-5) 03/17/24 10:05 Ur Squamous Epith Cells 0-5 /hpf (0-5) 03/17/24 10:05 Amorphous Sediment Not Reportable 03/17/24 10:05 Urine Bacteria None seen /hpf (NONE) 03/17/24 10:05 Hyaline Casts 0.40 /lpf 03/17/24 10:05 Adenovirus (PCR) Not detected (NOT DETECT) 03/17/24 10:05 C. pneumoniae DNA (PCR) Not detected (NOT DETECT) 03/17/24 10:05 Coronavirus 229E (PCR) Not detected (NOT DETECT) 03/17/24 10:05 Human Metapneumovir PCR Not detected (NOT DETECT) 03/17/24 10:05 Influenza A (H1) PCR Not detected (NOT DETECT) 03/17/24 10:05 Influ A (H1/09) PCR Not detected (NOT DETECT) 03/17/24 10:05 Influenza A (H3) PCR Not detected (NOT DETECT) 03/17/24 10:05 Influenza Type A (PCR) Not detected (NOT DETECT) 03/17/24 10:05 Influenza Type B (PCR) Not detected (NOT DETECT) 03/17/24 10:05 M. pneumoniae (PCR) Not detected (NOT DETECT) 03/17/24 10:05 Parainfluenza 1 (PCR) Not detected (NOT DETECT) 03/17/24 10:05 Parainfluenza 2 (PCR) Not detected (NOT DETECT) 03/17/24 10:05 Parainfluenza 3 (PCR) Not detected (NOT DETECT) 03/17/24 10:05 Parainfluenza 4 (PCR) Not detected (NOT DETECT) 03/17/24 10:05 RSV Type A (PCR) Not detected (NOT DETECT) 03/17/24 10:05 RSV Type B (PCR) Not detected (NOT DETECT) 03/17/24 10:05 Entero/Rhino (PCR) Not detected (NOT DETECT) 03/17/24 10:05 SARS-CoV-2 (PCR) Not detected (NOT DETECT) 03/17/24 10:05 Radiology Impressions Chest X-Ray 03/17/24 04:46 IMPRESSION: Grossly stable examination, perhaps small increase in fluid of the left pleural space. Chest CTA 03/17/24 05:13 IMPRESSION: 1. No pulmonary embolus. 2. Moderate-sized bilateral pleural effusions with about 50% atelectasis of the bilateral lower lobes. 3. Findings suggestive of CHF. 4. New from prior comparison is anterior right upper lobe subpleural infiltrate with central cystic change (this may the underlying emphysematous change seen elsewhere), nonspecific attention follow-up examinations to assess for stability. COMMENTS: The presence of pulmonary emphysema on CT is an independent risk factor for lung cancer. In the absence of a history or active diagnosis of lung cancer, it is recommended that this patient with emphysema be evaluated for enrollment in a low dose CT lung cancer screening program. Abdomen/Pelvis CT 03/18/24 10:35 IMPRESSION: 1. Small to moderate bilateral pleural effusions with slight increase in size since the prior study. 2. Cardiomegaly. 3. No ascites. 4. RIGHT inguinal hernia contains a loop of small bowel which is not dilated. There is a small amount of fluid in the hernia sac. This can be related to early signs of ischemia. At this time there is no dilatation or pneumatosis identified. 5. Mild fluid-filled small bowel loops may be an ileus. There is no high-grade obstruction. Possibility of an intermittent obstruction caused by the RIGHT inguinal hernia should be considered clinically. 6. No renal obstruction. Recent Clincial Data Last Vital Signs Temp 97.5 F L 03/18/24 12:00 Pulse 91 03/18/24 12:00 Resp 26 H 03/18/24 12:00 BP 97/59 03/18/24 12:00 Pulse Ox 92 03/18/24 12:00 O2 Del Method Nasal Cannula 03/18/24 12:00 O2 Flow Rate 2 03/18/24 08:28 Vital Signs Temp Pulse Resp BP Pulse Ox O2 Del Method O2 Flow Rate 03/18/24 12:00 97.5 F L 91 26 H 97/59 92 Nasal Cannula 03/18/24 11:01 22 H 92 03/18/24 08:28 94 24 H 94 Nasal Cannula 2 03/18/24 07:52 97.8 F 95 14 122/83 97 Nasal Cannula 03/18/24 05:30 106 H 03/18/24 03:27 98.4 F 106 H 23 H 130/87 94 Nasal Cannula 3 Intake & Output/Weight 03/16/24 03/17/24 03/18/24 03/19/24 06:59 06:59 06:59 06:59 Intake Total 0 / 0 600 / 600 240 / 240 Output Total 1650 / 1650 Balance 0 / 0 -1050 / -1050 240 / 240 Weight 68.039 kg 76.113 kg Vitals Last Vital Signs Temp 97.5 F L 03/18/24 12:00 Pulse 91 03/18/24 12:00 Resp 26 H 03/18/24 12:00 BP 97/59 03/18/24 12:00 Pulse Ox 92 03/18/24 12:00 O2 Del Method Nasal Cannula 03/18/24 12:00 O2 Flow Rate 2 03/18/24 08:28 TS Medications Medications Acetaminophen (Acetaminophen 325 Mg Tablet) 650 mg PO Q6H PRN PRN Reason: Mild/Mod Pain Or Temp >/= 101 Hydrocodone Bitart/Acetaminophen (Hydrocodone-Acetaminophen 5-325 Mg Tablet) 1 tab PO Q6H PRN PRN Reason: pain Last Admin: 03/18/24 09:40 Dose: 1 tab Aspirin (Aspirin 81 Mg Ec Tablet) 81 mg PO DAILY LEONARDO Last Admin: 03/18/24 09:33 Dose: 81 mg Bisacodyl (Bisacodyl 5 Mg Tablet) 10 mg PO DAILY PRN; Protocol PRN Reason: Constipation (see protocol) Budesonide (Budesonide 0.5 Mg/2 Ml Neb) 0.5 mg INHALATION BID.RESPIRATORY LEONARDO Last Admin: 03/18/24 08:28 Dose: 0.5 mg Enoxaparin Sodium (Enoxaparin 40 Mg/0.4 Ml Syringe) 40 mg SUBCUT Q24H [facility] Last Admin: 03/18/24 09:33 Dose: 40 mg Famotidine (Famotidine 20 Mg Tablet) 20 mg PO BID [facility] Last Admin: 03/18/24 09:34 Dose: 20 mg Ipratropium [place] (Ipratropium 0.5 Mg/2.5 Ml Neb) 0.5 mg INHALATION Q6H.RESP [facility] Last Admin: 03/18/24 08:28 Dose: 0.5 mg Isosorbide Mononitrate (Isosorbide Mononitrate Er 30 Mg Tablet) 30 mg PO DAILY [facility] Last Admin: 03/18/24 11:01 Dose: 30 mg Lactulose (Lactulose Oral Liq 20 Gm/30 Ml Udc) 10 gm PO DAILY PRN; Protocol PRN Reason: Constipation (see protocol) Levalbuterol HCl (Levalbuterol 0.63 Mg/3 Ml Neb) 0.63 mg INHALATION Q6H.RESP [facility] Last Admin: 03/18/24 08:28 Dose: 0.63 mg Magnesium Hydroxide (Magnesium Hydroxide 30 Ml Udc) 30 ml PO DAILY PRN; Protocol PRN Reason: Constipation (see protocol) Metoprolol Tartrate (Metoprolol Tartrate 25 Mg Tablet) 25 mg PO BID@0900,2100 [facility] Last Admin: 03/18/24 09:34 Dose: 25 mg Morphine Sulfate (Morphine 4 Mg/Ml Sdv 1 Ml) 2 mg IVP Q4H PRN PRN Reason: SEVERE PAIN Last Admin: 03/18/24 11:01 Dose: 2 mg Ondansetron HCl (Ondansetron 2 Mg/Ml Sdv 2 Ml) 4 mg IVP Q6H PRN PRN Reason: NAUSEA AND VOMITING Last Admin: 03/17/24 15:57 Dose: 4 mg Prednisone (Prednisone 20 Mg Tablet) 40 mg PO DAILY [facility] Last Admin: 03/18/24 09:33 Dose: 40 mg Tamsulosin HCl (Tamsulosin 0.4 Mg Capsule) 0.4 mg PO DAILY [facility] Last Admin: 03/18/24 09:34 Dose: 0.4 mg Discontinued Medications Budesonide (Budesonide 0.5 Mg/2 Ml Neb) 0.5 mg INHALATION BID [facility] Last Admin: 03/17/24 09:38 Dose: 0.5 mg Furosemide (Furosemide 10 Mg/Ml Sdv 4ml) 40 mg IVP Q24H [facility] Last Admin: 03/18/24 09:32 Dose: 40 mg Furosemide (Furosemide 10 Mg/Ml Sdv 4ml) 40 mg IVP ONCE ONE Stop: 03/17/24 15:38 Last Admin: 03/17/24 16:24 Dose: 40 mg Iohexol (Iohexol 350 Mg/Ml 500 Ml Btl (Per Ml)) 0 ml IV ONCE ONE Stop: 03/17/24 05:40 Last Admin: 03/17/24 05:40 Dose: 100 ml Metoprolol Tartrate (Metoprolol Tartrate 25 Mg Tablet) 12.5 mg PO ONCE ONE Stop: 03/17/24 06:23 Last Admin: 03/17/24 06:29 Dose: 12.5 mg Morphine Sulfate (Morphine 4 Mg/Ml Sdv 1 Ml) 2 mg IVP Q4H [facility] Allergies No Known Allergies Allergy (Verified 03/17/24 04:55) Home Medications acetaminophen 500 mg tablet (Tylenol Extra Strength) 500 mg PO Q6H PRN Pain 05/05/22 [History Confirmed 03/17/24] hydrocodone 5 mg-acetaminophen 325 mg tablet 1 tab PO Q6H PRN pain #14 tabs 03/03/24 [Rx Confirmed 03/17/24] furosemide 20 mg tablet 20 mg PO BID 03/07/24 [History Confirmed 03/17/24] tamsulosin 0.4 mg capsule 0.4 mg PO DAILY #90 caps 03/10/24 [Rx Confirmed 03/17/24] albuterol sulfate 90 mcg/actuation aerosol inhaler (Ventolin HFA) 2 inh inhalation QID PRN shortness of breath or wheezing #8.5 grams 03/16/24 [Rx Confirmed 03/17/24] aspirin 81 mg tablet,delayed release 81 mg PO DAILY 03/17/24 [History Confirmed 03/17/24] Discharge Plan Discharge Patient Disposition: Home Condition: Stable Prescriptions: No Action acetaminophen [Tylenol Extra Strength] 500 mg tablet 500 mg PO Q6H PRN (Reason: Pain) albuterol sulfate [Ventolin HFA] 90 mcg/actuation HFA aerosol inhaler 2 inh inhalation QID PRN (Reason: shortness of breath or wheezing) Qty: 8.5 0RF hydrocodone-acetaminophen 5-325 mg tablet 1 tab PO Q6H PRN (Reason: pain) Qty: 14 0RF furosemide 20 mg tablet 20 mg PO BID tamsulosin 0.4 mg capsule 0.4 mg PO DAILY Qty: 90 0RF aspirin [Aspir-81] 81 mg Tablet,Delayed Release (Dr/Ec) 81 mg PO DAILY Discharge Orders: Transfer Out of Facility (Order); Ordered 03/18/24 Ordered By: Jhoan Huizar Discharge Diet: Cardiac Discharge Activity: Resume usual activity and Increase activity as tolerated Patient Instructions: Opioid Safety Transfer Attestations Time Spent in Transfer Care: greater than 30 min Specific Discharge Activities: educating patient, educating and/or supporting family/caregiver, discussing with pcp/other providers, discussing with case monitor/social workers/dc planners, documenting/other paperwork and evaluating patient/reviewing data Status at Transfer: Cognitive status at transfer: cognitively intact; Behavioral status at transfer: cooperative; Functional status at transfer: independent ambulation; Overall status at transfer: patient is not back to baseline Quality Metrics Clinical Quality Measures [ No reported AMI, CVA or VTE this stay] Coding Level of Care Code 53056 Total time (in minutes) for Discharge: 70 Diagnoses Hypoxic respiratory failure J96.91 Diastolic congestive heart failure I50.30 Pleural effusion J90 Dilated cardiomyopathy I42.0 Cardiomyopathy type: dilated Benign essential HTN I10 Hyponatremia E87.1
--- NOTE | 2024-03-18 15:14 | PC.NURSE ---
pt's daughter has refused the ordered thoracentesis for pt and has requested transfer to [facility].bed was secured.report phoned to josephine wright,.ems here to transport pt to [facility].discharged at this time.
== END 2024-03-18 15:17 | disposition short-term general hospital (02) | DRG 189 ==
LOC: ER 05:55 → CSU 06:42
PROVIDERS: Emergency Medicine; Admitting Provider Student in an Organized Health Care Education/Training Program; Emergency Provider Family Medicine; Visit Provider Student in an Organized Health Care Education/Training Program
DX: J96.01 Acute respiratory failure with hypoxia (principal); I50.33 Acute on chronic diastolic (congestive) heart failure; E87.1 Hypo-osmolality and hyponatremia; J44.1 Chronic obstructive pulmonary disease with (acute) exacerbation; I11.0 Hypertensive heart disease with heart failure; I34.0 Nonrheumatic mitral (valve) insufficiency; K40.90 Unilateral inguinal hernia, without obstruction or gangrene, not specified as recurrent; I25.10 Atherosclerotic heart disease of native coronary artery without angina pectoris; N40.0 Benign prostatic hyperplasia without lower urinary tract symptoms; Z87.891 Personal history of nicotine dependence; Z86.14 Personal history of Methicillin resistant Staphylococcus aureus infection; Z79.82 Long term (current) use of aspirin
CPT/HCPCS: 36415; 36600; 51702; 71045; 71275; 74176; 80048; 80051; 80053; 80061; 81001; 82330; 82607; 82746; 82805; 83036; 83540; 83550; 83605; 83735; 83880; 84100; 84145; 84443; 84484; 85025; 85378; 85610; 85730; 87486; 87581; 87633; 93005; 94640; 96372; 97162; 99285; J1650; J1940; J2270; J2405; J7512; J7614; J7626; J7644